=== PATIENT | male | born 1960 | race Caucasian/White ===

== ENCOUNTER 2016-03-24 07:53 | Inpatient (IN) | payer MEDICAID ==
[2016-03-24] VITALS (12 sets, daily range): BP systolic 103–197; BP diastolic 69–88; PULSE 97–109; RESP 19–20; TEMP 98.1–98.6; O2SAT 85–98
[~2016-03-24] VITALS: Ht 177.8 cm; Wt 97.2 kg
[~2016-03-24 07:53] MED LIST: ALBU8I INH; ASEN10TA SL; BACT800T5 PO; CEPH500C3 PO; CLOZ100 PO; PARO20TA PO; REQU3TAB PO
[2016-03-24] MEDS ORDERED: SODIUM CHLORIDE 0.9% FLUSH 5 ML FLUSH IVF PRN (08:15)
--- NOTE | 2016-03-24 08:19 | PD ---
HPI Chief Complaint: General Weakness Time Seen by Provider: 08:16 Travel History International Travel<30 days: No Contact w/Intl Traveler<30days: No Traveled to known affect area: No History of Present Illness HPI 55-year-old male with history of schizophrenia, hypertension, presents to the ER from his assisted care facility because of several days of generalized weakness, coughing, tremors, and disorientation according to long-term facility. Patient states that he has been having some chest discomfort as well. He denies any fevers, vomiting, or other symptoms. Modifying Factors: None Associated Signs & Symptoms: General weakness, disorientation, coughing, tremors , chest discomfort Risk Factors: None PFSH Past Medical History Anxiety: Yes Depression: Yes Cancer: No Cardiovascular Problems: No Endocrine: No GERD: Yes Genitourinary: No Hypertension: Yes Immune Disorder: No Medical other: Yes (HERNIA) Musculoskeletal: No Neurologic: No Psychiatric: Yes Reproductive: No Respiratory: No Schizophrenia: Yes Ulcer: Yes Past Surgical History Surgical History: Unable to Obtain Social History Alcohol Use: Yes Tobacco Use: Yes Substance Use: No Allergies-Medications (Allergen,Severity, Reaction): Coded Allergies: Haldol (Verified Allergy, Severe, Hives, 10/13/13) Reported Meds & Prescriptions Reported Meds & Active Scripts Active Keflex (Cephalexin Monohydrate) 500 Mg Cap 500 Mg PO Q8 10 Days Bactrim DS (Sulfamethoxazole-Trimethoprim DS) 1 Tab Tab 1 Tab PO BID 10 Days Reported Ventolin Hfa (Albuterol Sulfate) Unknown Strength Aero Unknown Dose INH Q6 * SHAKE WELL BEFORE USE * Saphris (Asenapine) 10 Mg Sub 10 Mg SL BID Paroxetine Hcl (Paroxetine HCl) 20 Mg Tab 20 Mg PO DAILY Requip (Ropinirole HCl) 3 Mg Tab 3 Mg PO HS Clozaril (Clozapine) 100 Mg Tab 4 Tab PO HS Review of Systems ROS Limitations: Poor Historian Except as stated in HPI: all other systems reviewed are Neg Physical Exam Narrative GENERAL: Well-nourished, well-developed middle age white male patient who appears lethargic, but awake and able to answer questions. SKIN: Warm and dry. HEAD: Normocephalic. EYES: No scleral icterus. No injection or drainage. NECK: Supple, trachea midline. CARDIOVASCULAR: Regular rate and rhythm without murmurs, gallops, or rubs. RESPIRATORY: Breath sounds equal with mild intermittent wheezing bilaterally. No accessory muscle use. GASTROINTESTINAL: Abdomen soft, non-tender, nondistended. MUSCULOSKELETAL: No cyanosis, or edema. BACK: Nontender without obvious deformity. No CVA tenderness. Data Data Last Documented VS Vital Signs Date Time Temp Pulse Resp B/P Pulse Ox O2 Delivery O2 Flow Rate FiO2 03/24/16 09:00 197/88 03/24/16 08:33 98 20 91 Nasal Cannula 4 03/24/16 08:05 98.5 Orders Electrocardiogram (03/24/16 08:09) Complete Blood Count With Diff (03/24/16 08:09) Comprehensive Metabolic Panel (03/24/16 08:09) Creatine Kinase (Cpk) (03/24/16 08:09) Prothrombin Time / Inr (Pt) (03/24/16 08:09) Act Partial Throm Time (Ptt) (03/24/16 08:09) Troponin I (03/24/16 08:09) Thyroid Stimulating Hormone (03/24/16 08:09) Lactic Acid Sepsis Protocol (03/24/16 08:09) Urinalysis - C+S If Indicated (03/24/16 08:09) Blood Culture (03/24/16 08:09) Chest, Single Ap (03/24/16 08:09) Ct Brain W/O Iv Contrast(Rout) (03/24/16 08:09) Blood Glucose (03/24/16 08:09) Ecg Monitoring (03/24/16 08:09) Iv Access Insert/Monitor (03/24/16 08:09) Cath For Specimen (03/24/16 08:09) Oximetry (03/24/16 08:09) Sodium Chloride 0.9% Flush (Ns Flush) (03/24/16 08:15) B-Type Natriuretic Peptide (03/24/16 08:09) Sodium Chlor 0.9% 1000 Ml Inj (Ns 1000 M (03/24/16 08:30) Urine Culture (03/24/16 08:50) Furosemide Inj (Lasix Inj) (03/24/16 10:00) Ceftriaxone Inj (Rocephin Inj) (03/24/16 09:46) Azithromycin Inj (Zithromax Inj) (03/24/16 09:46) Labs Laboratory Tests Test 03/24/16 03/24/16 08:20 08:50 White Blood Count 5.1 TH/MM3 Red Blood Count 5.17 MIL/MM3 Hemoglobin 15.6 GM/DL Hematocrit 47.0 % Mean Corpuscular Volume 90.8 FL Mean Corpuscular Hemoglobin 30.1 PG Mean Corpuscular Hemoglobin 33.1 % Concent Red Cell Distribution Width 14.4 % Platelet Count 108 TH/MM3 Mean Platelet Volume 8.9 FL Neutrophils (%) (Auto) 68.5 % Lymphocytes (%) (Auto) 17.1 % Monocytes (%) (Auto) 12.1 % Eosinophils (%) (Auto) 1.8 % Basophils (%) (Auto) 0.5 % Neutrophils # (Auto) 3.5 TH/MM3 Lymphocytes # (Auto) 0.9 TH/MM3 Monocytes # (Auto) 0.6 TH/MM3 Eosinophils # (Auto) 0.1 TH/MM3 Basophils # (Auto) 0.0 TH/MM3 CBC Comment DIFF FINAL Differential Comment Prothrombin Time 10.8 SEC Prothromb Time International 1.0 RATIO Ratio Activated Partial 29.8 SEC Thromboplast Time Sodium Level 138 MEQ/L Potassium Level 4.1 MEQ/L Chloride Level 95 MEQ/L Carbon Dioxide Level 38.0 MEQ/L Anion Gap 5 MEQ/L Blood Urea Nitrogen 15 MG/DL Creatinine 1.49 MG/DL Estimat Glomerular Filtration 49 ML/MIN Rate Random Glucose 101 MG/DL Lactic Acid Level 1.0 mmol/L Calcium Level 8.2 MG/DL Total Bilirubin 0.6 MG/DL Aspartate Amino Transf 14 U/L (AST/SGOT) Alanine Aminotransferase 17 U/L (ALT/SGPT) Alkaline Phosphatase 84 U/L Total Creatine Kinase 98 U/L Troponin I 0.10 NG/ML B-Type Natriuretic Peptide 344 PG/ML Total Protein 6.5 GM/DL Albumin 3.3 GM/DL Thyroid Stimulating Hormone 1.250 uIU/ML 3rd Gen Urine Color YELLOW Urine Turbidity CLEAR Urine pH 5.5 Urine Specific [place] 1.012 Urine Protein 30 mg/dL Urine Glucose (UA) NEG mg/dL Urine Ketones NEG mg/dL Urine Occult Blood NEG Urine Nitrite NEG Urine Bilirubin NEG Urine Urobilinogen 2.0 MG/DL Urine Leukocyte Esterase TRACE Urine RBC 1 /hpf Urine WBC 1 /hpf Urine Squamous Epithelial <1 /hpf Cells Urine Bacteria RARE /hpf Urine Hyaline Casts 16 /lpf Urine Mucus FEW /lpf Microscopic Urinalysis Comment CATH-CULTURE IND MDM Medical Decision Making Medical Screen Exam Complete: Yes Emergency Medical Condition: Yes Medical Record Reviewed: Yes Interpretation(s) EKG shows sinus tachycardia at a rate of 100 bpm with no signs of acute ST changes. Laboratory Tests Test 03/24/16 03/24/16 08:20 08:50 Platelet Count 108 TH/MM3 (150-450) Monocytes (%) (Auto) 12.1 % (0.0-8.0) Lymphocytes # (Auto) 0.9 TH/MM3 (1.0-4.8) Chloride Level 95 MEQ/L (98-107) Carbon Dioxide Level 38.0 MEQ/L (21.0-32.0) Creatinine 1.49 MG/DL (0.60-1.30) Estimat Glomerular Filtration 49 ML/MIN (>89) Rate Calcium Level 8.2 MG/DL (8.5-10.1) Aspartate Amino Transf 14 U/L (15-37) (AST/SGOT) Troponin I 0.10 NG/ML (0.02-0.05) B-Type Natriuretic Peptide 344 PG/ML (0-100) Albumin 3.3 GM/DL (3.4-5.0) Urine Protein 30 mg/dL (NEG-TRACE) Urine Leukocyte Esterase TRACE (NEG) Urine Bacteria RARE /hpf (NONE) Urine Mucus FEW /lpf (OCC) Last [address] 03/24/16 0809 Signed Impressions: Service Date/Time: Thursday, March 24, 2016 09:20 - CONCLUSION: Negative for acute process. Soft tissue nodule on the right as described above. Bladimir Fagan MD FACR Differential Diagnosis Altered mental status, general weakness, tremors, chest discomfortdysrhythmias versus dehydration versus metabolic issues versus rhabdomyolysis versus pneumonia versus sepsis Narrative Course EKG shows tachycardia. CT of the brain did not show any signs of acute intracranial processes. Lab work was otherwise unremarkable. His chest x-ray does show basilar infiltrates questionable for CHF versus underlying pneumonia. IV Lasix and antibiotics were initiated the ER. At this point, my plan would be to admit the patient for further evaluation and treatment. The case was discussed with Dr. Esquivel for admission. Diagnosis Primary Impression: Altered mental status, unspecified Additional Impression: PNEUMONIA, UNSPECIFIED ORGANISM Admitting Information Admitting Physician Requests: Admit Cesar Santoro MD Mar 24, 2016 08:19
[2016-03-24] MEDS ORDERED: SODIUM CHLOR 0.9% 1000 ML INJ 1,000 ML IV ONE (08:30)
[2016-03-24 08:43] LABS: AUTOMATED NEUTROPHIL # 3.5 TH/MM3 (1.8-7.7); BASOPHIL % 0.5 % (0.0-2.0); EOSINOPHIL # 0.1 TH/MM3 (0-0.4); EOSINOPHIL % 1.8 % (0.0-4.0); HEMO FLAGS DIFF FINAL; LYMPH % 17.1 % (9.0-44.0); LYMPHOCYTE # 0.9 TH/MM3 (1.0-4.8); MEAN CELL VOLUME 90.8 FL (80.0-100.0); MEAN CORPUSCULAR HEMOGLOBIN 30.1 PG (27.0-34.0); MEAN CORPUSCULAR HGB CONC 33.1 % (32.0-36.0); MONO % 12.1 % (0.0-8.0); NEUT % 68.5 % (16.0-70.0); PLATELET COUNT 108 TH/MM3 (150-450); RED BLOOD COUNT 5.17 MIL/MM3 (4.50-5.90); RED CELL DISTRIBUTION WIDTH 14.4 % (11.6-17.2); WHITE BLOOD COUNT 5.1 TH/MM3 (4.0-11.0)
[2016-03-24 08:53] LABS: APTT (PATIENT) 29.8 SEC (24.3-30.1); PROTHROMBIN TIME - PATIENT 10.8 SEC (9.8-11.6)
[2016-03-24 08:58] LABS: ANION GAP 5 MEQ/L (5-15); AST (GOT) 14 U/L (15-37); BLOOD UREA NITROGEN 15 MG/DL (7-18); CHLORIDE 95 MEQ/L (98-107); GLOMERULAR FILTRATION RATE 49 ML/MIN (>89); POTASSIUM 4.1 MEQ/L (3.5-5.1); SODIUM (NA) 138 MEQ/L (136-145)
[2016-03-24 09:09] LABS: ALKALINE PHOSPHATASE 84 U/L (45-117); ALT (GPT) 17 U/L (12-78); TOTAL BILIRUBIN ADULT 0.6 MG/DL (0.2-1.0)
[2016-03-24 09:16] LABS: BACTERIA, URINE RARE /hpf; BLOOD, URINE NEG (NEG); GLUCOSE,URINE NEG (NEG); HYALINE CAST, URINE 16 /lpf (RARE); KETONE, URINE NEG (NEG); MUCUS URINE FEW /lpf (OCC); NITRITE,URINE NEG (NEG); PH, URINE 5.5 (5.0-8.5); SQUAMOUS EPITHELIAL CELL URINE <1 /hpf (0-5); URINE COLOR YELLOW (YELLW/STRAW)
[2016-03-24 09:18] LABS: CREATINE KINASE 98 U/L (39-308)
[2016-03-24 09:22] LABS: COMMENT (UR) CATH-CULTURE IND; CULTURE IF INDICATED CATH CULTURE IND
--- NOTE | 2016-03-24 09:36 | RADRPT ---
EXAM DATE/TIME: 03/24/2016 08:23 [facility] COMPARISON: No previous studies available for comparison. INDICATIONS: Syncope with confusion and tremors. MEDICAL HISTORY: None. SURGICAL HISTORY: None. ENCOUNTER: Initial ACUITY: 1 day PAIN SCORE: 0/10 LOCATION: Bilateral chest FINDINGS: Bibasilar patchiness is noted consistent with atelectasis and/or infiltrates. Clinical correlation i s recommended. The heart and mediastinal structures are normal. The pulmonary vascularity pattern i s normal. CONCLUSION: 1. Bibasilar patchiness consistent with atelectasis and/or infiltrates. Clinical correlation is rec ommended. Alexander Willett MD on March 24, 2016 at 9:13 Board Certified Radiologist. This report was verified electronically.
--- NOTE | 2016-03-24 09:39 | RADRPT ---
EXAM DATE/TIME: 03/24/2016 09:20 [facility] COMPARISON: No previous studies available for comparison. INDICATIONS : Altered mental status, weakness and disorientation RADIATION DOSE: 38.36 CTDIvol (mGy) MEDICAL HISTORY : Hypertension. Gastroesophageal reflux disease. SURGICAL HISTORY : None. ENCOUNTER: Initial ACUITY: 1 day PAIN SCALE: 0/10 LOCATION: cranial TECHNIQUE: Multiple contiguous axial images were obtained of the head. Using automated exposure control and adjustment of the mA and/or kV according to patient size, radiation dose was kept as low as reasonably achievable to obtain optimal diagnostic quality images. FINDINGS: CEREBRUM: The ventricles are normal for age. No evidence of midline shift, mass lesion, hemorrha ge or acute infarction. No extra-axial fluid collections are seen. POSTERIOR FOSSA: The cerebellum and brainstem are intact. The 4th ventricle is midline. The cer ebellopontine angle is unremarkable. EXTRACRANIAL: The visualized portion of the orbits is intact. SKULL: The calvaria is intact. No evidence of skull fracture. A small subcutaneous nodule is se en sitting just behind the right ear CONCLUSION: Negative for acute process. Soft tissue nodule on the right as described above. Bladimir Fagan MD FACR on March 24, 2016 at 9:33 Board Certified Radiologist. This report was verified electronically.
[2016-03-24] MEDS ORDERED: AZITHROMYCIN INJ 500 MG in SODIUM CHLOR 0.9% 250 ML INJ 250 ML IV STA (09:46)
[2016-03-24] MEDS ORDERED: cefTRIAXone INJ 2,000 MG in SODIUM CHLORIDE 0.9% INJ 100 ML IV STA (09:46)
[2016-03-24] MEDS ORDERED: FUROSEMIDE 40 MG/4 ML VIAL IV PUSH ONE (10:00)
[2016-03-24] MEDS ORDERED: ONDANSETRON HCL 4 MG/2 ML VIAL IVP PRN (10:15)
[2016-03-24] MEDS ORDERED: ACETAMINOPHEN 325 MG TAB PO PRN (10:15)
[2016-03-24] MEDS ORDERED: NALOXONE HCL 0.4 MG/ML AMP IV PRN (10:15)
[2016-03-24] MEDS ORDERED: BISACODYL 10 MG SUPP PR PRN (10:15)
[2016-03-24] MEDS ORDERED: MAGNESIUM HYDROXIDE SUSP 30 ML CUP PO PRN (10:15)
[2016-03-24] MEDS ORDERED: SODIUM CHLORIDE 0.9% FLUSH 5 ML FLUSH FLUSH PRN (10:15)
[2016-03-24] MEDS ORDERED: SULF10SO3 EACH EYE (10:18)
[2016-03-24] MEDS ORDERED: TRIA37.5 PO (10:18)
[2016-03-24] MEDS ORDERED: ZYRT10TA PO (10:18)
[2016-03-24] MEDS ORDERED: MONT10TA2 PO (10:18)
[2016-03-24] MEDS ORDERED: FEXO180T PO (10:18)
[2016-03-24] MEDS ORDERED: ROPI3TAB PO (10:18)
[2016-03-24] MEDS ORDERED: ALBUAER3 INH (10:18)
[2016-03-24] MEDS ORDERED: OMEP20CA2 PO (10:18)
[2016-03-24] MEDS ORDERED: SAPH5SUB3 SL (10:18)
[2016-03-24] MEDS ORDERED: GABA600T PO (10:18)
[2016-03-24] MEDS ORDERED: SAPH10SU3 SL (10:18)
[2016-03-24] MEDS ORDERED: PAXI30TA7 PO (10:18)
[2016-03-24] MEDS ORDERED: FIBE625T4 PO (10:18)
[2016-03-24] MEDS ORDERED: NAPR500T PO (10:18)
[2016-03-24] MEDS: SODIUM CHLOR 0.9% 1000 ML INJ 1,000 ML IV SCH ×2 (10:30→20:06)
[2016-03-24] MEDS: HEPARIN SODIUM - SQ 10,000 UNITS/ML VIAL SQ SCH ×2 (10:31→20:27)
--- NOTE | 2016-03-24 11:03 | EKG ---
Date Performed: 03/24/2016 Time Performed: 08:30:30 PTAGE: 55 years EKG: SINUS TACHYCARDIA LOW QRS VOLTAGE IN EXTREMITY LEADS ABNORMAL ECG NO PREVIOUS TRACING DOCTOR: Moises Forman Interpretating Date/Time 03/24/2016 11:02:06
--- NOTE | 2016-03-24 11:26 | HHI.HP ---
[facility] Service [place] [facility] Primary Care Physician Saqib Fregoso MD Admission Diagnosis altered mental status/suspected pneumonia Diagnoses: Chief Complaint: General weakness, cough. Travel History International Travel<30 Days: No Contact w/Intl Traveler <30 Da: No Traveled to Known Affected Are: No Sepsis Criteria SIRS Criteria (2 or more): Heart rate over 90 History of Present Illness Patient does not talk much and hard to obtain history. Mr. Moore is a 55 year old male with a history of schizophrenia, hypertension who presents to the ED from his [facility] due to generalized weakness, cough, tremors, disorientation that started several days ago. He reports some chest discomfort as well. Patient reports some cough as well with greenish sputum production. Currently denies any chest pain, shortness of breath, fever or chills. Denies any changes in bowel or bladder habits. Review of Systems ROS Limitations: Other (Negative except as noted in HPI. ) Past Family Social History Past Medical History Anxiety/Depression Hyerptension Schizophrenia Past Surgical History No significant surgical history Reported Medications Keflex (Cephalexin Monohydrate) 500 Mg Cap 500 Mg PO Q8 10 Days Bactrim DS (Sulfamethoxazole-Trimethoprim DS) 1 Tab Tab 1 Tab PO BID 10 Days Ventolin Hfa (Albuterol Sulfate) Unknown Strength Aero Unknown Dose INH Q6 * SHAKE WELL BEFORE USE * Saphris (Asenapine) 10 Mg Sub 10 Mg SL BID Paroxetine Hcl (Paroxetine HCl) 20 Mg Tab 20 Mg PO DAILY Requip (Ropinirole HCl) 3 Mg Tab 3 Mg PO HS Clozaril (Clozapine) 100 Mg Tab 4 Tab PO HS Allergies: Coded Allergies: Haldol (Verified Allergy, Severe, Hives, 10/13/13) Family History No significant family history of heart disease, cancer, Alzheimer's or Parkinson 's. Social History Smokes cigg and drinks alcohol. Physical Exam Vital Signs Vital Signs Date Time Temp Pulse Resp B/P Pulse Ox O2 Delivery O2 Flow Rate FiO2 03/24/16 10:19 93 Nasal Cannula 4.00 03/24/16 10:15 98 20 151/80 92 Nasal Cannula 4 03/24/16 09:00 197/88 03/24/16 08:33 98 20 137/79 91 Nasal Cannula 4 03/24/16 08:16 85 Nasal Cannula 2 03/24/16 08:06 20 87 Room Air 03/24/16 08:05 98.5 101 20 128/85 87 Room Air 03/24/16 08:02 98.5 101 20 128/85 87 Physical Exam GENERAL: This is a well-nourished, well-developed patient, in no apparent distress. SKIN: No rashes, ecchymoses or lesions. Warm and dry. HEAD: Atraumatic. Normocephalic. No temporal or scalp tenderness. EYES: Pupils equal round and reactive. No injection or drainage. ENT: Nose without bleeding, purulent drainage or septal hematoma. Airway patent. NECK: Trachea midline. No lymphadenopathy. Supple, nontender, no meningeal signs. CARDIOVASCULAR: Regular rate and rhythm without murmurs, gallops, or rubs. No JVD. RESPIRATORY: Clear to auscultation. Breath sounds equal bilaterally. No wheezes , rales, or rhonchi. GASTROINTESTINAL: Abdomen soft, non-tender, nondistended. No guarding. MUSCULOSKELETAL: Extremities without clubbing, cyanosis, or edema. NEUROLOGICAL: Awake and alert. Cranial nerves II through XII intact. No focal neurological deficits. Does not talk much but speech appears normal. Laboratory Laboratory Tests Test 03/24/16 03/24/16 08:20 08:50 White Blood Count 5.1 Red Blood Count 5.17 Hemoglobin 15.6 Hematocrit 47.0 Mean Corpuscular Volume 90.8 Mean Corpuscular Hemoglobin 30.1 Mean Corpuscular Hemoglobin 33.1 Concent Red Cell Distribution Width 14.4 Platelet Count 108 Mean Platelet Volume 8.9 Neutrophils (%) (Auto) 68.5 Lymphocytes (%) (Auto) 17.1 Monocytes (%) (Auto) 12.1 Eosinophils (%) (Auto) 1.8 Basophils (%) (Auto) 0.5 Neutrophils # (Auto) 3.5 Lymphocytes # (Auto) 0.9 Monocytes # (Auto) 0.6 Eosinophils # (Auto) 0.1 Basophils # (Auto) 0.0 CBC Comment DIFF FINAL Differential Comment Prothrombin Time 10.8 Prothromb Time International 1.0 Ratio Activated Partial 29.8 Thromboplast Time Sodium Level 138 Potassium Level 4.1 Chloride Level 95 Carbon Dioxide Level 38.0 Anion Gap 5 Blood Urea Nitrogen 15 Creatinine 1.49 Estimat Glomerular Filtration 49 Rate Random Glucose 101 Lactic Acid Level 1.0 Calcium Level 8.2 Total Bilirubin 0.6 Aspartate Amino Transf 14 (AST/SGOT) Alanine Aminotransferase 17 (ALT/SGPT) Alkaline Phosphatase 84 Total Creatine Kinase 98 Troponin I 0.10 B-Type Natriuretic Peptide 344 Total Protein 6.5 Albumin 3.3 Thyroid Stimulating Hormone 1.250 3rd Gen Urine Color YELLOW Urine Turbidity CLEAR Urine pH 5.5 Urine Specific [place] 1.012 Urine Protein 30 Urine Glucose (UA) NEG Urine Ketones NEG Urine Occult Blood NEG Urine Nitrite NEG Urine Bilirubin NEG Urine Urobilinogen 2.0 Urine Leukocyte Esterase TRACE Urine RBC 1 Urine WBC 1 Urine Squamous Epithelial <1 Cells Urine Bacteria RARE Urine Hyaline Casts 16 Urine Mucus FEW Microscopic Urinalysis Comment CATH-CULTURE IND Date/Time Procedure Status Source Growth 03/24/16 08:50 Urine Culture Received Urine Catheterized Urine Pending 03/24/16 08:29 Aerobic Blood Culture Received Blood Peripheral Pending 03/24/16 08:29 Anaerobic Blood Culture Received Blood Peripheral Pending Result Diagram: 03/24/16 0820 03/24/16 0820 Imaging Last Impressions Head CT 03/24/16 0809 Signed Impressions: Service Date/Time: Thursday, March 24, 2016 09:20 - CONCLUSION: Negative for acute process. Soft tissue nodule on the right as described above. Bladimir Fagan MD FACR Chest X-Ray 03/24/16 08 Signed Impressions: Service Date/Time: Thursday, March 24, 2016 08:23 - CONCLUSION: 1. Bibasilar patchiness consistent with atelectasis and/or infiltrates. Clinical correlation is recommended. Alexander Willett MD Assessment and Plan Problem List: (1) Pneumonia ICD Code: J18.9 Status: Acute (2) Delirium ICD Code: R41.0 Status: Acute (3) Hypertension ICD Code: I10 Status: Acute (4) Anxiety and depression ICD Code: F41.9 Status: Acute (5) GERD (gastroesophageal reflux disease) ICD Code: K21.9 Status: Acute Assessment and Plan Mr. Moore is a 55-year-old male with a history of anxiety, depression , hypertension who presents to the emergency department from his assisted living facility due to delirium, cough that started several days ago. Chest x- ray shows bilateral infiltrates and atelectasis. - Probable pneumonia - Delirium - Patient appears to be alert, oriented times person, place, time. - Received ceftriaxone and azithromycin in the emergency department. We'll continue ceftriaxone and azithromycin. - Blood cultures, Urine cx pending. - Continue DuoNeb and supplemental O2 to keep O2 sat > 90%. - Hypertension - Continue home medication triamterene/hydrochlorothiazide. - Anxiety and depression - History of schizophrenia - continue Paxil 30 mg by mouth daily. - Continue Asenapine 5mg SL Qday and 10mg SL QHS. - GERD - continue PPI. Full code. Heparin SQ. Physician Certification 2 Midnight Certification Type: Admission for Inpatient Services Order for Inpatient Services The services are ordered in accordance with Medicare regulations or non- Medicare payer requirements, as applicable. In the case of services not specified as inpatient-only, they are appropriately provided as inpatient services in accordance with the 2-midnight benchmark. Estimated LOS (days): 2 days is the estimated time the patient will need to remain in the hospital, assuming treatment plan goals are met and no additional complications. Post-Hospital Plan: [facility] Margaret Esquivel DO Mar 24, 2016 11:26
[2016-03-24] MEDS ORDERED: NON-FORMULARY DRUG (Fexofenadine 180 MG) PO PRN (11:45)
[2016-03-24] MEDS ORDERED: ALBUTEROL SULFATE 90 MCG/ACT HFA 8 GM INHALER INH PRN (11:45)
[2016-03-24] MEDS ORDERED: CALCIUM POLYCARBOPHIL 625 MG TAB PO PRN (11:45)
[2016-03-24] MEDS ORDERED: PILL SPLITTER OTHER PRN (12:15)
[2016-03-24] MEDS: SULFACETAMIDE SODIUM 10% OPTH SOLN 15 ML BTL EACH EYE SCH ×2 (18:00→20:41)
[2016-03-24] MEDS: MONTELUKAST SODIUM 10 MG TAB PO SCH (20:27)
[2016-03-24] MEDS: GABAPENTIN 300 MG CAP PO SCH (20:27)
[2016-03-24] MEDS: SODIUM CHLORIDE 0.9% FLUSH 5 ML FLUSH FLUSH SCH (20:28)
[2016-03-24] MEDS ORDERED: ASENAPINE SL SCH (21:00)
[2016-03-25] VITALS (12 sets, daily range): BP systolic 112–154; BP diastolic 63–89; PULSE 90–101; RESP 17–20; TEMP 98–98.5; O2SAT 90–96
[2016-03-25] MEDS ORDERED: ACETAMINOPHEN 325 MG TAB PO PRN (05:45)
[2016-03-25] MEDS: SULFACETAMIDE SODIUM 10% OPTH SOLN 15 ML BTL EACH EYE SCH ×4 (06:00→16:05)
[2016-03-25] MEDS: SODIUM CHLOR 0.9% 1000 ML INJ 1,000 ML IV SCH ×2 (06:06→16:06)
[2016-03-25 07:45] LABS: AUTOMATED NEUTROPHIL # 3.1 TH/MM3 (1.8-7.7); BASOPHIL % 0.9 % (0.0-2.0); EOSINOPHIL # 0.3 TH/MM3 (0-0.4); EOSINOPHIL % 5.8 % (0.0-4.0); HEMATOCRIT 46.3 % (39.0-51.0); HEMO FLAGS DIFF FINAL; LYMPHOCYTE # 0.8 TH/MM3 (1.0-4.8); MEAN CELL VOLUME 90.2 FL (80.0-100.0); MEAN CORPUSCULAR HEMOGLOBIN 29.6 PG (27.0-34.0); MEAN CORPUSCULAR HGB CONC 32.8 % (32.0-36.0); MONO % 11.2 % (0.0-8.0); NEUT % 65.1 % (16.0-70.0); PLATELET COUNT 109 TH/MM3 (150-450); RED BLOOD COUNT 5.14 MIL/MM3 (4.50-5.90); RED CELL DISTRIBUTION WIDTH 14.6 % (11.6-17.2); WHITE BLOOD COUNT 4.8 TH/MM3 (4.0-11.0)
[2016-03-25 08:20] LABS: BICARBONATE 38.3 MEQ/L (21.0-32.0); POTASSIUM 3.4 MEQ/L (3.5-5.1)
[2016-03-25] MEDS ORDERED: SAPHRIS 5 MG SL SCH (09:00)
[2016-03-25] MEDS ORDERED: [UNRECOGNIZED DRUG - OTHER] SL SCH (09:00)
[2016-03-25] MEDS: PARoxetine HCL 20 MG TAB PO SCH (09:31)
[2016-03-25] MEDS: TRIAMTERENE/HCTZ 37.5 MG/25 MG TAB PO SCH (09:31)
[2016-03-25] MEDS: PANTOPRAZOLE SOD 20 MG DELAYED RELEASE TAB PO SCH (09:31)
[2016-03-25] MEDS: CETIRIZINE HCL 10 MG TAB PO SCH (09:31)
[2016-03-25] MEDS: HEPARIN SODIUM - SQ 10,000 UNITS/ML VIAL SQ SCH ×2 (09:31→20:49)
[2016-03-25] MEDS: SODIUM CHLORIDE 0.9% FLUSH 5 ML FLUSH FLUSH SCH ×2 (09:32→20:49)
--- NOTE | 2016-03-25 13:56 | HHI.PR ---
Subjective Remarks Follow up for delirium, probable pneumonia. Mr. Moore is doing well. He is requiring vest restraints but improving. He is alert, oriented x 3. Requests coffee. Denies any fever, chills, CP, SOB. Objective Vitals Vital Signs Date Time Temp Pulse Resp B/P Pulse Ox O2 Delivery O2 Flow Rate FiO2 03/25/16 12:00 98.0 96 18 132/89 91 03/25/16 09:46 91 03/25/16 08:10 92 Nasal Cannula 3.00 03/25/16 08:00 98.0 90 18 132/71 91 03/25/16 05:50 98.0 92 18 136/75 93 03/25/16 04:42 98.1 101 18 142/74 96 03/25/16 04:00 98.1 98 18 142/74 96 03/25/16 04:00 98.2 98 20 115/64 94 03/25/16 00:00 98.0 95 18 112/63 94 03/24/16 21:52 Nasal Cannula 3.00 03/24/16 20:00 98.1 97 20 121/69 98 03/24/16 19:56 104 03/24/16 16:24 98.6 97 19 103/69 91 03/24/16 15:24 101 20 131/78 92 Room Air I/O 03/24/16 03/24/16 03/24/16 03/25/16 03/25/16 03/25/16 07:00 15:00 23:00 07:00 15:00 23:00 Intake Total 741 ml 1105 ml 420 ml Output Total 400 ml 600 ml 350 ml Balance 341 ml 505 ml 70 ml Intake Oral 240 ml 420 ml 420 ml IV Total 501 ml 685 ml Output Urine Total 400 ml 600 ml 350 ml # Voids 1 1 2 # Bowel Movements 0 0 0 Result Diagram: 03/25/1662603/25/16626 Imaging Last Impressions Head CT 03/24/16808 Signed Impressions: Service Date/Time: Thursday, March 24, 2016 09:20 - CONCLUSION: Negative for acute process. Soft tissue nodule on the right as described above. Bladimir Fagan MD FACR Chest X-Ray 03/24/16808 Signed Impressions: Service Date/Time: Thursday, March 24, 2016 08:23 - CONCLUSION: 1. Bibasilar patchiness consistent with atelectasis and/or infiltrates. Clinical correlation is recommended. Alexander Willett MD Objective Remarks GENERAL: AOx3, NAD. SKIN: Warm and dry. HEAD: Normocephalic. EYES: No scleral icterus. No injection or drainage. NECK: Supple, trachea midline. No JVD or lymphadenopathy. CARDIOVASCULAR: Regular rate and rhythm without murmurs, gallops, or rubs. RESPIRATORY: Breath sounds equal bilaterally. No accessory muscle use. GASTROINTESTINAL: Abdomen soft, non-tender, nondistended. MUSCULOSKELETAL: No cyanosis, or edema. BACK: Nontender without obvious deformity. No CVA tenderness. Procedures None. A/P Problem List: (1) Pneumonia ICD Code: J18.9 Status: Acute (2) Delirium ICD Code: R41.0 Status: Acute (3) Hypertension ICD Code: I10 Status: Acute (4) Anxiety and depression ICD Code: F41.9 Status: Acute (5) GERD (gastroesophageal reflux disease) ICD Code: K21.9 Status: Acute Assessment and Plan Mr. Moore is a 55-year-old male with a history of anxiety, depression , hypertension who presents to the emergency department from his assisted living facility due to delirium, cough that started several days ago. Chest x- ray shows bilateral infiltrates and atelectasis. - Probable pneumonia - Delirium - Patient appears to be alert, oriented times person, place, time. - continue ceftriaxone and azithromycin. - Blood cultures, Urine cx negative so far. - Continue DuoNeb and supplemental O2 to keep O2 sat > 90%. - Discussed with RN regarding loosening in his vest restraints and if possible discontinue it. - Hypertension - Continue home medication triamterene/hydrochlorothiazide. - Anxiety and depression - History of schizophrenia - continue Paxil 30 mg by mouth daily. - Patient takes Asenapine 5mg SL Qday and 10mg SL QHS - these are on hold. - GERD - continue PPI. Full code. Heparin SQ. Margaret Esquivel DO Mar 25, 2016 13:56
[2016-03-25] MEDS: MONTELUKAST SODIUM 10 MG TAB PO SCH (20:49)
[2016-03-25] MEDS: GABAPENTIN 300 MG CAP PO SCH (20:49)
[2016-03-25] MEDS: RESP: ALBUTEROL 2.5 MG/IPRATROPIUM 0.5 MG NEB (PRN) NEB (23:49)
[2016-03-26] VITALS (7 sets, daily range): BP systolic 99–144; BP diastolic 72–89; PULSE 83–94; RESP 16–20; TEMP 94.3–98.8; O2SAT 84–97
[2016-03-26] MEDS ORDERED: LEVOFLOXACIN 750 MG PREMIX INJ 150 ML IV SCH (00:30)
--- NOTE | 2016-03-26 00:54 | RADRPT ---
EXAM DATE/TIME: 03/26/2016 00:37 [facility] COMPARISON: CHEST SINGLE AP, March 24, 2016, 8:23. INDICATIONS : Shortness of breath. MEDICAL HISTORY : None. SURGICAL HISTORY : None. ENCOUNTER: Subsequent ACUITY: 2 days PAIN SCORE: Non-responsive. LOCATION: Bilateral chest FINDINGS: A single view of the chest demonstrates the lungs to be symmetrically aerated without evidence of mas s, infiltrate or effusion. The cardiomediastinal contours are unremarkable. Osseous structures are intact. CONCLUSION: No acute disease. Aris Zayas MD on March 26, 2016 at 0:53 Board Certified Radiologist. This report was verified electronically.
[2016-03-26 01:03] LABS: AUTOMATED NEUTROPHIL # 3.5 TH/MM3 (1.8-7.7); BASOPHIL % 0.8 % (0.0-2.0); EOSINOPHIL # 0.4 TH/MM3 (0-0.4); EOSINOPHIL % 6.3 % (0.0-4.0); HEMATOCRIT 45.4 % (39.0-51.0); HEMO FLAGS DIFF FINAL; LYMPH % 20.7 % (9.0-44.0); LYMPHOCYTE # 1.2 TH/MM3 (1.0-4.8); MEAN CELL VOLUME 90.5 FL (80.0-100.0); MEAN CORPUSCULAR HEMOGLOBIN 29.7 PG (27.0-34.0); MEAN CORPUSCULAR HGB CONC 32.8 % (32.0-36.0); MONO % 11.2 % (0.0-8.0); PLATELET COUNT 113 TH/MM3 (150-450); RED BLOOD COUNT 5.02 MIL/MM3 (4.50-5.90); RED CELL DISTRIBUTION WIDTH 14.6 % (11.6-17.2); WHITE BLOOD COUNT 5.8 TH/MM3 (4.0-11.0)
[2016-03-26] MEDS: SULFACETAMIDE SODIUM 10% OPTH SOLN 15 ML BTL EACH EYE SCH ×5 (01:30→22:27)
[2016-03-26 01:36] LABS: ALT (GPT) 17 U/L (12-78); ANION GAP 1 MEQ/L (5-15); AST (GOT) 16 U/L (15-37); BICARBONATE 40.3 MEQ/L (21.0-32.0); BLOOD UREA NITROGEN 14 MG/DL (7-18); CHLORIDE 104 MEQ/L (98-107); GLOMERULAR FILTRATION RATE 79 ML/MIN (>89); POTASSIUM 3.6 MEQ/L (3.5-5.1); SODIUM (NA) 145 MEQ/L (136-145)
[2016-03-26 01:38] LABS: ALKALINE PHOSPHATASE 66 U/L (45-117); TOTAL BILIRUBIN ADULT 0.5 MG/DL (0.2-1.0)
[2016-03-26 02:12] LABS: BLOOD GAS BASE EXCESS 9.7 mmol/L (-2-2); BLOOD GAS CARBOXYHEMOGLOBIN 3.1 % (0-4); BLOOD GAS HCO3 35 mmol/L (22-26); BLOOD GAS METHEMOGLOBIN 0.9 % (0-2); BLOOD GAS O2 HGB SATURATION 82 % (90-100); BLOOD GAS OXYGEN CONTENT 18.2 Vol % (12.0-20.0); BLOOD GAS PCO2 65 mmHg (38-42); BLOOD GAS PO2 55 mmHg (61-120); BLOOD GAS TOTAL HGB 15.7 G/DL (12.0-16.0); TEMP CORR TO 98.6
[2016-03-26 02:13] LABS: CRITICAL VALUE YES
[2016-03-26 02:14] LABS: DRAW SITE RT RADIAL; LITER FLOW 2.5 L/M; NUMBER OF ARTERIAL PUNCTURES 3; OXYGEN DEVICE NASAL CANNULA; STAT YES; ULNAR PULSE Y
[2016-03-26] MEDS: PANTOPRAZOLE SOD 20 MG DELAYED RELEASE TAB PO SCH (08:24)
[2016-03-26] MEDS: PARoxetine HCL 20 MG TAB PO SCH (08:24)
[2016-03-26] MEDS: CETIRIZINE HCL 10 MG TAB PO SCH (08:24)
[2016-03-26] MEDS: SODIUM CHLORIDE 0.9% FLUSH 5 ML FLUSH FLUSH SCH ×2 (08:25→22:26)
[2016-03-26] MEDS: HEPARIN SODIUM - SQ 10,000 UNITS/ML VIAL SQ SCH ×2 (08:25→22:26)
[2016-03-26] MEDS: TRIAMTERENE/HCTZ 37.5 MG/25 MG TAB PO SCH (08:25)
--- NOTE | 2016-03-26 09:09 | HHI.PR ---
Subjective Remarks Follow up for delirium, probable pneumonia. Patient is doing well. He is alert, oriented x 3, denies any CP, SOB, fever, chills. Wants to drink coffee. Objective Vitals Vital Signs Date Time Temp Pulse Resp B/P Pulse Ox O2 Delivery O2 Flow Rate FiO2 03/26/16 04:00 98.3 91 18 144/89 94 03/26/16 00:00 98.8 94 18 113/76 84 03/25/16 23:51 90 4.00 03/25/16 20:00 98.5 92 17 154/80 91 03/25/16 20:00 95 03/25/16 18:09 91 21 03/25/16 16:00 98.1 100 18 137/78 91 03/25/16 12:00 98.0 96 18 132/89 91 03/25/16 09:46 91 I/O 03/25/16 03/25/16 03/25/16 03/26/16 03/26/16 03/26/16 07:00 15:00 23:00 07:00 15:00 23:00 Intake Total 1105 ml 1620 ml 1749 ml 240 ml Output Total 600 ml 1850 ml 1100 ml 400 ml Balance 505 ml -230 ml 649 ml -160 ml Intake Oral 420 ml 1620 ml 240 ml 240 ml IV Total 685 ml 1509 ml Output Urine Total 600 ml 1850 ml 1100 ml 400 ml # Voids 1 4 2 # Bowel Movements 0 2 0 0 Result Diagram: 03/26/16 0045 03/26/16 0045 Imaging Last Impressions Chest X-Ray 03/26/16 0000 Signed Impressions: Service Date/Time: Saturday, March 26, 2016 00:37 - CONCLUSION: No acute disease. Aris Zayas MD Ankle X-Ray 03/26/16 0000 Signed Impressions: Service Date/Time: Saturday, March 26, 2016 13:36 - CONCLUSION: No evidence of acute injury.. Celia Gandara MD Head CT 03/24/16 0809 Signed Impressions: Service Date/Time: Thursday, March 24, 2016 09:20 - CONCLUSION: Negative for acute process. Soft tissue nodule on the right as described above. Bladimir Fagan MD FACR Objective Remarks GENERAL: AOx3, NAD. SKIN: Warm and dry. HEAD: Normocephalic. EYES: No scleral icterus. No injection or drainage. NECK: Supple, trachea midline. No JVD or lymphadenopathy. CARDIOVASCULAR: Regular rate and rhythm without murmurs, gallops, or rubs. RESPIRATORY: Breath sounds equal bilaterally. No accessory muscle use. GASTROINTESTINAL: Abdomen soft, non-tender, nondistended. MUSCULOSKELETAL: No cyanosis, or edema. BACK: Nontender without obvious deformity. No CVA tenderness. Procedures None. A/P Problem List: (1) Pneumonia ICD Code: J18.9 Status: Acute (2) Delirium ICD Code: R41.0 Status: Acute (3) Hypertension ICD Code: I10 Status: Acute (4) Anxiety and depression ICD Code: F41.9 Status: Acute (5) GERD (gastroesophageal reflux disease) ICD Code: K21.9 Status: Acute Assessment and Plan Mr. Moore is a 55-year-old male with a history of anxiety, depression , hypertension who presents to the emergency department from his assisted living facility due to delirium, cough that started several days ago. Chest x- ray shows bilateral infiltrates and atelectasis. - Probable pneumonia - Delirium - Patient appears to be alert, oriented times person, place, time. - Switch to Levaquin PO. D/C fluid. - Blood cultures, Urine cx negative so far. - Continue DuoNeb and supplemental O2 to keep O2 sat > 90%. - Discussed with RN regarding loosening in his vest restraints and if possible discontinue it. - okay if we don't have an IV access. - Hypertension - Continue home medication triamterene/hydrochlorothiazide. - Anxiety and depression - History of schizophrenia - continue Paxil 30 mg by mouth daily. - Patient takes Asenapine 5mg SL Qday and 10mg SL QHS - these are on hold. - GERD - continue PPI. Full code. Heparin SQ. Margaret Esquivel DO Mar 26, 2016 09:09
[2016-03-26] MEDS ORDERED: ONDANSETRON ODT 4 MG TAB PO PRN (09:15)
[2016-03-26] MEDS: NICOTINE 14 MG/24 HR PATCH TD SCH (09:48)
--- NOTE | 2016-03-26 14:14 | RADRPT ---
EXAM DATE/TIME: 03/26/2016 13:36 [place] COMPARISON: None INDICATIONS : Right ankle pain & swelling post fall. MEDICAL HISTORY : Hypertension. Gastroesophageal reflux disease. SURGICAL HISTORY : None. ENCOUNTER: Subsequent ACUITY: 3 days PAIN SCORE: 4/10 LOCATION: Right ankle FINDINGS: Three view exam was performed of the right ankle. The bony structures are in normal alignment. No e vidence of acute fracture, dislocation, or soft tissue swelling. There is well-corticated ossificati on identified along the medial malleolus consistent with old injury. The ankle mortise is intact. No radiopaque foreign bodies are seen. Bony mineralization is normal. CONCLUSION: No evidence of acute injury.. Celia Gandara MD on March 26, 2016 at 14:12 Board Certified Radiologist. This report was verified electronically.
[2016-03-26] MEDS: MONTELUKAST SODIUM 10 MG TAB PO SCH (22:25)
[2016-03-26] MEDS: GABAPENTIN 300 MG CAP PO SCH (22:25)
[2016-03-27] VITALS: BP 114/60; PULSE 88; RESP 16; TEMP 97.9; O2SAT 92
[2016-03-27 04:00] VITALS: BP 116/61; PULSE 98; RESP 16; TEMP 97.8; O2SAT 93
[2016-03-27] MEDS: SULFACETAMIDE SODIUM 10% OPTH SOLN 15 ML BTL EACH EYE SCH ×4 (04:47→22:30)
[2016-03-27 08:00] VITALS: BP 119/70; PULSE 77; PULSE 85; RESP 20; TEMP 97.7; O2SAT 92
[2016-03-27] MEDS: NICOTINE 14 MG/24 HR PATCH TD SCH (08:41)
[2016-03-27] MEDS: CETIRIZINE HCL 10 MG TAB PO SCH (08:42)
[2016-03-27] MEDS: PANTOPRAZOLE SOD 20 MG DELAYED RELEASE TAB PO SCH (08:42)
[2016-03-27] MEDS: LEVOFLOXACIN 750 MG TAB PO SCH (08:42)
[2016-03-27] MEDS: HEPARIN SODIUM - SQ 10,000 UNITS/ML VIAL SQ SCH ×2 (08:42→21:44)
[2016-03-27] MEDS: PARoxetine HCL 20 MG TAB PO SCH (08:42)
[2016-03-27] MEDS: TRIAMTERENE/HCTZ 37.5 MG/25 MG TAB PO SCH (08:43)
[2016-03-27] MEDS: SODIUM CHLORIDE 0.9% FLUSH 5 ML FLUSH FLUSH SCH ×2 (08:43→21:43)
[2016-03-27] MEDS: REMOVE OLD NICODERM (NICOTINE) PATCH TD SCH (09:00)
[2016-03-27 12:00] VITALS: BP 126/67; PULSE 81; RESP 18; TEMP 97.4; O2SAT 95
--- NOTE | 2016-03-27 15:14 | HHI.PR ---
Subjective Remarks I'll up visit delirium, possible pneumonia. Patient seen today lying in bed. Awake, alert, responsive to questions and commands. As per RN, patient has been behaving okay, no restlessness since this a.m. Patient denies pain or discomfort, chest pain, SOB, dyspnea, fevers, chills. Objective Vitals Vital Signs Date Time Temp Pulse Resp B/P Pulse Ox O2 Delivery O2 Flow Rate FiO2 03/27/16 12:00 97.4 81 18 126/67 95 03/27/16 08:00 97.7 77 20 119/70 92 03/27/16 08:00 85 03/27/16 04:00 97.8 98 16 116/61 93 03/27/16 00:00 97.9 88 16 114/60 92 03/26/16 21:44 Nasal Cannula 3.00 03/26/16 20:00 94 03/26/16 20:00 97.7 85 16 99/72 94 03/26/16 16:00 97.8 83 20 137/84 91 I/O 03/26/16 03/26/16 03/26/16 03/27/16 03/27/16 03/27/16 07:00 15:00 23:00 07:00 15:00 23:00 Intake Total 240 ml 480 ml 240 ml 100 ml Output Total 400 ml 620 ml 600 ml 450 ml Balance -160 ml -140 ml -360 ml -350 ml Intake Oral 240 ml 480 ml 240 ml 100 ml Output Urine Total 400 ml 620 ml 600 ml 450 ml # Voids 2 1 2 # Bowel Movements 0 4 0 1 Result Diagram: 03/26/16 0045 03/26/16 0045 Imaging Last Impressions Chest X-Ray 03/26/16 0000 Signed Impressions: Service Date/Time: Saturday, March 26, 2016 00:37 - CONCLUSION: No acute disease. Aris Zayas MD Ankle X-Ray 03/26/16 0000 Signed Impressions: Service Date/Time: Saturday, March 26, 2016 13:36 - CONCLUSION: No evidence of acute injury.. Celia Gandara MD Head CT 03/24/16 0809 Signed Impressions: Service Date/Time: Thursday, March 24, 2016 09:20 - CONCLUSION: Negative for acute process. Soft tissue nodule on the right as described above. Bladimir Fagan MD FACR Objective Remarks GENERAL: AOx3, NAD. SKIN: Warm and dry. HEAD: Normocephalic. EYES: No scleral icterus. No injection or drainage. NECK: Supple, trachea midline. No JVD or lymphadenopathy. CARDIOVASCULAR: Regular rate and rhythm without murmurs, gallops, or rubs. RESPIRATORY: Breath sounds equal bilaterally. No accessory muscle use. GASTROINTESTINAL: Abdomen soft, non-tender, nondistended. MUSCULOSKELETAL: No cyanosis, or edema. BACK: Nontender without obvious deformity. No CVA tenderness. Procedures None. A/P Problem List: (1) Pneumonia ICD Code: J18.9 Status: Acute (2) Delirium ICD Code: R41.0 Status: Acute (3) Hypertension ICD Code: I10 Status: Acute (4) Anxiety and depression ICD Code: F41.9 Status: Acute (5) GERD (gastroesophageal reflux disease) ICD Code: K21.9 Status: Acute Assessment and Plan Mr. Moore is a 55-year-old male with a history of anxiety, depression , hypertension who presents to the emergency department from his assisted living facility due to delirium, cough that started several days ago. Chest x- ray shows bilateral infiltrates and atelectasis. - Probable pneumonia - Delirium - Patient appears to be alert, oriented times person, place, time. - Continue Levaquin PO. - Blood cultures, Urine cx negative so far. - Continue DuoNeb and supplemental O2 to keep O2 sat > 90%. - Discussed with RN regarding discontinue vest restraints. Monitor patient behavior. - Restart Clozaril 25 mg by mouth daily. - Walk test in a.m. - Hypertension - Continue home medication triamterene/hydrochlorothiazide. - Anxiety and depression - History of schizophrenia - continue Paxil 30 mg by mouth daily. - Patient takes Asenapine 5mg SL Qday and 10mg SL QHS - these are on hold. - Will restart Clozaril 25 mg by mouth daily. - GERD - continue PPI. Full code. Heparin SQ. Written by Antony Kelsey, acting as scribe for Dr. Esquivel on 03/27/16 at 14:48. The documentation accurately reflects the work performed [id number] by me on at 14:48. Discharge Planning Plan to DC back to [facility]/ SNF if patient is off 24 hours with restraints. Antony Hylton Mar 27, 2016 15:14 Margaret Esquivel DO Mar 27, 2016 21:54
[2016-03-27 16:00] VITALS: BP 125/74; PULSE 81; RESP 18; TEMP 97; O2SAT 97
[2016-03-27] MEDS: cloZAPine 25 MG TAB PO SCH (16:27)
[2016-03-27 20:00] VITALS: BP 106/55; PULSE 85; RESP 18; TEMP 97.8; O2SAT 93
[2016-03-27] MEDS: GABAPENTIN 300 MG CAP PO SCH (21:43)
[2016-03-27] MEDS: MONTELUKAST SODIUM 10 MG TAB PO SCH (21:44)
[2016-03-28] VITALS (8 sets, daily range): BP systolic 111–144; BP diastolic 56–79; PULSE 69–83; RESP 18–20; TEMP 97.8–98.4; O2SAT 89–94
[2016-03-28] MEDS: RESP: ALBUTEROL 2.5 MG/IPRATROPIUM 0.5 MG NEB (PRN) NEB (00:47)
[2016-03-28] MEDS: SULFACETAMIDE SODIUM 10% OPTH SOLN 15 ML BTL EACH EYE SCH ×3 (05:08→17:43)
[2016-03-28] MEDS: PARoxetine HCL 20 MG TAB PO SCH (07:37)
[2016-03-28] MEDS: SODIUM CHLORIDE 0.9% FLUSH 5 ML FLUSH FLUSH SCH ×2 (07:37→20:10)
[2016-03-28] MEDS: CETIRIZINE HCL 10 MG TAB PO SCH (07:37)
[2016-03-28] MEDS: NICOTINE 14 MG/24 HR PATCH TD SCH (07:37)
[2016-03-28] MEDS: HEPARIN SODIUM - SQ 10,000 UNITS/ML VIAL SQ SCH ×2 (07:37→20:11)
[2016-03-28] MEDS: PANTOPRAZOLE SOD 20 MG DELAYED RELEASE TAB PO SCH (07:37)
[2016-03-28] MEDS: TRIAMTERENE/HCTZ 37.5 MG/25 MG TAB PO SCH (07:38)
[2016-03-28] MEDS: LEVOFLOXACIN 750 MG TAB PO SCH (07:38)
[2016-03-28] MEDS: cloZAPine 25 MG TAB PO SCH (07:38)
[2016-03-28] MEDS: REMOVE OLD NICODERM (NICOTINE) PATCH TD SCH (07:52)
[2016-03-28] MEDS ORDERED: LEVA750T PO (14:04)
--- NOTE | 2016-03-28 14:05 | HHI.DS ---
Discharge Summary Admission Date Mar 24, 2016 at 10:06 Discharge Date: Mar 28, 2016 Admitting Diagnosis altered mental status/suspected pneumonia (1) Pneumonia ICD Code: J18.9 Diagnosis: Principal (2) Delirium ICD Code: R41.0 (3) Hypertension ICD Code: I10 (4) Anxiety and depression ICD Code: F41.9 (5) GERD (gastroesophageal reflux disease) ICD Code: K21.9 Procedures None. Brief History - From Admission Patient does not talk much and hard to obtain history. Mr. Moore is a 55 year old male with a history of schizophrenia, hypertension who presents to the ED from his [facility] due to generalized weakness, cough, tremors, disorientation that started several days ago. He reports some chest discomfort as well. Patient reports some cough as well with greenish sputum production. Currently denies any chest pain, shortness of breath, fever or chills. Denies any changes in bowel or bladder habits. CBC/BMP: 03/26/16 0045 03/26/16 0045 Significant Findings Laboratory Tests Test 03/26/16 03/26/16 00:45 02:07 Platelet Count 113 TH/MM3 (150-450) Monocytes (%) (Auto) 11.2 % (0.0-8.0) Eosinophils (%) (Auto) 6.3 % (0.0-4.0) Carbon Dioxide Level 40.3 MEQ/L (21.0-32.0) Anion Gap 1 MEQ/L (5-15) Estimat Glomerular Filtration 79 ML/MIN (>89) Rate B-Type Natriuretic Peptide 262 PG/ML (0-100) Total Protein 5.8 GM/DL (6.4-8.2) Albumin 2.8 GM/DL (3.4-5.0) Blood Gas HCO3 35 mmol/L (22-26) Blood Gas Base Excess 9.7 mmol/L (-2-2) Blood Gas Oxygen Saturation 82 % (90-100) Arterial Blood pH 7.36 (7.380-7.420) Arterial Blood Partial 65 mmHg (38-42) Pressure CO2 Arterial Blood Partial 55 mmHg Pressure O2 (61-120) Imaging Last Impressions Chest X-Ray 03/26/16 0000 Signed Impressions: Service Date/Time: Saturday, March 26, 2016 00:37 - CONCLUSION: No acute disease. Aris Zayas MD Ankle X-Ray 03/26/16 0000 Signed Impressions: Service Date/Time: Saturday, March 26, 2016 13:36 - CONCLUSION: No evidence of acute injury.. Celia Gandara MD Head CT 03/24/16 0809 Signed Impressions: Service Date/Time: Thursday, March 24, 2016 09:20 - CONCLUSION: Negative for acute process. Soft tissue nodule on the right as described above. Bladimir Fagan MD FACR PE at Discharge GENERAL: AOx3, NAD. SKIN: Warm and dry. HEAD: Normocephalic. EYES: No scleral icterus. No injection or drainage. NECK: Supple, trachea midline. No JVD or lymphadenopathy. CARDIOVASCULAR: Regular rate and rhythm without murmurs, gallops, or rubs. RESPIRATORY: Breath sounds equal bilaterally. No accessory muscle use. GASTROINTESTINAL: Abdomen soft, non-tender, nondistended. MUSCULOSKELETAL: No cyanosis, or edema. BACK: Nontender without obvious deformity. No CVA tenderness. Pt Condition on Discharge: Good Discharge Disposition: Discharge to SNF Discharge Time: > 30 minutes Discharge Instructions DIET: Follow Instructions for: Heart Healthy Diet Activities you can perform: Regular-No Restrictions New Medications: Levofloxacin (Levaquin) 750 Mg Tab 750 MG PO DAILY Infection #4 TAB Continued Medications: Albuterol 8.5 GM Inh (Proair Hfa 8.5 GM Inh) 90 Mcg/Act Aer 2 PUFF INH Q6H 108 mcg/actuation PRN SHORTNESS OF BREATH #1 Ref 0 INHALER Asenapine (Saphris) 5 Mg Subl 5 MG SL DAILY #60 Ref 0 TAB.SL Asenapine (Saphris) 10 Mg Subl 10 MG SL HS #60 Ref 0 TAB.SL Calcium Polycarbophil (Fiber-Lax) 625 Mg Tab 625 MG PO DAILY PRN CONSTIPATION Ref 0 TAB Cetirizine (Zyrtec Allergy) 10 Mg Tab 10 MG PO DAILY Allergies Ref 0 TAB Fexofenadine (Fexofenadine) 180 Mg Tab 180 MG PO DAILY PRN ALLERGIES #30 Ref 0 TAB Gabapentin (Gabapentin) 600 Mg Tab 600 MG PO HS #30 Ref 0 TAB Montelukast (Singulair) 10 Mg Tab 10 MG PO HS #30 Ref 0 TAB Naproxen (Naproxen) 500 Mg Tab 500 MG PO BID PRN PAIN #60 Ref 0 TAB Omeprazole (Omeprazole) 20 Mg Cap 20 MG PO DAILY Paroxetine (Paxil) 30 Mg Tab 30 MG PO DAILY #30 Ref 0 TAB Ropinirole (Ropinirole) 3 Mg Tab 3 MG PO HS #30 Ref 0 TAB Sulfacetamide Opth Drops (Sulfacetamide Opth Drops) 10 % Soln 1 DROP EACH EYE Q6HR Infection #1 Ref 0 BOTTLE Triamterene-Hydrochlorothiazide (Triamterene-Hydrochlorothiazide) 37.5-25 Mg Tab 1 TAB PO DAILY #30 Ref 0 TAB Margaret Esquivel DO Mar 28, 2016 14:05
[2016-03-28] MEDS ORDERED: OXYGENTANK NAS.CANULA (15:09)
--- NOTE | 2016-03-28 15:13 | HHI.PR ---
Subjective Remarks Follow-up visit delirium, possible pneumonia. Patient seen today sitting up in bed. Awake, alert and very responsive to questions and commands. Requesting to go home. Patient has been off restraints since yesterday and has been behaving better without any restlessness. On 2 L nasal cannula. Patient requested to be off O2. Walk test was done today and a shunt O2 sat has dropped 87%. However patient denies any shortness of breath/dyspnea. Attempted to show that he can take off the O2 without any problems. Denies any pain or discomfort, fevers, chills, nausea, vomiting, diarrhea. Objective Vitals Vital Signs Date Time Temp Pulse Resp B/P Pulse Ox O2 Delivery O2 Flow Rate FiO2 03/28/16 12:00 97.9 71 20 118/68 93 03/28/16 08:00 97.8 75 20 144/71 93 03/28/16 07:57 94 Nasal Cannula 3.00 03/28/16 04:00 98.3 83 18 116/65 92 03/28/16 00:55 90 Nasal Cannula 3.00 03/28/16 00:00 98.1 73 18 111/67 92 03/27/16 20:00 97.8 85 18 106/55 93 03/27/16 16:00 97.0 81 18 125/74 97 I/O 03/27/16 03/27/16 03/27/16 03/28/16 03/28/16 03/28/16 07:00 15:00 23:00 07:00 15:00 23:00 Intake Total 100 ml 480 ml 240 ml 0 ml Output Total 450 ml 600 ml 250 ml Balance -350 ml -120 ml -10 ml 0 ml Intake Oral 100 ml 480 ml 240 ml IV Total 0 ml 0 ml Output Urine Total 450 ml 600 ml 250 ml # Voids 2 1 # Bowel Movements 1 1 1 Result Diagram: 03/26/16 0045 03/26/16 0045 Imaging Last Impressions Chest X-Ray 03/26/16 0000 Signed Impressions: Service Date/Time: Saturday, March 26, 2016 00:37 - CONCLUSION: No acute disease. Aris Zayas MD Ankle X-Ray 03/26/16 0000 Signed Impressions: Service Date/Time: Saturday, March 26, 2016 13:36 - CONCLUSION: No evidence of acute injury.. Celia Gandara MD Head CT 03/24/16 0809 Signed Impressions: Service Date/Time: Thursday, March 24, 2016 09:20 - CONCLUSION: Negative for acute process. Soft tissue nodule on the right as described above. Bladimir Fagan MD FACR Objective Remarks GENERAL: AOx3, NAD. SKIN: Warm and dry. HEAD: Normocephalic. EYES: No scleral icterus. No injection or drainage. NECK: Supple, trachea midline. No JVD or lymphadenopathy. CARDIOVASCULAR: Regular rate and rhythm without murmurs, gallops, or rubs. RESPIRATORY: Breath sounds equal bilaterally. No accessory muscle use. GASTROINTESTINAL: Abdomen soft, non-tender, nondistended. MUSCULOSKELETAL: No cyanosis, or edema. BACK: Nontender without obvious deformity. No CVA tenderness. Procedures None. A/P Problem List: (1) Pneumonia ICD Code: J18.9 Status: Acute (2) Delirium ICD Code: R41.0 Status: Acute (3) Hypertension ICD Code: I10 Status: Acute (4) Anxiety and depression ICD Code: F41.9 Status: Acute (5) GERD (gastroesophageal reflux disease) ICD Code: K21.9 Status: Acute Assessment and Plan Mr. Moore is a 55-year-old male with a history of anxiety, depression , hypertension who presents to the emergency department from his assisted living facility due to delirium, cough that started several days ago. Chest x- ray shows bilateral infiltrates and atelectasis. - Probable pneumonia - Delirium - Patient appears to be alert, oriented times person, place, time. - Continue Levaquin PO. - Blood cultures, Urine cx negative so far. - Continue DuoNeb and supplemental O2 to keep O2 sat > 90%. - Restart Clozaril 25 mg by mouth daily. - Walk test in a.m. resulted patient dropped his O2 sat to 87% after ambulation. Arrange for O2 at home. But we'll repeat walk test tomorrow morning as patient may benefit without use of home O2. - Hypertension - Continue home medication triamterene/hydrochlorothiazide. - Anxiety and depression - History of schizophrenia - continue Paxil 30 mg by mouth daily. - Patient takes Asenapine 5mg SL Qday and 10mg SL QHS - these are on hold. - Clozaril 25 mg by mouth daily, restarted - GERD - continue PPI. Full code. Heparin SQ. Written by Antony Kelsey, acting as scribe for Dr. Esquivel on 03/28/16 at 15:00. The documentation accurately reflects the work performed [id number] by , [place] Esquivel D.O on 03/28/16 at 15:00 Discharge Planning Plan to DC back to facility [facility] if O2 is to be arranged by case management or patient pass walk test Margaret Esquivel DO Mar 28, 2016 15:13 Antony Hylton Mar 28, 2016 15:50
[2016-03-28] MEDS: GABAPENTIN 300 MG CAP PO SCH (20:09)
[2016-03-28] MEDS: MONTELUKAST SODIUM 10 MG TAB PO SCH (20:10)
[2016-03-29] VITALS (7 sets, daily range): BP systolic 110–149; BP diastolic 61–74; PULSE 63–74; RESP 12–18; TEMP 97.4–98.1; O2SAT 90–96
[2016-03-29] MEDS: SULFACETAMIDE SODIUM 10% OPTH SOLN 15 ML BTL EACH EYE SCH ×4 (00:09→17:25)
[2016-03-29] MEDS: NICOTINE 14 MG/24 HR PATCH TD SCH (09:57)
[2016-03-29] MEDS: CETIRIZINE HCL 10 MG TAB PO SCH (09:57)
[2016-03-29] MEDS: TRIAMTERENE/HCTZ 37.5 MG/25 MG TAB PO SCH (09:57)
[2016-03-29] MEDS: PANTOPRAZOLE SOD 20 MG DELAYED RELEASE TAB PO SCH (09:57)
[2016-03-29] MEDS: PARoxetine HCL 20 MG TAB PO SCH (09:57)
[2016-03-29] MEDS: LEVOFLOXACIN 750 MG TAB PO SCH (09:57)
[2016-03-29] MEDS: HEPARIN SODIUM - SQ 10,000 UNITS/ML VIAL SQ SCH ×2 (09:58→20:42)
[2016-03-29] MEDS: cloZAPine 25 MG TAB PO SCH (10:01)
[2016-03-29] MEDS: SODIUM CHLORIDE 0.9% FLUSH 5 ML FLUSH FLUSH SCH ×3 (10:01→20:48)
[2016-03-29] MEDS: REMOVE OLD NICODERM (NICOTINE) PATCH TD SCH (10:08)
--- NOTE | 2016-03-29 16:05 | HHI.PR ---
Subjective Remarks Follow-up visit delirium, possible pneumonia. Mr. Moore is doing well. Denies any acute concerns. He is very pleasant and cooperative. He could not be discharged due to difficulty in home O2 arrangement. Objective Vitals Vital Signs Date Time Temp Pulse Resp B/P Pulse Ox O2 Delivery O2 Flow Rate FiO2 03/29/16 12:00 97.8 63 12 149/67 94 03/29/16 09:25 96 21 03/29/16 08:00 97.8 68 12 129/61 92 03/29/16 04:00 98.0 69 17 136/65 93 03/29/16 00:00 98.1 74 18 110/64 90 03/28/16 20:00 97.8 69 19 119/66 89 I/O 03/28/16 03/28/16 03/28/16 03/29/16 03/29/16 03/29/16 07:00 15:00 23:00 07:00 15:00 23:00 Intake Total 0 ml 480 ml 80 ml Output Total 1650 ml 1350 ml 400 ml Balance 0 ml -1170 ml -1350 ml -320 ml Intake Oral 480 ml 80 ml IV Total 0 ml Output Urine Total 1650 ml 1350 ml 400 ml # Bowel Movements 0 Result Diagram: 03/26/164403/26/1644 Objective Remarks GENERAL: AOx3, NAD. SKIN: Warm and dry. HEAD: Normocephalic. EYES: No scleral icterus. No injection or drainage. NECK: Supple, trachea midline. No JVD or lymphadenopathy. CARDIOVASCULAR: Regular rate and rhythm without murmurs, gallops, or rubs. RESPIRATORY: Breath sounds equal bilaterally. No accessory muscle use. GASTROINTESTINAL: Abdomen soft, non-tender, nondistended. MUSCULOSKELETAL: No cyanosis, or edema. BACK: Nontender without obvious deformity. No CVA tenderness. Procedures None. A/P Problem List: (1) Pneumonia ICD Code: J18.9 Status: Acute (2) Delirium ICD Code: R41.0 Status: Acute (3) Hypertension ICD Code: I10 Status: Acute (4) Anxiety and depression ICD Code: F41.9 Status: Acute (5) GERD (gastroesophageal reflux disease) ICD Code: K21.9 Status: Acute Assessment and Plan Mr. Moore is a 55-year-old male with a history of anxiety, depression , hypertension who presents to the emergency department from his assisted living facility due to delirium, cough that started several days ago. Chest x- ray shows bilateral infiltrates and atelectasis. - Probable pneumonia - Delirium - Patient appears to be alert, oriented times person, place, time. - Continue Levaquin PO. - Blood cultures, Urine cx negative so far. - Continue DuoNeb and supplemental O2 to keep O2 sat > 90%. - Restart Clozaril 25 mg by mouth daily. - Walk test in a.m. resulted patient dropped his O2 sat to 87% after ambulation. - O2 arrangement likely will occur early next week. Consider repeating walk test. - Hypertension - Continue home medication triamterene/hydrochlorothiazide. - Anxiety and depression - History of schizophrenia - continue Paxil 30 mg by mouth daily. - Patient takes Asenapine 5mg SL Qday and 10mg SL QHS - these are on hold. - Clozaril 25 mg by mouth daily, restarted - GERD - continue PPI. Full code. Heparin SQ. Margaret Esquivel DO Mar 29, 2016 16:05
[2016-03-29] MEDS: MONTELUKAST SODIUM 10 MG TAB PO SCH (20:41)
[2016-03-29] MEDS: GABAPENTIN 300 MG CAP PO SCH (20:41)
[2016-03-30] VITALS (7 sets, daily range): BP systolic 110–133; BP diastolic 56–94; PULSE 64–79; RESP 17–20; TEMP 96.6–98.3; O2SAT 90–94
[2016-03-30] MEDS: SULFACETAMIDE SODIUM 10% OPTH SOLN 15 ML BTL EACH EYE SCH ×4 (02:18→18:26)
[2016-03-30] MEDS: LEVOFLOXACIN 750 MG TAB PO SCH (08:49)
[2016-03-30] MEDS: CETIRIZINE HCL 10 MG TAB PO SCH (08:49)
[2016-03-30] MEDS: PANTOPRAZOLE SOD 20 MG DELAYED RELEASE TAB PO SCH (08:50)
[2016-03-30] MEDS: TRIAMTERENE/HCTZ 37.5 MG/25 MG TAB PO SCH (08:50)
[2016-03-30] MEDS: SODIUM CHLORIDE 0.9% FLUSH 5 ML FLUSH FLUSH SCH ×2 (08:50→20:38)
[2016-03-30] MEDS: cloZAPine 25 MG TAB PO SCH (08:50)
[2016-03-30] MEDS: REMOVE OLD NICODERM (NICOTINE) PATCH TD SCH (08:50)
[2016-03-30] MEDS: NICOTINE 14 MG/24 HR PATCH TD SCH (08:50)
[2016-03-30] MEDS: HEPARIN SODIUM - SQ 10,000 UNITS/ML VIAL SQ SCH ×2 (08:50→20:38)
[2016-03-30] MEDS: PARoxetine HCL 20 MG TAB PO SCH (08:50)
--- NOTE | 2016-03-30 14:52 | HHI.PR ---
Subjective Remarks Patient seen in follow up for delirium and probable pneumonia. He reports that he is feeling well. DW RN. He still desats with activities. He understand that we are trying to arrange for home oxygen. Objective Vitals Vital Signs Date Time Temp Pulse Resp B/P Pulse Ox O2 Delivery O2 Flow Rate FiO2 03/30/16 12:00 97.4 65 20 117/94 94 03/30/16 10:12 92 Nasal Cannula 3.50 03/30/16 08:00 98.0 71 20 125/61 94 03/30/16 04:00 97.3 69 18 110/58 90 03/30/16 00:00 98.3 73 17 122/60 94 03/29/16 20:00 98.0 71 18 125/65 94 03/29/16 16:00 97.4 72 16 140/74 96 I/O 03/29/16 03/29/16 03/29/16 03/30/16 03/30/16 03/30/16 07:00 15:00 23:00 07:00 15:00 23:00 Intake Total 80 ml 600 ml 120 ml 120 ml Output Total 400 ml 800 ml Balance -320 ml -200 ml 120 ml 120 ml Intake Oral 80 ml 600 ml 120 ml 120 ml Output Urine Total 400 ml 800 ml # Voids 1 2 # Bowel Movements 0 1 Result Diagram: 03/26/16 0045 03/26/16 0045 Imaging Last Impressions Chest X-Ray 03/26/16 0000 Signed Impressions: Service Date/Time: Saturday, March 26, 2016 00:37 - CONCLUSION: No acute disease. Aris Zayas MD Ankle X-Ray 03/26/16 0000 Signed Impressions: Service Date/Time: Saturday, March 26, 2016 13:36 - CONCLUSION: No evidence of acute injury.. Celia Gandara MD Head CT 03/24/16 0809 Signed Impressions: Service Date/Time: Thursday, March 24, 2016 09:20 - CONCLUSION: Negative for acute process. Soft tissue nodule on the right as described above. Bladimir Fagan MD FACR Objective Remarks GENERAL: This is a well-nourished, well-developed patient, in no apparent distress. CARDIOVASCULAR: Normal rate and regular rhythm without murmurs, gallops, or rubs. RESPIRATORY: Good respiratory efforts. Diminished breath sounds at the bases otherwise clear to auscultation. GASTROINTESTINAL: Abdomen soft, non-tender, non-distended. Normal active bowel sounds MUSCULOSKELETAL: Extremities without cyanosis, or edema. NEURO: Alert & Oriented. Normal speech. PSYCH: Appropriate mood and affect. Procedures None. A/P Problem List: (1) Pneumonia ICD Code: J18.9 Status: Acute (2) Delirium ICD Code: R41.0 Status: Acute (3) Hypertension ICD Code: I10 Status: Acute (4) Anxiety and depression ICD Code: F41.9 Status: Acute (5) GERD (gastroesophageal reflux disease) ICD Code: K21.9 Status: Acute Assessment and Plan Mr. Moore is a 55-year-old male with a history of anxiety, depression , hypertension who presents to the emergency department from his assisted living facility due to delirium, cough that started several days ago. Chest x- ray shows bilateral infiltrates and atelectasis. - Probable pneumonia - Delirium - Patient appears to be alert, oriented times person, place, time. - Continue Levaquin PO. - Blood cultures, Urine cx negative so far. - Continue DuoNeb and supplemental O2 to keep O2 sat > 90%. - Restart Clozaril 25 mg by mouth daily. - Patient is oxygen dependent at this point. Need to arrange for home O2. CM following. - Hypertension - Continue home medication triamterene/hydrochlorothiazide. - Anxiety and depression - History of schizophrenia - continue Paxil 30 mg by mouth daily. - Patient takes Asenapine 5mg SL Qday and 10mg SL QHS - these are on hold. - Clozaril 25 mg by mouth daily, restarted - GERD - continue PPI. Full code. Heparin SQ. Discharge Planning Awaiting for arrangements for home oxygen. Sumeet Barron MD Mar 30, 2016 14:52
[2016-03-30] MEDS: MONTELUKAST SODIUM 10 MG TAB PO SCH (20:37)
[2016-03-30] MEDS: GABAPENTIN 300 MG CAP PO SCH (20:37)
[2016-03-31] VITALS (8 sets, daily range): BP systolic 95–123; BP diastolic 55–80; PULSE 61–78; RESP 18; TEMP 97.5–98; O2SAT 93–95
[2016-03-31] MEDS: SULFACETAMIDE SODIUM 10% OPTH SOLN 15 ML BTL EACH EYE SCH ×4 (05:43→17:17)
[2016-03-31] MEDS: CETIRIZINE HCL 10 MG TAB PO SCH (08:03)
[2016-03-31] MEDS: LEVOFLOXACIN 750 MG TAB PO SCH (08:03)
[2016-03-31] MEDS: TRIAMTERENE/HCTZ 37.5 MG/25 MG TAB PO SCH (08:03)
[2016-03-31] MEDS: PARoxetine HCL 20 MG TAB PO SCH (08:03)
[2016-03-31] MEDS: PANTOPRAZOLE SOD 20 MG DELAYED RELEASE TAB PO SCH (08:03)
[2016-03-31] MEDS: NICOTINE 14 MG/24 HR PATCH TD SCH (08:04)
[2016-03-31] MEDS: REMOVE OLD NICODERM (NICOTINE) PATCH TD SCH (08:04)
[2016-03-31] MEDS: HEPARIN SODIUM - SQ 10,000 UNITS/ML VIAL SQ SCH ×2 (08:04→21:34)
[2016-03-31] MEDS: cloZAPine 25 MG TAB PO SCH (08:04)
[2016-03-31] MEDS: SODIUM CHLORIDE 0.9% FLUSH 5 ML FLUSH FLUSH SCH ×2 (08:10→21:00)
--- NOTE | 2016-03-31 14:19 | HHI.PR ---
Subjective Remarks Patient seen in follow up for delirium and probable pneumonia. Patient has no new complaints. Still waiting for insurance authorization for home oxygen. Objective Vitals Vital Signs Date Time Temp Pulse Resp B/P Pulse Ox O2 Delivery O2 Flow Rate FiO2 03/31/16 12:20 93 Nasal Cannula 4.00 03/31/16 12:00 98.0 78 18 120/72 93 03/31/16 09:48 Nasal Cannula 3.00 03/31/16 08:02 97.9 63 18 119/66 95 03/31/16 04:00 97.8 76 18 123/80 94 03/31/16 00:00 97.8 61 18 103/55 94 03/30/16 20:59 Nasal Cannula 3.00 03/30/16 20:15 96.6 64 18 112/56 92 03/30/16 16:00 98.1 79 20 133/72 93 I/O 03/30/16 03/30/16 03/30/16 03/31/16 03/31/16 03/31/16 07:00 15:00 23:00 07:00 15:00 23:00 Intake Total 120 ml 600 ml 240 ml Output Total 200 ml Balance 120 ml 600 ml -200 ml 240 ml Intake Oral 120 ml 600 ml 240 ml Output Urine Total 200 ml # Voids 2 3 2 # Bowel Movements 1 Objective Remarks GENERAL: This is a well-nourished, well-developed patient, in no apparent distress. CARDIOVASCULAR: Normal rate and regular rhythm without murmurs, gallops, or rubs. RESPIRATORY: Good respiratory efforts. Diminished breath sounds at the bases otherwise clear to auscultation. GASTROINTESTINAL: Abdomen soft, non-tender, non-distended. Normal active bowel sounds MUSCULOSKELETAL: Extremities without cyanosis, or edema. NEURO: Alert & Oriented. Normal speech. PSYCH: Appropriate mood and affect. Procedures None. A/P Problem List: (1) Pneumonia ICD Code: J18.9 Status: Acute (2) Delirium ICD Code: R41.0 Status: Acute (3) Hypertension ICD Code: I10 Status: Acute (4) Anxiety and depression ICD Code: F41.9 Status: Acute (5) GERD (gastroesophageal reflux disease) ICD Code: K21.9 Status: Acute Assessment and Plan Mr. Moore is a 55-year-old male with a history of anxiety, depression , hypertension who presents to the emergency department from his assisted living facility due to delirium, cough that started several days ago. Chest x- ray shows bilateral infiltrates and atelectasis. - Probable pneumonia - Delirium - Patient appears to be alert, oriented times person, place, time. - Continue Levaquin PO until 04/01/16 - Blood cultures, Urine cx negative so far. - Continue DuoNeb and supplemental O2 to keep O2 sat > 90%. - Restart Clozaril 25 mg by mouth daily. - Patient is oxygen dependent at this point. Need to arrange for home O2. CM following. - Hypertension - Continue home medication triamterene/hydrochlorothiazide. - Anxiety and depression - History of schizophrenia - continue Paxil 30 mg by mouth daily. - Patient takes Asenapine 5mg SL Qday and 10mg SL QHS - these are on hold. - Clozaril 25 mg by mouth daily, restarted - GERD - continue PPI. Full code. Heparin SQ. Discharge Planning Awaiting for arrangements for home oxygen. DW case management Sumeet Barron MD Mar 31, 2016 14:19
[2016-03-31] MEDS: MONTELUKAST SODIUM 10 MG TAB PO SCH (21:33)
[2016-03-31] MEDS: GABAPENTIN 300 MG CAP PO SCH (21:33)
[2016-04-01] VITALS (7 sets, daily range): BP systolic 94–119; BP diastolic 52–66; PULSE 66–73; RESP 16–20; TEMP 97–98.2; O2SAT 94–98
[2016-04-01] MEDS: SULFACETAMIDE SODIUM 10% OPTH SOLN 15 ML BTL EACH EYE SCH ×4 (01:08→18:30)
[2016-04-01] MEDS: HEPARIN SODIUM - SQ 10,000 UNITS/ML VIAL SQ SCH ×2 (08:02→21:08)
[2016-04-01] MEDS: NICOTINE 14 MG/24 HR PATCH TD SCH (08:02)
[2016-04-01] MEDS: PARoxetine HCL 20 MG TAB PO SCH (08:02)
[2016-04-01] MEDS: TRIAMTERENE/HCTZ 37.5 MG/25 MG TAB PO SCH (08:03)
[2016-04-01] MEDS: PANTOPRAZOLE SOD 20 MG DELAYED RELEASE TAB PO SCH (08:03)
[2016-04-01] MEDS: CETIRIZINE HCL 10 MG TAB PO SCH (08:03)
[2016-04-01] MEDS: cloZAPine 25 MG TAB PO SCH (08:03)
[2016-04-01] MEDS: REMOVE OLD NICODERM (NICOTINE) PATCH TD SCH (08:03)
[2016-04-01] MEDS: SODIUM CHLORIDE 0.9% FLUSH 5 ML FLUSH FLUSH SCH ×2 (08:03→21:07)
--- NOTE | 2016-04-01 13:53 | HHI.PR ---
Subjective Remarks Patient seen in follow up for delirium, probable pneumonia, respiratory failure. Still waiting for insurance authorization for home oxygen. Patient has no new complaints. Objective Vitals Vital Signs Date Time Temp Pulse Resp B/P Pulse Ox O2 Delivery O2 Flow Rate FiO2 04/01/16 12:00 97.5 66 18 115/66 95 04/01/16 08:00 98.2 66 18 118/60 94 04/01/16 08:00 Nasal Cannula 2.00 04/01/16 07:55 95 Nasal Cannula 2.00 04/01/16 04:00 97.9 67 18 96/52 98 04/01/16 00:00 97.0 73 20 94/62 97 03/31/16 20:34 94 Nasal Cannula 3.00 03/31/16 20:00 Nasal Cannula 3.00 03/31/16 20:00 97.5 65 18 120/61 95 03/31/16 16:00 97.9 77 18 95/59 93 I/O 03/31/16 03/31/16 03/31/16 04/01/16 04/01/16 04/01/16 07:00 15:00 23:00 07:00 15:00 23:00 Intake Total 240 ml 840 ml Output Total 400 ml 800 ml Balance 240 ml 440 ml -800 ml Intake Oral 240 ml 840 ml Output Urine Total 400 ml 800 ml # Voids 2 Objective Remarks GENERAL: This is a well-nourished, well-developed patient, in no apparent distress. CARDIOVASCULAR: Normal rate and regular rhythm without murmurs, gallops, or rubs. RESPIRATORY: Good respiratory efforts. Diminished breath sounds at the bases otherwise clear to auscultation. GASTROINTESTINAL: Abdomen soft, non-tender, non-distended. Normal active bowel sounds MUSCULOSKELETAL: Extremities without cyanosis, or edema. NEURO: Alert & Oriented. Normal speech. PSYCH: Appropriate mood and affect. Procedures None. A/P Problem List: (1) Pneumonia ICD Code: J18.9 Status: Acute (2) Delirium ICD Code: R41.0 Status: Acute (3) Hypertension ICD Code: I10 Status: Acute (4) Anxiety and depression ICD Code: F41.9 Status: Acute (5) GERD (gastroesophageal reflux disease) ICD Code: K21.9 Status: Acute Assessment and Plan Mr. Moore is a 55-year-old male with a history of anxiety, depression , hypertension who presents to the emergency department from his assisted living facility due to delirium, cough that started several days ago. Chest x- ray shows bilateral infiltrates and atelectasis. - Probable pneumonia - Delirium - Patient appears to be alert, oriented times person, place, time. - Continue Levaquin PO until today 04/01/16 - Blood cultures, Urine cx negative so far. - Continue DuoNeb and supplemental O2 to keep O2 sat > 90%. - Restart Clozaril 25 mg by mouth daily. - Patient has been oxygen dependent at this point. Need to arrange for home O2. CM following. -Repeat oxygen walk test. - Hypertension - Continue home medication triamterene/hydrochlorothiazide. - Anxiety and depression - History of schizophrenia - continue Paxil 30 mg by mouth daily. - Patient takes Asenapine 5mg SL Qday and 10mg SL QHS - these are on hold. - Clozaril 25 mg by mouth daily, restarted - GERD - continue PPI. Full code. Heparin SQ. Discharge Planning Awaiting for arrangements for home oxygen. DW case management Sumeet Barron MD Apr 01, 2016 13:53
[2016-04-01] MEDS: GABAPENTIN 300 MG CAP PO SCH (21:07)
[2016-04-01] MEDS: MONTELUKAST SODIUM 10 MG TAB PO SCH (21:08)
[2016-04-02] VITALS (8 sets, daily range): BP systolic 106–119; BP diastolic 62–75; PULSE 60–76; RESP 16–20; TEMP 97.2–98.1; O2SAT 87–98
[2016-04-02] MEDS: SULFACETAMIDE SODIUM 10% OPTH SOLN 15 ML BTL EACH EYE SCH ×4 (00:14→18:00)
[2016-04-02] MEDS: CETIRIZINE HCL 10 MG TAB PO SCH (08:58)
[2016-04-02] MEDS: PARoxetine HCL 20 MG TAB PO SCH (08:58)
[2016-04-02] MEDS: HEPARIN SODIUM - SQ 10,000 UNITS/ML VIAL SQ SCH ×2 (08:58→20:09)
[2016-04-02] MEDS: NICOTINE 14 MG/24 HR PATCH TD SCH (08:58)
[2016-04-02] MEDS: cloZAPine 25 MG TAB PO SCH (08:59)
[2016-04-02] MEDS: PANTOPRAZOLE SOD 20 MG DELAYED RELEASE TAB PO SCH (08:59)
[2016-04-02] MEDS: SODIUM CHLORIDE 0.9% FLUSH 5 ML FLUSH FLUSH SCH ×2 (09:00→20:09)
[2016-04-02] MEDS: TRIAMTERENE/HCTZ 37.5 MG/25 MG TAB PO SCH (09:00)
[2016-04-02] MEDS: REMOVE OLD NICODERM (NICOTINE) PATCH TD SCH (09:00)
--- NOTE | 2016-04-02 15:12 | HHI.PR ---
Subjective Remarks Still waiting for insurance companies approval for home oxygen. Patient has no new complaints. Objective Vitals Vital Signs Date Time Temp Pulse Resp B/P Pulse Ox O2 Delivery O2 Flow Rate FiO2 04/02/16 12:00 97.7 70 18 115/66 04/02/16 08:00 Nasal Cannula 3.00 04/02/16 08:00 98.0 72 18 118/75 92 04/02/16 04:00 97.5 60 20 109/64 92 04/02/16 00:00 98.0 68 20 106/62 98 04/01/16 20:00 97.7 67 20 119/63 94 04/01/16 20:00 Nasal Cannula 3.00 04/01/16 16:00 97.7 69 16 113/65 95 I/O 04/01/16 04/01/16 04/01/16 04/02/16 04/02/16 04/02/16 07:00 15:00 23:00 07:00 15:00 23:00 Intake Total 720 ml 320 ml 220 ml Output Total 800 ml Balance -800 ml 720 ml 320 ml 220 ml Intake Oral 720 ml 320 ml 220 ml Output Urine Total 800 ml # Voids 5 3 2 # Bowel Movements 1 0 Objective Remarks GENERAL: This is a well-nourished, well-developed patient, in no apparent distress. CARDIOVASCULAR: Normal rate and regular rhythm without murmurs, gallops, or rubs. RESPIRATORY: Good respiratory efforts. Diminished breath sounds at the bases otherwise clear to auscultation. GASTROINTESTINAL: Abdomen soft, non-tender, non-distended. Normal active bowel sounds MUSCULOSKELETAL: Extremities without cyanosis, or edema. NEURO: Alert & Oriented. Normal speech. PSYCH: Appropriate mood and affect. Procedures None. A/P Problem List: (1) Pneumonia ICD Code: J18.9 Status: Acute (2) Delirium ICD Code: R41.0 Status: Acute (3) Hypertension ICD Code: I10 Status: Acute (4) Anxiety and depression ICD Code: F41.9 Status: Acute (5) GERD (gastroesophageal reflux disease) ICD Code: K21.9 Status: Acute Assessment and Plan Mr. Moore is a 55-year-old male with a history of anxiety, depression , hypertension who presents to the emergency department from his assisted living facility due to delirium, cough that started several days ago. Chest x- ray shows bilateral infiltrates and atelectasis. - Probable pneumonia - Delirium - Patient appears to be back at baseline alert, oriented times person, place , time. -Patient completed antibiotic treatment with Levaquin - Blood cultures, Urine cx negative so far. - Continue DuoNeb and supplemental O2 to keep O2 sat > 90%. - Restart Clozaril 25 mg by mouth daily. - Patient has been oxygen dependent at this point. Need to arrange for home O2. CM following. - Hypertension - Continue home medication triamterene/hydrochlorothiazide. - Anxiety and depression - History of schizophrenia - continue Paxil 30 mg by mouth daily. - Patient takes Asenapine 5mg SL Qday and 10mg SL QHS - these are on hold. - Clozaril 25 mg by mouth daily, restarted - GERD - continue PPI. Full code. Heparin SQ. Discharge Planning Awaiting for arrangements for home oxygen. Patient can be discharged once arrangements are made. Sumeet Barron MD Apr 02, 2016 15:12
[2016-04-02] MEDS: MONTELUKAST SODIUM 10 MG TAB PO SCH (20:07)
[2016-04-02] MEDS: GABAPENTIN 300 MG CAP PO SCH (20:07)
[2016-04-03 00:15] VITALS: BP 112/60; PULSE 63; RESP 16; TEMP 98.1; O2SAT 94
[2016-04-03] MEDS: SULFACETAMIDE SODIUM 10% OPTH SOLN 15 ML BTL EACH EYE SCH ×4 (06:00→16:24)
[2016-04-03 08:00] VITALS: BP 133/68; PULSE 55; RESP 18; TEMP 98.4; O2SAT 92
--- NOTE | 2016-04-03 08:24 | HHI.PR ---
Subjective Remarks Follow-up visit delirium, possible pneumonia. Mr. Moore is doing well. Denies any chest pain, shortness of breath, fever, chills. He is currently on supplemental O2 via nasal cannula. Objective Vitals Vital Signs Date Time Temp Pulse Resp B/P Pulse Ox O2 Delivery O2 Flow Rate FiO2 04/03/16 00:15 98.1 63 16 112/60 94 04/02/16 20:00 98.1 66 16 117/66 95 04/02/16 20:00 Nasal Cannula 3.00 04/02/16 18:28 93 2.00 04/02/16 16:00 97.2 76 18 119/71 87 04/02/16 12:00 97.7 70 18 115/66 04/02/16 09:09 93 Nasal Cannula 2.00 I/O 04/02/16 04/02/16 04/02/16 04/03/16 04/03/16 04/03/16 07:00 15:00 23:00 07:00 15:00 23:00 Intake Total 220 ml 840 ml 240 ml Output Total 250 ml Balance 220 ml 840 ml -10 ml Intake Oral 220 ml 840 ml 240 ml Output Urine Total 250 ml # Voids 2 5 # Bowel Movements 1 Imaging Last Impressions Chest X-Ray 03/26/16 0000 Signed Impressions: Service Date/Time: Saturday, March 26, 2016 00:37 - CONCLUSION: No acute disease. Aris Zayas MD Ankle X-Ray 03/26/16 0000 Signed Impressions: Service Date/Time: Saturday, March 26, 2016 13:36 - CONCLUSION: No evidence of acute injury.. Celia Gandara MD Head CT 03/24/16 0809 Signed Impressions: Service Date/Time: Thursday, March 24, 2016 09:20 - CONCLUSION: Negative for acute process. Soft tissue nodule on the right as described above. Bladimir Fagan MD FACR Objective Remarks GENERAL: AOx3, NAD. SKIN: Warm and dry. HEAD: Normocephalic. EYES: No scleral icterus. No injection or drainage. NECK: Supple, trachea midline. No JVD or lymphadenopathy. CARDIOVASCULAR: Regular rate and rhythm without murmurs, gallops, or rubs. RESPIRATORY: Breath sounds equal bilaterally. No accessory muscle use. GASTROINTESTINAL: Abdomen soft, non-tender, nondistended. MUSCULOSKELETAL: No cyanosis, or edema. BACK: Nontender without obvious deformity. No CVA tenderness. Procedures None. A/P Problem List: (1) Pneumonia ICD Code: J18.9 Status: Acute (2) Delirium ICD Code: R41.0 Status: Acute (3) Hypertension ICD Code: I10 Status: Acute (4) Anxiety and depression ICD Code: F41.9 Status: Acute (5) GERD (gastroesophageal reflux disease) ICD Code: K21.9 Status: Acute Assessment and Plan Mr. Moore is a 55-year-old male with a history of anxiety, depression , hypertension who presents to the emergency department from his assisted living facility due to delirium, cough that started several days ago. Chest x- ray shows bilateral infiltrates and atelectasis. - Probable pneumonia - Delirium - Patient appears to be back at baseline alert, oriented times person, place , time. - Walk test revealed need for supplemental O2. Oxygen requirement may be re- evaluated in 2-3 months in the outpatient setting. - However, at this point, patient does need supplemental O2. - Two different walk tests confirms need for supplemental O2. Patient went down to 85% and 87% O2 saturation during those two tests. - Patient completed antibiotic treatment with Levaquin - Blood cultures, Urine cx negative so far. - Continue DuoNeb and supplemental O2 to keep O2 sat > 90%. - Restart Clozaril 25 mg by mouth daily. - Patient has been oxygen dependent at this point. Need to arrange for home O2. CM following. - Hypertension - Continue home medication triamterene/hydrochlorothiazide. - Anxiety and depression - History of schizophrenia - continue Paxil 30 mg by mouth daily. - Patient takes Asenapine 5mg SL Qday and 10mg SL QHS - these are on hold. - Clozaril 25 mg by mouth daily, restarted - GERD - continue PPI. Full code. Heparin SQ. Once O2 is arranged, patient can be discharged. Margaret Esquivel DO Apr 03, 2016 8:23 am
[2016-04-03] MEDS: PARoxetine HCL 20 MG TAB PO SCH (09:08)
[2016-04-03] MEDS: NICOTINE 14 MG/24 HR PATCH TD SCH (09:09)
[2016-04-03] MEDS: PANTOPRAZOLE SOD 20 MG DELAYED RELEASE TAB PO SCH (09:09)
[2016-04-03] MEDS: SODIUM CHLORIDE 0.9% FLUSH 5 ML FLUSH FLUSH SCH ×2 (09:09→21:00)
[2016-04-03] MEDS: HEPARIN SODIUM - SQ 10,000 UNITS/ML VIAL SQ SCH ×2 (09:09→21:00)
[2016-04-03] MEDS: CETIRIZINE HCL 10 MG TAB PO SCH (09:09)
[2016-04-03] MEDS: REMOVE OLD NICODERM (NICOTINE) PATCH TD SCH (09:10)
[2016-04-03 10:12] VITALS: O2SAT 93
[2016-04-03] MEDS: TRIAMTERENE/HCTZ 37.5 MG/25 MG TAB PO SCH (12:06)
[2016-04-03] MEDS: cloZAPine 25 MG TAB PO SCH (12:06)
[2016-04-03 12:08] VITALS: BP 112/57; PULSE 70; RESP 18; TEMP 100.6; O2SAT 92
[2016-04-03] MEDS ORDERED: OXYGENTANK NAS.CANULA ×2 (12:19→18:15)
[2016-04-03 16:08] VITALS: BP 123/68; PULSE 56; RESP 18; TEMP 98.1; O2SAT 94
[2016-04-03] MEDS: GABAPENTIN 300 MG CAP PO SCH (21:07)
[2016-04-03] MEDS: MONTELUKAST SODIUM 10 MG TAB PO SCH (21:07)
--- NOTE | 2016-04-23 07:39 | HHI.DS ---
Discharge Summary Admission Date Mar 24, 2016 at 10:06 Discharge Date: Apr 03, 2016 Admitting Diagnosis altered mental status/suspected pneumonia (1) Pneumonia ICD Code: J18.9 Diagnosis: Principal (2) Delirium ICD Code: R41.0 (3) Hypertension ICD Code: I10 (4) Anxiety and depression ICD Code: F41.9 (5) GERD (gastroesophageal reflux disease) ICD Code: K21.9 Procedures None. Brief History - From Admission Patient does not talk much and hard to obtain history. Mr. Moore is a 55 year old male with a history of schizophrenia, hypertension who presents to the ED from his [facility] due to generalized weakness, cough, tremors, disorientation that started several days ago. He reports some chest discomfort as well. Patient reports some cough as well with greenish sputum production. Currently denies any chest pain, shortness of breath, fever or chills. Denies any changes in bowel or bladder habits. Imaging Last Impressions Chest X-Ray 03/26/16 0000 Signed Impressions: Service Date/Time: Saturday, March 26, 2016 00:37 - CONCLUSION: No acute disease. Aris Zayas MD Ankle X-Ray 03/26/16 0000 Signed Impressions: Service Date/Time: Saturday, March 26, 2016 13:36 - CONCLUSION: No evidence of acute injury.. Celia Gandara MD Head CT 03/24/16 0809 Signed Impressions: Service Date/Time: Thursday, March 24, 2016 09:20 - CONCLUSION: Negative for acute process. Soft tissue nodule on the right as described above. Bladimir Fagan MD FACR PE at Discharge GENERAL: This is a well-nourished, well-developed patient, in no apparent distress. CARDIOVASCULAR: Normal rate and regular rhythm without murmurs, gallops, or rubs. RESPIRATORY: Good respiratory efforts. Diminished breath sounds at the bases otherwise clear to auscultation. GASTROINTESTINAL: Abdomen soft, non-tender, non-distended. Normal active bowel sounds MUSCULOSKELETAL: Extremities without cyanosis, or edema. NEURO: Alert & Oriented. Normal speech. PSYCH: Appropriate mood and affect. Hospital Course Mr. Moore is a 55-year-old male with a history of anxiety, depression , hypertension who was admitted from his assisted living facility due to delirium, cough that started several days ago prior to this admission. Chest x- ray shows bilateral infiltrates and atelectasis. - Probable pneumonia - Delirium - Patient appears to be back at baseline alert, oriented times person, place , time. - Walk test revealed need for supplemental O2. Oxygen requirement may be re- evaluated in 2-3 months in the outpatient setting. - However, at this point, patient does need supplemental O2. - Two different walk tests confirms need for supplemental O2. Patient went down to 85% and 87% O2 saturation during those two tests. - Patient completed antibiotic treatment with Levaquin - Blood cultures, Urine cx negative so far. - Continue DuoNeb and supplemental O2 to keep O2 sat > 90%. - Restart Clozaril 25 mg by mouth daily. - Patient has been oxygen dependent. O2 was arranged prior to patient's discharge. - Hypertension - Continue home medication triamterene/hydrochlorothiazide. - Anxiety and depression - History of schizophrenia - continue Paxil 30 mg by mouth daily. - Patient takes Asenapine 5mg SL Qday and 10mg SL QHS - these are on hold. - Clozaril 25 mg by mouth daily, restarted - GERD - continue PPI. Pt Condition on Discharge: Good Discharge Disposition: Discharge to SNF Discharge Time: > 30 minutes Discharge Instructions DIET: Follow Instructions for: Heart Healthy Diet Activities you can perform: Regular-No Restrictions New Medications: Oxygen tank (Oxygen tank) 1 Ea Tank 2 LITER CRESCENCIO.CANULA CONTINUOUS Oxygen Concentrator Portable Gaseous 2 L/min via Nasal Cannula Continuous For 99 months HYPOXEMIA PREVENTION #1 CYLINDER Continued Medications: Albuterol 8.5 GM Inh (Proair Hfa 8.5 GM Inh) 90 Mcg/Act Aer 2 PUFF INH Q6H 108 mcg/actuation PRN SHORTNESS OF BREATH #1 Ref 0 INHALER Asenapine (Saphris) 5 Mg Subl 5 MG SL DAILY #60 Ref 0 TAB.SL Asenapine (Saphris) 10 Mg Subl 10 MG SL HS #60 Ref 0 TAB.SL Calcium Polycarbophil (Fiber-Lax) 625 Mg Tab 625 MG PO DAILY PRN CONSTIPATION Ref 0 TAB Cetirizine (Zyrtec Allergy) 10 Mg Tab 10 MG PO DAILY Allergies Ref 0 TAB Fexofenadine (Fexofenadine) 180 Mg Tab 180 MG PO DAILY PRN ALLERGIES #30 Ref 0 TAB Gabapentin (Gabapentin) 600 Mg Tab 600 MG PO HS #30 Ref 0 TAB Montelukast (Singulair) 10 Mg Tab 10 MG PO HS #30 Ref 0 TAB Naproxen (Naproxen) 500 Mg Tab 500 MG PO BID PRN PAIN #60 Ref 0 TAB Omeprazole (Omeprazole) 20 Mg Cap 20 MG PO DAILY Paroxetine (Paxil) 30 Mg Tab 30 MG PO DAILY #30 Ref 0 TAB Ropinirole (Ropinirole) 3 Mg Tab 3 MG PO HS #30 Ref 0 TAB Sulfacetamide Opth Drops (Sulfacetamide Opth Drops) 10 % Soln 1 DROP EACH EYE Q6HR Infection #1 Ref 0 BOTTLE Triamterene-Hydrochlorothiazide (Triamterene-Hydrochlorothiazide) 37.5-25 Mg Tab 1 TAB PO DAILY #30 Ref 0 TAB Margaret Esquivel DO Apr 23, 2016 07:39
== END 2016-04-03 23:33 | DRG 194 ==
LOC: NEPC 07:53 → NEDA 10:06 → N04B 16:10
PROVIDERS: ADMIT Hospitalist; ATTEND Hospitalist
PROC: 3E0F7GC Introduction of Other Therapeutic Substance into Respiratory Tract, Via Natural or Artificial Opening (ICD-10-PCS; principal; 2016-03-24)
DX: J18.9 Pneumonia, unspecified organism (principal); J98.11 Atelectasis; Z99.81 Dependence on supplemental oxygen; Z78.1 Physical restraint status; I10 Essential (primary) hypertension; F20.9 Schizophrenia, unspecified; Z72.0 Tobacco use; K21.9 Gastro-esophageal reflux disease without esophagitis; R25.1 Tremor, unspecified; F41.9 Anxiety disorder, unspecified; F32.9 Major depressive disorder, single episode, unspecified; R41.0 Disorientation, unspecified
CPT/HCPCS: 36600; 70450; 71010; 73610; 80048; 80053; 81001; 82550; 82805; 83605; 83880; 84443; 84484; 85025; 85610; 85730; 87040; 87086; 93005; 94150; 94620; 94640; 94664; 96360; G8987-GP; G8988-GP; J0456; J0696; J1644; J1940; J1956; J7030; J7050

== ENCOUNTER 2016-04-26 16:48 | Emergency (ER) | payer MEDICAID, OTHER ==
[~2016-04-26 16:48] MED LIST changes: -ALBU8I INH; +ALBUAER3 INH; -ASEN10TA SL; -BACT800T5 PO; -CEPH500C3 PO; -CLOZ100 PO; +FEXO180T PO; +FIBE625T4 PO; +GABA600T PO; +MONT10TA2 PO; +NAPR500T PO; +OMEP20CA2 PO; +OXYGENTANK NAS.CANULA; -PARO20TA PO; +PAXI30TA7 PO; -REQU3TAB PO; +ROPI3TAB PO; +SAPH10SU3 SL; +SAPH5SUB3 SL; +SULF10SO3 EACH EYE; +TRIA37.5 PO; +ZYRT10TA PO
[2016-04-26 17:14] VITALS: BP 114/60; PULSE 116; RESP 17; TEMP 98.6; O2SAT 98
[2016-04-26 17:46] LABS: AUTOMATED NEUTROPHIL # 7.8 TH/MM3 (1.8-7.7); BASOPHIL # 0.1 TH/MM3 (0-0.2); BASOPHIL % 0.7 % (0.0-2.0); EOSINOPHIL # 0.2 TH/MM3 (0-0.4); EOSINOPHIL % 1.7 % (0.0-4.0); HEMATOCRIT 44.5 % (39.0-51.0); HEMO FLAGS DIFF FINAL; LYMPH % 7.8 % (9.0-44.0); LYMPHOCYTE # 0.8 TH/MM3 (1.0-4.8); MEAN CELL VOLUME 87.7 FL (80.0-100.0); MEAN CORPUSCULAR HEMOGLOBIN 29.6 PG (27.0-34.0); MEAN CORPUSCULAR HGB CONC 33.8 % (32.0-36.0); MONO % 9.4 % (0.0-8.0); NEUT % 80.4 % (16.0-70.0); PLATELET COUNT 104 TH/MM3 (150-450); RED BLOOD COUNT 5.07 MIL/MM3 (4.50-5.90); RED CELL DISTRIBUTION WIDTH 14.6 % (11.6-17.2); WHITE BLOOD COUNT 9.7 TH/MM3 (4.0-11.0)
[2016-04-26 18:05] LABS: ALT (GPT) 32 U/L (12-78); ANION GAP 6 MEQ/L (5-15); AST (GOT) 72 U/L (15-37); BICARBONATE 30.6 MEQ/L (21.0-32.0); BLOOD UREA NITROGEN 20 MG/DL (7-18); CHLORIDE 102 MEQ/L (98-107); GLOMERULAR FILTRATION RATE 50 ML/MIN (>89); POTASSIUM 3.6 MEQ/L (3.5-5.1); SODIUM (NA) 139 MEQ/L (136-145)
[2016-04-26 18:07] LABS: ALKALINE PHOSPHATASE 93 U/L (45-117); TOTAL BILIRUBIN ADULT 0.7 MG/DL (0.2-1.0)
[2016-04-26 18:09] VITALS: BP 136/67; PULSE 108; RESP 16; TEMP 99.3; O2SAT 95
[2016-04-26] MEDS ORDERED: SAPH10SU3 SL (18:22)
[2016-04-26] MEDS ORDERED: CLOZ100T3 PO (18:22)
[2016-04-26 18:24] VITALS: BP 136/67; RESP 18
--- NOTE | 2016-04-26 18:27 | PD ---
HPI Chief Complaint: Psychiatric Symptoms Time Seen by Provider: 18:22 Travel History International Travel<30 days: No Contact w/Intl Traveler<30days: No Traveled to known affect area: No History of Present Illness HPI 55-year-old male that presents to the ED for evaluation of psychiatric illness. Patient was Colin acted by police after apparently his been acting more bizarre at the facility where he stays that. Patient does have a chronic history of schizophrenia and hypertension. Patient has been here before for similar. Patient voices no complaints. On my physical exam he does appear to be somewhat psychotic. He does not appear to be interacting with internal stimuli but some of the questions yes is appear to be bizarre. He is currently taking some antibiotics for a abscesses to his buttocks that appears to be draining. Patient has an allergy to Haldol. Denies any chest pain or shortness of breath. No other medical problems. He does have a history of COPD and has not used his inhaler recently. He also smokes. He voices no pain to me at this time. Denies any numbness, tingling, weakness. He voices no homicidal or suicidal ideation. Per records patient apparently is more bizarre and agitated. PFSH Past Medical History Anxiety: Yes Depression: Yes Cancer: No Cardiovascular Problems: Yes COPD: Yes Endocrine: No GERD: Yes Genitourinary: No Hypertension: Yes Immune Disorder: No Musculoskeletal: No Neurologic: No Psychiatric: Yes (schizophrenic,) Reproductive: No Respiratory: Yes Schizophrenia: Yes Ulcer: Yes Social History Alcohol Use: Yes Tobacco Use: Yes Substance Use: No Allergies-Medications (Allergen,Severity, Reaction): Coded Allergies: Haldol (Verified Allergy, Severe, Hives, 10/13/13) Reported Meds & Prescriptions Reported Meds & Active Scripts Active Oxygen tank (Oxygen) 1 Ea Tank 2 Liter CRESCENCIO.CANULA CONTINUOUS Oxygen Concentrator Portable Gaseous 2 L/min via Nasal Cannula Continuous For 99 months Reported Sulfacetamide Opth Drops 10 % Soln 1 Drop EACH EYE Q6HR Naproxen 500 Mg Tab 500 Mg PO BID PRN Fexofenadine (Fexofenadine HCl) 180 Mg Tab 180 Mg PO DAILY PRN Fiber-Lax (Calcium Polycarbophil) 625 Mg Tab 625 Mg PO DAILY PRN Proair Hfa 8.5 GM Inh (Albuterol Sulfate) 90 Mcg/Act Aer 2 Puff INH Q6H PRN 108 mcg/actuation Gabapentin 600 Mg Tab 600 Mg PO HS Singulair (Montelukast Sodium) 10 Mg Tab 10 Mg PO HS Ropinirole 3 Mg Tab 3 Mg PO HS Saphris (Asenapine) 10 Mg Subl 10 Mg SL HS Triamterene-Hydrochlorothiazide 37.5-25 Mg Tab 1 Tab PO DAILY Saphris (Asenapine) 5 Mg Subl 5 Mg SL DAILY Paxil (Paroxetine HCl) 30 Mg Tab 30 Mg PO DAILY Omeprazole 20 Mg Cap 20 Mg PO DAILY Zyrtec Allergy (Cetirizine HCl) 10 Mg Tab 10 Mg PO DAILY Review of Systems General / Constitutional: No: Fever, Chills, Weight Gain, Weight Loss, Other Eyes: No: Diploplia, Blurred Vision, Photophobia, Drainage, Redness, Foreign Body Sensation, Pain, Tearing, Blind Spots, Visual changes, Blindness, Other HENT: No: Headaches, Vertigo, Lightheadedness, Sore Throat, Rhinitis, Rhinorrhea, Congestion, Nosebleed, Neck Stiffness, Neck Pain, Masses, Gingival Bleeding, Dental Difficulties, Ear Discharge, Earache, Other Cardiovascular: No: Chest Pain or Discomfort, Palpitations, Irregular Rhythm, Tachycardia, Diaphoresis, Syncope, Dyspnea on exertion, Varicosities, Edema, Cyanosis, Varicosities, Phlebitis, Claudication, Other Respiratory: No: Cough, Shortness of Breath, Wheezing, Sneezing, Orthopnea, Hemoptysis, Stridor, Night Sweats, Pleuritic Pain, Other Gastrointestinal: No: Nausea, Vomiting, Diarrhea, Abdominal Pain, Hematemesis, Hematochezia, Constipation, Changes in Bowel Habits, Indigestion, Dysphagia, Loss of Appetite, Other Genitourinary: No: Urgency, Frequency, Dysuria, Nocturia, Hematuria, Decreased Urinary Output, Oliguria, Hesitancy, Dribbling, Incontinence, Pelvic Pain, Flank Pain, Dyspareunia, Discharge, Dysmenorrhea, Menorrhagia, Metorrhagia, Vaginal Bleeding, Other Skin: Positive Rash, Positive Lesions, No Itching, No Dryness, No Lumps, No Hives, No Change in Pigmentation, No Change in nails, No Alopecia, No Breast Lumps, No Breast Tenderness, No Breast Swelling, No Other Neurologic: No: Weakness, Dizziness, Syncope, Focal Abnormalities, Coordination Problem, Tremor, Ataxia, Headache, Change in Mentation, Slurred Speech, Paresthesia, Incontinence, Seizures, Sensory Disturbance, Other Psychiatric: Positive: Disorder of Thought, Mood Disorder, No: Anxiety, Depression, Suicidal Ideations, Substance Abuse, Homicidal Ideation, Other Endocrine: No: Heat Intolerance, Cold Intolerance, Polyuria, Polydipsia, Other Hematologic/Lymphatic: No: Easy Bruising, Lymph Node Enlargement, Other Physical Exam Narrative GENERAL: SKIN: Warm and dry. Patient has a draining abscess on his left buttocks that is about 1 cm in diameter. Slightly erythematous. HEAD: Atraumatic. Normocephalic. EYES: Pupils equal and round 4 mm reactive to light and accommodation. No scleral icterus. No injection or drainage. ENT: No nasal bleeding or discharge. Mucous membranes pink and moist. Tongue is midline. No uvula deviation NECK: Trachea midline. No JVD. CARDIOVASCULAR: Regular rate and rhythm. No murmurs, S3, S4. RESPIRATORY: No accessory muscle use. Clear to auscultation. Breath sounds equal bilaterally. GASTROINTESTINAL: Abdomen soft, non-tender, nondistended. Hepatic and splenic margins not palpable. MUSCULOSKELETAL: Extremities without clubbing, cyanosis, or edema. No obvious deformities. Full range of motion of the upper and lower extremities bilaterally. Pupils pulses bilaterally. NEUROLOGICAL: Awake and alert. No obvious cranial nerve deficits. Motor grossly within normal limits. Five out of 5 muscle strength in the arms and legs. Normal speech. PSYCHIATRIC: psychotic mood and affect; insight and judgment normal. Data Data Last Documented VS Vital Signs Date Time Temp Pulse Resp B/P Pulse Ox O2 Delivery O2 Flow Rate FiO2 04/26/16 18:09 99.3 108 16 136/67 95 Room Air Orders Complete Blood Count With Diff (04/26/16 17:30) Comprehensive Metabolic Panel (04/26/16 17:30) Psych Screen (04/26/16 17:30) Drug Screen, Random Urine (04/26/16 17:39) Diet Regular Basic (04/26/16 Dinner) Labs Laboratory Tests Test 04/26/16 17:35 White Blood Count 9.7 TH/MM3 Red Blood Count 5.07 MIL/MM3 Hemoglobin 15.0 GM/DL Hematocrit 44.5 % Mean Corpuscular Volume 87.7 FL Mean Corpuscular Hemoglobin 29.6 PG Mean Corpuscular Hemoglobin 33.8 % Concent Red Cell Distribution Width 14.6 % Platelet Count 104 TH/MM3 Mean Platelet Volume 8.8 FL Neutrophils (%) (Auto) 80.4 % Lymphocytes (%) (Auto) 7.8 % Monocytes (%) (Auto) 9.4 % Eosinophils (%) (Auto) 1.7 % Basophils (%) (Auto) 0.7 % Neutrophils # (Auto) 7.8 TH/MM3 Lymphocytes # (Auto) 0.8 TH/MM3 Monocytes # (Auto) 0.9 TH/MM3 Eosinophils # (Auto) 0.2 TH/MM3 Basophils # (Auto) 0.1 TH/MM3 CBC Comment DIFF FINAL Differential Comment Sodium Level 139 MEQ/L Potassium Level 3.6 MEQ/L Chloride Level 102 MEQ/L Carbon Dioxide Level 30.6 MEQ/L Anion Gap 6 MEQ/L Blood Urea Nitrogen 20 MG/DL Creatinine 1.47 MG/DL Estimat Glomerular Filtration 50 ML/MIN Rate Random Glucose 128 MG/DL Calcium Level 8.9 MG/DL Total Bilirubin 0.7 MG/DL Aspartate Amino Transf 72 U/L (AST/SGOT) Alanine Aminotransferase 32 U/L (ALT/SGPT) Alkaline Phosphatase 93 U/L Total Protein 6.7 GM/DL Albumin 3.7 GM/DL MDM Medical Decision Making Medical Screen Exam Complete: Yes Emergency Medical Condition: Yes Medical Record Reviewed: Yes Interpretation(s) CBC & BMP Diagram 04/26/16 17:35 Differential Diagnosis Depression versus suicidal ideation versus anxiety versus adjustment disorder versus mood disorder versus bipolar disorder versus schizophrenia versus paranoid disorder versus psychosis versus substance abuse versus alcohol abuse versus alcohol induced psychosis versus homicidality addition versus cutting versus personality disorder Narrative Course 55-year-old male that presents to the ED for evaluation of psych. Patient was properly examined and was found to have signs and symptoms consistent with appears to be psychiatric illness. No sign of acute medical distress. Labs were drawn. Patient was medically cleared. Okay to be seen by psych. Mental health screening was discussed with the patient. Diagnosis Primary Impression: Schizophrenia Qualified Code: F20.9 - Schizophrenia, unspecified type Gorge Burnett Apr 26, 2016 18:27
[2016-04-26 20:36] LABS: AMPHETAMINE, URINE NEG (NEG); BARBITURATES, URINE NEG (NEG); COCAINE, URINE NEG (NEG)
[2016-04-26 22:57] VITALS: BP 113/58; PULSE 72; RESP 18
[2016-04-27 02:49] VITALS: BP 115/69; PULSE 83; RESP 18
[2016-04-27] MEDS ORDERED: CEPH-460 PO (05:34)
[2016-04-27] MEDS ORDERED: BACT800T5 PO (05:34)
--- NOTE | 2016-04-27 05:38 | PD ---
Physical Exam Date Seen by Provider: Apr 27, 2016 Time Seen by Provider: 05:35 Narrative Skin: Patient has open draining abscess to the right buttocks. This measures 5 x 5 centimeters. It is erythematous, tender and fluctuant. Purulent drainage. Data Data Last Documented VS Vital Signs Date Time Temp Pulse Resp B/P Pulse Ox O2 Delivery O2 Flow Rate FiO2 04/27/16 02:49 83 18 115/69 04/26/16 18:09 99.3 95 Room Air Orders Complete Blood Count With Diff (04/26/16 17:30) Comprehensive Metabolic Panel (04/26/16 17:30) Psych Screen (04/26/16 17:30) Drug Screen, Random Urine (04/26/16 17:39) Diet Regular Basic (04/26/16 Dinner) Diet Regular Basic (04/27/16 Breakfast) Cephalexin (Keflex) (04/27/16 05:45) Sulfamet-Trimeth Ds 800-160 Mg (Bactrim (04/27/16 05:45) Labs Laboratory Tests Test 04/26/16 04/26/16 17:35 19:55 White Blood Count 9.7 TH/MM3 Red Blood Count 5.07 MIL/MM3 Hemoglobin 15.0 GM/DL Hematocrit 44.5 % Mean Corpuscular Volume 87.7 FL Mean Corpuscular Hemoglobin 29.6 PG Mean Corpuscular Hemoglobin 33.8 % Concent Red Cell Distribution Width 14.6 % Platelet Count 104 TH/MM3 Mean Platelet Volume 8.8 FL Neutrophils (%) (Auto) 80.4 % Lymphocytes (%) (Auto) 7.8 % Monocytes (%) (Auto) 9.4 % Eosinophils (%) (Auto) 1.7 % Basophils (%) (Auto) 0.7 % Neutrophils # (Auto) 7.8 TH/MM3 Lymphocytes # (Auto) 0.8 TH/MM3 Monocytes # (Auto) 0.9 TH/MM3 Eosinophils # (Auto) 0.2 TH/MM3 Basophils # (Auto) 0.1 TH/MM3 CBC Comment DIFF FINAL Differential Comment Sodium Level 139 MEQ/L Potassium Level 3.6 MEQ/L Chloride Level 102 MEQ/L Carbon Dioxide Level 30.6 MEQ/L Anion Gap 6 MEQ/L Blood Urea Nitrogen 20 MG/DL Creatinine 1.47 MG/DL Estimat Glomerular Filtration 50 ML/MIN Rate Random Glucose 128 MG/DL Calcium Level 8.9 MG/DL Total Bilirubin 0.7 MG/DL Aspartate Amino Transf 72 U/L (AST/SGOT) Alanine Aminotransferase 32 U/L (ALT/SGPT) Alkaline Phosphatase 93 U/L Total Protein 6.7 GM/DL Albumin 3.7 GM/DL Urine Opiates Screen NEG Urine Barbiturates Screen NEG Urine Amphetamines Screen NEG Urine Benzodiazepines Screen NEG Urine Cocaine Screen NEG Urine Cannabinoids Screen NEG MDM Medical Record Reviewed: Yes Supervised Visit with REBECCA: No Interpretation(s) CBC & BMP Diagram 04/26/16 17:35 Differential Diagnosis MDM: High Differential diagnoses: Schizophrenia, schizoaffective disorder, bipolar, anxiety, depression, adjustment reaction, mood disorder NOS, ODD, depressive disorder NOS, dementia, dementia with agitation, psychosis NOS, substance induced mood disorder, intermittent explosive disorder, Asperger syndrome, infection,electrolyte abnormality, , Abscess, malingering. Narrative Course The abscess cavity is deflated with direct pressure. The patient tolerates the wound be cleansed and a dressing applied Diagnosis Primary Impression: Schizophrenia Qualified Code: F20.9 - Schizophrenia, unspecified type Additional Impression: Abscess of right buttock Patient Instructions: General Instructions Med/Other Pt SpecificInfo: Prescription(s) given, Wound Care Scripts Sulfamethoxazole-Trimethoprim (Bactrim DS)800-160 Mg Tab1 Tab PO BID #14 TAB Prov:Marycarmen Kim MD 04/27/16 Cephalexin (Keflex)500 Mg [id number] Mg PO Q6H #28 CAP Prov:Marycarmen Kim MD 04/27/16 Condition: Stable Isaias Larson Apr 27, 2016 05:38
[2016-04-27] MEDS ORDERED: CEPHALEXIN MONOHYDRATE 500 MG CAP PO ONE (05:45)
[2016-04-27] MEDS ORDERED: SULFAMETHOXAZOLE-TRIMETHOPRIM DS 800-160 MG TAB PO ONE (05:45)
[2016-04-27 06:16] VITALS: BP 106/55; PULSE 86; RESP 18; O2SAT 93
[2016-04-27 10:00] VITALS: BP 108/57; PULSE 85; RESP 18
[2016-04-27 12:13] VITALS: BP 108/57
== END 2016-04-27 12:14 | disposition short-term general hospital (02) ==
LOC: NEPJ 16:48
DX: F20.9 Schizophrenia, unspecified (principal); L02.31 Cutaneous abscess of buttock; I10 Essential (primary) hypertension; J44.9 Chronic obstructive pulmonary disease, unspecified; F41.8 Other specified anxiety disorders
CPT/HCPCS: 80053; 80307; 85025; 99285

== ENCOUNTER 2016-07-23 15:53 | Emergency (ER) | payer MEDICAID, OTHER ==
[~2016-07-23] VITALS: Ht 177.8 cm; Wt 95.0 kg
[~2016-07-23 15:53] MED LIST changes: +BACT800T5 PO; +CEPH-460 PO; +CLOZ100T3 PO; -FIBE625T4 PO; -OXYGENTANK NAS.CANULA
[2016-07-23 15:55] VITALS: BP 129/78; PULSE 99; RESP 20; TEMP 97.9; O2SAT 82
--- NOTE | 2016-07-23 16:02 | PD ---
Physical Exam Date Seen by Provider: July 23, 2016 Time Seen by Provider: 15:59 Narrative 56 year old male presents to the emergency department for COPD. He states he was sent by his primary care provider. He reports cough with green sputum, tobacco user, fatigue. No fevers. Oxygen saturation is 82%. Vital signs reviewed. Patient awaiting bed placement. Data Data Last Documented VS Vital Signs Date Time Temp Pulse Resp B/P Pulse Ox O2 Delivery O2 Flow Rate FiO2 07/23/16 15:55 97.9 99 20 129/78 82 MDM Supervised Visit with REBECCA: Karol Christiansen July 23, 2016 16:02
[2016-07-23] MEDS ORDERED: methylPREDNISolone SOD SUCC 125 MG/2 ML VIAL IV PUSH ONE (16:30)
[2016-07-23] MEDS ORDERED: SODIUM CHLORIDE 0.9% FLUSH 10 ML FLUSH IVF PRN (16:30)
[2016-07-23 16:36] VITALS: BP 131/75; PULSE 102; RESP 18; O2SAT 94
--- NOTE | 2016-07-23 16:45 | PD ---
HPI Chief Complaint: Respiratory Symptoms Time Seen by Provider: 16:27 Travel History International Travel<30 days: No Contact w/Intl Traveler<30days: No Traveled to known affect area: No History of Present Illness HPI 56-year-old male with history of schizophrenia, presents to the ER because of several weeks history of coughing with phlegm production and shortness of breath. He denies any fevers, chest pains, or any other symptoms. He was seen by primary care physician and sent in for further evaluation. Modifying Factors: None Associated Signs & Symptoms: Coughing and shortness of breath for several weeks Risk Factors: None PFSH Past Medical History Anxiety: Yes Depression: Yes Cancer: No Cardiovascular Problems: Yes COPD: Yes Endocrine: No Gastrointestinal Disorders: No GERD: Yes Genitourinary: No Hypertension: Yes Immune Disorder: No Implanted Vascular Access Dvce: No Musculoskeletal: No Neurologic: No Psychiatric: Yes (schizophrenic,) Reproductive: No Respiratory: Yes Schizophrenia: Yes Ulcer: Yes Past Surgical History Other Surgery: No Social History Alcohol Use: No Tobacco Use: Yes Substance Use: No Allergies-Medications (Allergen,Severity, Reaction): Coded Allergies: Haldol (Verified Allergy, Severe, Hives, 10/13/13) Reported Meds & Prescriptions Reported Meds & Active Scripts Active Reported Clozapine 100 Mg Tab 100 Mg PO BID Saphris (Asenapine) 10 Mg Subl 10 Mg SL BID PRN Naproxen 500 Mg Tab 500 Mg PO BID PRN Proair Hfa 8.5 GM Inh (Albuterol Sulfate) 90 Mcg/Act Aer 2 Puff INH Q6H PRN 108 mcg/actuation Gabapentin 600 Mg Tab 600 Mg PO HS Singulair (Montelukast Sodium) 10 Mg Tab 10 Mg PO HS Ropinirole 3 Mg Tab 3 Mg PO HS Saphris (Asenapine) 10 Mg Subl 10 Mg SL HS Triamterene-Hydrochlorothiazide 37.5-25 Mg Tab 1 Tab PO DAILY Saphris (Asenapine) 5 Mg Subl 5 Mg SL DAILY Paxil (Paroxetine HCl) 30 Mg Tab 30 Mg PO DAILY Omeprazole 20 Mg Cap 20 Mg PO DAILY Zyrtec Allergy (Cetirizine HCl) 10 Mg Tab 10 Mg PO DAILY Review of Systems Except as stated in HPI: all other systems reviewed are Neg Physical Exam Narrative GENERAL: Well-developed middle age male patient in mild distress. Awake and oriented 3. SKIN: Focused skin assessment warm/dry. HEAD: Atraumatic. Normocephalic. EYES: Pupils equal and round. No scleral icterus. No injection or drainage. ENT: No nasal bleeding or discharge. Mucous membranes pink and moist. NECK: Trachea midline. No JVD. CARDIOVASCULAR: Regular rate and rhythm. No murmur appreciated. RESPIRATORY: No accessory muscle use. Mild wheezing and decreased breath sounds throughout. Breath sounds equal bilaterally. GASTROINTESTINAL: Abdomen soft, non-tender, nondistended. Hepatic and splenic margins not palpable. MUSCULOSKELETAL: No obvious deformities. No clubbing. No cyanosis. No edema. NEUROLOGICAL: Awake and alert. No obvious cranial nerve deficits. Motor grossly within normal limits. Normal speech. PSYCHIATRIC: Appropriate mood and affect; insight and judgment normal. Data Data Last Documented VS Vital Signs Date Time Temp Pulse Resp B/P Pulse Ox O2 Delivery O2 Flow Rate FiO2 07/23/16:17 20 93 Nasal Cannula 3 07/23/16 16:36 102 131/75 07/23/16 15:55 97.9 Orders Complete Blood Count With Diff (07/23/16 16:20) Comprehensive Metabolic Panel (07/23/16 16:20) B-Type Natriuretic Peptide (07/23/16 16:20) Ckmb (Isoenzyme) Profile (07/23/16 16:20) Troponin I (07/23/16 16:20) Iv Access Insert/Monitor (07/23/16 16:20) Electrocardiogram (07/23/16 16:20) Ecg Monitoring (07/23/16 16:20) Oximetry (07/23/16 16:20) Oxygen Administration (07/23/16 16:20) Chest, Single Ap (07/23/16 16:20) Sodium Chloride 0.9% Flush (Ns Flush) (07/23/16 16:30) Methylprednisolone So Succ Inj (Solumedr (07/23/16 16:30) Albuterol-Ipratropium Neb (Duoneb Neb) (07/23/16 16:30) Albuterol-Ipratropium Neb (Duoneb Neb) (07/23/16 17:45) Labs Laboratory Tests Test 07/23/16 16:45 White Blood Count 8.7 TH/MM3 Red Blood Count 4.80 MIL/MM3 Hemoglobin 14.8 GM/DL Hematocrit 42.8 % Mean Corpuscular Volume 89.3 FL Mean Corpuscular Hemoglobin 30.9 PG Mean Corpuscular Hemoglobin 34.7 % Concent Red Cell Distribution Width 15.3 % Platelet Count 122 TH/MM3 Mean Platelet Volume 7.9 FL Neutrophils (%) (Auto) 72.6 % Lymphocytes (%) (Auto) 15.7 % Monocytes (%) (Auto) 7.8 % Eosinophils (%) (Auto) 3.3 % Basophils (%) (Auto) 0.6 % Neutrophils # (Auto) 6.3 TH/MM3 Lymphocytes # (Auto) 1.4 TH/MM3 Monocytes # (Auto) 0.7 TH/MM3 Eosinophils # (Auto) 0.3 TH/MM3 Basophils # (Auto) 0.1 TH/MM3 CBC Comment DIFF FINAL Differential Comment Sodium Level 135 MEQ/L Potassium Level 4.3 MEQ/L Chloride Level 92 MEQ/L Carbon Dioxide Level 35.8 MEQ/L Anion Gap 7 MEQ/L Blood Urea Nitrogen 12 MG/DL Creatinine 1.07 MG/DL Estimat Glomerular Filtration 71 ML/MIN Rate Random Glucose 105 MG/DL Calcium Level 8.7 MG/DL Total Bilirubin 0.5 MG/DL Aspartate Amino Transf 16 U/L (AST/SGOT) Alanine Aminotransferase 15 U/L (ALT/SGPT) Alkaline Phosphatase 94 U/L Total Creatine Kinase 88 U/L Troponin I LESS THAN 0.02 NG/ML B-Type Natriuretic Peptide 63 PG/ML Total Protein 6.7 GM/DL Albumin 3.7 GM/DL MDM Medical Decision Making Medical Screen Exam Complete: Yes Emergency Medical Condition: Yes Medical Record Reviewed: Yes Interpretation(s) Laboratory Tests Test 07/23/16 16:45 Platelet Count 122 TH/MM3 (150-450) Neutrophils (%) (Auto) 72.6 % (16.0-70.0) Sodium Level 135 MEQ/L (136-145) Chloride Level 92 MEQ/L (98-107) Carbon Dioxide Level 35.8 MEQ/L (21.0-32.0) Estimat Glomerular Filtration 71 ML/MIN (>89) Rate Troponin I LESS THAN 0.02 NG/ML (0.02-0.05) Last 24 hours Impressions Chest X-Ray 07/23/16 1620 Signed Impressions: Service Date/Time: Saturday, July 23, 2016 16:41 - CONCLUSION: No acute disease. Yoshi Bautista MD EKG shows NSR, no ST elevation or depression, and no arrhythmias. No significant T-wave inversions. Differential Diagnosis Shortness of breathCOPD exacerbation versus bronchitis versus pneumonia versus CHF Narrative Course EKG did not show significant dysrhythmias. Chest x-ray did not show any signs of acute pneumonia or other acute processes. He was given Solu-Medrol and nebulizers in the ER and on reevaluation at 6:30 PM, he is feeling much improved. Saturations are improved. At this point, I suspect he has an underlying bronchitis causing symptoms. He smokes as well. My plan would be to treat him for bronchitis and have him follow-up with primary care physician. Return for any worsening in symptoms as needed. The plan has discussed with the patient and he states understanding. Diagnosis Primary Impression: Bronchitis Med/Other Pt SpecificInfo: Prescription(s) given Scripts Azithromycin (Zithromax Z-Carson)250 Mg [id number] Mg PO DIRECTED #1 DSPK Ref 0 500 MG (2 tabs) day 1, then 1 tab days 2-5. Prov:Cesar Santoro MD 07/23/16 Albuterol 6.7 GM Inh (Proventil Hfa 6.7 GM Inh)90 Mcg/Act Aer2 Puff INH Q4-6H PRN (SHORTNESS OF BREATH) #1 INHALER Ref 0 Prov:Cesar Santoro MD 07/23/16 Prednisone 50 Mg Tab50 Mg PO DAILY #5 TAB Ref 0 Prov:Cesar Santoro MD 07/23/16 Disposition: 01 DISCHARGE HOME Condition: Stable Cesar Santoro MD July 23, 2016 16:45
[2016-07-23] MEDS: RESP: ALBUTEROL 2.5 MG/IPRATROPIUM 0.5 MG NEB (SCH) INH ×3 (16:56→18:12)
--- NOTE | 2016-07-23 16:57 | RADRPT ---
EXAM DATE/TIME: 07/23/2016 16:41 [facility] COMPARISON: CHEST SINGLE AP, March 26, 2016, 0:37. INDICATIONS : Short of breath. MEDICAL HISTORY : Chronic obstructive pulmonary disease. SURGICAL HISTORY : None. ENCOUNTER: Initial ACUITY: 1 day PAIN SCORE: 0/10 LOCATION: Bilateral chest FINDINGS: A single view of the chest demonstrates the lungs to be symmetrically aerated without evidence of mas s, infiltrate or effusion. The cardiomediastinal contours are unremarkable. Osseous structures are intact. CONCLUSION: No acute disease. Yoshi Bautista MD on July 23, 2016 at 16:55 Board Certified Radiologist. This report was verified electronically.
[2016-07-23 17:04] LABS: AUTOMATED NEUTROPHIL # 6.3 TH/MM3 (1.8-7.7); BASOPHIL # 0.1 TH/MM3 (0-0.2); BASOPHIL % 0.6 % (0.0-2.0); EOSINOPHIL # 0.3 TH/MM3 (0-0.4); EOSINOPHIL % 3.3 % (0.0-4.0); HEMATOCRIT 42.8 % (39.0-51.0); HEMO FLAGS DIFF FINAL; LYMPH % 15.7 % (9.0-44.0); LYMPHOCYTE # 1.4 TH/MM3 (1.0-4.8); MEAN CELL VOLUME 89.3 FL (80.0-100.0); MEAN CORPUSCULAR HEMOGLOBIN 30.9 PG (27.0-34.0); MEAN CORPUSCULAR HGB CONC 34.7 % (32.0-36.0); MONO % 7.8 % (0.0-8.0); NEUT % 72.6 % (16.0-70.0); PLATELET COUNT 122 TH/MM3 (150-450); RED CELL DISTRIBUTION WIDTH 15.3 % (11.6-17.2); WHITE BLOOD COUNT 8.7 TH/MM3 (4.0-11.0)
[2016-07-23 17:13] VITALS: O2SAT 94
[2016-07-23 17:24] LABS: ALT (GPT) 15 U/L (12-78); ANION GAP 7 MEQ/L (5-15); AST (GOT) 16 U/L (15-37); BICARBONATE 35.8 MEQ/L (21.0-32.0); BLOOD UREA NITROGEN 12 MG/DL (7-18); CHLORIDE 92 MEQ/L (98-107); GLOMERULAR FILTRATION RATE 71 ML/MIN (>89); POTASSIUM 4.3 MEQ/L (3.5-5.1); SODIUM (NA) 135 MEQ/L (136-145)
[2016-07-23 17:28] LABS: ALKALINE PHOSPHATASE 94 U/L (45-117); TOTAL BILIRUBIN ADULT 0.5 MG/DL (0.2-1.0)
[2016-07-23 17:38] LABS: CREATINE KINASE 88 U/L (39-308)
[2016-07-23] MEDS ORDERED: ZITHTAB PO ×2 (18:38→19:06)
[2016-07-23] MEDS ORDERED: PRED50 PO ×2 (18:38→19:06)
[2016-07-23] MEDS ORDERED: ALBU6.7H INH ×2 (18:38→19:06)
[2016-07-23 18:51] VITALS: BP 136/76; PULSE 94; RESP 18; O2SAT 93
--- NOTE | 2016-07-24 15:47 | EKG ---
Date Performed: 07/23/2016 Time Performed: 16:46:06 PTAGE: 56 years EKG: Sinus rhythm BORDERLINE LEFT AXIS DEVIATION LOW QRS VOLTAGE ABNORMAL ECG PREVIOUS TRACING : 03/24/2016 08.30 Compared to prior tracing no significant change DOCTOR: Norman Mcleod Interpretating Date/Time 07/24/2016 15:44:40
== END 2016-07-23 21:57 | disposition home or self-care (01) ==
LOC: NEPC 15:53
DX: J44.9 Chronic obstructive pulmonary disease, unspecified (principal); I10 Essential (primary) hypertension; F20.9 Schizophrenia, unspecified; F17.210 Nicotine dependence, cigarettes, uncomplicated
CPT/HCPCS: 71010; 80053; 82550; 83880; 84484; 85025; 93005; 94640; 94664; 96374; 99284; J2930

== ENCOUNTER 2016-10-16 10:32 | Observation (INO) | payer MEDICAID ==
[~2016-10-16] VITALS: Ht 177.8 cm; Wt 100.0 kg
[~2016-10-16 10:32] MED LIST changes: +ALBU6.7H INH; -BACT800T5 PO; -CEPH-460 PO; -FEXO180T PO; +PRED50 PO; -SULF10SO3 EACH EYE; +ZITHTAB PO
[2016-10-16 10:39] VITALS: BP 119/70; PULSE 101; RESP 18; TEMP 98; O2SAT 94
[2016-10-16] MEDS ORDERED: INVE39IN IM (10:47)
[2016-10-16] MEDS ORDERED: REQU3TAB PO (10:47)
[2016-10-16] MEDS ORDERED: SODIUM CHLOR 0.9% 1000 ML INJ 1,000 ML IV ONE (10:55)
[2016-10-16] MEDS ORDERED: SODIUM CHLORIDE 0.9% FLUSH 10 ML FLUSH IVF PRN (11:00)
[2016-10-16 11:28] LABS: AUTOMATED NEUTROPHIL # 5.9 TH/MM3 (1.8-7.7); BASOPHIL # 0.1 TH/MM3 (0-0.2); BASOPHIL % 0.7 % (0.0-2.0); EOSINOPHIL # 0.2 TH/MM3 (0-0.4); HEMATOCRIT 47.2 % (39.0-51.0); LYMPH % 12.3 % (9.0-44.0); LYMPHOCYTE # 0.9 TH/MM3 (1.0-4.8); MEAN CELL VOLUME 90.9 FL (80.0-100.0); MEAN CORPUSCULAR HEMOGLOBIN 31.1 PG (27.0-34.0); MEAN CORPUSCULAR HGB CONC 34.2 % (32.0-36.0); MONO % 7.4 % (0.0-8.0); NEUT % 77.6 % (16.0-70.0); PLATELET COUNT 93 TH/MM3 (150-450); RED BLOOD COUNT 5.19 MIL/MM3 (4.50-5.90); RED CELL DISTRIBUTION WIDTH 13.6 % (11.6-17.2); WHITE BLOOD COUNT 7.6 TH/MM3 (4.0-11.0)
[2016-10-16 11:34] LABS: HEMO FLAGS AUTO DIFF
--- NOTE | 2016-10-16 11:51 | RADRPT ---
EXAM DATE/TIME: 10/16/2016 10:59 [facility] COMPARISON: CHEST SINGLE AP, July 23, 2016, 16:41. INDICATIONS : Possible syncopal episode; fall this morning. MEDICAL HISTORY : Hypertension. Chronic obstructive pulmonary disease. SURGICAL HISTORY : None. ENCOUNTER: Initial ACUITY: 1 day PAIN SCORE: 0/10 LOCATION: Bilateral chest FINDINGS: A single view of the chest demonstrates minimal basilar density patches of atelectasis. Heart size wi thin normal limits. No pneumothorax. CONCLUSION: 1. Minimal basal atelectasis. No effusion or pneumothorax. Isaias Alcaraz MD on October 16, 2016 at 11:47 Board Certified Radiologist. This report was verified electronically.
--- NOTE | 2016-10-16 12:21 | PD ---
Physical Exam Date Seen by Provider: Oct 16, 2016 Time Seen by Provider: 12:20 Narrative I was asked by Dr. Liu to repair laceration lateral to the patient's left eye. Please see her documentation for full history and physical. Data Data Last Documented VS Vital Signs Date Time Temp Pulse Resp B/P Pulse Ox O2 Delivery O2 Flow Rate FiO2 10/16/16 10:39 103 18 94 Room Air 10/16/16 10:39 98.0 119/70 Orders Electrocardiogram (10/16/16 ) Complete Blood Count With Diff (10/16/16 10:55) Comprehensive Metabolic Panel (10/16/16 10:55) Ckmb (Isoenzyme) Profile (10/16/16 10:55) Troponin I (10/16/16 10:55) Act Partial Throm Time (Ptt) (10/16/16 10:55) Prothrombin Time / Inr (Pt) (10/16/16 10:55) Chest, Single Ap (10/16/16 10:55) Ct Brain W/O Iv Contrast(Rout) (10/16/16 10:55) Ct Cerv Spine W/O Contrast (10/16/16 10:55) Ecg Monitoring (10/16/16 10:55) Iv Access Insert/Monitor (10/16/16 10:55) Oximetry (10/16/16 10:55) Sodium Chloride 0.9% Flush (Ns Flush) (10/16/16 11:00) Sodium Chlor 0.9% 1000 Ml Inj (Ns 1000 M (10/16/16 10:55) Labs Laboratory Tests Test 10/16/16 11:00 White Blood Count 7.6 TH/MM3 Red Blood Count 5.19 MIL/MM3 Hemoglobin 16.1 GM/DL Hematocrit 47.2 % Mean Corpuscular Volume 90.9 FL Mean Corpuscular Hemoglobin 31.1 PG Mean Corpuscular Hemoglobin 34.2 % Concent Red Cell Distribution Width 13.6 % Platelet Count 93 TH/MM3 Mean Platelet Volume 9.1 FL Neutrophils (%) (Auto) 77.6 % Lymphocytes (%) (Auto) 12.3 % Monocytes (%) (Auto) 7.4 % Eosinophils (%) (Auto) 2.0 % Basophils (%) (Auto) 0.7 % Neutrophils # (Auto) 5.9 TH/MM3 Lymphocytes # (Auto) 0.9 TH/MM3 Monocytes # (Auto) 0.6 TH/MM3 Eosinophils # (Auto) 0.2 TH/MM3 Basophils # (Auto) 0.1 TH/MM3 CBC Comment AUTO DIFF MDM Supervised Visit with REBECCA: No Procedures Procedure Narrative LACERATION LOCATION: Left face, lateral to left eye LENGTH: 2 cm NUMBER OF STITCHES/SYED: Dermabond REPAIR: The area of the laceration was prepped with Betadine and sterilely draped. The wound was copiously irrigated and explored without evidence of foreign body, tendon injury or neurovascular injury. The wound was closed using Dermabond. This was a single layer repair. A sterile dressing was applied. The patient was advised to keep the dressing clean and dry. Patient tolerated the procedure well. Karol Guthrie Oct 16, 2016 12:21
--- NOTE | 2016-10-16 12:26 | RADRPT ---
EXAM DATE/TIME: 10/16/2016 11:50 [facility] COMPARISON: CT BRAIN W/O CONTRAST, March 24, 2016, 9:20. INDICATIONS : Fall, laceration to left forehead. RADIATION DOSE: 56.35 CTDIvol (mGy) MEDICAL HISTORY : Hypertension. Chronic obstructive pulmonary disease. Ulcers. SURGICAL HISTORY : None. ENCOUNTER: Initial ACUITY: 1 day PAIN SCALE: 5/10 LOCATION: Left frontal TECHNIQUE: Multiple contiguous axial images were obtained of the head. Using automated exposure control and adj ustment of the mA and/or kV according to patient size, radiation dose was kept as low as reasonably a chievable to obtain optimal diagnostic quality images. DICOM format image data is available electro nically for review and comparison. FINDINGS: CEREBRUM: The ventricles are normal. No evidence of midline shift, mass lesion, hemorrhage or acute infarction . No extra-axial fluid collections are seen. POSTERIOR FOSSA: The cerebellum and brainstem demonstrate no acute finding. The 4th ventricle is midline. The cerebe llopontine angle is unremarkable. EXTRACRANIAL: There is a stable partially calcified subcutaneous scalp nodule on the right measuring 10 mm and stab le stranding in the subcutaneous fat on the left scalp. Visualized sinuses are clear. SKULL: The calvaria is intact. No evidence of skull fracture. CONCLUSION: Stable noncontrast head CT. No acute intracranial abnormality is identified. Ankur Nevarez MD on October 16, 2016 at 12:20 Board Certified Radiologist. This report was verified electronically.
--- NOTE | 2016-10-16 12:33 | RADRPT ---
EXAM DATE/TIME: 10/16/2016 11:51 [facility] COMPARISON: No previous studies available for comparison. INDICATIONS : Trauma; fall. RADIATION DOSE: 35.77 CTDIvol (mGy) MEDICAL HISTORY : Hypertension. Chronic obstructive pulmonary disease. Ulcers. SURGICAL HISTORY : None. ENCOUNTER: Initial ACUITY: 1 day PAIN SCALE: 0/10 LOCATION: neck TECHNIQUE: Volumetric scanning of the cervical spine was performed. Multiplanar reconstructions in the sagittal, coronal and oblique axial planes were performed. Using automated exposure control and adjustment o f the mA and/or kV according to patient size, radiation dose was kept as low as reasonably achievable to obtain optimal diagnostic quality images. DICOM format image data is available electronically f or review and comparison. FINDINGS: There is marked cervical kyphosis with degenerative disc disease at C4-C5 through C6-C7. There are en dplate osteophytes anteriorly at these levels. No anterolisthesis or retrolisthesis is present. The a tlantoaxial relationship is within normal limits. There is no prevertebral soft tissue swelling prese nt. No fracture or dislocation is identified. The visualized portions of the posterior fossa, paraspinous soft tissues, and upper lung zones demons trate no acute abnormality. There is an uncommon normal variant present with the styloid process is e xtending with bony connection to the hyoid bone. CONCLUSION: Marked cervical kyphosis and multilevel degenerative disease. No acute cervical spine abnormality is identified. Ankur Nevarez MD on October 16, 2016 at 12:25 Board Certified Radiologist. This report was verified electronically.
[2016-10-16 12:35] LABS: PLATELET ESTIMATE SMEAR LOW (NORMAL); PLATELET MORPHOLOGY NORMAL (NORMAL); SCAN/DIFF AUTO DIFF CONFIRMED
[2016-10-16 12:38] VITALS: O2SAT 94
[2016-10-16 12:38] LABS: APTT (PATIENT) 28.9 SEC (24.3-30.1); INTERNATIONAL NORMALIZED RATIO 1.1 RATIO; PROTHROMBIN TIME - PATIENT 12.2 SEC (9.8-11.6)
[2016-10-16 12:46] LABS: ALT (GPT) 19 U/L (12-78); ANION GAP 6 MEQ/L (5-15); AST (GOT) 17 U/L (15-37); BICARBONATE 30.6 MEQ/L (21.0-32.0); BLOOD UREA NITROGEN 17 MG/DL (7-18); CHLORIDE 100 MEQ/L (98-107); GLOMERULAR FILTRATION RATE 61 ML/MIN (>89); POTASSIUM 4.1 MEQ/L (3.5-5.1); SODIUM (NA) 137 MEQ/L (136-145)
[2016-10-16 12:50] LABS: ALKALINE PHOSPHATASE 67 U/L (45-117); CREATINE KINASE 127 U/L (39-308); TOTAL BILIRUBIN ADULT 0.7 MG/DL (0.2-1.0)
--- NOTE | 2016-10-16 13:14 | PD ---
HPI Chief Complaint: Fall Time Seen by Provider: 10:55 Travel History International Travel<30 days: No Contact w/Intl Traveler<30days: No Traveled to known affect area: No History of Present Illness HPI Patient is a 56 year old male who comes in after a syncopal episode. He says that he was walking when he felt dizzy and he fell to the ground. He says the next thing he remembers is waking up in the hospital. He denies chest pain or shortness of breath. He says the only pain he has is near his eyebrow where he has a cut. He says he had a tetanus shot within last few years. He denies nausea or vomiting. He is no longer feeling dizzy. PFSH Past Medical History Anxiety: Yes Depression: Yes Cancer: No Cardiovascular Problems: Yes COPD: Yes Endocrine: No Gastrointestinal Disorders: No GERD: Yes Genitourinary: No Hypertension: Yes Immune Disorder: No Implanted Vascular Access Dvce: No Musculoskeletal: No Neurologic: No Psychiatric: Yes (schizophrenic,) Reproductive: No Respiratory: Yes Schizophrenia: Yes Ulcer: Yes Past Surgical History Surgical History: No Previous Surgery Other Surgery: No Social History Alcohol Use: No Tobacco Use: Yes (1 PPD) Substance Use: No Allergies-Medications (Allergen,Severity, Reaction): Coded Allergies: Haldol (Verified Allergy, Severe, Hives, 10/16/16) Reported Meds & Prescriptions Reported Meds & Active Scripts Active Proventil Hfa 6.7 GM Inh (Albuterol Sulfate) 90 Mcg/Act Aer 2 Puff INH Q4-6H PRN Prednisone 50 Mg Tab 50 Mg PO DAILY Reported Invega Sustenna Inj (Paliperidone Palmitate) 39 Mg/0.25 Ml Inj 39 Mg IM Q28D Requip (Ropinirole) 3 Mg Tab 3 Mg PO ONCE Clozapine 100 Mg Tab 100 Mg PO BID Naproxen 500 Mg Tab 500 Mg PO BID PRN Proair Hfa 8.5 GM Inh (Albuterol Sulfate) 90 Mcg/Act Aer 2 Puff INH Q6H PRN 108 mcg/actuation Gabapentin 600 Mg Tab 600 Mg PO HS Singulair (Montelukast Sodium) 10 Mg Tab 10 Mg PO HS Ropinirole 3 Mg Tab 3 Mg PO HS Triamterene-Hydrochlorothiazide 37.5-25 Mg Tab 1 Tab PO DAILY Paxil (Paroxetine HCl) 30 Mg Tab 30 Mg PO DAILY Omeprazole 20 Mg Cap 20 Mg PO DAILY Review of Systems Except as stated in HPI: all other systems reviewed are Neg General / Constitutional: No: Fever, Chills Eyes: No: Blurred Vision HENT: Positive: Lightheadedness Cardiovascular: No: Chest Pain or Discomfort, Palpitations Respiratory: No: Shortness of Breath Gastrointestinal: No: Nausea, Vomiting Musculoskeletal: No: Myalgias, Pain Skin: Positive Other (laceration) Neurologic: No: Weakness, Dizziness Physical Exam Narrative GENERAL: Awake and alert, in no acute distress. SKIN: Focused skin assessment warm/dry. Superficial laceration lateral to the left eye, no active bleeding. HEAD: Atraumatic. Normocephalic. EYES: Pupils equal and round. No scleral icterus. Extraocular movements intact. ENT: Mucous membranes pink and moist. NECK: Trachea midline. No JVD. No cervical spine tenderness. CARDIOVASCULAR: Regular rate and rhythm. No murmur appreciated. RESPIRATORY: No accessory muscle use. Clear to auscultation. Breath sounds equal bilaterally. GASTROINTESTINAL: Abdomen soft, non-tender, nondistended. MUSCULOSKELETAL: No obvious deformities. No clubbing. No cyanosis. No edema. NEUROLOGICAL: Awake and alert. No obvious cranial nerve deficits. Motor grossly within normal limits. Normal speech. PSYCHIATRIC: Appropriate mood and affect; insight and judgment normal. Data Data Last Documented VS Vital Signs Date Time Temp Pulse Resp B/P Pulse Ox O2 Delivery O2 Flow Rate FiO2 10/16/16 12:38 94 Room Air 10/16/16 10:39 103 18 10/16/16 10:39 98.0 119/70 Orders Electrocardiogram (10/16/16 ) Complete Blood Count With Diff (10/16/16 10:55) Comprehensive Metabolic Panel (10/16/16 10:55) Ckmb (Isoenzyme) Profile (10/16/16 10:55) Troponin I (10/16/16 10:55) Act Partial Throm Time (Ptt) (10/16/16 10:55) Prothrombin Time / Inr (Pt) (10/16/16 10:55) Chest, Single Ap (10/16/16 10:55) Ct Brain W/O Iv Contrast(Rout) (10/16/16 10:55) Ct Cerv Spine W/O Contrast (10/16/16 10:55) Ecg Monitoring (10/16/16 10:55) Iv Access Insert/Monitor (10/16/16 10:55) Oximetry (10/16/16 10:55) Sodium Chloride 0.9% Flush (Ns Flush) (10/16/16 11:00) Sodium Chlor 0.9% 1000 Ml Inj (Ns 1000 M (10/16/16 10:55) CKMB (10/16/16 12:15) CKMB% (10/16/16 12:15) Place In Observation (10/16/16 ) Vital Signs (Adult) JOSEPH.Q4H (10/16/16 13:26) Activity Oob With Assistance (10/16/16 13:26) Accounts Receivable Assistant / Telemetry JOSEPH.Q8H (10/16/16 13:26) Diet Heart Healthy (10/16/16 Lunch) Sodium Chloride 0.9% Flush (Ns Flush) (10/16/16 13:30) Sodium Chloride 0.9% Flush (Ns Flush) (10/16/16 21:00) Admit Order (Ed Use Only) (10/16/16 ) Labs Laboratory Tests Test 10/16/16 10/16/16 11:00 12:15 White Blood Count 7.6 TH/MM3 Red Blood Count 5.19 MIL/MM3 Hemoglobin 16.1 GM/DL Hematocrit 47.2 % Mean Corpuscular Volume 90.9 FL Mean Corpuscular Hemoglobin 31.1 PG Mean Corpuscular Hemoglobin 34.2 % Concent Red Cell Distribution Width 13.6 % Platelet Count 93 TH/MM3 Mean Platelet Volume 9.1 FL Neutrophils (%) (Auto) 77.6 % Lymphocytes (%) (Auto) 12.3 % Monocytes (%) (Auto) 7.4 % Eosinophils (%) (Auto) 2.0 % Basophils (%) (Auto) 0.7 % Neutrophils # (Auto) 5.9 TH/MM3 Lymphocytes # (Auto) 0.9 TH/MM3 Monocytes # (Auto) 0.6 TH/MM3 Eosinophils # (Auto) 0.2 TH/MM3 Basophils # (Auto) 0.1 TH/MM3 CBC Comment AUTO DIFF Differential Comment AUTO DIFF CONFIRMED Platelet Estimate LOW Platelet Morphology Comment NORMAL Prothrombin Time 12.2 SEC Prothromb Time International 1.1 RATIO Ratio Activated Partial 28.9 SEC Thromboplast Time Sodium Level 137 MEQ/L Potassium Level 4.1 MEQ/L Chloride Level 100 MEQ/L Carbon Dioxide Level 30.6 MEQ/L Anion Gap 6 MEQ/L Blood Urea Nitrogen 17 MG/DL Creatinine 1.23 MG/DL Estimat Glomerular Filtration 61 ML/MIN Rate Random Glucose 67 MG/DL Calcium Level 8.8 MG/DL Total Bilirubin 0.7 MG/DL Aspartate Amino Transf 17 U/L (AST/SGOT) Alanine Aminotransferase 19 U/L (ALT/SGPT) Alkaline Phosphatase 67 U/L Total Creatine Kinase 127 U/L Creatine Kinase MB 2.0 NG/ML Troponin I LESS THAN 0.02 NG/ML Total Protein 6.3 GM/DL Albumin 3.9 GM/DL [facility] Medical Decision Making Medical Screen Exam Complete: Yes Emergency Medical Condition: Yes Medical Record Reviewed: Yes Interpretation(s) ECG shows normal sinus rhythm at 78, no ST elevation or depression, normal intervals Differential Diagnosis Syncope versus dysrhythmia versus electrolyte abnormality versus head injury Narrative Course Patient is a 56-year-old male comes in after syncopal episode. Exam shows a laceration to the left of the eye. IV established, labs sent. Patient connected to the engine monitor. Labs show no acute abnormalities. CT head and C-spine performed show no acute abnormalities. Chest x-ray shows no acute abnormalities. Laceration repaired by MARIBEL Guthrie. Patient placed in observation for further workup. Diagnosis Primary Impression: Syncope Qualified Code: R55 - Syncope, unspecified syncope type Additional Impression: Laceration of head Qualified Code: S01.01XA - Laceration of scalp without foreign body, initial encounter Admitting Information Admitting Physician Requests: Observation Condition: Stable Margarette Liu MD Oct 16, 2016 13:14
[2016-10-16] MEDS ORDERED: SODIUM CHLORIDE 0.9% FLUSH 10 ML FLUSH IV FLUSH PRN (13:30)
[2016-10-16 14:00] VITALS: BP 117/90; PULSE 83; RESP 18; O2SAT 95
--- NOTE | 2016-10-16 15:15 | HHI.HP ---
HPI Service [facility] Primary Care Physician Non-Staff Admission Diagnosis Syncope Diagnoses: Chief Complaint: Syncopal episode Travel History International Travel<30 Days: No Contact w/Intl Traveler <30 Da: No Traveled to Known Affected Are: No History of Present Illness Mr. Moore is a 56-year-old male patient with a known medical history of schizophrenia, hypertension, COPD and GERD who was brought in to the ED via [facility] after a syncopal episode. Patient is currently awake, alert and oriented x 3. States he was walking to the gas station for some cigars and as he was walking out he felt dizzy, fell to the ground and all he can remember is waking up in the ED. Patient did sustain a left eye laceration post fall. He did mention when awakening early this morning he noticed feeling dizzy which continued to worsen as the day went on. Denies any prior dizziness or lightheadedness in the past. Denies any associated symptoms or recent illness including fever, chills, headache, cough, shortness of breath, abdominal pain, nausea, vomiting, diarrhea or dysuria. Patient lives at local [facility]. States he has been compliant with medications. States his primary care provider and psychologist frequently visit him at his [facility]. Denies any recent changes in his medications. Review of Systems Constitutional: COMPLAINS OF: Dizziness Cardiovascular: COMPLAINS OF: Syncope Except as stated in HPI: all other systems reviewed are Neg Past Family Social History Past Medical History Anxiety Depression Schizophrenia COPD GERD Hypertension Tobacco abuse Past Surgical History Denies any surgical history. Reported Medications Active Proventil Hfa 6.7 GM Inh (Albuterol Sulfate) 90 Mcg/Act Aer 2 Puff INH Q4-6H PRN Prednisone 50 Mg Tab 50 Mg PO DAILY Reported Invega Sustenna Inj (Paliperidone Palmitate) 39 Mg/0.25 Ml Inj 39 Mg IM Q28D Requip (Ropinirole) 3 Mg Tab 3 Mg PO ONCE Clozapine 100 Mg Tab 100 Mg PO BID Naproxen 500 Mg Tab 500 Mg PO BID PRN Proair Hfa 8.5 GM Inh (Albuterol Sulfate) 90 Mcg/Act Aer 2 Puff INH Q6H PRN 108 mcg/actuation Gabapentin 600 Mg Tab 600 Mg PO HS Singulair (Montelukast Sodium) 10 Mg Tab 10 Mg PO HS Ropinirole 3 Mg Tab 3 Mg PO HS Triamterene-Hydrochlorothiazide 37.5-25 Mg Tab 1 Tab PO DAILY Paxil (Paroxetine HCl) 30 Mg Tab 30 Mg PO DAILY Omeprazole 20 Mg Cap 20 Mg PO DAILY Allergies: Coded Allergies: Haldol (Verified Allergy, Severe, Hives, 10/16/16) Active Ordered Medications Current Medications Medications (Trade) Dose Ordered Sig/Sawyer Route Start Time Stop Time Status Last Admin (NS Flush) 2 ml UNSCH PRN IVF 10/16/16 11:00 (NS Flush) 2 ml UNSCH PRN IV FLUSH 10/16/16 13:30 (NS Flush) 2 ml BID IV FLUSH 10/16/16 21:00 Family History Maternal medical history significant for rheumatoid arthritis. No significant family history of cardiovascular disease or cancer. Social History Patient admits to current tobacco use, 1 ppd of cigars. Denies any alcohol use, states he has not drank in a very long time. Denies any illicit drug use. Physical Exam Vital Signs Vital Signs Date Time Temp Pulse Resp B/P Pulse Ox O2 Delivery O2 Flow Rate FiO2 10/16/16 14:00 83 18 117/90 95 Room Air 10/16/16 12:38 94 Room Air 10/16/16 10:39 103 18 94 Room Air 10/16/16 10:39 98.0 101 18 119/70 94 Room Air Physical Exam GENERAL: Well-nourished, well-developed male patient, lying comfortably in bed, in no apparent distress. SKIN: No rashes. Warm and dry. Left eye laceration, no apparent drainage, erythematous. HEENT: Normocephalic. Pupils equal round and reactive. Extraocular motions intact. No scleral icterus. No injection or drainage. Nose without bleeding. Airway patent. NECK: Trachea midline. No JVD. Supple. CARDIOVASCULAR: Regular rate and rhythm. No murmur appreciated. RESPIRATORY: Clear to auscultation. Breath sounds equal bilaterally. No wheezes , rales, or rhonchi. GASTROINTESTINAL: Abdomen soft, non-tender, nondistended. No guarding. MUSCULOSKELETAL: Extremities without clubbing, cyanosis, or edema. No joint tenderness, effusion, or edema noted. NEUROLOGICAL: Awake and alert. Cranial nerves II through XII intact. Motor and sensory grossly within normal limits. Five out of 5 muscle strength in all muscle groups. Normal speech. Laboratory Laboratory Tests Test 10/16/16 10/16/16 11:00 12:15 White Blood Count 7.6 Red Blood Count 5.19 Hemoglobin 16.1 Hematocrit 47.2 Mean Corpuscular Volume 90.9 Mean Corpuscular Hemoglobin 31.1 Mean Corpuscular Hemoglobin 34.2 Concent Red Cell Distribution Width 13.6 Platelet Count 93 Mean Platelet Volume 9.1 Neutrophils (%) (Auto) 77.6 Lymphocytes (%) (Auto) 12.3 Monocytes (%) (Auto) 7.4 Eosinophils (%) (Auto) 2.0 Basophils (%) (Auto) 0.7 Neutrophils # (Auto) 5.9 Lymphocytes # (Auto) 0.9 Monocytes # (Auto) 0.6 Eosinophils # (Auto) 0.2 Basophils # (Auto) 0.1 CBC Comment AUTO DIFF Differential Comment AUTO DIFF CONFIRMED Platelet Estimate LOW Platelet Morphology Comment NORMAL Prothrombin Time 12.2 Prothromb Time International 1.1 Ratio Activated Partial 28.9 Thromboplast Time Sodium Level 137 Potassium Level 4.1 Chloride Level 100 Carbon Dioxide Level 30.6 Anion Gap 6 Blood Urea Nitrogen 17 Creatinine 1.23 Estimat Glomerular Filtration 61 Rate Random Glucose 67 Calcium Level 8.8 Total Bilirubin 0.7 Aspartate Amino Transf 17 (AST/SGOT) Alanine Aminotransferase 19 (ALT/SGPT) Alkaline Phosphatase 67 Total Creatine Kinase 127 Creatine Kinase MB 2.0 Troponin I LESS THAN 0.02 Total Protein 6.3 Albumin 3.9 Result Diagram: 10/16/16 1100 10/16/16 1215 Imaging Last Impressions Head CT 10/16/16 105 Signed Impressions: Service Date/Time: October 11:50 - CONCLUSION: Stable noncontrast head CT. No acute intracranial abnormality is identified. Ankur Nevarez MD Chest X-Ray 10/16/161054 Signed Impressions: Service Date/Time: October 10:59 - CONCLUSION: 1. Minimal basal atelectasis. No effusion or pneumothorax. Isaias Alcaraz MD Cervical Spine CT 10/16/16 1055 Signed Impressions: Service Date/Time: October 11:51 - CONCLUSION: Marked cervical kyphosis and multilevel degenerative disease. No acute cervical spine abnormality is identified. Ankur Nevarez MD Assessment and Plan Assessment and Plan Mr. Moore is a 56-year-old male patient with a known medical history of schizophrenia, hypertension, COPD and GERD who was brought in to the ED via [facility] after a syncopal episode. Patient states he was walking to the gas station for some cigars and as he was walking out he felt dizzy, fell to the ground and all he can remember is waking up in the ED. Syncopal episode: Head CT obtained and reviewed, unremarkable with no acute intracranial abnormality identified. Cervical spine CT reviewed showing marked cervical kyphosis and multilevel degenerative disease. No acute cervical spine abnormality identified. Monitor for arrhythmias, continue cardiac telemetry. Troponin and CKMB negative, will obtain additional set x 2. Follow. Orthostatic BP's ordered. Follow. Will hydrate overnight at NS 100ml/hr. Hypertension, chronic: Controlled at this time. Continue home medication. Anxiety and depression History of schizophrenia Stable at this time. Sees psychologist in the outpatient setting. Continue home Clozapine. DVT prophylaxis: SCDs The exam, history, and the medical decision-making described in the above note were completed with the assistance of the mid-level provider. I reviewed and agree with the findings presented. I attest that I had a [id number] encounter with the patient on the same day, and personally performed and documented my assessment and findings in the medical record. Patient being admitted for syncope, likely due to dehydration. Reports that he drinks anywhere from 2-3 glasses of water a day at best. Denies having any cardiac history whatsoever, denies this ever happening in the past. Unlikely any ACS is involved or seizure-like activity as he denies in confused immediately after the event and denies any urinary or bowel incontinence. Says he feels better with fluids. On exam patient has intact finger to nose to finger and heel to gold bilaterally along with negative Romberg's, able to stand on his own. Bilateral 5 muscle strength proximally and upper and lower remedies bilaterally and intact cranial nerves with no obvious facial droop or slurred speech. Cardiac exam is unremarkable, no murmurs, rubs or gallops, regular rate rhythm. No JVD noted. Will hydrate and reassess in a.m with ambulation and repeat orthostatics. with anticipated discharge remaining on current recovery course. Margarette Lee Oct 16, 2016 15:15 Peter Orantes MD Oct 16, 2016 17:26
[2016-10-16 15:59] VITALS: BP_SYST 117; BP_SYST 143; BP_SYST 152; BP_DIAS 69; BP_DIAS 70; PULSE 93; RESP 20; TEMP 98; O2SAT 97
[2016-10-16] MEDS: SODIUM CHLOR 0.9% 1000 ML INJ 1,000 ML IV SCH (16:17)
[2016-10-16] MEDS: NICOTINE 14 MG/24 HR PATCH T-DERMAL SCH (16:17)
[2016-10-16] MEDS ORDERED: NAPROXEN 500 MG TAB PO PRN (19:30)
[2016-10-16] MEDS ORDERED: ALBUTEROL SULFATE 90 MCG/ACT HFA 18 GM INHALER INH PRN (19:30)
[2016-10-16 20:06] VITALS: BP_SYST 124; BP_SYST 130; BP_DIAS 69; BP_DIAS 90; PULSE 74; RESP 18; TEMP 98.4; O2SAT 98
[2016-10-16] MEDS ORDERED: GABAPENTIN 300 MG CAP PO SCH (21:00)
[2016-10-16] MEDS ORDERED: MONTELUKAST SODIUM 10 MG TAB PO SCH (21:00)
[2016-10-16] MEDS: SODIUM CHLORIDE 0.9% FLUSH 10 ML FLUSH IV FLUSH SCH (22:16)
[2016-10-16] MEDS: cloZAPine 100 MG TAB PO SCH (22:54)
[2016-10-16 23:58] VITALS: BP 131/73; PULSE 92; RESP 18; TEMP 98.7; O2SAT 97
[2016-10-17] MEDS: SODIUM CHLOR 0.9% 1000 ML INJ 1,000 ML IV SCH (03:33)
[2016-10-17 04:30] LABS: CREATINE KINASE 136 U/L (39-308)
[2016-10-17 04:31] VITALS: BP 126/74; PULSE 74; RESP 18; TEMP 98; O2SAT 97
[2016-10-17 04:43] LABS: CKMB 2.2 NG/ML (0.5-3.6)
[2016-10-17 07:45] VITALS: BP_SYST 140; BP_SYST 143; BP_SYST 148; BP_DIAS 76; BP_DIAS 82; BP_DIAS 85; PULSE 90; RESP 18; TEMP 97.8; O2SAT 94
[2016-10-17 08:00] VITALS: PULSE 84
[2016-10-17] MEDS: cloZAPine 100 MG TAB PO SCH (08:01)
[2016-10-17] MEDS: NICOTINE 14 MG/24 HR PATCH T-DERMAL SCH (08:04)
[2016-10-17] MEDS: SODIUM CHLORIDE 0.9% FLUSH 10 ML FLUSH IV FLUSH SCH (08:06)
[2016-10-17] MEDS ORDERED: PANTOPRAZOLE SOD 20 MG DELAYED RELEASE TAB PO SCH (09:00)
[2016-10-17] MEDS ORDERED: REMOVE OLD PATCH T-DERMAL SCH (09:00)
[2016-10-17] MEDS ORDERED: predniSONE 50 MG TAB PO SCH (09:00)
[2016-10-17] MEDS ORDERED: PARoxetine HCL 20 MG TAB PO SCH (09:00)
[2016-10-17 09:49] LABS: BICARBONATE 32.4 MEQ/L (21.0-32.0)
[2016-10-17 10:11] LABS: POTASSIUM 4.1 MEQ/L (3.5-5.1)
--- NOTE | 2016-10-17 11:10 | HHI.DCPOC ---
Discharge Care Plan Diagnosis: (1) Syncope (2) Dehydration, moderate Additional Problems Dehydration Goals to Promote Your Health * To prevent worsening of your condition and complications * To maintain your health at the optimal level Directions to Meet Your Goals Take your medications as prescribed Follow your dietary instruction Follow activity as directed Need to drink at least 8 glasses of water a day, and on days where and your sweating or excessive heat in each increase her intake even further. Please follow-up with your healthcare provider to ensure that her electrolytes remain stable no later than 2 weeks after discharge. If you find that her symptoms recurred despite drinking 8 glasses of water a day, discuss with your healthcare provider on temporarily or permanently discontinuing Requip ( ropinirole) to see if this medication is playing a role in your symptoms of lightheadedness. Keep your appointments as scheduled Take your immunizations and boosters as scheduled If your symptoms worsen call your PCP, if no PCP go to Urgent Care Center or Emergency Room Smoking is Dangerous to Your Health. Avoid second hand smoke Call the 24-hour hour crisis hotline for domestic abuse at Peter Orantes MD Oct 17, 2016 11:10
--- NOTE | 2016-10-17 11:14 | EKG ---
Date Performed: 10/16/2016 Time Performed: 21:15:38 PTAGE: 56 years EKG: Sinus rhythm LOW QRS VOLTAGE IN EXTREMITY LEADS PATTERN CONSISTENT WITH PULMONARY DISEASE ABNORMAL QRS-T ANGLE AB NORMAL ECG Since PREVIOUS TRACING , no significant change noted PREVIOUS TRACIN10/16/2016 18.48 DOCTOR: Vivek Valdez Interpretating Date/Time 10/17/2016 11:13:38
--- NOTE | 2016-10-17 11:14 | EKG ---
Date Performed: 10/16/2016 Time Performed: 13:58:21 PTAGE: 56 years EKG: Sinus rhythm LOW QRS VOLTAGE IN EXTREMITY LEADS BORDERLINE ECG Since PREVIOUS TRACING , no significant change noted PREVIOUS TRACIN10/16/2016 10.48.33 DOCTOR: Vviek Valdez Interpretating Date/Time 10/17/2016 11:14:16
--- NOTE | 2016-10-17 11:14 | EKG ---
Date Performed: 10/16/2016 Time Performed: 18:48:10 PTAGE: 56 years EKG: SINUS TACHYCARDIA WITH SHORT VA INTERVAL LOW QRS VOLTAGE IN EXTREMITY LEADS ABNORMAL RHYTHM ECG Since PREVIOUS TRACING , no significant change noted PREVIOUS TRACIN10/16/2016 13.58 DOCTOR: Vivek Valdez Interpretating Date/Time 10/17/2016 11:13:47
--- NOTE | 2016-10-17 11:15 | EKG ---
Date Performed: 10/16/2016 Time Performed: 10:48:33 PTAGE: 56 years EKG: Sinus rhythm BORDERLINE LEFT AXIS DEVIATION LOW QRS VOLTAGE IN EXTREMITY LEADS BORDERLINE ECG Since PREVIOUS TRACING , no significant change noted PREVIOUS TRACIN07/23/2016 16.46 DOCTOR: Vivek Valdez Interpretating Date/Time 10/17/2016 11:14:26
[2016-10-17 11:59] VITALS: BP 155/84; PULSE 97; RESP 16; TEMP 98.5; O2SAT 94
--- NOTE | 2016-10-17 18:35 | HHI.DS ---
Discharge Summary Admission Date Oct 16, 2016 at 13:28 Discharge Date: Oct 17, 2016 Admitting Diagnosis Syncope (1) Syncope ICD Code: R55 Diagnosis: Principal Procedures None Brief History - From Admission Mr. Moore is a 56-year-old male patient with a known medical history of schizophrenia, hypertension, COPD and GERD who was brought in to the ED via [facility] after a syncopal episode. Patient is currently awake, alert and oriented x 3. States he was walking to the gas station for some cigars and as he was walking out he felt dizzy, fell to the ground and all he can remember is waking up in the ED. Patient did sustain a left eye laceration post fall. He did mention when awakening early this morning he noticed feeling dizzy which continued to worsen as the day went on. Denies any prior dizziness or lightheadedness in the past. Denies any associated symptoms or recent illness including fever, chills, headache, cough, shortness of breath, abdominal pain, nausea, vomiting, diarrhea or dysuria. Patient lives at local [facility]. States he has been compliant with medications. States his primary care provider and psychologist frequently visit him at his [facility]. Denies any recent changes in his medications. CBC/BMP: 10/16/16 1100 10/17/16 0856 Significant Findings Laboratory Tests Test 10/16/16 10/16/16 10/17/16 10/17/16 11:00 12:15 03:34 08:56 Platelet Count 93 TH/MM3 (150-450) Neutrophils (%) (Auto) 77.6 % (16.0-70.0) Lymphocytes # (Auto) 0.9 TH/MM3 (1.0-4.8) Platelet Estimate LOW (NORMAL) Prothrombin Time 12.2 SEC (9.8-11.6) Estimat Glomerular Filtration 61 ML/MIN (>89) 78 ML/MIN (>89) Rate Random Glucose 67 MG/DL (74-106) Troponin I LESS THAN 0.02 LESS THAN 0.02 NG/ML NG/ML (0.02-0.05) (0.02-0.05) Total Protein 6.3 GM/DL (6.4-8.2) Carbon Dioxide Level 32.4 MEQ/L (21.0-32.0) PE at Discharge GENERAL: Resting comfortably, no acute distress EYES: No scleral icterus. No injection or drainage. CARDIOVASCULAR: Regular rate and rhythm without murmurs, gallops, or rubs. RESPIRATORY: Breath sounds equal bilaterally. No accessory muscle use. GASTROINTESTINAL: Abdomen soft, non-tender, nondistended. MUSCULOSKELETAL: No cyanosis, or edema. Stands easily with no signs of any unsteady gait Hospital Course Patient was admitted for observation for syncopal episode. Last Impressions Head CT 10/16/16 1055 Signed Impressions: Service Date/Time: , October 16, 2016 11:50 - CONCLUSION: Stable noncontrast head CT. No acute intracranial abnormality is identified. Ankur Nevarez MD Chest X-Ray 10/16/16 1055 Signed Impressions: Service Date/Time: , October 16, 2016 10:59 - CONCLUSION: 1. Minimal basal atelectasis. No effusion or pneumothorax. Isaias Alcaraz MD Cervical Spine CT 10/16/16 1055 Signed Impressions: Service Date/Time: , October 16, 2016 11:51 - CONCLUSION: Marked cervical kyphosis and multilevel degenerative disease. No acute cervical spine abnormality is identified. Ankur Nevarez MD No acute events reported on the monitor and patient was hydrated overnight. He demonstrated good ambulation on day of discharge. Vital signs remained stable. At this point the patient has not maximal benefit from hospitalization and is clinically stable discharge. Pt Condition on Discharge: Stable Discharge Disposition: [facility] Discharge Time: > 30 minutes Discharge Instructions DIET: Follow Instructions for: As Tolerated, No Restrictions Activities you can perform: Regular-No Restrictions Follow up Referrals: PCP Follow-up - 10 Days Psychiatry Adult - 1 Week Continued Medications: Albuterol 6.7 GM Inh (Proventil Hfa 6.7 GM Inh) 90 Mcg/Act Aer 2 PUFF INH Q4-6H PRN SHORTNESS OF BREATH #1 Ref 0 INHALER Albuterol 8.5 GM Inh (Proair Hfa 8.5 GM Inh) 90 Mcg/Act Aer 2 PUFF INH Q6H 108 mcg/actuation PRN SHORTNESS OF BREATH #1 Ref 0 INHALER Clozapine (Clozapine) 100 Mg Tab 100 MG PO BID Schizophrenia #1 Ref 0 TAB Gabapentin (Gabapentin) 600 Mg Tab 600 MG PO HS #30 Ref 0 TAB Montelukast (Singulair) 10 Mg Tab 10 MG PO HS #30 Ref 0 TAB Naproxen (Naproxen) 500 Mg Tab 500 MG PO BID PRN PAIN #60 Ref 0 TAB Omeprazole (Omeprazole) 20 Mg Cap 20 MG PO DAILY Paliperidone Palmitate Inj (Invega Sustenna Inj) 39 Mg/0.25 Ml Inj 39 MG IM Q28D Schizophrenia #1 Ref 0 VIAL Paroxetine (Paxil) 30 Mg Tab 30 MG PO DAILY #30 Ref 0 TAB Prednisone (Prednisone) 50 Mg Tab 50 MG PO DAILY #5 Ref 0 TAB Ropinirole (Ropinirole) 3 Mg Tab 3 MG PO HS #30 Ref 0 TAB Triamterene-Hydrochlorothiazide (Triamterene-Hydrochlorothiazide) 37.5-25 Mg Tab 1 TAB PO DAILY #30 Ref 0 TAB Discontinued Medications: Ropinirole (Requip) 3 Mg Tab 3 MG PO ONCE #1 Ref 0 TAB Peter Orantes MD Oct 17, 2016 18:35
== END 2016-10-17 13:27 | disposition home or self-care (01) ==
LOC: NEPE 10:32 → NEDA 13:28 → NEPFCDU 15:00
PROVIDERS: ADMIT Hospitalist; ATTEND Hospitalist
DX: R55 Syncope and collapse (principal); E86.0 Dehydration; J44.9 Chronic obstructive pulmonary disease, unspecified; F41.9 Anxiety disorder, unspecified; F32.9 Major depressive disorder, single episode, unspecified; K21.9 Gastro-esophageal reflux disease without esophagitis; F20.9 Schizophrenia, unspecified; F17.200 Nicotine dependence, unspecified, uncomplicated; Z79.899 Other long term (current) drug therapy; S01.01XA Laceration without foreign body of scalp, initial encounter
CPT/HCPCS: 12011; 70450; 71010; 72125; 80048; 80053; 82550; 82552; 84100; 84484; 85025; 85610; 85730; 93005; 96360; 99285; G0378; J7030; J7512

== ENCOUNTER 2017-03-21 07:20 | Inpatient (IN) | payer MEDICAID ==
[~2017-03-21] VITALS: Ht 177.8 cm; Wt 88.9 kg
[2017-03-21] VITALS (8 sets, daily range): BP systolic 106–152; BP diastolic 72–95; PULSE 74–108; RESP 18–24; TEMP 97.3–98.6; O2SAT 91–95
[~2017-03-21 07:20] MED LIST changes: +INVE39IN IM; -NAPR500T PO; +NAPR500T2 PO; -SAPH10SU3 SL; -SAPH5SUB3 SL; -ZITHTAB PO; -ZYRT10TA PO
--- NOTE | 2017-03-21 07:41 | PD ---
HPI Chief Complaint: Respiratory Symptoms Time Seen by Provider: 07:29 Travel History International Travel<30 days: No Contact w/Intl Traveler<30days: No Traveled to known affect area: No History of Present Illness HPI 56-year-old male presents by ambulance for original call of blurry vision. Ambulance team noted I drainage. His initial oxygen saturation was in the low 80s. He had wheezing and rhonchi on exam. They gave him 125 mg Solu-Medrol and a breathing treatment and oxygen and this increased his level to 98%. Here on room air he is 84%. He is coming from an assisted living facility. He does not wear oxygen normally. He is also been having a cough. He did state he felt twitchy all over but denies other complaints. Patient is a poor historian and history is limited. PFSH Past Medical History Asthma: No Blood Disorders: No Anxiety: Yes Depression: Yes Heart Rhythm Problems: No Cancer: No Cardiovascular Problems: Yes High Cholesterol: No Chest Pain: No Congestive Heart Failure: No COPD: Yes Endocrine: No Gastrointestinal Disorders: No GERD: Yes Genitourinary: No Hypertension: Yes Immune Disorder: No Implanted Vascular Access Dvce: No Musculoskeletal: No Neurologic: Yes Psychiatric: Yes (SCHIZOPHRENIA) Reproductive: No Respiratory: Yes (COPD, EMPYSEMA ) Schizophrenia: Yes Sleep Apnea: No Ulcer: Yes Past Surgical History Other Surgery: No Social History Alcohol Use: No Tobacco Use: Yes (1 PPD) Substance Use: No Allergies-Medications (Allergen,Severity, Reaction): Coded Allergies: haloperidol (Unverified Allergy, Severe, Hives, 10/28/16) Reported Meds & Prescriptions Reported Meds & Active Scripts Active Proventil Hfa 6.7 GM Inh (Albuterol Sulfate) 90 Mcg/Act Aer 2 Puff INH Q4-6H PRN Prednisone 50 Mg Tab 50 Mg PO DAILY Reported Invega Sustenna Inj (Paliperidone Palmitate) 39 Mg/0.25 Ml Inj 39 Mg IM Q28D Clozapine 100 Mg Tab 100 Mg PO BID Naproxen 500 Mg Tab 500 Mg PO BID PRN Proair Hfa 8.5 GM Inh (Albuterol Sulfate) 90 Mcg/Act Aer 2 Puff INH Q6H PRN 108 mcg/actuation Gabapentin 600 Mg Tab 600 Mg PO HS Singulair (Montelukast Sodium) 10 Mg Tab 10 Mg PO HS Ropinirole 3 Mg Tab 3 Mg PO HS Triamterene-Hydrochlorothiazide 37.5-25 Mg Tab 1 Tab PO DAILY Paxil (Paroxetine HCl) 30 Mg Tab 30 Mg PO DAILY Omeprazole 20 Mg Cap 20 Mg PO DAILY Review of Systems ROS Limitations: Poor Historian Physical Exam Exam Limitations: Poor Historian Narrative GENERAL: Well-nourished, well-developed patient. SKIN: Warm and dry. HEAD: Normocephalic and atraumatic. EYES: No injection or drainage. ENT: No nasal drainage noted. NECK: Supple, trachea midline. CARDIOVASCULAR: Regular rate and rhythm RESPIRATORY: Decreased aeration with wheezing bilaterally. No accessory muscle use. GASTROINTESTINAL: Abdomen nondistended. EXTREMITIES: No edema. NEUROLOGICAL: Awake. moves all extremities and sensory grossly within normal limits. Normal speech. Data Data Last Documented VS Vital Signs Date Time Temp Pulse Resp B/P (MAP) Pulse Ox O2 Delivery O2 Flow Rate FiO2 03/21/17 07:38 85 24 95 Nasal Cannula 4.00 03/21/17 07:38 98.6 138/79 (98) Orders Orders Complete Blood Count With Diff (03/21/17 07:29) Comprehensive Metabolic Panel (03/21/17 07:29) Act Partial Throm Time (Ptt) (03/21/17 07:29) Prothrombin Time / Inr (Pt) (03/21/17 07:29) Magnesium (Mg) (03/21/17 07:29) Urinalysis - C+S If Indicated (03/21/17 07:29) Influenzae A/B Antigen (03/21/17 07:29) Blood Culture (03/21/17 07:29) Iv Access Insert/Monitor (03/21/17 07:29) Electrocardiogram (03/21/17 07:29) Ecg Monitoring (03/21/17 07:29) Oximetry (03/21/17 07:29) Oxygen Administration (03/21/17 07:29) Chest, Single Ap (03/21/17 07:29) Sodium Chloride 0.9% Flush (Ns Flush) (03/21/17 07:30) Albuterol-Ipratropium Neb (Duoneb Neb) (03/21/17 07:30) Lactic Acid (03/21/17 07:29) Admit Order (Ed Use Only) (03/21/17 09:37) Labs Laboratory Tests Test 03/21/17 07:47 White Blood Count 5.8 TH/MM3 Red Blood Count 5.18 MIL/MM3 Hemoglobin 16.0 GM/DL Hematocrit 48.3 % Mean Corpuscular Volume 93.2 FL Mean Corpuscular Hemoglobin 30.9 PG Mean Corpuscular Hemoglobin Concent 33.1 % Red Cell Distribution Width 13.7 % Platelet Count 109 TH/MM3 Mean Platelet Volume 8.6 FL Neutrophils (%) (Auto) 72.9 % Lymphocytes (%) (Auto) 15.1 % Monocytes (%) (Auto) 10.4 % Eosinophils (%) (Auto) 1.1 % Basophils (%) (Auto) 0.5 % Neutrophils # (Auto) 4.3 TH/MM3 Lymphocytes # (Auto) 0.9 TH/MM3 Monocytes # (Auto) 0.6 TH/MM3 Eosinophils # (Auto) 0.1 TH/MM3 Basophils # (Auto) 0.0 TH/MM3 CBC Comment DIFF FINAL Differential Comment Prothrombin Time 11.2 SEC Prothromb Time International Ratio 1.1 RATIO Activated Partial Thromboplast Time 27.5 SEC Blood Urea Nitrogen 16 MG/DL Creatinine 1.08 MG/DL Random Glucose 134 MG/DL Total Protein 6.7 GM/DL Albumin 3.8 GM/DL Calcium Level 8.6 MG/DL Magnesium Level 1.7 MG/DL Alkaline Phosphatase 92 U/L Aspartate Amino Transf (AST/SGOT) 17 U/L Alanine Aminotransferase (ALT/SGPT) 18 U/L Total Bilirubin 0.6 MG/DL Sodium Level 135 MEQ/L Potassium Level 4.1 MEQ/L Chloride Level 93 MEQ/L Carbon Dioxide Level 38.5 MEQ/L Anion Gap 4 MEQ/L Estimat Glomerular Filtration Rate 71 ML/MIN Lactic Acid Level 1.1 mmol/L MDM Medical Decision Making Medical Screen Exam Complete: Yes Emergency Medical Condition: Yes Medical Record Reviewed: Yes (pmh confirmed) Interpretation(s) CBC & BMP Diagram 03/21/17 07:47 Total Protein 6.7, Albumin 3.8, Calcium Level 8.6, Magnesium Level 1.7, Alkaline Phosphatase 92, Aspartate Amino Transf (AST/SGOT) 17, Alanine Aminotransferase (ALT/SGPT) 18, Total Bilirubin 0.6 Last 24 hours Impressions Chest X-Ray 03/21/17 1518 Signed Impressions: Service Date/Time: Tuesday, March 21, 2017 07:34 - CONCLUSION: No acute disease. Alexander Willett MD Differential Diagnosis copd, pneumonia, pneumothorax, renal failure... Narrative Course will check labs, cxr, flu and dose with duonebs and reeval On recheck patient had taken off his oxygen and his room air is still 84% on room air. Placed back on oxygen and updated and he agrees to admission to the hospital. Physician Communication Physician Communication dr hughes agrees to admit Diagnosis Primary Impression: COPD exacerbation Additional Impression: Hypoxemia Admitting Information Admitting Physician Requests: Admit Shreya Reyes MD Mar 21, 2017 07:41
[2017-03-21] MEDS: RESP: ALBUTEROL 2.5 MG/IPRATROPIUM 0.5 MG NEB (SCH) INH (07:47)
--- NOTE | 2017-03-21 07:53 | RADRPT ---
EXAM DATE/TIME: 03/21/2017 07:34 [facility] COMPARISON: CHEST SINGLE AP, October 16, 2016, 10:59. INDICATIONS : Shortness of breath. MEDICAL HISTORY : Hypertension. Chronic obstructive pulmonary disease. SURGICAL HISTORY : None. ENCOUNTER: Initial ACUITY: 1 day PAIN SCORE: 0/10 LOCATION: Bilateral chest FINDINGS: A single view of the chest demonstrates the lungs to be symmetrically aerated without evidence of mas s, infiltrate or effusion. The cardiomediastinal contours are unremarkable. Osseous structures are intact. CONCLUSION: No acute disease. Alexander Willett MD on March 21, 2017 at 7:49 Board Certified Radiologist. This report was verified electronically.
[2017-03-21 08:12] LABS: AUTOMATED NEUTROPHIL # 4.3 TH/MM3 (1.8-7.7); BASOPHIL % 0.5 % (0.0-2.0); EOSINOPHIL # 0.1 TH/MM3 (0-0.4); EOSINOPHIL % 1.1 % (0.0-4.0); HEMATOCRIT 48.3 % (39.0-51.0); LYMPH % 15.1 % (9.0-44.0); LYMPHOCYTE # 0.9 TH/MM3 (1.0-4.8); MEAN CELL VOLUME 93.2 FL (80.0-100.0); MEAN CORPUSCULAR HEMOGLOBIN 30.9 PG (27.0-34.0); MEAN CORPUSCULAR HGB CONC 33.1 % (32.0-36.0); MEAN PLATELET VOLUME 8.6 FL (7.0-11.0); MONO % 10.4 % (0.0-8.0); MONOCYTE # 0.6 TH/MM3 (0-0.9); NEUT % 72.9 % (16.0-70.0); PLATELET COUNT 109 TH/MM3 (150-450); RED BLOOD COUNT 5.18 MIL/MM3 (4.50-5.90); RED CELL DISTRIBUTION WIDTH 13.7 % (11.6-17.2); WHITE BLOOD COUNT 5.8 TH/MM3 (4.0-11.0)
[2017-03-21 08:25] LABS: INTERNATIONAL NORMALIZED RATIO 1.1 RATIO; PROTHROMBIN TIME - PATIENT 11.2 SEC (9.8-11.6)
[2017-03-21 08:29] LABS: ALBUMIN 3.8 GM/DL (3.4-5.0); ALT (GPT) 18 U/L (12-78); AST (GOT) 17 U/L (15-37); BICARBONATE 38.5 MEQ/L (21.0-32.0); BLOOD UREA NITROGEN 16 MG/DL (7-18); CALCIUM 8.6 MG/DL (8.5-10.1); CHLORIDE 93 MEQ/L (98-107); CREATININE 1.08 MG/DL (0.60-1.30); GLOMERULAR FILTRATION RATE 71 ML/MIN (>89); GLUCOSE,RANDOM 134 MG/DL (74-106); MAGNESIUM 1.7 MG/DL (1.5-2.5); SODIUM (NA) 135 MEQ/L (136-145)
[2017-03-21 08:31] LABS: ALKALINE PHOSPHATASE 92 U/L (45-117); TOTAL BILIRUBIN ADULT 0.6 MG/DL (0.2-1.0); TOTAL PROTEIN 6.7 GM/DL (6.4-8.2)
--- NOTE | 2017-03-21 09:42 | HHI.HP ---
[facility] No Primary Care Physician Admission Diagnosis Diagnoses: Travel History International Travel<30 Days: No Contact w/Intl Traveler <30 Da: No Traveled to Known Affected Are: No History of Present Illness Past Family Social History Allergies: Coded Allergies: haloperidol (Unverified Allergy, Severe, Hives, 10/28/16) Physical Exam Vital Signs Vital Signs Date Time Temp Pulse Resp B/P (MAP) Pulse Ox O2 Delivery O2 Flow Rate FiO2 03/21/17 07:38 85 24 95 Nasal Cannula 4.00 03/21/17 07:38 98.6 74 24 138/79 (98) 95 Nasal Cannula 4.00 03/21/17 07:35 95 Nasal Cannula 4.00 03/21/17 07:35 86 24 95 Nasal Cannula 4.00 03/21/17 07:30 98.6 84 24 138/79 (98) 92 Result Diagram: 03/21/1747 03/21/1747 Caprini VTE Risk Assessment Caprini VTE Risk Assessment: No/Low Risk (score <= 1) Caprini Risk Assessment Model Point Value = 1 Point Value = 2 Point Value = 3 Point Value = 5 Age 41-60 Minor surgery BMI > 25 kg/m2 Swollen legs Varicose veins or History of unexplained or recurrent spontaneous Oral contraceptives or hormone replacement Sepsis (< 1 month) Serious lung disease, including pneumonia (< 1 month) Abnormal pulmonary function Acute myocardial infarction Congestive heart failure (< 1 month) History of inflammatory bowel disease Medical patient at bed rest Age 61-74 Arthroscopic surgery Major open surgery (> 45 min) Laparoscopic surgery (> 45 min) Malignancy Confined to bed (> 72 hours) Immobilizing plaster cast Central venous access Age >= 75 History of VTE Family history of VTE Factor V Leiden Prothrombin [id number] Lupus anticoagulant Anticardiolipin antibodies Elevated serum homocysteine Heparin-induced thrombocytopenia Other congenital or acquired thrombophilia Stroke (< 1 month) Elective arthroplasty Hip, pelvis, or leg fracture Acute spinal cord injury (< 1 month) Prophylaxis Regimen Total Risk Factor Score Risk Level Prophylaxis Regimen 0-1 Low Early ambulation 2 Moderate Order ONE of the following: *Sequential Compression Device (SCD) *Heparin 5000 units SQ BID 3-4 Higher Order ONE of the following medications: *Heparin 5000 units SQ TID *Enoxaparin/Lovenox 40 mg SQ daily (WT < 150 kg, CrCl > 30 mL/min) *Enoxaparin/Lovenox 30 mg SQ daily (WT < 150 kg, CrCl > 10-29 mL/min) *Enoxaparin/Lovenox 30 mg SQ BID (WT < 150 kg, CrCl > 30 mL/min) AND/OR *Sequential Compression Device (SCD) 5 or more Highest Order ONE of the following medications: *Heparin 5000 units SQ TID (Preferred with Epidurals) *Enoxaparin/Lovenox 40 mg SQ daily (WT < 150 kg, CrCl > 30 mL/min) *Enoxaparin/Lovenox 30 mg SQ daily (WT < 150 kg, CrCl > 10-29 mL/min) *Enoxaparin/Lovenox 30 mg SQ BID (WT < 150 kg, CrCl > 30 mL/min) AND *Sequential Compression Device (SCD) Assessment and Plan Assessment and Plan Radha Best Mar 21, 2017 09:42
[2017-03-21] MEDS ORDERED: RESP: ALBUTEROL 1.25 MG/3 ML NEB (PRN) NEB (09:45)
[2017-03-21] MEDS: RESP: ALBUTEROL 2.5 MG/IPRATROPIUM 0.5 MG NEB (SCH) NEB ×4 (10:00→19:11)
--- NOTE | 2017-03-21 10:03 | HHI.HP ---
HPI Service [facility] Hospitalists Primary Care Physician No Primary Care Physician Admission Diagnosis Diagnoses: Chief Complaint: Cough Sputum production Shortness of breath Travel History International Travel<30 Days: No Contact w/Intl Traveler <30 Da: No Traveled to Known Affected Are: No History of Present Illness Written by Radha Best, acting as scribe for Dr. Galeana on 03/21/17 at 09: 34. This is a 56yo male patient with a past medical history of schizophrenia, COPD with ongoing tobaccoism, HTN and GERD who presents to [facility] ED with complaints of cough and dyspnea. Per EMS, patients oxygen saturation was in the low 80s. He was administered 125mg IV SoluMedrol and a breathing treatment with improvement in his oxygen saturations to 98%. In the ED, he was satting 84 % on room air. Patient is not a good historian. He endorses cough with yellowish/greenish sputum production. Patient reports feeling feverish last night. He denies any night sweats. Patient reports waking up this morning with "twitches". Patient lives in an [place]. Patient used oxygen previously in Apr. He states he was on inhalers in the past. Patient denies any chest pain, nausea, vomiting or abdominal pain. He endorses wheezing. Review of Systems Except as stated in HPI: all other systems reviewed are Neg Past Family Social History Past Medical History COPD Ongoing tobaccoism Schizophrenia Past Surgical History Patient denies any previous surgical history Reported Medications Proventil Hfa 6.7 GM Inh (Albuterol Sulfate) 90 Mcg/Act Aer 2 Puff INH Q4-6H PRN Prednisone 50 Mg Tab 50 Mg PO DAILY Invega Sustenna Inj (Paliperidone Palmitate) 39 Mg/0.25 Ml Inj 39 Mg IM Q28D Clozapine 100 Mg Tab 100 Mg PO BID Naproxen 500 Mg Tab 500 Mg PO BID PRN Proair Hfa 8.5 GM Inh (Albuterol Sulfate) 90 Mcg/Act Aer 2 Puff INH Q6H PRN 108 mcg/actuation Gabapentin 600 Mg Tab 600 Mg PO HS Singulair (Montelukast Sodium) 10 Mg Tab 10 Mg PO HS Ropinirole 3 Mg Tab 3 Mg PO HS Triamterene-Hydrochlorothiazide 37.5-25 Mg Tab 1 Tab PO DAILY Paxil (Paroxetine HCl) 30 Mg Tab 30 Mg PO DAILY Omeprazole 20 Mg Cap 20 Mg PO DAILY Allergies: Coded Allergies: haloperidol (Unverified Allergy, Severe, Hives, 10/28/16) Active Ordered Medications Active Medications Albuterol/ Ipratropium (Duoneb Neb) 1 ampule Q15M INH Last administered on at 07:47; Start 03/21/17 at 07:30; Stop 03/21/17 at 07:46; Status DC Sodium Chloride (NS Flush) 2 ml UNSCH PRN IVF; Start 03/21/17 at 07:30 Family History RA Lung cancer Social History Patient reports tobacco use. He states he is decreased from two packs/day to one. He denies any EtOH consumption or illicit drug use. Physical Exam Vital Signs Vital Signs Date Time Temp Pulse Resp B/P (MAP) Pulse Ox O2 Delivery O2 Flow Rate FiO2 03/21/17 07:38 85 24 95 Nasal Cannula 4.00 03/21/17 07:38 98.6 74 24 138/79 (98) 95 Nasal Cannula 4.00 03/21/17 07:35 95 Nasal Cannula 4.00 03/21/17 07:35 86 24 95 Nasal Cannula 4.00 03/21/17 07:30 98.6 84 24 138/79 (98) 92 Physical Exam GENERAL: This is a well-nourished, well-developed male patient, in no apparent distress. Somewhat lethargic. SKIN: No rashes, ecchymoses or lesions. Cool and dry. HEAD: Atraumatic. Normocephalic. No temporal or scalp tenderness. EYES: Pupils equal round and reactive. Extraocular motions intact. No scleral icterus. No injection or drainage. ENT: Nose without bleeding or purulent drainage. Throat without erythema, tonsillar hypertrophy or exudate. Uvula midline. Airway patent. Poor dentition. NECK: Trachea midline. No lymphadenopathy. Supple, nontender, no meningeal signs. CARDIOVASCULAR: Regular rate and rhythm without murmurs, gallops, or rubs. RESPIRATORY: Decreased breath sounds, wheezing noted in all lung arteaga. GASTROINTESTINAL: Abdomen soft, non-tender, nondistended. No hepato-splenomegaly , or palpable masses. No guarding. MUSCULOSKELETAL: Extremities without clubbing or cyanosis. (+)Minimal edema BLEs. No joint tenderness, effusion, or edema noted. No calf tenderness. NEUROLOGICAL: Awake. Oriented. Cranial nerves II through XII grossly intact. Motor and sensory grossly within normal limits. Five out of 5 muscle strength in all muscle groups. No focal neurologic findings appreciated. Slow but appropriate responses. Laboratory Laboratory Tests Test 03/21/17 07:47 White Blood Count 5.8 Red Blood Count 5.18 Hemoglobin 16.0 Hematocrit 48.3 Mean Corpuscular Volume 93.2 Mean Corpuscular Hemoglobin 30.9 Mean Corpuscular Hemoglobin Concent 33.1 Red Cell Distribution Width 13.7 Platelet Count 109 Mean Platelet Volume 8.6 Neutrophils (%) (Auto) 72.9 Lymphocytes (%) (Auto) 15.1 Monocytes (%) (Auto) 10.4 Eosinophils (%) (Auto) 1.1 Basophils (%) (Auto) 0.5 Neutrophils # (Auto) 4.3 Lymphocytes # (Auto) 0.9 Monocytes # (Auto) 0.6 Eosinophils # (Auto) 0.1 Basophils # (Auto) 0.0 CBC Comment DIFF FINAL Differential Comment Prothrombin Time 11.2 Prothromb Time International Ratio 1.1 Activated Partial Thromboplast Time 27.5 Blood Urea Nitrogen 16 Creatinine 1.08 Random Glucose 134 Total Protein 6.7 Albumin 3.8 Calcium Level 8.6 Magnesium Level 1.7 Alkaline Phosphatase 92 Aspartate Amino Transf (AST/SGOT) 17 Alanine Aminotransferase (ALT/SGPT) 18 Total Bilirubin 0.6 Sodium Level 135 Potassium Level 4.1 Chloride Level 93 Carbon Dioxide Level 38.5 Anion Gap 4 Estimat Glomerular Filtration Rate 71 Lactic Acid Level 1.1 Date/Time Source Procedure Growth Status 03/21/17 07:47 Blood Peripheral Aerobic Blood Culture Pending Received 03/21/17 07:47 Blood Peripheral Anaerobic Blood Culture Pending Received 03/21/17 07:47 Nasal Aspirate Influenza Types A,B Antigen (SOHAM) - Final NEGATIVE FOR FLU A AND B ANTIGEN.... Complete Result Diagram: 03/21/17 0747 03/21/17 0747 Imaging Last Impressions Chest X-Ray 03/21/17 0729 Signed Impressions: Service Date/Time: Tuesday, March 21, 2017 07:34 - CONCLUSION: No acute disease. Alexander Willett MD Caprinjumana VTE Risk Assessment Caprini VTE Risk Assessment: No/Low Risk (score <= 1) Caprini Risk Assessment Model Point Value = 1 Point Value = 2 Point Value = 3 Point Value = 5 Age 41-60 Minor surgery BMI > 25 kg/m2 Swollen legs Varicose veins or History of unexplained or recurrent spontaneous Oral contraceptives or hormone replacement Sepsis (< 1 month) Serious lung disease, including pneumonia (< 1 month) Abnormal pulmonary function Acute myocardial infarction Congestive heart failure (< 1 month) History of inflammatory bowel disease Medical patient at bed rest Age 61-74 Arthroscopic surgery Major open surgery (> 45 min) Laparoscopic surgery (> 45 min) Malignancy Confined to bed (> 72 hours) Immobilizing plaster cast Central venous access Age >= 75 History of VTE Family history of VTE Factor V Leiden Prothrombin [id number] Lupus anticoagulant Anticardiolipin antibodies Elevated serum homocysteine Heparin-induced thrombocytopenia Other congenital or acquired thrombophilia Stroke (< 1 month) Elective arthroplasty Hip, pelvis, or leg fracture Acute spinal cord injury (< 1 month) Prophylaxis Regimen Total Risk Factor Score Risk Level Prophylaxis Regimen 0-1 Low Early ambulation 2 Moderate Order ONE of the following: *Sequential Compression Device (SCD) *Heparin 5000 units SQ BID 3-4 Higher Order ONE of the following medications: *Heparin 5000 units SQ TID *Enoxaparin/Lovenox 40 mg SQ daily (WT < 150 kg, CrCl > 30 mL/min) *Enoxaparin/Lovenox 30 mg SQ daily (WT < 150 kg, CrCl > 10-29 mL/min) *Enoxaparin/Lovenox 30 mg SQ BID (WT < 150 kg, CrCl > 30 mL/min) AND/OR *Sequential Compression Device (SCD) 5 or more Highest Order ONE of the following medications: *Heparin 5000 units SQ TID (Preferred with Epidurals) *Enoxaparin/Lovenox 40 mg SQ daily (WT < 150 kg, CrCl > 30 mL/min) *Enoxaparin/Lovenox 30 mg SQ daily (WT < 150 kg, CrCl > 10-29 mL/min) *Enoxaparin/Lovenox 30 mg SQ BID (WT < 150 kg, CrCl > 30 mL/min) AND *Sequential Compression Device (SCD) Assessment and Plan Assessment and Plan 56yo male patient with a past medical history of schizophrenia, COPD with ongoing tobaccoism, HTN and GERD who presents to [facility] ED with complaints of cough and dyspnea. Acute hypoxic respiratory failure COPD exacerbation Ongoing tobaccoism - CXR without any acute process, images reviewed by me - Discussed with patient importance of smoking cessation - Rand scheduled - IV Levaquin - IV Methylprednisolone 60mg q8h - Singulair 10mg qhs - supplemental oxygen to maintain O2 sats above 92%. Continue to monitor respiratory status. Patient currently on 4L O2 via NC. Will attempt to wean down. Patient may require home oxygen walk test prior to discharge. Hypertension - resume home dose of Triamterene/HCTZ - monitor BP and adjust treatment as indicated Schizophrenia - stable - resume home medications GERD - PPI DVT prophylaxis - Bilateral SCDs the above note was scribed by Ms.Shannon Best. I attest that I had a face-to -face encounter with the patient and personally performed the physical exam and medical decision making and reviewed the findings and the plan with the patient. Discussed Condition With ED physician, patient Physician Certification 2 Midnight Certification Type: Admission for Inpatient Services Order for Inpatient Services The services are ordered in accordance with Medicare regulations or non- Medicare payer requirements, as applicable. In the case of services not specified as inpatient-only, they are appropriately provided as inpatient services in accordance with the 2-midnight benchmark. Estimated LOS (days): 3 3 days is the estimated time the patient will need to remain in the hospital, assuming treatment plan goals are met and no additional complications. Post-Hospital Plan: Not yet determined Radha Best Mar 21, 2017 10:03 Emma Galeana MD Mar 21, 2017 10:21
[2017-03-21] MEDS ORDERED: PILL SPLITTER OTHER PRN (10:45)
[2017-03-21] MEDS: LEVOFLOXACIN 500 MG PREMIX INJ 100 ML IV SCH (11:23)
[2017-03-21] MEDS: methylPREDNISolone SOD SUCC 125 MG/2 ML VIAL IV PUSH SCH ×2 (14:56→22:00)
[2017-03-21 19:06] LABS: BILIRUBIN, URINE NEG (NEG); BLOOD, URINE NEG (NEG); GLUCOSE,URINE NEG (NEG); KETONE, URINE NEG (NEG); NITRITE,URINE NEG (NEG); PH, URINE 6.5 (5.0-8.5); SQUAMOUS EPITHELIAL CELL URINE <1 /hpf (0-5); URINE COLOR YELLOW (YELLW/STRAW); URINE LEUKOCYTE ESTERASE NEG (NEG)
[2017-03-21] MEDS: MONTELUKAST SODIUM 10 MG TAB PO SCH (21:00)
[2017-03-21] MEDS: GABAPENTIN 300 MG CAP PO SCH (21:00)
[2017-03-21] MEDS: cloZAPine 100 MG TAB PO SCH (21:00)
[2017-03-22] VITALS (9 sets, daily range): BP systolic 102–141; BP diastolic 59–77; PULSE 69–92; RESP 16–18; TEMP 97.2–97.9; O2SAT 90–95
[2017-03-22] MEDS: RESP: ALBUTEROL 2.5 MG/IPRATROPIUM 0.5 MG NEB (SCH) NEB ×6 (01:07→19:52)
[2017-03-22] MEDS: methylPREDNISolone SOD SUCC 125 MG/2 ML VIAL IV PUSH SCH ×3 (06:38→22:27)
[2017-03-22] MEDS: PANTOPRAZOLE SOD 20 MG DELAYED RELEASE TAB PO SCH (08:29)
[2017-03-22] MEDS: PARoxetine HCL 20 MG TAB PO SCH (08:30)
[2017-03-22] MEDS: TRIAMTERENE/HCTZ 37.5 MG/25 MG TAB PO SCH (08:30)
[2017-03-22] MEDS: cloZAPine 100 MG TAB PO SCH ×2 (08:36→20:26)
[2017-03-22] MEDS: LEVOFLOXACIN 500 MG PREMIX INJ 100 ML IV SCH (11:00)
--- NOTE | 2017-03-22 12:41 | EKG ---
Date Performed: 03/21/2017 Time Performed: 07:42:28 PTAGE: 56 years EKG: Sinus rhythm WITH SINUS ARRHYTHMIA LOW QRS VOLTAGE IN EXTREMITY LEADS BORDERLINE ECG PREVIOUS TRACING : 10/16/2016 21.15 Compared to prior tracing no significant change DOCTOR: Marcial Lee Interpretating Date/Time 03/22/2017 12:41:33
[2017-03-22] MEDS: GABAPENTIN 300 MG CAP PO SCH (20:25)
[2017-03-22] MEDS: MONTELUKAST SODIUM 10 MG TAB PO SCH (20:25)
--- NOTE | 2017-03-22 21:40 | HHI.PR ---
Subjective Remarks patient stated he breathe better today no chest pain. Does have minimal cough is on 3 L of oxygen patient afebrile Objective Vitals Vital Signs Date Time Temp Pulse Resp B/P (MAP) Pulse Ox O2 Delivery O2 Flow Rate FiO2 03/22/17 20:00 92 Nasal Cannula 3.00 03/22/17 20:00 97.3 84 16 102/72 (82) 91 03/22/17 19:54 92 Nasal Cannula 2.00 03/22/17 16:15 97.9 78 18 129/70 (89) 93 03/22/17 12:18 97.2 92 18 141/77 (98) 92 03/22/17 09:14 91 Nasal Cannula 2.00 03/22/17 08:25 97.4 78 18 108/68 (81) 90 03/22/17 04:06 97.3 69 18 106/60 (75) 95 03/22/17 02:13 91 Nasal Cannula 3.00 03/22/17 01:07 93 Nasal Cannula 4.00 03/22/17 00:06 97.7 75 18 114/59 (77) 95 I/O 03/21/17 03/21/17 03/21/17 03/22/17 03/22/17 03/22/17 07:00 15:00 23:00 07:00 15:00 23:00 Intake Total 720 ml 240 ml 480 ml 480 ml Balance 720 ml 240 ml 480 ml 480 ml Intake Oral 720 ml 240 ml 480 ml 480 ml # Voids 3 2 3 3 # Bowel Movements 0 0 1 0 Result Diagram: 03/21/17 0747 03/21/17 0747 Objective Remarks GENERAL: This is a well-nourished, well-developed patient, in no apparent distress. CARDIOVASCULAR: Regular rate and rhythm without murmurs, gallops, or rubs. RESPIRATORY: decreased breath sounds bilaterally with bilateral wheezing GASTROINTESTINAL: Abdomen soft, non-tender, nondistended. Normal active bowel sounds MUSCULOSKELETAL: Extremities without clubbing, cyanosis, or edema. NEURO: Alert & Oriented x4 to person, place, time, situation. Moves all ext x4 A/P Assessment and Plan 03/22/17: Continue current care with oxygen and DuoNeb Solu-Medrol IV antibiotic, monitor clinical improvement 56yo male patient with a past medical history of schizophrenia, COPD with ongoing tobaccoism, HTN and GERD who presents to [facility] ED with complaints of cough and dyspnea. Acute hypoxic respiratory failure COPD exacerbation Ongoing tobaccoism - CXR without any acute process, images reviewed by me - counseled about smoking cessation - Rand scheduled - IV Levaquin - IV Methylprednisolone 60mg q8h - Singulair 10mg qhs - supplemental oxygen to maintain O2 sats above 92%. Continue to monitor respiratory status. Patient currently on 4L O2 via NC. Will attempt to wean down. Patient may require home oxygen walk test prior to discharge. Hypertension - resume home dose of Triamterene/HCTZ - monitor BP and adjust treatment as indicated Schizophrenia - stable - resume home medications GERD - PPI DVT prophylaxis - Bilateral SCDs Pili Shelton MD Mar 22, 2017 21:40
[2017-03-23] VITALS (8 sets, daily range): BP systolic 107–135; BP diastolic 64–91; PULSE 95–101; RESP 17–19; TEMP 97–97.9; O2SAT 90–95
[2017-03-23] MEDS: RESP: ALBUTEROL 2.5 MG/IPRATROPIUM 0.5 MG NEB (SCH) NEB ×6 (03:51→21:44)
[2017-03-23] MEDS: methylPREDNISolone SOD SUCC 125 MG/2 ML VIAL IV PUSH SCH (05:40)
--- NOTE | 2017-03-23 09:41 | HHI.PR ---
Subjective Remarks feeling better no wheezing, no cough no complains of chest discomfort states heavy smoker- down to 1 pack per day no complains of leg swelling complains of tremors with Clozaril Objective Vitals Vital Signs Date Time Temp Pulse Resp B/P (MAP) Pulse Ox O2 Delivery O2 Flow Rate FiO2 03/23/17 08:00 97.3 101 18 135/91 (106) 91 03/23/17 07:54 91 Nasal Cannula 2.00 03/23/17 03:53 18 91 03/23/17 00:00 97.6 95 17 111/67 (82) 90 03/22/17 20:00 92 Nasal Cannula 3.00 03/22/17 20:00 97.3 84 16 102/72 (82) 91 03/22/17 19:54 92 Nasal Cannula 2.00 03/22/17 16:15 97.9 78 18 129/70 (89) 93 03/22/17 12:18 97.2 92 18 141/77 (98) 92 I/O 03/22/17 03/22/17 03/22/17 03/23/17 03/23/17 03/23/17 07:00 15:00 23:00 07:00 15:00 23:00 Intake Total 480 ml 480 ml 600 ml 480 ml Balance 480 ml 480 ml 600 ml 480 ml Intake Oral 480 ml 480 ml 600 ml 480 ml # Voids 3 3 2 2 # Bowel Movements 1 0 Result Diagram: 03/21/17 0747 03/21/17 0747 Imaging Last Impressions Chest X-Ray 03/21/17 0729 Signed Impressions: Service Date/Time: Tuesday, March 21, 2017 07:34 - CONCLUSION: No acute disease. Alexander Willett MD Objective Remarks awake and alert, no acute distress good sats- currently on 2 L NC anicteric no rales or wheezes on lung exam regular rhythm abdomen soft, nontender extremities no edema neuro exam non focal A/P Assessment and Plan 56yo male patient with a past medical history of schizophrenia, COPD with ongoing tobaccoism, HTN and GERD who presents to [facility] ED with complaints of cough and dyspnea. Acute hypoxic respiratory failure COPD exacerbation Ongoing tobaccoism - CXR without any acute process, images reviewed by me - counseled about smoking cessation - Rand prn -start on MDIs- Spiriva and Albuterol - IV Levaquin- change to po - IV Methylprednisolone 60mg q8h- change to po Prednisone - Singulair 10mg qhs - supplemental oxygen to maintain O2 sats above 92%. - - do a walk test if qualifies for home 02 Hypertension - resume home dose of Triamterene/HCTZ - monitor BP and adjust treatment as indicated Schizophrenia - stable- complains of tremors/"twitching" with Clozaril- will get Psychiatry input for recommendations GERD - PPI DVT prophylaxis - Bilateral SCDs - up and ambulating DC planning- came from an [place] Dukes MD Mar 23, 2017 09:41
[2017-03-23] MEDS: cloZAPine 100 MG TAB PO SCH ×2 (11:31→22:49)
[2017-03-23] MEDS: TRIAMTERENE/HCTZ 37.5 MG/25 MG TAB PO SCH (11:31)
[2017-03-23] MEDS: PANTOPRAZOLE SOD 20 MG DELAYED RELEASE TAB PO SCH (11:32)
[2017-03-23] MEDS: PARoxetine HCL 20 MG TAB PO SCH (11:32)
[2017-03-23] MEDS: LEVOFLOXACIN 500 MG TAB PO SCH (11:37)
--- NOTE | 2017-03-23 12:09 | PD.PSY.CON ---
Provisional Diagnosis Admission Date Mar 21, 2017 at 09:38 [place] I. Chronic paranoid schizophrenia [place] II. Deferred [place] III. COPD, HTN [place] IV. Long history of chronic paranoid schizophrenia [place] V. 55 History of Present Illness Service Psychiatry Consult Requested By Dr. Gaytan Reason for Consult Medication reconciliation Primary Care Physician No Primary Care Physician HPI The patient is a 56 year old man, domiciled in [facility], single, unemployed, supported by [facility], with extensive psychiatric history of schizophrenia, multiple psychiatric hospitalizations, he has a fact team, he is on Invega Sustenna 39 mg monthly, Clozapine 300 mg at bedtime, Paxil 30 mg, past medical history of COPD with ongoing tobaccoism, HTN and GERD who presents to [facility] ED with complaints of cough and dyspnea. Per EMS, patients oxygen saturation was in the low 80s. He was administered 125mg IV SoluMedrol and a breathing treatment with improvement in his oxygen saturations to 98%. In the ED, he was satting 84% on room air. Patient is not a good historian. He endorses cough with yellowish/greenish sputum production. Patient reports feeling feverish last night. He was admitted due to COPD exacerbation. Consulted to psychiatry to help with recommendations about his medications. Chart was reviewed. Case discussed with the staff members of [facility], use as collateral information. On psychiatric evaluation patient is calm, cooperative and very pleasant. He has some kind of flat affect, but he is logical, coherent and relevant. Patient reports that the reason he is in the hospital is because he was having difficulties breathing. Patient reports that he feels much better now. He says that he has been schizophreniform time, but he has been stable with his current psychotropic regimen. Patient denies depressive symptoms, he denies anhedonia, he denies hopelessness, he denies helplessness, he denies worthlessness, he denies problems with concentration, difficulty sleeping or eating, he denies suicidal and homicidal ideation, he denies visual and auditory hallucinations. No paranoia, no delusions, no ideas of reference, no loosening of associations, thought controlling present during this evaluation. The patient is fully oriented 3, no fluctuation of consciousness, no confusion, no gross cognitive impairment present. No agitation, no aggressive behavior reported. As per staff member of [facility], patient has been at baseline, there is no mental health problems going on at this moment. Psychotropic regimen was confirmed. Review of Systems Constitutional: DENIES: Diaphoretic episodes, Fatigue, Fever, Weight gain, Weight loss, Chills, Dizziness, Change in appetite, Night Sweats Endocrine: DENIES: Heat/cold intolerance, Polydipsia, Polyuria, Polyphagia Eyes: DENIES: Blurred vision, Diplopia, Eye inflammation, Eye pain, Vision loss , Photosensitivity, Double Vision Ears, nose, mouth, throat: DENIES: Tinnitus, Hearing loss, Vertigo, Nasal discharge, Oral lesions, Throat pain, Hoarseness, Ear Pain, Running Nose, Epistaxis, Sinus Pain, Toothache, Odynophagia Respiratory: DENIES: Apneas, Cough, Snoring, Wheezing, Hemoptysis, Sputum production, Shortness of breath Cardiovascular: DENIES: Chest pain, Palpitations, Syncope, Dyspnea on Exertion , PND, Lower Extremity Edema, Orthopnea, Claudication Genitourinary: DENIES: Sexual dysfunction, Urinary frequency, Urinary incontinence, Urgency, Hematuria, Dysuria, Nocturia, Penile Discharge, Testicular Pain, Testicular Swelling Musculoskeletal: DENIES: Joint pain, Muscle aches, Stiffness, Joint Swelling, Back pain, Neck pain Integumentary: DENIES: Abnormal pigmentation, Nail changes, Pruritus, Rash Hematologic/lymphatic: DENIES: Bruising, Lymphadenopathy Immunologic/allergic: DENIES: Eczema, Urticaria Neurologic: DENIES: Abnormal gait, Headache, Localized weakness, Paresthesias, Seizures, Speech Problems, Tremor, Poor Balance Psychiatric: DENIES: Anxiety, Confusion, Mood changes, Depression, Hallucinations, Agitation, Suicidal Ideation, Homicidal Ideation, Delusions Past Family Social History Coded Allergies: haloperidol (Unverified Allergy, Severe, Hives, 10/28/16) Active Scripts Albuterol 6.7 GM Inh (Proventil Hfa 6.7 GM Inh) 90 Mcg/Act Aer, 2 PUFF INH Q4- 6H Y for SHORTNESS OF BREATH, #1 INHALER 0 Refills Prov:Cesar Santoro MD 07/23/16 Prednisone (Prednisone) 50 Mg Tab, 50 MG PO DAILY, #5 TAB 0 Refills Prov:Cesar Santoro MD 07/23/16 Reported Medications Paliperidone Palmitate Inj (Invega Sustenna Inj) 39 Mg/0.25 Ml Inj, 39 MG IM Q28D for Schizophrenia, #1 VIAL 0 Refills 10/16/16 Clozapine (Clozapine) 100 Mg Tab, 100 MG PO BID for Schizophrenia, #1 TAB 0 Refills 04/26/16 Naproxen (Naproxen) 500 Mg Tab, 500 MG PO BID Y for PAIN, #60 TAB 0 Refills 03/24/16 Albuterol 8.5 GM Inh (Proair Hfa 8.5 GM Inh) 90 Mcg/Act Aer, 2 PUFF INH Q6H Y for SHORTNESS OF BREATH, #1 INHALER 0 Refills 108 mcg/actuation 03/24/16 Gabapentin (Gabapentin) 600 Mg Tab, 600 MG PO HS, #30 TAB 0 Refills 03/24/16 Montelukast (Singulair) 10 Mg Tab, 10 MG PO HS, #30 TAB 0 Refills 03/24/16 Ropinirole (Ropinirole) 3 Mg Tab, 3 MG PO HS, #30 TAB 0 Refills 03/24/16 Triamterene-Hydrochlorothiazide (Triamterene-Hydrochlorothiazide) 37.5-25 Mg Tab , 1 TAB PO DAILY, #30 TAB 0 Refills 03/24/16 Paroxetine (Paxil) 30 Mg Tab, 30 MG PO DAILY, #30 TAB 0 Refills 03/24/16 Omeprazole (Omeprazole) 20 Mg Cap, 20 MG PO DAILY 03/24/16 Current Medications Medications (Trade) Dose Ordered Sig/Sawyer Route Start Time Stop Time Status Last Admin (NS Flush) 2 ml UNSCH PRN IVF 03/21/17 07:30 (Duoneb Neb) 1 ampule Q4HR NEB NEB 03/21/17 10:00 03/23/17 07:50 (Albuterol Neb) 1.25 mg Q2HR NEB PRN NEB 03/21/17 09:45 (Neurontin) 600 mg HS PO 03/21/17 21:00 03/22/17 20:25 (Singulair) 10 mg HS PO 03/21/17 21:00 03/22/17 20:25 (Maxzide 37.5-25 Mg) 1 tab DAILY PO 03/22/17 09:00 03/23/17 11:31 (Protonix) 20 mg DAILY PO 03/22/17 09:00 03/23/17 11:32 (Paxil) 30 mg DAILY PO 03/22/17 09:00 03/23/17 11:32 (Requip) 3 mg HS PO 03/21/17 21:00 03/22/17 20:25 (Pill Splitter) 1 ea UNSCH PRN OTHER 03/21/17 10:45 (Spiriva Inh) 18 mcg DAILY INH 03/23/17 11:00 (Proair Hfa Inh) 2 puff Q6HR INH 03/23/17 12:00 (Deltasone) 20 mg BID PO 03/23/17 18:00 (Levaquin) 500 mg DAILY PO 03/23/17 11:00 03/23/17 11:37 (Clozaril) 100 mg HS PO 03/23/17 21:00 UNV Family Psych History The patient denies family psychiatric history Social History Patient was born and raised in [place], he lives in a guarded manner, single , unemployed, on SSI, his highest level of education is 11th grade Patient's Strengths (min. 2) Patient has a fact team Physical Exam No tremors, no EPS, no stiffness, no gait disturbance Vital Signs Vital Signs Date Time Temp Pulse Resp B/P (MAP) Pulse Ox O2 Delivery O2 Flow Rate FiO2 03/23/17 11:40 92 Nasal Cannula 4.00 03/23/17 08:00 97.3 101 18 135/91 (106) I/O 03/23/17 03/23/17 03/24/17 08:00 16:00 00:00 Intake Total 480 ml Balance 480 ml Lab Results Date/Time Source Procedure Growth Status 03/21/17 07:47 Blood Peripheral Aerobic Blood Culture - Preliminary NO GROWTH IN 2 DAYS Resulted 03/21/17 07:47 Blood Peripheral Anaerobic Blood Culture - Preliminary NO GROWTH IN 2 DAYS Resulted 03/21/17 07:47 Nasal Aspirate Influenza Types A,B Antigen (SOHAM) - Final NEGATIVE FOR FLU A AND B ANTIGEN.... Complete Mental Status Examination Appearance: Appropriate Consciousness: Alert Orientation: x4 Motor Activity: Normal gait Speech: Unremarkable Language: Adequate Fund of Knowledge: Adequate Attention and Concentration: Adequate Memory: Unremarkable Mood: Appropriate Affect: Appropriate Thought Process & Associations: Intact Thought Content: Appropriate Hallucination Type: None Delusion Type: None Suicidal Ideation: No Suicidal Plan: No Suicidal Intention: No Homicidal Ideation: No Homicidal Plan: No Homicidal Intention: No Insight: Adequate Judgment: Adequate Assessment & Plan Problem List: (1) Schizophrenia ICD Codes: F20.9 - Schizophrenia, unspecified Status: Acute Assessment & Plan: The moment of this psychiatric evaluation the patient does not present any acute, concerning for significant neuropsychiatric symptoms, such as psychosis, depression, anxiety or kerwin that requires an immediate psychiatric intervention or psychiatric admission. The patient denies suicidal and homicidal ideation, he denies visual and auditory hallucinations. Even though he has some flat affect that is part of his chronic schizophrenia, he does not present any delusion, no paranoia, flight of ideas, loosening of associations and others. Patient will be restarted in his outpatient psychotropics, confirmed with fact team. Will restart clozapine 300 mg at bedtime, Paxil 30 mg. At this moment the patient does not meet criteria for involuntary psychiatric admission. I will follow-up in the floor. Assessment & Plan Estimated LOS: Adrian Mccormack MD Mar 23, 2017 12:09
[2017-03-23] MEDS: TIOTROPIUM BROMIDE 18 MCG INH INH SCH (12:16)
[2017-03-23] MEDS: ALBUTEROL SULFATE 90 MCG/ACT HFA 8 GM INHALER INH SCH ×3 (13:38→23:37)
[2017-03-23] MEDS: predniSONE 20 MG TAB PO SCH ×2 (18:00→22:49)
[2017-03-23] MEDS: GABAPENTIN 300 MG CAP PO SCH (22:49)
[2017-03-23] MEDS: MONTELUKAST SODIUM 10 MG TAB PO SCH (22:49)
[2017-03-23] MEDS: SODIUM CHLORIDE 0.9% FLUSH 10 ML FLUSH IVF PRN (22:50)
[2017-03-24] VITALS (9 sets, daily range): BP systolic 103–143; BP diastolic 61–93; PULSE 85–99; RESP 18–20; TEMP 96.6–98.8; O2SAT 90–93
[2017-03-24] MEDS: RESP: ALBUTEROL 2.5 MG/IPRATROPIUM 0.5 MG NEB (SCH) NEB ×6 (00:09→20:50)
[2017-03-24] MEDS: ALBUTEROL SULFATE 90 MCG/ACT HFA 8 GM INHALER INH SCH ×3 (05:21→17:36)
[2017-03-24] MEDS: PARoxetine HCL 20 MG TAB PO SCH (10:27)
[2017-03-24] MEDS: LEVOFLOXACIN 500 MG TAB PO SCH (10:27)
[2017-03-24] MEDS: TRIAMTERENE/HCTZ 37.5 MG/25 MG TAB PO SCH (10:28)
[2017-03-24] MEDS: PANTOPRAZOLE SOD 20 MG DELAYED RELEASE TAB PO SCH (10:28)
[2017-03-24] MEDS: predniSONE 20 MG TAB PO SCH ×2 (10:28→20:26)
[2017-03-24] MEDS: TIOTROPIUM BROMIDE 18 MCG INH INH SCH (10:31)
--- NOTE | 2017-03-24 11:22 | HHI.PR ---
Subjective Remarks no complains no fever or chills Objective Vitals Vital Signs Date Time Temp Pulse Resp B/P (MAP) Pulse Ox O2 Delivery O2 Flow Rate FiO2 03/24/17 10:30 92 Nasal Cannula 4.00 03/24/17 10:27 92 Nasal Cannula 4.00 03/24/17 08:00 96.6 88 18 136/93 (107) 92 03/24/17 04:44 93 Nasal Cannula 4.00 03/24/17 04:30 97.6 99 20 103/62 (76) 92 03/24/17 00:30 97.4 87 18 108/61 (77) 93 03/24/17 00:12 90 Nasal Cannula 5.00 03/23/17 22:54 Nasal Cannula 4.00 Humidified 03/23/17 21:46 93 Nasal Cannula 4.00 03/23/17 21:20 97.1 98 19 107/64 (78) 94 03/23/17 16:00 97.0 98 18 128/75 (92) 95 03/23/17 12:00 97.9 99 18 131/73 (92) 94 03/23/17 11:40 92 Nasal Cannula 4.00 I/O 03/23/17 03/23/17 03/23/17 03/24/17 03/24/17 03/24/17 07:00 15:00 23:00 07:00 15:00 23:00 Intake Total 480 ml 600 ml 240 ml 240 ml Balance 480 ml 600 ml 240 ml 240 ml Intake Oral 480 ml 600 ml 240 ml 240 ml # Voids 2 2 3 1 # Bowel Movements 0 0 0 Result Diagram: 03/21/17 0747 03/21/17 0747 Imaging Last Impressions Chest X-Ray 03/21/17 0729 Signed Impressions: Service Date/Time: Tuesday, March 21, 2017 07:34 - CONCLUSION: No acute disease. Alexander Willett MD Objective Remarks awake and alert, no acute distress good sats- currently on 2 L NC anicteric no rales or wheezes - clear regular rhythm abdomen soft, nontender extremities no edema neuro exam non focal A/P Assessment and Plan 56yo male patient with a past medical history of schizophrenia, COPD with ongoing tobaccoism, HTN and GERD who presents to [facility] ED with complaints of cough and dyspnea. Acute hypoxic respiratory failure- improved COPD exacerbation Ongoing tobaccoism - CXR without any acute process, images reviewed by me - counseled about smoking cessation - Rand prn - continue on MDIs- Spiriva and Albuterol - IV Levaquin- change to po - IV Methylprednisolone 60mg q8h- change to po Prednisone 20 mg po bid 03/23- short course- no taper - Singulair 10mg qhs - supplemental oxygen to maintain O2 sats above 92%. - - do a walk test if qualifies for home Hypertension - resume home dose of Triamterene/HCTZ - monitor BP and adjust treatment as indicated Schizophrenia - stable- - restarted on clozaril GERD - PPI DVT prophylaxis - Bilateral SCDs - up and ambulating DC planning- came from an [facility] - today if arranged awaiting walk test Counselled on smoking cessation- France Barroso MD Mar 24, 2017 11:22
[2017-03-24] MEDS ORDERED: SPIRCAP INH (11:28)
[2017-03-24] MEDS ORDERED: PRED20 PO (11:28)
[2017-03-24] MEDS ORDERED: LEVA500T33 PO (11:28)
--- NOTE | 2017-03-24 11:30 | HHI.DS ---
Discharge Summary Admission Date Mar 21, 2017 at 09:38 Discharge Date: Mar 24, 2017 Admitting Diagnosis (1) COPD exacerbation ICD Code: J44.1 - Chronic obstructive pulmonary disease with (acute) exacerbation Diagnosis: Principal Status: Acute Procedures none Brief History - From Admission Written by Radha Best, acting as scribe for Dr. Galeana on 03/21/17 at 09: 34. This is a 56yo male patient with a past medical history of schizophrenia, COPD with ongoing tobaccoism, HTN and GERD who presents to [facility] ED with complaints of cough and dyspnea. Per EMS, patients oxygen saturation was in the low 80s. He was administered 125mg IV SoluMedrol and a breathing treatment with improvement in his oxygen saturations to 98%. In the ED, he was satting 84 % on room air. Patient is not a good historian. He endorses cough with yellowish/greenish sputum production. Patient reports feeling feverish last night. He denies any night sweats. Patient reports waking up this morning with "twitches". Patient lives in an [facility]. Patient used oxygen previously in Apr. He states he was on inhalers in the past. Patient denies any chest pain, nausea, vomiting or abdominal pain. He endorses wheezing. CBC/BMP: 03/21/17 0747 03/21/17 0747 Significant Findings Laboratory Tests Test 03/21/17 18:50 Imaging Last Impressions Chest X-Ray 03/21/17 0729 Signed Impressions: Service Date/Time: Tuesday, March 21, 2017 07:34 - CONCLUSION: No acute disease. Alexander Willett MD PE at Discharge awake and alert, no acute distress good sats- currently on 2 L NC anicteric no rales or wheezes - clear regular rhythm abdomen soft, nontender extremities no edema neuro exam non focal Pt update on day of discharge lungs clear ambulating around awaiting walk test - if qwualifies for home 02 patient very motivated with smoking cessation- Hospital Course 56yo male patient with a past medical history of schizophrenia, COPD with ongoing tobaccoism, HTN and GERD who presents to [facility] ED with complaints of cough and dyspnea. Acute hypoxic respiratory failure- improved COPD exacerbation Ongoing tobaccoism - CXR without any acute process, images reviewed by me - counseled about smoking cessation - Duonebs prn - continue on MDIs- Spiriva and Albuterol - IV Levaquin- change to po - IV Methylprednisolone 60mg q8h- change to po Prednisone 20 mg po bid 03/23- short course- no taper - Singulair 10mg qhs - supplemental oxygen to maintain O2 sats above 92%. - - do a walk test if qualifies for home today Hypertension - resume home dose of Triamterene/HCTZ - monitor BP and adjust treatment as indicated Schizophrenia - stable- - restarted on clozaril GERD - PPI DVT prophylaxis - Bilateral SCDs - up and ambulating DC planning- came from an [facility] - today if arranged awaiting walk test Counselled on smoking cessation- extensively Pt Condition on Discharge: Stable Discharge Disposition: [facility] Discharge Time: <= 30 minutes Discharge Instructions DIET: Follow Instructions for: Heart Healthy Diet Speech Therapy-Diet Recommends: Regular Activities you can perform: Weight Bearing as Jose Activities to Avoid: Strenuous Activity Follow up Referrals: PCP Follow-up - 3-5 Days with PCP New Medications: Levofloxacin (Levaquin) 500 Mg Tablet 500 MG PO DAILY for COPD for 3 Days, #3 TAB 0 Refills once daiy starting 03/25 for 3 days Prednisone (Prednisone) 20 Mg Tab 20 MG PO BID for COPD for 3 Days, #6 TAB Tiotropium Inh (Spiriva Handihaler) 18 Mcg Cap 18 MCG INH DAILY for COPD for 30 Days, #30 CAP 1 capsule = 18 mcg Continued Medications: Albuterol 6.7 GM Inh (Proventil Hfa 6.7 GM Inh) 90 Mcg/Act Aer 2 PUFF INH Q4-6H PRN for SHORTNESS OF BREATH, #1 INHALER 0 Refills Clozapine (Clozapine) 100 Mg Tab 100 MG PO BID for Schizophrenia, #1 TAB 0 Refills Gabapentin (Gabapentin) 600 Mg Tab 600 MG PO HS, #30 TAB 0 Refills Montelukast (Singulair) 10 Mg Tab 10 MG PO HS, #30 TAB 0 Refills Omeprazole (Omeprazole) 20 Mg Cap 20 MG PO DAILY Paliperidone Palmitate Inj (Invega Sustenna Inj) 39 Mg/0.25 Ml Inj 39 MG IM Q28D for Schizophrenia, #1 VIAL 0 Refills Paroxetine (Paxil) 30 Mg Tab 30 MG PO DAILY, #30 TAB 0 Refills Triamterene-Hydrochlorothiazide (Triamterene-Hydrochlorothiazide) 37.5-25 Mg Tab 1 TAB PO DAILY, #30 TAB 0 Refills Discontinued Medications: Naproxen (Naproxen) 500 Mg Tab 500 MG PO BID PRN for PAIN, #60 TAB 0 Refills Prednisone (Prednisone) 50 Mg Tab 50 MG PO DAILY, #5 TAB 0 Refills France Her MD Mar 24, 2017 11:30
[2017-03-24] MEDS ORDERED: OXYGENDME NAS.CANULA (12:01)
--- NOTE | 2017-03-24 13:36 | HHI.PYPN ---
Subjective Remarks Patient was seen today for psychiatric reevaluation. Documentation review. On the evaluation patient was found calm, cooperative, pleasant. He reports they had a very good night last night, he feels "a little tired", but denies depressive symptoms, denies anxiety, he denies anhedonia, denies suicidal and homicidal ideation, he denies visual and auditory hallucinations. Patient is fully oriented 3, logical, coherent and relevant. No agitation, no aggressive behavior reported. Compliant with his medications, no significant side effects. Review of Systems Except as stated in HPI: all other systems reviewed are Neg Mental Status Examination Appearance: Appropriate Consciousness: Alert Orientation: x4 Motor Activity: Normal gait Speech: Unremarkable Language: Adequate Fund of Knowledge: Adequate Attention and Concentration: Adequate Memory: Unremarkable Mood: Appropriate Affect: Appropriate Thought Process & Associations: Intact Thought Content: Appropriate Hallucination Type: None Delusion Type: None Suicidal Ideation: No Suicidal Plan: No Suicidal Intention: No Homicidal Ideation: No Homicidal Plan: No Homicidal Intention: No Insight: Adequate Judgment: Adequate Results Labs Date/Time Source Procedure Growth Status 03/21/17 07:47 Blood Peripheral Aerobic Blood Culture - Preliminary NO GROWTH IN 3 DAYS Resulted 03/21/17 07:47 Blood Peripheral Anaerobic Blood Culture - Preliminary NO GROWTH IN 3 DAYS Resulted 03/21/17 07:47 Nasal Aspirate Influenza Types A,B Antigen (SOHAM) - Final NEGATIVE FOR FLU A AND B ANTIGEN.... Complete Vitals/IOs Vital Signs Date Time Temp Pulse Resp B/P (MAP) Pulse Ox O2 Delivery O2 Flow Rate FiO2 03/24/17 11:58 4.00 03/24/17 10:30 92 Nasal Cannula 03/24/17 08:00 96.6 88 18 136/93 (107) Intake and Output 03/24/17 03/24/17 03/24/17 07:59 15:59 23:59 Intake Total 240 ml Balance 240 ml Assessment & Plan Problem List: (1) Schizophrenia ICD Codes: F20.9 - Schizophrenia, unspecified Status: Acute Assessment & Plan: Continue current psychotropic regimen. Brief supportive psychotherapy provided. Assessment & Plan Estimated LOS: days Justification for Cont. Inpt. Psychiatric admission indicated. Adrian Sanchez MD Mar 24, 2017 13:36
[2017-03-24] MEDS ORDERED: CLOZ100T PO (17:14)
[2017-03-24] MEDS: SODIUM CHLORIDE 0.9% FLUSH 10 ML FLUSH IVF PRN (20:25)
[2017-03-24] MEDS: GABAPENTIN 300 MG CAP PO SCH (20:26)
[2017-03-24] MEDS: MONTELUKAST SODIUM 10 MG TAB PO SCH (20:26)
[2017-03-24] MEDS: cloZAPine 100 MG TAB PO SCH (20:26)
[2017-03-25] VITALS: BP 129/75; PULSE 80; RESP 18; TEMP 96.4; O2SAT 96
[2017-03-25] MEDS: ALBUTEROL SULFATE 90 MCG/ACT HFA 8 GM INHALER INH SCH ×3 (00:13→12:06)
[2017-03-25 08:00] VITALS: BP 139/76; PULSE 71; RESP 17; TEMP 96.7; O2SAT 94
[2017-03-25] MEDS: RESP: ALBUTEROL 2.5 MG/IPRATROPIUM 0.5 MG NEB (SCH) NEB (08:00)
[2017-03-25 08:06] VITALS: O2SAT 95
--- NOTE | 2017-03-25 10:40 | HHI.PR ---
Subjective Remarks doing very well no complains ambulating Objective Vitals Vital Signs Date Time Temp Pulse Resp B/P (MAP) Pulse Ox O2 Delivery O2 Flow Rate FiO2 03/25/17 08:06 95 Nasal Cannula 4.00 03/25/17 08:00 96.7 71 17 139/76 (97) 94 03/25/17 00:00 96.4 80 18 129/75 (93) 96 03/24/17 23:14 Nasal Cannula 4.00 Humidified 03/24/17 20:30 Nasal Cannula 4.00 Humidified 03/24/17 20:30 96.7 88 18 142/91 (108) 92 03/24/17 16:00 98.8 98 18 143/81 (101) 91 03/24/17 12:00 96.8 85 18 142/75 (97) 93 03/24/17 11:58 4.00 I/O 03/24/17 03/24/17 03/24/17 03/25/17 03/25/17 03/25/17 07:00 15:00 23:00 07:00 15:00 23:00 Intake Total 840 ml 240 ml 360 ml Balance 840 ml 240 ml 360 ml Intake Oral 840 ml 240 ml 360 ml # Voids 4 2 1 # Bowel Movements 1 0 0 Result Diagram: 03/21/17 0747 03/21/17 0747 Imaging Last Impressions Chest X-Ray 03/21/17 0729 Signed Impressions: Service Date/Time: Tuesday, March 21, 2017 07:34 - CONCLUSION: No acute disease. Alexander Willett MD Objective Remarks awake and alert, no acute distress good sats- currently on 2 L NC anicteric no rales or wheezes - clear regular rhythm abdomen soft, nontender extremities no edema neuro exam non focal Procedures none A/P Problem List: (1) COPD exacerbation ICD Code: J44.1 - Chronic obstructive pulmonary disease with (acute) exacerbation Status: Acute Assessment and Plan 56yo male patient with a past medical history of schizophrenia, COPD with ongoing tobaccoism, HTN and GERD who presents to [facility] ED with complaints of cough and dyspnea. Acute hypoxic respiratory failure- improved- 02 rerquiring COPD exacerbation Ongoing tobaccoism - CXR without any acute process, images reviewed by me - counseled about smoking cessation - Rand prn - continue on MDIs- Spiriva and Albuterol - IV Levaquin- change to po - shourt course Prednisone 20 mg po bid 03/23- short course- - Singulair 10mg qhs - supplemental oxygen to maintain O2 sats above 92%. - Hypertension - resume home dose of Triamterene/HCTZ - monitor BP and adjust treatment as indicated Schizophrenia - stable- - restarted on clozaril GERD - PPI DVT prophylaxis - Bilateral SCDs - up and ambulating DC planning-to [facility] today Counselled on smoking cessation- extensively France Her MD Mar 25, 2017 10:40
[2017-03-25] MEDS: predniSONE 20 MG TAB PO SCH (10:57)
[2017-03-25] MEDS: LEVOFLOXACIN 500 MG TAB PO SCH (10:57)
[2017-03-25] MEDS: PARoxetine HCL 20 MG TAB PO SCH (10:58)
[2017-03-25] MEDS: PANTOPRAZOLE SOD 20 MG DELAYED RELEASE TAB PO SCH (10:58)
[2017-03-25] MEDS: TRIAMTERENE/HCTZ 37.5 MG/25 MG TAB PO SCH (11:19)
[2017-03-25] MEDS ORDERED: OXYGENDME NAS.CANULA (11:41)
[2017-03-25 12:00] VITALS: BP 119/63; PULSE 72; RESP 18; TEMP 96.9; O2SAT 97
[2017-03-25] MEDS: TIOTROPIUM BROMIDE 18 MCG INH INH SCH (12:06)
== END 2017-03-25 15:44 | DRG 189 ==
LOC: NEPE 07:20 → NEDA 09:38 → N06B 11:40 → N07B 03-24 22:43
PROVIDERS: ADMIT Internal Medicine; ATTEND Internal Medicine
PROC: 3E0F7GC Introduction of Other Therapeutic Substance into Respiratory Tract, Via Natural or Artificial Opening (ICD-10-PCS; principal; 2017-03-21)
DX: J96.01 Acute respiratory failure with hypoxia (principal); J44.1 Chronic obstructive pulmonary disease with (acute) exacerbation; I10 Essential (primary) hypertension; F20.9 Schizophrenia, unspecified; F17.200 Nicotine dependence, unspecified, uncomplicated; K21.9 Gastro-esophageal reflux disease without esophagitis; F41.9 Anxiety disorder, unspecified; F32.9 Major depressive disorder, single episode, unspecified; Z80.1 Family history of malignant neoplasm of trachea, bronchus and lung; Z82.61 Family history of arthritis
CPT/HCPCS: 71045; 80053; 81001; 83605; 83735; 85025; 85610; 85730; 87040; 87804; 93005; 94618; 94640; 94664; J1956; J2930; J7512

== ENCOUNTER 2017-05-13 15:44 | Observation (INO) | payer MEDICAID ==
[~2017-05-13] VITALS: Ht 177.8 cm; Wt 95.0 kg
[~2017-05-13 15:44] MED LIST changes: +CLOZ100T PO; -CLOZ100T3 PO; +LEVA500T33 PO; -NAPR500T2 PO; +OXYGENDME NAS.CANULA; +PRED20 PO; -PRED50 PO; +SPIRCAP INH
[2017-05-13 15:52] VITALS: BP 148/82; PULSE 98; RESP 22; TEMP 99.3; O2SAT 92
--- NOTE | 2017-05-13 16:16 | PD ---
HPI Chief Complaint: Respiratory Symptoms Time Seen by Provider: 15:51 Travel History International Travel<30 days: No Contact w/Intl Traveler<30days: No Traveled to known affect area: No History of Present Illness HPI 56-year-old male with a history of COPD presents emergency department complaining of shortness of breath and low oxygen saturation for approximately 1 month. States that he was at his psychiatrist's office and he felt short of breath and they applied a pulse oximeter and he found that his oxygen saturation was in the 70s. [facility] states that they had an oxygen of 82 and was placed on 3 L/min with resulting SaO2 of 96%. Patient received 1 DuoNeb and 125 mg Solu-Medrol by [facility]. Patient denies nausea, vomiting, chest pain, abdominal pain, leg pain. Says that he was diagnosed with pneumonia 1 month ago and was treated but does not feel better. States he has not he continues to feel short of breath. States that he was prescribed oxygen and at the beginning of the month and has stopped because he "did not think he needed it". Says he get his oxygen up "days ago". Patient denies cardiac history to include congestive heart failure and heart attacks. Denies any other medical issues and has a history of schizophrenia. Patient does not have a extractor loader and unloader. Patient denies alcohol or other other illicit drug use. PFSH Past Medical History Asthma: No Blood Disorders: No Anxiety: Yes Depression: No Heart Rhythm Problems: No Cancer: No Cardiovascular Problems: No High Cholesterol: No Chest Pain: No Congestive Heart Failure: No COPD: Yes Endocrine: No Gastrointestinal Disorders: No GERD: Yes Genitourinary: No Hypertension: Yes Immune Disorder: No Implanted Vascular Access Dvce: No Musculoskeletal: No Neurologic: Yes Psychiatric: Yes (SCHIZOPHRENIA) Reproductive: No Respiratory: Yes (COPD, EMPYSEMA ) Schizophrenia: Yes Sleep Apnea: No Ulcer: Yes Past Surgical History Other Surgery: Yes Social History Alcohol Use: No Tobacco Use: Yes (1 PPD) Substance Use: No Allergies-Medications (Allergen,Severity, Reaction): Coded Allergies: haloperidol (Unverified Allergy, Severe, Hives, 10/28/16) Reported Meds & Prescriptions Reported Meds & Active Scripts Active Oxygen (O2) Device Liter CRESCENCIO.CANULA CONTINUOUS Oxygen Concentrator Portable Gaseous 4 L/min via Nasal Canula Continuous For 99 months Clozaril (Clozapine) 100 Mg Tab 100 Mg PO HS 30 Days Prednisone 20 Mg Tab 20 Mg PO BID 3 Days Spiriva Handihaler (Tiotropium Inh) 18 Mcg Cap 18 Mcg INH DAILY 30 Days 1 capsule = 18 mcg Levaquin (Levofloxacin) 500 Mg Tablet 500 Mg PO DAILY 3 Days once daiy starting 03/25 for 3 days Proventil Hfa 6.7 GM Inh (Albuterol Sulfate) 90 Mcg/Act Aer 2 Puff INH Q4-6H PRN Reported Invega Sustenna Inj (Paliperidone Palmitate) 39 Mg/0.25 Ml Inj 39 Mg IM Q28D Proair Hfa 8.5 GM Inh (Albuterol Sulfate) 90 Mcg/Act Aer 2 Puff INH Q6H PRN 108 mcg/actuation Gabapentin 600 Mg Tab 600 Mg PO HS Singulair (Montelukast Sodium) 10 Mg Tab 10 Mg PO HS Ropinirole 3 Mg Tab 3 Mg PO HS Triamterene-Hydrochlorothiazide 37.5-25 Mg Tab 1 Tab PO DAILY Paxil (Paroxetine HCl) 30 Mg Tab 30 Mg PO DAILY Omeprazole 20 Mg Cap 20 Mg PO DAILY Review of Systems Except as stated in HPI: all other systems reviewed are Neg Physical Exam Narrative GENERAL: Well-developed, well-nourished, wet cough SKIN: Focused skin assessment warm/dry. HEAD: Atraumatic. Normocephalic. EYES: Pupils equal and round, 2 mm. No scleral icterus. No injection or drainage. EOMI ENT: No nasal bleeding or discharge. Mucous membranes pink and moist. NECK: Trachea midline. No JVD. No lymphadenopathy CARDIOVASCULAR: Regular rate and rhythm. No murmur appreciated. RESPIRATORY: No accessory muscle use. Bilateral rhonchi with wheezing. GASTROINTESTINAL: Abdomen soft, non-tender, nondistended. Protuberant MUSCULOSKELETAL: No obvious deformities. No clubbing. No cyanosis. No edema. NEUROLOGICAL: Awake and alert. No obvious cranial nerve deficits. Motor grossly within normal limits. Normal speech. PSYCHIATRIC: Appropriate mood and affect; insight and judgment normal. Data Data Last Documented VS Vital Signs Date Time Temp Pulse Resp B/P (MAP) Pulse Ox O2 Delivery O2 Flow Rate FiO2 05/13/17 15:52 99.3 98 22 148/82 (104) 92 Nasal Cannula 3.00 Orders Orders Complete Blood Count With Diff (05/13/17 16:02) Comprehensive Metabolic Panel (05/13/17 16:02) Act Partial Throm Time (Ptt) (05/13/17 16:02) Prothrombin Time / Inr (Pt) (05/13/17 16:02) Magnesium (Mg) (05/13/17 16:02) Troponin I (05/13/17 16:02) Urinalysis - C+S If Indicated (05/13/17 16:02) Influenzae A/B Antigen (05/13/17 16:02) Blood Culture (05/13/17 16:02) Electrocardiogram (05/13/17 16:02) Chest, Pa & Lat (05/13/17 16:02) Albuterol-Ipratropium Neb (Duoneb Neb) (05/13/17 16:15) Blood Gas Venous (Vbg) (05/13/17 16:15) Albuterol Neb (Albuterol Neb) (05/13/17 18:15) Arterial Blood Gas (Abg) (05/13/17 ) Place In Observation (05/13/17 ) Vital Signs (Adult) Q4H (05/13/17 18:15) Activity Oob With Assistance (05/13/17 18:15) Energy Efficiency Engineer / Telemetry .CONTINUOUS (05/13/17 18:15) Diet Heart Healthy (05/13/17 Dinner) Sodium Chloride 0.9% Flush (Ns Flush) (05/13/17 18:15) Sodium Chloride 0.9% Flush (Ns Flush) (05/13/17 21:00) Basic Metabolic Panel (Bmp) (05/14/17 06:00) Complete Blood Count With Diff (05/14/17 06:00) Resp Oxygen Crescencio C Titrat 1-4 L (05/13/17 ) Pt Request For Service (05/13/17 18:15) Case Management Consult (05/13/17 18:15) Naloxone Inj (Narcan Inj) (05/13/17 18:15) Albuterol-Ipratropium Neb (Duoneb Neb) (05/13/17 20:00) Albuterol-Ipratropium Neb (Duoneb Neb) (05/13/17 18:30) Admit Order (Ed Use Only) (05/13/17 18:17) Labs Laboratory Tests Test 05/13/17 16:08 05/13/17 16:39 05/13/17 17:06 White Blood Count 8.3 TH/MM3 Red Blood Count 5.50 MIL/MM3 Hemoglobin 16.0 GM/DL Hematocrit 48.3 % Mean Corpuscular Volume 87.7 FL Mean Corpuscular Hemoglobin 29.1 PG Mean Corpuscular Hemoglobin Concent 33.2 % Red Cell Distribution Width 15.5 % Platelet Count 114 TH/MM3 Mean Platelet Volume 8.9 FL Neutrophils (%) (Auto) 69.8 % Lymphocytes (%) (Auto) 15.0 % Monocytes (%) (Auto) 13.0 % Eosinophils (%) (Auto) 1.4 % Basophils (%) (Auto) 0.8 % Neutrophils # (Auto) 5.8 TH/MM3 Lymphocytes # (Auto) 1.2 TH/MM3 Monocytes # (Auto) 1.1 TH/MM3 Eosinophils # (Auto) 0.1 TH/MM3 Basophils # (Auto) 0.1 TH/MM3 CBC Comment DIFF FINAL Differential Comment Prothrombin Time 11.6 SEC Prothromb Time International Ratio 1.1 RATIO Activated Partial Thromboplast Time 25.9 SEC Blood Urea Nitrogen 19 MG/DL Creatinine 0.97 MG/DL Random Glucose 82 MG/DL Total Protein 6.2 GM/DL Albumin 3.4 GM/DL Calcium Level 8.6 MG/DL Magnesium Level 1.5 MG/DL Alkaline Phosphatase 74 U/L Aspartate Amino Transf (AST/SGOT) 29 U/L Alanine Aminotransferase (ALT/SGPT) 18 U/L Total Bilirubin 0.6 MG/DL Sodium Level 134 MEQ/L Potassium Level 4.7 MEQ/L Chloride Level 94 MEQ/L Carbon Dioxide Level 35.3 MEQ/L Anion Gap 5 MEQ/L Estimat Glomerular Filtration Rate 80 ML/MIN Troponin I LESS THAN 0.02 NG/ML Blood Gas Puncture Site IV Blood Gas Patient Temperature 98.6 Venous Blood pH 7.32 Venous Blood Partial Pressure CO2 76 mmHg Venous Blood Partial Pressure O2 43 mmHg Venous Blood HCO3 38 mmol/L Venous Blood Oxygen Saturation 69 % Venous Blood Oxygen Content 14.8 Vol % Venous Blood Base Excess 11.1 mmol/L Oxygen Delivery Device NASAL CANNULA Blood Gas Liter Flow 3 L/M Urine Color LIGHT-YELLOW Urine Turbidity CLEAR Urine pH 6.0 Urine Specific [place] 1.006 Urine Protein NEG mg/dL Urine Glucose (UA) NEG mg/dL Urine Ketones NEG mg/dL Urine Occult Blood NEG Urine Nitrite NEG Urine Bilirubin NEG Urine Urobilinogen LESS THAN 2.0 MG/DL Urine Leukocyte Esterase NEG Urine RBC 1 /hpf Urine WBC 1 /hpf Urine Squamous Epithelial Cells <1 /hpf Urine Bacteria RARE /hpf Microscopic Urinalysis Comment CULT NOT INDICATED MDM Medical Decision Making Medical Screen Exam Complete: Yes Emergency Medical Condition: Yes Differential Diagnosis PNA, bronchitis, URI, Narrative Course 56y male with O2 dependent COPD presents to the ED with SOB and low SaO2 from his psychiatrists office. Patient says that he was treated for pneumonia in the beginning a month and discharged with home oxygen as he had a persistent low O2 saturation. [facility] administered Solu-Medrol and 1 DuoNeb. States his oxygen saturation remained in the 80s and they subsequently applied oxygen. Note that patient has not been using his oxygen as prescribed and stopped using this a couple of days ago. Labs and imaging studies ordered. Duo nebs 2 administered. EKG demonstrates sinus rhythm without STEMI pattern. After review the EMR, it appears that patient was admitted for COPD exacerbation and hypoxemia March 21 and was subsequently discharged March 25. Last Impressions Chest X-Ray 05/13/17 1602 Signed Impressions: Service Date/Time: Saturday, May 13, 2017 16:23 - CONCLUSION: Underinflation with likely atelectasis at the lung bases. Otherwise, no acute finding is appreciated given the technique. Ankur Nevarez MD Laboratory Tests Test 05/13/17 16:39 Blood Gas Puncture Site IV Blood Gas Patient Temperature 98.6 Venous Blood pH 7.32 (7.360-7.400) Venous Blood Partial Pressure CO2 76 mmHg (44-48) Venous Blood Partial Pressure O2 43 mmHg (35-40) Venous Blood HCO3 38 mmol/L (22-26) Venous Blood Oxygen Saturation 69 % (70-76) Venous Blood Oxygen Content 14.8 Vol % (9.0-17.0) Venous Blood Base Excess 11.1 mmol/L (-2-2) Oxygen Delivery Device NASAL CANNULA Blood Gas Liter Flow 3 L/M Patient has apparent respiratory acidosis with probable secondary metabolic alkalosis. Patient is O2 dependent COPD and has been noncompliant with his oxygen administration. Will order albuterol 3 as patient is still symptomatic, although stable. Patient should be admitted for COPD exacerbation. Diagnosis Primary Impression: COPD exacerbation Admitting Information Admitting Physician Requests: Observation Condition: Stable Tila Riley May 13, 2017 16:16
[2017-05-13] MEDS: RESP: ALBUTEROL 2.5 MG/IPRATROPIUM 0.5 MG NEB (SCH) INH ×2 (16:34→16:35)
--- NOTE | 2017-05-13 16:43 | RADRPT ---
EXAM DATE/TIME: 05/13/2017 16:23 [facility] COMPARISON: CHEST SINGLE AP, October 16, 2016, 10:59. CHEST SINGLE AP, March 21, 2017, 7:34. INDICATIONS : Short of breath. MEDICAL HISTORY : Chronic obstructive pulmonary disease. Smoker. SURGICAL HISTORY : ENCOUNTER: Initial ACUITY: 1 day PAIN SCORE: 0/10 LOCATION: Bilateral chest FINDINGS: Upright AP and lateral views of the chest demonstrates a normal-sized cardiac silhouette. Lungs are u nderinflated with stable interstitial prominence and mild bibasilar opacity. No pleural effusion, air space consolidation, or pneumothorax is appreciated. The bones demonstrate no acute finding. CONCLUSION: Underinflation with likely atelectasis at the lung bases. Otherwise, no acute finding is appreciated given the technique. Ankur Nevarez MD on May 13, 2017 at 16:41 Board Certified Radiologist. This report was verified electronically.
[2017-05-13 16:55] LABS: AUTOMATED NEUTROPHIL # 5.8 TH/MM3 (1.8-7.7); BASOPHIL # 0.1 TH/MM3 (0-0.2); BASOPHIL % 0.8 % (0.0-2.0); EOSINOPHIL # 0.1 TH/MM3 (0-0.4); EOSINOPHIL % 1.4 % (0.0-4.0); HEMATOCRIT 48.3 % (39.0-51.0); LYMPHOCYTE # 1.2 TH/MM3 (1.0-4.8); MEAN CELL VOLUME 87.7 FL (80.0-100.0); MEAN CORPUSCULAR HEMOGLOBIN 29.1 PG (27.0-34.0); MEAN CORPUSCULAR HGB CONC 33.2 % (32.0-36.0); MEAN PLATELET VOLUME 8.9 FL (7.0-11.0); MONOCYTE # 1.1 TH/MM3 (0-0.9); NEUT % 69.8 % (16.0-70.0); PLATELET COUNT 114 TH/MM3 (150-450); RED CELL DISTRIBUTION WIDTH 15.5 % (11.6-17.2); WHITE BLOOD COUNT 8.3 TH/MM3 (4.0-11.0)
[2017-05-13 17:02] LABS: INTERNATIONAL NORMALIZED RATIO 1.1 RATIO; PROTHROMBIN TIME - PATIENT 11.6 SEC (9.8-11.6)
[2017-05-13 17:11] LABS: ALT (GPT) 18 U/L (12-78)
[2017-05-13 17:15] LABS: ALKALINE PHOSPHATASE 74 U/L (45-117); TOTAL BILIRUBIN ADULT 0.6 MG/DL (0.2-1.0); TOTAL PROTEIN 6.2 GM/DL (6.4-8.2); TROPONIN I LESS THAN 0.02 NG/ML (0.02-0.05)
[2017-05-13 17:18] LABS: ALBUMIN 3.4 GM/DL (3.4-5.0); AST (GOT) 29 U/L (15-37); BICARBONATE 35.3 MEQ/L (21.0-32.0); BLOOD UREA NITROGEN 19 MG/DL (7-18); CALCIUM 8.6 MG/DL (8.5-10.1); CHLORIDE 94 MEQ/L (98-107); CREATININE 0.97 MG/DL (0.60-1.30); GLOMERULAR FILTRATION RATE 80 ML/MIN (>89); GLUCOSE,RANDOM 82 MG/DL (74-106); MAGNESIUM 1.5 MG/DL (1.5-2.5); SODIUM (NA) 134 MEQ/L (136-145)
[2017-05-13 17:38] LABS: BACTERIA, URINE RARE /hpf; BILIRUBIN, URINE NEG (NEG); BLOOD, URINE NEG (NEG); GLUCOSE,URINE NEG (NEG); KETONE, URINE NEG (NEG); NITRITE,URINE NEG (NEG); SQUAMOUS EPITHELIAL CELL URINE <1 /hpf (0-5); URINE COLOR LIGHT-YELLOW (YELLW/STRAW); URINE LEUKOCYTE ESTERASE NEG (NEG)
--- NOTE | 2017-05-13 18:03 | PD ---
Data Data Last Documented VS Vital Signs Date Time Temp Pulse Resp B/P (MAP) Pulse Ox O2 Delivery O2 Flow Rate FiO2 05/13/17 15:52 99.3 98 22 148/82 (104) 92 Nasal Cannula 3.00 Orders Orders Complete Blood Count With Diff (05/13/17 16:02) Comprehensive Metabolic Panel (05/13/17 16:02) Act Partial Throm Time (Ptt) (05/13/17 16:02) Prothrombin Time / Inr (Pt) (05/13/17 16:02) Magnesium (Mg) (05/13/17 16:02) Troponin I (05/13/17 16:02) Urinalysis - C+S If Indicated (05/13/17 16:02) Influenzae A/B Antigen (05/13/17 16:02) Blood Culture (05/13/17 16:02) Electrocardiogram (05/13/17 16:02) Chest, Pa & Lat (05/13/17 16:02) Albuterol-Ipratropium Neb (Duoneb Neb) (05/13/17 16:15) Blood Gas Venous (Vbg) (05/13/17 16:15) Albuterol Neb (Albuterol Neb) (05/13/17 18:15) Arterial Blood Gas (Abg) (05/13/17 ) Place In Observation (05/13/17 ) Vital Signs (Adult) Q4H (05/13/17 18:15) Activity Oob With Assistance (05/13/17 18:15) Manager Corporate Marketing / Telemetry .CONTINUOUS (05/13/17 18:15) Diet Heart Healthy (05/13/17 Dinner) Sodium Chloride 0.9% Flush (Ns Flush) (05/13/17 18:15) Sodium Chloride 0.9% Flush (Ns Flush) (05/13/17 21:00) Basic Metabolic Panel (Bmp) (05/14/17 06:00) Complete Blood Count With Diff (05/14/17 06:00) Resp Oxygen Richard C Titrat 1-4 L (05/13/17 ) Pt Request For Service (05/13/17 18:15) Case Management Consult (05/13/17 18:15) Naloxone Inj (Narcan Inj) (05/13/17 18:15) Albuterol-Ipratropium Neb (Duoneb Neb) (05/13/17 20:00) Albuterol-Ipratropium Neb (Duoneb Neb) (05/13/17 18:30) Admit Order (Ed Use Only) (05/13/17 18:17) Labs Laboratory Tests Test 05/13/17 16:08 05/13/17 16:39 05/13/17 17:06 White Blood Count 8.3 TH/MM3 Red Blood Count 5.50 MIL/MM3 Hemoglobin 16.0 GM/DL Hematocrit 48.3 % Mean Corpuscular Volume 87.7 FL Mean Corpuscular Hemoglobin 29.1 PG Mean Corpuscular Hemoglobin Concent 33.2 % Red Cell Distribution Width 15.5 % Platelet Count 114 TH/MM3 Mean Platelet Volume 8.9 FL Neutrophils (%) (Auto) 69.8 % Lymphocytes (%) (Auto) 15.0 % Monocytes (%) (Auto) 13.0 % Eosinophils (%) (Auto) 1.4 % Basophils (%) (Auto) 0.8 % Neutrophils # (Auto) 5.8 TH/MM3 Lymphocytes # (Auto) 1.2 TH/MM3 Monocytes # (Auto) 1.1 TH/MM3 Eosinophils # (Auto) 0.1 TH/MM3 Basophils # (Auto) 0.1 TH/MM3 CBC Comment DIFF FINAL Differential Comment Prothrombin Time 11.6 SEC Prothromb Time International Ratio 1.1 RATIO Activated Partial Thromboplast Time 25.9 SEC Blood Urea Nitrogen 19 MG/DL Creatinine 0.97 MG/DL Random Glucose 82 MG/DL Total Protein 6.2 GM/DL Albumin 3.4 GM/DL Calcium Level 8.6 MG/DL Magnesium Level 1.5 MG/DL Alkaline Phosphatase 74 U/L Aspartate Amino Transf (AST/SGOT) 29 U/L Alanine Aminotransferase (ALT/SGPT) 18 U/L Total Bilirubin 0.6 MG/DL Sodium Level 134 MEQ/L Potassium Level 4.7 MEQ/L Chloride Level 94 MEQ/L Carbon Dioxide Level 35.3 MEQ/L Anion Gap 5 MEQ/L Estimat Glomerular Filtration Rate 80 ML/MIN Troponin I LESS THAN 0.02 NG/ML Blood Gas Puncture Site IV Blood Gas Patient Temperature 98.6 Venous Blood pH 7.32 Venous Blood Partial Pressure CO2 76 mmHg Venous Blood Partial Pressure O2 43 mmHg Venous Blood HCO3 38 mmol/L Venous Blood Oxygen Saturation 69 % Venous Blood Oxygen Content 14.8 Vol % Venous Blood Base Excess 11.1 mmol/L Oxygen Delivery Device NASAL CANNULA Blood Gas Liter Flow 3 L/M Urine Color LIGHT-YELLOW Urine Turbidity CLEAR Urine pH 6.0 Urine Specific [place] 1.006 Urine Protein NEG mg/dL Urine Glucose (UA) NEG mg/dL Urine Ketones NEG mg/dL Urine Occult Blood NEG Urine Nitrite NEG Urine Bilirubin NEG Urine Urobilinogen LESS THAN 2.0 MG/DL Urine Leukocyte Esterase NEG Urine RBC 1 /hpf Urine WBC 1 /hpf Urine Squamous Epithelial Cells <1 /hpf Urine Bacteria RARE /hpf Microscopic Urinalysis Comment CULT NOT INDICATED MDM Supervised Visit with REBECCA: Yes Narrative Course I, Dr. You, have reviewed the advance practice practitioner's documentation and am in agreement, met with the patient face to face, made the diagnosis, and the medical decision making was done by me. *My assessment and Findings: Patient seen and examined by me in addition to Tila MCGUIRE, this is a 56-year-old male who is not adherent to his home oxygen regimen, presents emergency department with chronic but fairly severe CO2 retention, hypoxemia, on my examination the patient has significant wheezes throughout all lung arteaga. He was counseled closely but has fairly poor understanding of his chronic medical condition. He may be at his baseline but I think given his wheezing and his CO2 retention would benefit well for observation status for additional steroid regimen and breathing treatments. Diagnosis Primary Impression: COPD exacerbation Admitting Information Admitting Physician Requests: Observation Condition: Stable Alexander You MD May 13, 2017 18:03
[2017-05-13] MEDS ORDERED: NALOXONE HCL 0.4 MG/ML AMP IV PUSH PRN (18:15)
[2017-05-13] MEDS ORDERED: SODIUM CHLORIDE 0.9% FLUSH 10 ML FLUSH IV FLUSH PRN (18:15)
[2017-05-13 18:25] VITALS: BP 134/78; PULSE 97; RESP 20; O2SAT 92
[2017-05-13] MEDS ORDERED: RESP: ALBUTEROL 2.5 MG/IPRATROPIUM 0.5 MG NEB (PRN) NEB (18:30)
--- NOTE | 2017-05-13 18:54 | HHI.HP ---
HPI Service [facility] Primary Care Physician Unknown Admission Diagnosis SOB, COPD exacerbation Diagnoses: Travel History International Travel<30 Days: No Contact w/Intl Traveler <30 Da: No Traveled to Known Affected Are: No History of Present Illness at psychiatrist office and found to have low 02 and sent to hospital stated he has not been taking his oxygen for past few days because he thinks he doesnt need it stated was coughing a lot no fever denies other symptoms lives at [facility] Review of Systems Except as stated in HPI: all other systems reviewed are Neg Past Family Social History Past Medical History copd schizophrenia Past Surgical History none Allergies: Coded Allergies: haloperidol (Unverified Allergy, Severe, Hives, 10/28/16) Family History mom- RA grandfather lung cancer Social History 1ppd smoker denies etoh or drug abuse Physical Exam Vital Signs Vital Signs Date Time Temp Pulse Resp B/P (MAP) Pulse Ox O2 Delivery O2 Flow Rate FiO2 05/13/17 18:25 97 20 134/78 (96) 92 Nasal Cannula 3.00 05/13/17 15:52 99.3 98 22 148/82 (104) 92 Nasal Cannula 3.00 05/13/17 15:50 98 22 82 Room Air Physical Exam GENERAL: This is a well-nourished, well-developed patient, in no apparent distress. noted to be coughing, congested SKIN: No rashes, ecchymoses or lesions. Cool and dry. HEAD: Atraumatic. Normocephalic. No temporal or scalp tenderness. EYES: No scleral icterus. No injection or drainage. ENT: Throat without erythema, tonsillar hypertrophy or exudate. Uvula midline. Airway patent. NECK: Trachea midline. No JVD Supple, nontender, no meningeal signs. CARDIOVASCULAR: Regular rate and rhythm without murmurs, gallops, or rubs. RESPIRATORY: bilateral expiratory wheezing, GASTROINTESTINAL: Abdomen soft, non-tender, nondistended. No guarding. MUSCULOSKELETAL: Extremities without clubbing, cyanosis, or edema. . No calf tenderness. NEUROLOGICAL: Awake and alert. Motor and sensory grossly within normal limits.Normal speech. Laboratory Laboratory Tests Test 05/13/17 16:08 05/13/17 16:39 05/13/17 17:06 White Blood Count 8.3 Red Blood Count 5.50 Hemoglobin 16.0 Hematocrit 48.3 Mean Corpuscular Volume 87.7 Mean Corpuscular Hemoglobin 29.1 Mean Corpuscular Hemoglobin Concent 33.2 Red Cell Distribution Width 15.5 Platelet Count 114 Mean Platelet Volume 8.9 Neutrophils (%) (Auto) 69.8 Lymphocytes (%) (Auto) 15.0 Monocytes (%) (Auto) 13.0 Eosinophils (%) (Auto) 1.4 Basophils (%) (Auto) 0.8 Neutrophils # (Auto) 5.8 Lymphocytes # (Auto) 1.2 Monocytes # (Auto) 1.1 Eosinophils # (Auto) 0.1 Basophils # (Auto) 0.1 CBC Comment DIFF FINAL Differential Comment Prothrombin Time 11.6 Prothromb Time International Ratio 1.1 Activated Partial Thromboplast Time 25.9 Blood Urea Nitrogen 19 Creatinine 0.97 Random Glucose 82 Total Protein 6.2 Albumin 3.4 Calcium Level 8.6 Magnesium Level 1.5 Alkaline Phosphatase 74 Aspartate Amino Transf (AST/SGOT) 29 Alanine Aminotransferase (ALT/SGPT) 18 Total Bilirubin 0.6 Sodium Level 134 Potassium Level 4.7 Chloride Level 94 Carbon Dioxide Level 35.3 Anion Gap 5 Estimat Glomerular Filtration Rate 80 Troponin I LESS THAN 0.02 Blood Gas Puncture Site IV Blood Gas Patient Temperature 98.6 Venous Blood pH 7.32 Venous Blood Partial Pressure CO2 76 Venous Blood Partial Pressure O2 43 Venous Blood HCO3 38 Venous Blood Oxygen Saturation 69 Venous Blood Oxygen Content 14.8 Venous Blood Base Excess 11.1 Oxygen Delivery Device NASAL CANNULA Blood Gas Liter Flow 3 Urine Color LIGHT-YELLOW Urine Turbidity CLEAR Urine pH 6.0 Urine Specific [place] 1.006 Urine Protein NEG Urine Glucose (UA) NEG Urine Ketones NEG Urine Occult Blood NEG Urine Nitrite NEG Urine Bilirubin NEG Urine Urobilinogen LESS THAN 2.0 Urine Leukocyte Esterase NEG Urine RBC 1 Urine WBC 1 Urine Squamous Epithelial Cells <1 Urine Bacteria RARE Microscopic Urinalysis Comment CULT NOT INDICATED Date/Time Source Procedure Growth Status 05/13/17 16:10 Blood Peripheral Aerobic Blood Culture Pending Received 05/13/17 16:10 Blood Peripheral Anaerobic Blood Culture Pending Received 05/13/17 17:05 Nasal Aspirate Influenza Types A,B Antigen (SOHAM) Pending Received Result Diagram: 05/13/17 1608 05/13/17 1608 Imaging Last 48 hours Impressions Chest X-Ray 05/13/17 1602 Signed Impressions: Service Date/Time: Saturday, May 13, 2017 16:23 - CONCLUSION: Underinflation with likely atelectasis at the lung bases. Otherwise, no acute finding is appreciated given the technique. MD Damian Pitt VTE Risk Assessment Damian VTE Risk Assessment: Mod/High Risk (score >= 2) Caprini Risk Assessment Model Point Value = 1 Point Value = 2 Point Value = 3 Point Value = 5 Age 41-60 Minor surgery BMI > 25 kg/m2 Swollen legs Varicose veins or History of unexplained or recurrent spontaneous Oral contraceptives or hormone replacement Sepsis (< 1 month) Serious lung disease, including pneumonia (< 1 month) Abnormal pulmonary function Acute myocardial infarction Congestive heart failure (< 1 month) History of inflammatory bowel disease Medical patient at bed rest Age 61-74 Arthroscopic surgery Major open surgery (> 45 min) Laparoscopic surgery (> 45 min) Malignancy Confined to bed (> 72 hours) Immobilizing plaster cast Central venous access Age >= 75 History of VTE Family history of VTE Factor V Leiden Prothrombin [id number] Lupus anticoagulant Anticardiolipin antibodies Elevated serum homocysteine Heparin-induced thrombocytopenia Other congenital or acquired thrombophilia Stroke (< 1 month) Elective arthroplasty Hip, pelvis, or leg fracture Acute spinal cord injury (< 1 month) Prophylaxis Regimen Total Risk Factor Score Risk Level Prophylaxis Regimen 0-1 Low Early ambulation 2 Moderate Order ONE of the following: *Sequential Compression Device (SCD) *Heparin 5000 units SQ BID 3-4 Higher Order ONE of the following medications: *Heparin 5000 units SQ TID *Enoxaparin/Lovenox 40 mg SQ daily (WT < 150 kg, CrCl > 30 mL/min) *Enoxaparin/Lovenox 30 mg SQ daily (WT < 150 kg, CrCl > 10-29 mL/min) *Enoxaparin/Lovenox 30 mg SQ BID (WT < 150 kg, CrCl > 30 mL/min) AND/OR *Sequential Compression Device (SCD) 5 or more Highest Order ONE of the following medications: *Heparin 5000 units SQ TID (Preferred with Epidurals) *Enoxaparin/Lovenox 40 mg SQ daily (WT < 150 kg, CrCl > 30 mL/min) *Enoxaparin/Lovenox 30 mg SQ daily (WT < 150 kg, CrCl > 10-29 mL/min) *Enoxaparin/Lovenox 30 mg SQ BID (WT < 150 kg, CrCl > 30 mL/min) AND *Sequential Compression Device (SCD) Assessment and Plan Assessment and Plan Impression: hypoxia- secondary to not using home oxygen, plus mild copd exacerbation copd exacerbation schizophrenia Plan: nebs scheduled and prn continue steroid from [facility] home dose continue levofloxacin oxygen supplementation resume psychiatry meds PT eval in am if pt ambulates well on home oxygen , may likely go back to [facility] advised pt at length to take oxygen at home/ [facility] as prescribed prior dvt prophylaxis with lovenox gi prophyalxis on pantoprazole Jw Bro MD May 13, 2017 18:54
[2017-05-13] MEDS: RESP: ALBUTEROL 2.5 MG/3 ML NEB (SCH) INH (19:15)
[2017-05-13 20:00] VITALS: BP 142/80; PULSE 100; RESP 16; O2SAT 92
[2017-05-13] MEDS: RESP: ALBUTEROL 2.5 MG/IPRATROPIUM 0.5 MG NEB (SCH) NEB (21:46)
[2017-05-13 23:40] VITALS: PULSE 83
[2017-05-13] MEDS: GABAPENTIN 300 MG CAP PO SCH (23:42)
[2017-05-13] MEDS: SODIUM CHLORIDE 0.9% FLUSH 10 ML FLUSH IV FLUSH SCH (23:42)
[2017-05-13 23:49] VITALS: BP 125/60; PULSE 71; RESP 22; TEMP 98.3; O2SAT 92
[2017-05-14 01:08] VITALS: PULSE 64
[2017-05-14] MEDS: GABAPENTIN 300 MG CAP PO SCH (01:30)
[2017-05-14 04:16] VITALS: BP 115/55; PULSE 62; RESP 18; TEMP 98.4; O2SAT 93
[2017-05-14 05:05] VITALS: PULSE 62
[2017-05-14] MEDS: RESP: ALBUTEROL 2.5 MG/IPRATROPIUM 0.5 MG NEB (SCH) NEB (07:11)
[2017-05-14 07:46] LABS: AUTOMATED NEUTROPHIL # 5.9 TH/MM3 (1.8-7.7); BASOPHIL % 0.1 % (0.0-2.0); HEMATOCRIT 50.8 % (39.0-51.0); HEMOGLOBIN 16.5 GM/DL (13.0-17.0); LYMPHOCYTE # 0.6 TH/MM3 (1.0-4.8); MEAN CELL VOLUME 88.2 FL (80.0-100.0); MEAN CORPUSCULAR HEMOGLOBIN 28.7 PG (27.0-34.0); MEAN CORPUSCULAR HGB CONC 32.6 % (32.0-36.0); MONO % 7.1 % (0.0-8.0); MONOCYTE # 0.5 TH/MM3 (0-0.9); NEUT % 83.8 % (16.0-70.0); PLATELET COUNT 102 TH/MM3 (150-450); RED BLOOD COUNT 5.75 MIL/MM3 (4.50-5.90); RED CELL DISTRIBUTION WIDTH 15.2 % (11.6-17.2)
[2017-05-14 07:53] LABS: BICARBONATE 37.8 MEQ/L (21.0-32.0); CREATININE 0.85 MG/DL (0.60-1.30)
[2017-05-14 08:16] VITALS: BP 111/63; PULSE 81; RESP 20; TEMP 98.7; O2SAT 93
[2017-05-14] MEDS ORDERED: predniSONE 20 MG TAB PO SCH (09:00)
[2017-05-14] MEDS ORDERED: PARoxetine HCL 20 MG TAB PO SCH (09:00)
[2017-05-14] MEDS ORDERED: TRIAMTERENE/HCTZ 37.5 MG/25 MG TAB PO SCH (09:00)
[2017-05-14] MEDS ORDERED: LEVOFLOXACIN 500 MG TAB PO SCH (09:00)
[2017-05-14] MEDS ORDERED: TIOTROPIUM BROMIDE 18 MCG INH INH SCH (09:00)
[2017-05-14] MEDS ORDERED: PANTOPRAZOLE SOD 20 MG DELAYED RELEASE TAB PO SCH (09:00)
[2017-05-14] MEDS ORDERED: ENOXAPARIN SODIUM 40 MG/0.4 ML SYRINGE SQ SCH (09:00)
--- NOTE | 2017-05-14 10:30 | HHI.PR ---
Subjective Remarks at psychiatrist office and found to have low 02 and sent to hospital stated he has not been taking his oxygen for past few days because he thinks he doesnt need it stated was coughing a lot no fever denies other symptoms lives at [facility] 3-1 OXYGEN SATURATION IS GOOD IS ON OXYGEN AT HOME CAN BE DISCHARGED BACK TO HIS [facility] TODAY WILL NEED RX PRINTED CAN DC HOME TODAY Discussed with patient and RN and case management Objective Vitals Vital Signs Date Time Temp Pulse Resp B/P (MAP) Pulse Ox O2 Delivery O2 Flow Rate FiO2 05/14/17 08:16 98.7 81 20 111/63 (79) 93 05/14/17 07:14 Nasal Cannula 3.00 05/14/17 05:05 62 05/14/17 04:16 98.4 62 18 115/55 (75) 93 05/14/17 01:08 64 05/13/17 23:49 98.3 71 22 125/60 (81) 92 05/13/17 23:40 83 05/13/17 20:00 100 16 142/80 (100) 92 05/13/17 19:55 Nasal Cannula 3.00 05/13/17 19:42 05/13/17 18:25 97 20 134/78 (96) 92 Nasal Cannula 3.00 05/13/17 15:52 99.3 98 22 148/82 (104) 92 Nasal Cannula 3.00 05/13/17 15:50 98 22 82 Room Air Result Diagram: 05/14/17 0640 05/14/17 0640 Other Results Laboratory Tests Test 05/13/17 16:08 05/13/17 16:39 05/13/17 17:06 05/13/17 19:43 White Blood Count 8.3 TH/MM3 Red Blood Count 5.50 MIL/MM3 Hemoglobin 16.0 GM/DL Hematocrit 48.3 % Mean Corpuscular Volume 87.7 FL Mean Corpuscular Hemoglobin 29.1 PG Mean Corpuscular Hemoglobin Concent 33.2 % Red Cell Distribution Width 15.5 % Platelet Count 114 TH/MM3 Mean Platelet Volume 8.9 FL Neutrophils (%) (Auto) 69.8 % Lymphocytes (%) (Auto) 15.0 % Monocytes (%) (Auto) 13.0 % Eosinophils (%) (Auto) 1.4 % Basophils (%) (Auto) 0.8 % Neutrophils # (Auto) 5.8 TH/MM3 Lymphocytes # (Auto) 1.2 TH/MM3 Monocytes # (Auto) 1.1 TH/MM3 Eosinophils # (Auto) 0.1 TH/MM3 Basophils # (Auto) 0.1 TH/MM3 CBC Comment DIFF FINAL Differential Comment Prothrombin Time 11.6 SEC Prothromb Time International Ratio 1.1 RATIO Activated Partial Thromboplast Time 25.9 SEC Blood Urea Nitrogen 19 MG/DL Creatinine 0.97 MG/DL Random Glucose 82 MG/DL Total Protein 6.2 GM/DL Albumin 3.4 GM/DL Calcium Level 8.6 MG/DL Magnesium Level 1.5 MG/DL Alkaline Phosphatase 74 U/L Aspartate Amino Transf (AST/SGOT) 29 U/L Alanine Aminotransferase (ALT/SGPT) 18 U/L Total Bilirubin 0.6 MG/DL Sodium Level 134 MEQ/L Potassium Level 4.7 MEQ/L Chloride Level 94 MEQ/L Carbon Dioxide Level 35.3 MEQ/L Anion Gap 5 MEQ/L Estimat Glomerular Filtration Rate 80 ML/MIN Troponin I LESS THAN 0.02 NG/ML Blood Gas Puncture Site IV RT RADIAL Blood Gas Patient Temperature 98.6 98.6 Venous Blood pH 7.32 Venous Blood Partial Pressure CO2 76 mmHg Venous Blood Partial Pressure O2 43 mmHg Venous Blood HCO3 38 mmol/L Venous Blood Oxygen Saturation 69 % Venous Blood Oxygen Content 14.8 Vol % Venous Blood Base Excess 11.1 mmol/L Oxygen Delivery Device NASAL CANNULA NASAL CANNULA Blood Gas Liter Flow 3 L/M 3 L/M Urine Color LIGHT-YELLOW Urine Turbidity CLEAR Urine pH 6.0 Urine Specific [place] 1.006 Urine Protein NEG mg/dL Urine Glucose (UA) NEG mg/dL Urine Ketones NEG mg/dL Urine Occult Blood NEG Urine Nitrite NEG Urine Bilirubin NEG Urine Urobilinogen LESS THAN 2.0 MG/DL Urine Leukocyte Esterase NEG Urine RBC 1 /hpf Urine WBC 1 /hpf Urine Squamous Epithelial Cells <1 /hpf Urine Bacteria RARE /hpf Microscopic Urinalysis Comment CULT NOT INDICATED Blood Gas HCO3 36 mmol/L Blood Gas Base Excess 10.4 mmol/L Blood Gas Oxygen Saturation 79 % Arterial Blood pH 7.38 Arterial Blood Partial Pressure CO2 63 mmHg Arterial Blood Partial Pressure O2 54 mmHG Arterial Blood Oxygen Content 18.2 Vol % Arterial Blood Carboxyhemoglobin 10.9 % Arterial Blood Methemoglobin 1.0 % Blood Gas Hemoglobin 16.4 G/DL Test 05/14/17 06:40 White Blood Count 7.0 TH/MM3 Red Blood Count 5.75 MIL/MM3 Hemoglobin 16.5 GM/DL Hematocrit 50.8 % Mean Corpuscular Volume 88.2 FL Mean Corpuscular Hemoglobin 28.7 PG Mean Corpuscular Hemoglobin Concent 32.6 % Red Cell Distribution Width 15.2 % Platelet Count 102 TH/MM3 Mean Platelet Volume 9.0 FL Neutrophils (%) (Auto) 83.8 % Lymphocytes (%) (Auto) 9.0 % Monocytes (%) (Auto) 7.1 % Eosinophils (%) (Auto) 0.0 % Basophils (%) (Auto) 0.1 % Neutrophils # (Auto) 5.9 TH/MM3 Lymphocytes # (Auto) 0.6 TH/MM3 Monocytes # (Auto) 0.5 TH/MM3 Eosinophils # (Auto) 0.0 TH/MM3 Basophils # (Auto) 0.0 TH/MM3 CBC Comment DIFF FINAL Differential Comment Blood Urea Nitrogen 16 MG/DL Creatinine 0.85 MG/DL Random Glucose 102 MG/DL Calcium Level 9.0 MG/DL Sodium Level 140 MEQ/L Potassium Level 4.1 MEQ/L Chloride Level 98 MEQ/L Carbon Dioxide Level 37.8 MEQ/L Anion Gap 4 MEQ/L Estimat Glomerular Filtration Rate 93 ML/MIN Imaging Last Impressions Chest X-Ray 05/13/17 1602 Signed Impressions: Service Date/Time: Saturday, May 13, 2017 16:23 - CONCLUSION: Underinflation with likely atelectasis at the lung bases. Otherwise, no acute finding is appreciated given the technique. Ankur Nevarez MD Objective Remarks GENERAL: Awake and alert has some confusion appears to be satting well needs to take his home oxygen at the [facility] SKIN: Warm and dry. HEAD: Atraumatic. Normocephalic. EYES: Pupils equal and round. No scleral icterus. No injection or drainage. Extraocular muscles intact ENT: No nasal bleeding or discharge. Mucous membranes pink and moist. Tongue is midline NECK: Trachea midline. No JVD. Supple CARDIOVASCULAR: Regular rate and rhythm. S1-S2 no S3 or S4 RESPIRATORY: No accessory muscle use. Clear to auscultation. Breath sounds equal bilaterally. GASTROINTESTINAL: Abdomen soft, non-tender, nondistended. Hepatic and splenic margins not palpable. MUSCULOSKELETAL: Extremities without clubbing, cyanosis, or edema. No obvious deformities. NEUROLOGICAL: Awake and alert. No obvious cranial nerve deficits. Motor grossly within normal limits. Five out of 5 muscle strength in the arms and legs. Normal speech. PSYCHIATRIC: INAppropriate mood and affect; insight and judgment ABnormal. Medications and IVs Current Medications Albuterol/ Ipratropium (Duoneb Neb) 1 ampule Q15M INH Last administered on 05/13at 16:35; Start 05/13/17 at 16:15; Stop 05/13/17 at 16:31; Status DC Albuterol Sulfate (Albuterol Neb) 2.5 mg Q15M INH Last administered on at 19:15; Start 05/13/17 at 18:15; Stop 05/13/17 at 18:46; Status DC Sodium Chloride (NS Flush) 2 ml UNSCH PRN IV FLUSH FLUSH AFTER USING IV ACCESS ; Start 05/13/17 at 18:15 Sodium Chloride (NS Flush) 2 ml BID IV FLUSH Last administered on 05/13/17at 23: 42; Start 05/13/17 at 21:00 Naloxone HCl (Narcan Inj) 0.4 mg UNSCH PRN IV PUSH SEE LABEL COMMENTS; Start at 18:15 Albuterol/ Ipratropium (Duoneb Neb) 1 ampule Q6HR WHILE AWAKE NEB NEB Last administered on 05/14/17at 07:11; Start 05/13/17 at 20:00 Albuterol/ Ipratropium (Duoneb Neb) 1 ampule Q2HR NEB PRN NEB wheezing; Start 05/13/17 at 18:30 Gabapentin (Neurontin) 600 mg HS PO Last administered on 05/14/17at 01:30; Start 05/13/17 at 21:00 Ropinirole HCl (Requip) 3 mg HS PO Last administered on 05/13/17at 23:42; Start 05/13/17 at 22:00 Clozapine (Clozaril) 100 mg HS PO ; Start 05/14/17 at 21:00 Levofloxacin (Levaquin) 500 mg DAILY PO ; Start 05/14/17 at 09:00 Montelukast Sodium (Singulair) 10 mg HS PO ; Start 05/14/17 at 21:00 Prednisone (Deltasone) 20 mg BID PO ; Start 05/14/17 at 09:00 Tiotropium Ranger (Spiriva Inh) 18 mcg DAILY INH ; Start 05/14/17 at 09:00 Triamterene/HCTZ (Maxzide 37.5-25 Mg) 1 tab DAILY PO ; Start 05/14/17 at 09:00 Pantoprazole Sodium (Protonix) 20 mg DAILY PO ; Start 05/14/17 at 09:00 Paroxetine HCl (Paxil) 30 mg DAILY PO ; Start 05/14/17 at 09:00 Enoxaparin Sodium (Lovenox Inj) 40 mg Q24H SQ ; Start 05/14/17 at 09:00 A/P Assessment and Plan Impression: hypoxia- secondary to not using home oxygen, plus mild copd exacerbation copd exacerbation schizophrenia Plan: nebs scheduled and prn continue steroid from [facility] home dose continue levofloxacin oxygen supplementation resume psychiatry meds PT eval in am if pt ambulates well on home oxygen , may likely go back to [facility] advised pt at length to take oxygen at home/ [facility] as prescribed prior dvt prophylaxis with lovenox gi prophyalxis on pantoprazole We will discharge back to the assisted living facility See prescriptions Discussed with patient and promotional marketing analyst Planning Back to [facility] today Bladimir Mckeon DO May 14, 2017 10:30
[2017-05-14] MEDS ORDERED: INVE39IN IM (10:36)
[2017-05-14] MEDS ORDERED: NEBULIZER1 MI1 (10:36)
[2017-05-14] MEDS ORDERED: CLOZ100T PO (10:36)
[2017-05-14] MEDS ORDERED: ALBUAER3 INH (10:36)
[2017-05-14] MEDS ORDERED: ROPI3TAB PO (10:36)
[2017-05-14] MEDS ORDERED: PAXI30TA7 PO (10:36)
[2017-05-14] MEDS ORDERED: Albuterol-Ipratropium Neb NEB (10:36)
[2017-05-14] MEDS ORDERED: GABA600T PO (10:36)
[2017-05-14] MEDS ORDERED: LEVA500T33 PO (10:36)
[2017-05-14] MEDS ORDERED: OMEP20CA2 PO (10:36)
[2017-05-14] MEDS ORDERED: SPIRCAP INH (10:36)
[2017-05-14] MEDS ORDERED: TRIA37.5 PO (10:36)
[2017-05-14] MEDS ORDERED: MONT10TA2 PO (10:36)
[2017-05-14] MEDS ORDERED: PRED20 PO (10:36)
--- NOTE | 2017-05-14 10:37 | HHI.FF ---
Face to Face Verification Diagnosis: (1) Hypoxia (2) COPD exacerbation (3) Bronchitis (4) Schizophrenia (5) Anxiety and depression (6) Hypertension (7) GERD (gastroesophageal reflux disease) (8) Altered mental status, unspecified Home Health Nursing Order: Medical education Signs/symptoms of disease process Nursing assessment with vital signs I have seen patient Vitcor M Moore on 05/14/17. My clinical findings support the need for the requested home health care services because: Patient has SOB Med compliance is questionable I certify that my clinical findings support that this patient is homebound because: Hx COPD- exertion dyspnea/weakness Bladimir Mckeon DO May 14, 2017 10:37
[2017-05-14] MEDS ORDERED: HUMIBIDDM PO (10:40)
--- NOTE | 2017-05-14 10:41 | HHI.DS ---
Discharge Summary Admission Date May 13, 2017 at 18:19 Discharge Date: May 14, 2017 Admitting Diagnosis SOB, COPD exacerbation (1) Hypoxia ICD Code: R09.02 - Hypoxemia Diagnosis: Principal Status: Acute (2) Altered mental status, unspecified ICD Code: R41.82 - Altered mental status, unspecified Diagnosis: Principal Status: Acute (3) Anxiety and depression ICD Code: F41.9 - Anxiety disorder, unspecified; F32.9 - Major depressive disorder, single episode, unspecified Diagnosis: Secondary Status: Acute (4) COPD exacerbation ICD Code: J44.1 - Chronic obstructive pulmonary disease with (acute) exacerbation Diagnosis: Principal Status: Acute (5) Hypertension ICD Code: I10 - Essential (primary) hypertension Diagnosis: Secondary Status: Acute (6) Bronchitis ICD Code: J40 - Bronchitis, not specified as acute or chronic Diagnosis: Secondary Status: Acute (7) GERD (gastroesophageal reflux disease) ICD Code: K21.9 - Gastro-esophageal reflux disease without esophagitis Diagnosis: Secondary Status: Acute (8) Schizophrenia ICD Code: F20.9 - Schizophrenia, unspecified Diagnosis: Principal Status: Acute Procedures NONE Brief History - From Admission at psychiatrist office and found to have low 02 and sent to hospital stated he has not been taking his oxygen for past few days because he thinks he doesnt need it stated was coughing a lot no fever denies other symptoms lives at [facility] CBC/BMP: 05/14/17 0640 05/14/17 0640 Significant Findings Laboratory Tests Test 05/13/17 16:08 05/13/17 16:39 05/13/17 17:06 05/13/17 19:43 Platelet Count 114 TH/MM3 (150-450) Monocytes (%) (Auto) 13.0 % (0.0-8.0) Monocytes # (Auto) 1.1 TH/MM3 (0-0.9) Blood Urea Nitrogen 19 MG/DL (7-18) Total Protein 6.2 GM/DL (6.4-8.2) Sodium Level 134 MEQ/L (136-145) Chloride Level 94 MEQ/L (98-107) Carbon Dioxide Level 35.3 MEQ/L (21.0-32.0) Estimat Glomerular Filtration Rate 80 ML/MIN (>89) Troponin I LESS THAN 0.02 NG/ML Venous Blood pH 7.32 (7.360-7.400) Venous Blood Partial Pressure CO2 76 mmHg (44-48) Venous Blood Partial Pressure O2 43 mmHg (35-40) Venous Blood HCO3 38 mmol/L (22-26) Venous Blood Oxygen Saturation 69 % (70-76) Venous Blood Base Excess 11.1 mmol/L (-2-2) Urine Bacteria RARE /hpf (NONE) Blood Gas HCO3 36 mmol/L (22-26) Blood Gas Base Excess 10.4 mmol/L (-2-2) Blood Gas Oxygen Saturation 79 % (90-100) Arterial Blood Partial Pressure CO2 63 mmHg (38-42) Arterial Blood Partial Pressure O2 54 mmHG (61-120) Arterial Blood Carboxyhemoglobin 10.9 % (0-4) Blood Gas Hemoglobin 16.4 G/DL (12.0-16.0) Test 05/14/17 06:40 Platelet Count 102 TH/MM3 (150-450) Neutrophils (%) (Auto) 83.8 % (16.0-70.0) Lymphocytes # (Auto) 0.6 TH/MM3 (1.0-4.8) Carbon Dioxide Level 37.8 MEQ/L (21.0-32.0) Anion Gap 4 MEQ/L (5-15) Imaging Last Impressions Chest X-Ray 05/13/17 1602 Signed Impressions: Service Date/Time: Saturday, May 13, 2017 16:23 - CONCLUSION: Underinflation with likely atelectasis at the lung bases. Otherwise, no acute finding is appreciated given the technique. Ankur Nevarez MD PE at Discharge GENERAL: Awake and alert has some confusion appears to be satting well needs to take his home oxygen at the [facility] SKIN: Warm and dry. HEAD: Atraumatic. Normocephalic. EYES: Pupils equal and round. No scleral icterus. No injection or drainage. Extraocular muscles intact ENT: No nasal bleeding or discharge. Mucous membranes pink and moist. Tongue is midline NECK: Trachea midline. No JVD. Supple CARDIOVASCULAR: Regular rate and rhythm. S1-S2 no S3 or S4 RESPIRATORY: No accessory muscle use. Clear to auscultation. Breath sounds equal bilaterally. GASTROINTESTINAL: Abdomen soft, non-tender, nondistended. Hepatic and splenic margins not palpable. MUSCULOSKELETAL: Extremities without clubbing, cyanosis, or edema. No obvious deformities. NEUROLOGICAL: Awake and alert. No obvious cranial nerve deficits. Motor grossly within normal limits. Five out of 5 muscle strength in the arms and legs. Normal speech. PSYCHIATRIC: INAppropriate mood and affect; insight and judgment ABnormal. Hospital Course at psychiatrist office and found to have low 02 and sent to hospital stated he has not been taking his oxygen for past few days because he thinks he doesnt need it stated was coughing a lot no fever denies other symptoms lives at [facility] 3-1 OXYGEN SATURATION IS GOOD IS ON OXYGEN AT HOME CAN BE DISCHARGED BACK TO HIS [facility] TODAY WILL NEED RX PRINTED CAN DC HOME TODAY Discussed with patient and RN and case management Pt Condition on Discharge: Good Discharge Disposition: [facility] with [facility] Discharge Time: <= 30 minutes Discharge Instructions DIET: Follow Instructions for: Heart Healthy Diet, Diabetic Diet Speech Therapy-Diet Recommends: Regular Activities you can perform: Regular-No Restrictions, Weight Bearing as Jose Other Activity Instructions: Resume home oxygen at [facility] Follow up Referrals: PCP Follow-up - 2-3 Days Psychiatry Adult - 1 Week New Medications: Dextromethorphan-Guaifenesin (Mucinex DM) 30-600 Mg Tab 1 TAB PO BID PRN for CHEST CONGESTION AND/OR COUGH, #40 TAB 0 Refills Nebulizer (Nebulizer) 1 Mis Mis EA .XX DIRECTED for Breathing Treatment, #1 0 Refills Levofloxacin (Levaquin) 500 Mg Tablet 500 MG PO DAILY for Infection, #7 TAB Prednisone (Prednisone) 20 Mg Tab 20 MG PO BID for Inflammation, #20 TAB [Albuterol-Ipratropium Neb] () 1 AMPULE NEBU 1 AMPULE NEB Q6HR WHILE AWAKE NEB for Shortness of Breath, #180 AMPULE Continued Medications: Albuterol 8.5 GM Inh (Proair Hfa 8.5 GM Inh) 90 Mcg/Act Aer 2 PUFF INH Q6H PRN for SHORTNESS OF BREATH, #1 INHALER 0 Refills (This prescription has been renewed) 108 mcg/actuation Clozapine (Clozaril) 100 Mg Tab 100 MG PO HS for Psychosis for 30 Days, #30 TAB (This prescription has been renewed) Gabapentin (Gabapentin) 600 Mg Tab 600 MG PO HS for Pain Management, #30 TAB 0 Refills (This prescription has been renewed) Montelukast (Singulair) 10 Mg Tab 10 MG PO HS for Allergies, #30 TAB 0 Refills (This prescription has been renewed ) Omeprazole (Omeprazole) 20 Mg Cap 20 MG PO DAILY for Manage Heartburn, #30 CAP (This prescription has been renewed ) Oxygen (O2) (Oxygen (O2)) Device LITER CRESCENCIO.CANULA CONTINUOUS for Prevent Hypoxemia, #4 1 Refill Oxygen Concentrator Portable Gaseous 4 L/min via Nasal Canula Continuous For 99 months Paliperidone Palmitate Inj (Invega Sustenna Inj) 39 Mg/0.25 Ml Inj 39 MG IM Q28D for Schizophrenia, #1 VIAL 0 Refills (This prescription has been renewed) Paroxetine (Paxil) 30 Mg Tab 30 MG PO DAILY for Anxiety, #30 TAB 0 Refills (This prescription has been renewed) Ropinirole (Ropinirole) 3 Mg Tab 3 MG PO HS for RLS, #30 TAB 0 Refills (This prescription has been renewed) Tiotropium Inh (Spiriva Handihaler) 18 Mcg Cap 18 MCG INH DAILY for COPD for 30 Days, #30 CAP (This prescription has been renewed) 1 capsule = 18 mcg Triamterene-Hydrochlorothiazide (Triamterene-Hydrochlorothiazide) 37.5-25 Mg Tab 1 TAB PO DAILY for Blood Pressure Management, #30 TAB 0 Refills (This prescription has been renewed) Discontinued Medications: Albuterol 6.7 GM Inh (Proventil Hfa 6.7 GM Inh) 90 Mcg/Act Aer 2 PUFF INH Q4-6H PRN for SHORTNESS OF BREATH, #1 INHALER 0 Refills Levofloxacin (Levaquin) 500 Mg Tablet 500 MG PO DAILY for COPD for 3 Days, #3 TAB 0 Refills once daiy starting 03/25 for 3 days Prednisone (Prednisone) 20 Mg Tab 20 MG PO BID for COPD for 3 Days, #6 TAB Bladimir Mckeon DO May 14, 2017 10:41
[2017-05-14] MEDS: SODIUM CHLORIDE 0.9% FLUSH 10 ML FLUSH IV FLUSH SCH (10:54)
[2017-05-14 11:13] VITALS: BP 118/62; PULSE 90; RESP 18; TEMP 97.7; O2SAT 94
--- NOTE | 2017-05-14 11:29 | EKG ---
Date Performed: 05/13/2017 Time Performed: 15:56:56 PTAGE: 56 years EKG: Sinus rhythm BORDERLINE LEFT AXIS DEVIATION LOW QRS VOLTAGE IN EXTREMITY LEADS PATTERN CONSISTENT WITH PULMONARY DISEASE ABNORMAL ECG Since the prior tracing, there has been no significant change PREVIOUS TRACING : 03/21/2017 07.42 DOCTOR: Toney Ivory Interpretating Date/Time 05/14/2017 11:27:57
[2017-05-14] MEDS ORDERED: cloZAPine 100 MG TAB PO SCH (21:00)
[2017-05-14] MEDS ORDERED: MONTELUKAST SODIUM 10 MG TAB PO SCH (21:00)
[2017-05-15] MEDS ORDERED: FEXO180T PO ×2 (09:34)
[2017-05-15] MEDS ORDERED: CALC625T9 PO ×2 (09:34)
[2017-05-15] MEDS ORDERED: NAPR500T2 PO ×2 (09:34)
[2017-05-15] MEDS ORDERED: CETI10 PO ×2 (09:34)
== END 2017-05-14 13:18 | disposition home or self-care (01) ==
LOC: NEPC 15:44 → NEDA 18:19 → NEPHCDU 19:44
PROVIDERS: ADMIT Hospitalist; ATTEND Hospitalist
DX: J44.1 Chronic obstructive pulmonary disease with (acute) exacerbation (principal); F20.9 Schizophrenia, unspecified; R41.0 Disorientation, unspecified; R94.31 Abnormal electrocardiogram [ECG] [EKG]; I10 Essential (primary) hypertension; K21.9 Gastro-esophageal reflux disease without esophagitis; F41.9 Anxiety disorder, unspecified; F32.9 Major depressive disorder, single episode, unspecified; F17.200 Nicotine dependence, unspecified, uncomplicated; Z79.899 Other long term (current) drug therapy; Z99.81 Dependence on supplemental oxygen; F17.210 Nicotine dependence, cigarettes, uncomplicated
CPT/HCPCS: 36600; 71046; 80048; 80053; 81001; 82805; 83735; 84484; 85025; 85610; 85730; 87040; 87804; 93005; 94640; 94664; 96372; G0378; G8987-GP; G8988-GP; J1650; J7512; J7613

== ENCOUNTER 2017-05-15 07:20 | Inpatient (IN) | payer MEDICAID ==
[~2017-05-15] VITALS: Ht 177.8 cm; Wt 94.2 kg
[2017-05-15] VITALS (29 sets, daily range): BP systolic 84–125; BP diastolic 52–79; PULSE 54–93; RESP 14–39; TEMP 97.1–98.6; O2SAT 91–100
[~2017-05-15 07:20] MED LIST changes: +Albuterol-Ipratropium Neb NEB; +HUMIBIDDM PO; +NEBULIZER1 MI1
[2017-05-15] MEDS ORDERED: NALOXONE HCL 0.4 MG/ML AMP ONE (07:26)
[2017-05-15] MEDS ORDERED: NALOXONE HCL 2 MG/2 ML VIAL IV PUSH ONE (07:30)
[2017-05-15] MEDS ORDERED: SODIUM CHLORIDE 0.9% FLUSH 10 ML FLUSH IV FLUSH PRN ×2 (07:30→10:30)
[2017-05-15] MEDS ORDERED: ETOMIDATE 40 MG/20 ML VIAL ONE (07:41)
[2017-05-15] MEDS ORDERED: SUCCINYLCHOLINE CHLORIDE 200 MG/10 ML VIAL ONE (07:41)
[2017-05-15] MEDS ORDERED: SUCCINYLCHOLINE CHLORIDE 100 MG/5 ML SYRINGE IV PUSH ONE (07:45)
[2017-05-15] MEDS ORDERED: ETOMIDATE 20 MG/10 ML VIAL IV PUSH ONE (07:45)
--- NOTE | 2017-05-15 08:03 | RADRPT ---
EXAM DATE/TIME: 05/15/2017 07:32 [facility] COMPARISON: CHEST SINGLE AP, March 21, 2017, 7:34. INDICATIONS : Stroke alert. MEDICAL HISTORY : Chronic obstructive pulmonary disease. Smoker. Hypertension. SURGICAL HISTORY : None. ENCOUNTER: Initial ACUITY: 1 day PAIN SCORE: Non-responsive. LOCATION: Bilateral chest FINDINGS: The lungs are hyperinflated. There is no evidence of acute air space disease or significant congestio n. Heart and mediastinal structures are stable. CONCLUSION: 1. COPD 2. No evidence of acute process or interval change. Yoshi Bautista MD on May 15, 2017 at 8:01 Board Certified Radiologist. This report was verified electronically.
[2017-05-15 08:05] LABS: AUTOMATED NEUTROPHIL # 5.6 TH/MM3 (1.8-7.7); BASOPHIL % 0.1 % (0.0-2.0); HEMATOCRIT 51.2 % (39.0-51.0); HEMOGLOBIN 16.7 GM/DL (13.0-17.0); LYMPH % 7.2 % (9.0-44.0); LYMPHOCYTE # 0.5 TH/MM3 (1.0-4.8); MEAN CELL VOLUME 88.9 FL (80.0-100.0); MEAN CORPUSCULAR HGB CONC 32.6 % (32.0-36.0); MEAN PLATELET VOLUME 9.2 FL (7.0-11.0); MONO % 6.1 % (0.0-8.0); MONOCYTE # 0.4 TH/MM3 (0-0.9); NEUT % 86.6 % (16.0-70.0); PLATELET COUNT 89 TH/MM3 (150-450); RED BLOOD COUNT 5.76 MIL/MM3 (4.50-5.90); RED CELL DISTRIBUTION WIDTH 15.3 % (11.6-17.2); WHITE BLOOD COUNT 6.4 TH/MM3 (4.0-11.0)
--- NOTE | 2017-05-15 08:06 | RADRPT ---
EXAM DATE/TIME: 05/15/2017 07:49 [facility] COMPARISON: CHEST SINGLE AP, May 15, 2017, 7:32. INDICATIONS : Endotracheal tube placement. MEDICAL HISTORY : Chronic obstructive pulmonary disease. Smoker SURGICAL HISTORY : None. ENCOUNTER: Subsequent ACUITY: 1 day PAIN SCORE: Non-responsive. LOCATION: upper chest FINDINGS: Endotracheal tube has been inserted and is in good position approximately 3 cm above the jaki. Lungs are main free of acute airspace disease, mass densities or fusions. Heart and mediastinal structures are stable. CONCLUSION: Satisfactory position of recently placed endotracheal tube. No evidence of acute air space disease or significant congestion. COPD. Yoshi Bautista MD on May 15, 2017 at 8:04 Board Certified Radiologist. This report was verified electronically.
[2017-05-15 08:16] LABS: INTERNATIONAL NORMALIZED RATIO 1.1 RATIO; PROTHROMBIN TIME - PATIENT 11.4 SEC (9.8-11.6)
[2017-05-15] MEDS ORDERED: PROPOFOL 500 MG/50 ML INJ 50 ML ONE (08:17)
[2017-05-15 08:21] LABS: ALBUMIN 3.6 GM/DL (3.4-5.0); AST (GOT) 14 U/L (15-37); BICARBONATE 37.3 MEQ/L (21.0-32.0); BLOOD UREA NITROGEN 19 MG/DL (7-18); CALCIUM 9.2 MG/DL (8.5-10.1); CHLORIDE 96 MEQ/L (98-107); CREATININE 0.99 MG/DL (0.60-1.30); GLOMERULAR FILTRATION RATE 78 ML/MIN (>89); GLUCOSE,RANDOM 119 MG/DL (74-106); SODIUM (NA) 140 MEQ/L (136-145)
[2017-05-15 08:22] LABS: ALT (GPT) 17 U/L (12-78)
[2017-05-15] MEDS: PROPOFOL 1000 MG/100 ML INJ 100 ML IV PRN ×5 (08:27→23:58)
--- NOTE | 2017-05-15 08:27 | RADRPT ---
EXAM DATE/TIME: 05/15/2017 08:04 [facility] COMPARISON: CT BRAIN W/O CONTRAST, October 16, 2016, 11:50. INDICATIONS : Altered mental status. RADIATION DOSE: 39.37 CTDIvol (mGy) MEDICAL HISTORY : Chronic obstructive pulmonary disease. Hypertension. SURGICAL HISTORY : None. ENCOUNTER: Initial ACUITY: 1 day PAIN SCALE: Non-responsive LOCATION: cranial TECHNIQUE: Multiple contiguous axial images were obtained of the head. Using automated exposure control and adj ustment of the mA and/or kV according to patient size, radiation dose was kept as low as reasonably a chievable to obtain optimal diagnostic quality images. DICOM format image data is available electro nically for review and comparison. FINDINGS: CEREBRUM: The ventricles are normal for age. No evidence of midline shift, mass lesion, hemorrhage or acute in farction. No extra-axial fluid collections are seen. POSTERIOR FOSSA: The cerebellum and brainstem are intact. The 4th ventricle is midline. The cerebellopontine angle i s unremarkable. EXTRACRANIAL: The visualized portion of the orbits is intact. SKULL: The calvaria is intact. No evidence of skull fracture. Small calcific subcutaneous density in the ri ght frontal region is again noted. CONCLUSION: No evidence of acute infarct, hemorrhage, mass or edema. Unremarkable exam. Yoshi Bautista MD on May 15, 2017 at 8:25 Board Certified Radiologist. This report was verified electronically.
[2017-05-15 08:31] LABS: ALKALINE PHOSPHATASE 77 U/L (45-117); TOTAL BILIRUBIN ADULT 0.5 MG/DL (0.2-1.0); TOTAL PROTEIN 6.4 GM/DL (6.4-8.2); TROPONIN I LESS THAN 0.02 NG/ML (0.02-0.05)
[2017-05-15] MEDS: RESP: ALBUTEROL 2.5 MG/IPRATROPIUM 0.5 MG NEB (SCH) INH ×2 (08:47→08:48)
--- NOTE | 2017-05-15 08:51 | PD ---
HPI . Altered mental status Chief Complaint: Neuro Symptoms/ Deficits Time Seen by Provider: 07:27 Travel History International Travel<30 days: No Contact w/Intl Traveler<30days: No Traveled to known affect area: No History of Present Illness HPI This patient presented to us by [facility] with a chief complaint of acute altered mental status. He was last seen normal at 4 AM when he got up to use the restroom. He lives in an assisted living facility. This morning, he was noted to be altered. [facility] was called and he was brought to the hospital. The patient is unable to offer any history. The patient was just discharged from the hospital yesterday. He was admitted for altered mental status secondary to hypoxia. He was discharged on home oxygen. [facility] reports that he was not wearing his oxygen on their arrival. His oxygen saturation was in the 70s on their arrival. They called a stroke alert and brought him to the hospital. PFSH Past Medical History Asthma: No Blood Disorders: No Anxiety: Yes Depression: No Heart Rhythm Problems: No Cancer: No Cardiovascular Problems: No High Cholesterol: No Chest Pain: No Congestive Heart Failure: No COPD: Yes Endocrine: No Gastrointestinal Disorders: No GERD: Yes Genitourinary: No Hypertension: Yes Immune Disorder: No Implanted Vascular Access Dvce: No Musculoskeletal: No Neurologic: Yes Psychiatric: Yes (SCHIZOPHRENIA) Reproductive: No Respiratory: Yes (COPD, EMPYSEMA ) Schizophrenia: Yes Sleep Apnea: No Ulcer: Yes Past Surgical History Surgical History: Unable to Obtain Other Surgery: Yes Social History Alcohol Use: No Tobacco Use: Yes (1 PPD) Substance Use: No Allergies-Medications (Allergen,Severity, Reaction): Coded Allergies: haloperidol (Unverified Allergy, Severe, Hives, 10/28/16) Reported Meds & Prescriptions Reported Meds & Active Scripts Active Prednisone 20 Mg Tab 20 Mg PO BID [Albuterol-Ipratropium Neb] 1 AMPULE Nebu 1 Ampule NEB Q6HR WHILE AWAKE NEB Levaquin (Levofloxacin) 500 Mg Tablet 500 Mg PO DAILY Clozaril (Clozapine) 100 Mg Tab 100 Mg PO HS 30 Days Invega Sustenna Inj (Paliperidone Palmitate) 39 Mg/0.25 Ml Inj 39 Mg IM Q28D Proair Hfa 8.5 GM Inh (Albuterol Sulfate) 90 Mcg/Act Aer 2 Puff INH Q6H PRN 108 mcg/actuation Gabapentin 600 Mg Tab 600 Mg PO HS Singulair (Montelukast Sodium) 10 Mg Tab 10 Mg PO HS Ropinirole 3 Mg Tab 3 Mg PO HS Triamterene-Hydrochlorothiazide 37.5-25 Mg Tab 1 Tab PO DAILY Paxil (Paroxetine HCl) 30 Mg Tab 30 Mg PO DAILY Omeprazole 20 Mg Cap 20 Mg PO DAILY Oxygen (O2) Device Liter CRESCENCIO.CANULA CONTINUOUS Oxygen Concentrator Portable Gaseous 4 L/min via Nasal Canula Continuous For 99 months Reported Cetirizine (Cetirizine HCl) 10 Mg Tab 10 Mg PO DAILY Fexofenadine (Fexofenadine HCl) 180 Mg Tab 180 Mg PO DAILY Naproxen 500 Mg Tab 500 Mg PO BID Fiber Laxative (Calcium Polycarbophil) 625 Mg Tab 625 Mg PO DAILY Review of Systems ROS Limitations: Altered Mental Status Physical Exam Narrative GENERAL: The patient is lying on the stretcher with his eyes open. He is not following any commands. We have not noted any movement. SKIN: warm/dry. HEAD: Normocephalic. Atraumatic. EYES: Pupils small and equal and round. No scleral icterus. No injection or drainage. ENT: No nasal bleeding or discharge. Mucous membranes pink and moist. NECK: Trachea midline. Full range of motion without pain.. CARDIOVASCULAR: Regular rate and rhythm. RESPIRATORY: He was breathing spontaneously. However, his breathing was very shallow. He had sonorous respirations. GASTROINTESTINAL: Abdomen soft. Nontender. Bowel sounds present. Nondistended. : Normal male genitalia. MUSCULOSKELETAL: No obvious deformities. NEUROLOGICAL: [place] Coma Score is 6. His eyes are open but he has no verbal response and no motor response. He is flaccid diffusely. PSYCHIATRIC: Unable to assess. Data Data Last Documented VS Vital Signs Date Time Temp Pulse Resp B/P (MAP) Pulse Ox O2 Delivery O2 Flow Rate FiO2 05/15/17 09:54 99 40 05/15/17 09:43 61 102/73 (83) 05/15/17 08:32 Ventilator 05/15/17 07:33 40 15.00 Orders Orders Naloxone Inj (Narcan Inj) (05/15/17 07:30) Naloxone Inj (Narcan Inj) (05/15/17 07:26) Electrocardiogram (05/15/17 07:27) Ammonia (05/15/17 07:27) Complete Blood Count With Diff (05/15/17 07:27) Comprehensive Metabolic Panel (05/15/17 07:27) Creatine Kinase (Cpk) (05/15/17 07:27) Prothrombin Time / Inr (Pt) (05/15/17 07:27) Act Partial Throm Time (Ptt) (05/15/17 07:27) Troponin I (05/15/17 07:27) Thyroid Stimulating Hormone (05/15/17 07:27) Urinalysis - C+S If Indicated (05/15/17 07:27) Lactic Acid Sepsis Protocol (05/15/17 07:27) Blood Culture (05/15/17 07:27) Chest, Single Ap (05/15/17 07:27) Ct Brain W/O Iv Contrast(Rout) (05/15/17 07:27) Ecg Monitoring (05/15/17 07:27) Iv Access Insert/Monitor (05/15/17 07:27) Cath For Specimen (05/15/17 07:27) Oximetry (05/15/17 07:27) Sodium Chloride 0.9% Flush (Ns Flush) (05/15/17 07:30) Drug Screen, Random Urine (05/15/17 07:27) Alcohol (Ethanol) (05/15/17 07:27) Etomidate Inj (Amidate Inj) (05/15/17 07:45) Succinylcholine Inj (Quelicin Inj) (05/15/17 07:45) Etomidate Inj (Amidate Inj) (05/15/17 07:41) Succinylcholine Inj (Quelicin Inj) (05/15/17 07:41) Chest, Single Ap (05/15/17 07:56) Propofol 1000 Mg/100 Ml Inj (Diprivan 10 (05/15/17 08:30) Propofol 500 Mg/50 Ml Inj (Diprivan 500 (05/15/17 08:17) Albuterol-Ipratropium Neb (Duoneb Neb) (05/15/17 08:45) Insert Ng Tube (05/15/17 09:11) Insert Temp Sensing Menendez Cath (05/15/17 09:11) Restraints Non-Violent JOSEPH.Q3H (05/15/17 09:11) Arterial Blood Gas (Abg) (05/15/17 09:03) Labs Laboratory Tests Test 05/15/17 07:25 05/15/17 07:45 05/15/17 09:00 05/15/17 09:03 White Blood Count 6.4 TH/MM3 Red Blood Count 5.76 MIL/MM3 Hemoglobin 16.7 GM/DL Hematocrit 51.2 % Mean Corpuscular Volume 88.9 FL Mean Corpuscular Hemoglobin 29.0 PG Mean Corpuscular Hemoglobin Concent 32.6 % Red Cell Distribution Width 15.3 % Platelet Count 89 TH/MM3 Mean Platelet Volume 9.2 FL Neutrophils (%) (Auto) 86.6 % Lymphocytes (%) (Auto) 7.2 % Monocytes (%) (Auto) 6.1 % Eosinophils (%) (Auto) 0.0 % Basophils (%) (Auto) 0.1 % Neutrophils # (Auto) 5.6 TH/MM3 Lymphocytes # (Auto) 0.5 TH/MM3 Monocytes # (Auto) 0.4 TH/MM3 Eosinophils # (Auto) 0.0 TH/MM3 Basophils # (Auto) 0.0 TH/MM3 CBC Comment AUTO DIFF Differential Total Cells Counted 100 Neutrophils % (Manual) 83 % Band Neutrophils % 6 % Lymphocytes % 5 % Monocytes % 4 % Neutrophils # (Manual) 5.8 TH/MM3 Metamyelocytes 2 % Differential Comment FINAL DIFF MANUAL Platelet Estimate LOW Platelet Morphology Comment ENLARGED Ovalocytes 1+ Prothrombin Time 11.4 SEC Prothromb Time International Ratio 1.1 RATIO Activated Partial Thromboplast Time 25.0 SEC Blood Urea Nitrogen 19 MG/DL Creatinine 0.99 MG/DL Random Glucose 119 MG/DL Total Protein 6.4 GM/DL Albumin 3.6 GM/DL Calcium Level 9.2 MG/DL Alkaline Phosphatase 77 U/L Aspartate Amino Transf (AST/SGOT) 14 U/L Alanine Aminotransferase (ALT/SGPT) 17 U/L Total Bilirubin 0.5 MG/DL Sodium Level 140 MEQ/L Potassium Level 4.8 MEQ/L Chloride Level 96 MEQ/L Carbon Dioxide Level 37.3 MEQ/L Anion Gap 7 MEQ/L Estimat Glomerular Filtration Rate 78 ML/MIN Total Creatine Kinase 58 U/L Troponin I LESS THAN 0.02 NG/ML Thyroid Stimulating Hormone 3rd Gen 1.300 uIU/ML Ethyl Alcohol Level LESS THAN 3 MG/DL Lactic Acid Level 0.5 mmol/L Urine Color YELLOW Urine Turbidity CLEAR Urine pH 5.5 Urine Specific [place] 1.014 Urine Protein TRACE mg/dL Urine Glucose (UA) NEG mg/dL Urine Ketones NEG mg/dL Urine Occult Blood NEG Urine Nitrite NEG Urine Bilirubin NEG Urine Urobilinogen LESS THAN 2.0 MG/DL Urine Leukocyte Esterase NEG Urine RBC 1 /hpf Urine WBC 1 /hpf Urine Squamous Epithelial Cells <1 /hpf Urine Hyaline Casts 4 /lpf Urine Mucus FEW /lpf Microscopic Urinalysis Comment CATH-CULT NOT IND Blood Gas Puncture Site RT RADIAL Blood Gas Patient Temperature 98.6 Blood Gas HCO3 39 mmol/L Blood Gas Base Excess 12.6 mmol/L Blood Gas Oxygen Saturation 93 % Arterial Blood pH 7.36 Arterial Blood Partial Pressure CO2 70 mmHg Arterial Blood Partial Pressure O2 146 mmHG Arterial Blood Oxygen Content 20.3 Vol % Arterial Blood Carboxyhemoglobin 5.0 % Arterial Blood Methemoglobin 1.0 % Blood Gas Hemoglobin 15.4 G/DL Oxygen Delivery Device VENTILATOR Blood Gas Ventilator Setting PRVC/AC/12/600/+5 Blood Gas Inspired Oxygen 50 % Ammonia 62 MCMOL/L MDM Medical Decision Making Medical Screen Exam Complete: Yes Emergency Medical Condition: Yes Medical Record Reviewed: Yes (patient was just admitted and discharged in the past 2 days. His diagnosis was altered mental status secondary to hypoxia. Other medical issues include hypertension and schizophrenia.) Interpretation(s) EKG shows a sinus rhythm with low voltage. No ST segment elevation or depression. Differential Diagnosis Differential diagnosis of altered mental status includes but is not limited to infection, electrolyte abnormality, neurological event, intoxication Narrative Course This patient presents with altered mental status. We initially gave him Narcan with no change in his status. He had low, sonorous respirations. He had a low [place] Coma Scale score of 6. Therefore, the decision was made to intubate the patient. AMS workup is in process. CBC & BMP Diagram 05/15/17 07:25 Total Protein 6.4, Albumin 3.6, Calcium Level 9.2, Alkaline Phosphatase 77, Aspartate Amino Transf (AST/SGOT) 14 L, Alanine Aminotransferase (ALT/SGPT) 17, Total Bilirubin 0.5 trop <0.02 LA 0.5 Last Impressions Chest X-Ray 05/15/17 0152 Signed Impressions: Service Date/Time: Monday, May 15, 2017 07:49 - CONCLUSION: Satisfactory position of recently placed endotracheal tube. No evidence of acute air space disease or significant congestion. COPD. Yoshi Bautista MD Head CT 05/15/17726 Signed Impressions: Service Date/Time: Monday, May 15, 2017 08:04 - CONCLUSION: No evidence of acute infarct, hemorrhage, mass or edema. Unremarkable exam. Yoshi Bautista MD Chest X-Ray 05/15/17726 Signed Impressions: Service Date/Time: Monday, May 15, 2017 07:32 - CONCLUSION: 1. COPD 2. No evidence of acute process or interval change. Yoshi Bautista MD Critical Care Narrative Aggregate critical care time was 45 minutes. Time to perform other separately billable procedures was not included in the critical care time. My time did not include minutes spent treating any other patients simultaneously or on activities that did not directly contribute to the patient's treatment. The services I provided to this patient were to treat and/or prevent clinically significant deterioration due to altered mental status, respiratory insufficiency I provided critical care services requiring my management, as noted below: Chart data review, documentation time, medication orders and management, vital sign assessments/reviewing monitor data, ordering and reviewing lab tests, ordering and interpreting/reviewing x-rays and diagnostic studies, care of the patient and discussion of the patient with the admitting physicians Procedures Procedure Narrative After the risks and benefits were discussed the following procedure was performed: INTUBATION: The patient was put in optimal position for the procedure. Rapid sequence intubation was initiated by me using 20 milligrams of etomidate IV and 144 milligrams of succinylcholine IV. The patient was intubated with a 8.0 cuffed endotracheal tube. Tube placement was confirmed by visualization of the tube and balloon passing through the cords, capnometry and subsequent chest x-ray. Breath sounds were equal and well aerated bilaterally postintubation. No breath sounds over stomach. Patient tolerated procedure well. Physician Communication Physician Communication Dr. [place] Diagnosis Primary Impression: Altered mental status, unspecified Qualified Codes: R40.2432 - [place] coma scale score 3-8, at arrival to emergency department Additional Impression: Respiratory insufficiency Admitting Information Admitting Physician Requests: Admit Condition: Stable Glenna Carmichael MD May 15, 2017 08:51
[2017-05-15 09:04] LABS: BANDS 6 % (0-6); LYMPHOCYTES 5 % (9-44); METAMYELOCYTES 2 % (0-1); MONOCYTES 4 % (0-8); NEUTROPHIL # MANUAL DIFF 5.8 TH/MM3 (1.8-7.7); POLYS (SEG NEUTROPHILS) 83 % (16-70)
[2017-05-15 09:05] LABS: OVALOCYTES 1+ (NORMAL)
[2017-05-15] MEDS ORDERED: NAPR500T2 PO ×2 (09:34)
[2017-05-15] MEDS ORDERED: FEXO180T PO ×2 (09:34)
[2017-05-15] MEDS ORDERED: CETI10 PO ×2 (09:34)
[2017-05-15] MEDS ORDERED: CALC625T9 PO ×2 (09:34)
[2017-05-15 09:35] LABS: BILIRUBIN, URINE NEG (NEG); BLOOD, URINE NEG (NEG); GLUCOSE,URINE NEG (NEG); HYALINE CAST, URINE 4 /lpf (RARE); KETONE, URINE NEG (NEG); MUCUS URINE FEW /lpf (OCC); NITRITE,URINE NEG (NEG); PH, URINE 5.5 (5.0-8.5); SQUAMOUS EPITHELIAL CELL URINE <1 /hpf (0-5); URINE COLOR YELLOW (YELLW/STRAW); URINE LEUKOCYTE ESTERASE NEG (NEG)
[2017-05-15] MEDS ORDERED: RESP: ALBUTEROL 2.5 MG/IPRATROPIUM 0.5 MG NEB (PRN) INH (10:30)
[2017-05-15] MEDS ORDERED: CHLORHEXIDINE GLUCONATE 2 % 1 PACK (2 CLOTHS) TOP PRN (10:30)
[2017-05-15] MEDS ORDERED: ACETAMINOPHEN 325 MG TAB PO PRN (10:30)
[2017-05-15] MEDS ORDERED: MISCELLANEOUS NURSING INFORMATION XX SCH (10:30)
[2017-05-15] MEDS ORDERED: IOHEXOL 350 MG/ML 10 ML VIAL (for RAD DIAG) IVCONTRAST ONE (11:36)
--- NOTE | 2017-05-15 11:45 | RADRPT ---
EXAM DATE/TIME: 05/15/2017 11:30 [place] COMPARISON: No previous studies available for comparison. INDICATIONS : Respiratory failure, evaluate for PE. IV CONTRAST: 75 cc Omnipaque 350 (iohexol) IV RADIATION DOSE: 23.71 CTDIvol (mGy) MEDICAL HISTORY : Hypertension. Gastroesophageal reflux disease. Schizophrenia,COPD SURGICAL HISTORY : None. ENCOUNTER: Initial ACUITY: 1 day PAIN SCALE: 0/10 LOCATION: chest TECHNIQUE: Volumetric scanning of the chest was performed using a pulmonary embolism protocol MIP images were re constructed. Using automated exposure control and adjustment of the mA and/or kV according to patien t size, radiation dose was kept as low as reasonably achievable to obtain optimal diagnostic quality images. DICOM format image data is available electronically for review and comparison. Follow-up recommendations for detected pulmonary nodules are based at a minimum on nodule size and pa tient risk factors according to Fleischner Society Guidelines. FINDINGS: Apical emphysematous changes are noted. There is no evidence for pneumonia. Minimal dependent atelect atic changes are seen. Endotracheal tube tip terminates at the origin of left mainstem bronchus. Ente dino tube extends into and tip terminates in the stomach. There are small bilateral oral effusions. Th ere is no evidence for pulmonary embolism. Bilateral hilar and subcarinal mildly enlarged lymph nodes are noted a nonspecific there is no evidence for pulmonary embolism. There is a calcified granuloma in the right upper lobe measuring 4 mm posteriorly on image 46. There is a 2 mm calcified granuloma i n the right lower lobe on image C7. CONCLUSION: Mild emphysematous changes at the apices. Calcified granulomas. Mediastinal and hilar lymph nodes are mildly enlarged. No evidence for PE. Small bilateral effusions. Angel Balderas MD on May 15, 2017 at 11:42 Board Certified Radiologist. This report was verified electronically.
--- NOTE | 2017-05-15 12:23 | PD.CONS ---
Consult Service Palliative Care Consult Requested By Dr Covington . Primary Care Physician Saqib Fregoso MD Reason for Consultation a. To assist with evaluation and management of symptoms including: b. To assist medical decision maker(s) with: better understanding of current medical conditions; weighing benefits/burdens of medical treatment options; making medical treatment decisions. HPI History of Present Illness This 56-year-old male presented to the ED today 05/15/17 for complaints of altered mental status. He presented via EMS. He was apparently last seen normal around 4 AM when he got up to use the restroom. He lives in an [facility]. This morning later he was noted to be altered EMS was activated. Patient was unable to provide additional history. ED physician notes the patient was just discharged from the hospital the day before at that time admitted for altered mental status secondary to hypoxia. He had been discharged on home oxygen. EMS reported patient not found to be on oxygen at their arrival. O2 sats were in the 70s. Stroke alert activated and transported to the hospital. * ED: Narcan administered with no change in patient assessment. CXR noted COPD , no acute process or interval change. Head CT no acute process. Patient was intubated. WBC 6.4. BUN 19/creatinine 0.99. Mucosal 119. UA culture not indicated. Alcohol screen less than 3. Ammonia 62. Troponin less than 0.2. BUN 3.6. CTA ordered, pending. * CTA obtained= Mild emphysematous changes at the apices. Calcified granulomas. Mediastinal and hilar lymph nodes are mildly enlarged. No evidence for PE. Small bilateral effusions Patient seen in room no visitors present. He is sedated on mechanical vent. He is minimally responsive to exam secondary to sedation. On 35 mics/kilogram/ minute Diprivan. No eye opening to touch or verbal. Does withdraw all 4 extremities to pain stimuli and opens eyes briefly to pain stimuli. When not being stimulated no overbreathing on mechanical vent. Discussed with primary nurse no family or visitors have called or been in to see patient. Following exam call to patient executive secretary social welfare with FACT agency [facility], voicemail left. [[facility] ([facility]) In an effort to promote independent, integrated living for individuals with severe and persistent psychiatric disorders, [place] [facility] ([facility]) teams provide a 26-dvjb-q-day, ylonn-ylia-r week, multidisciplinary approach to deliver comprehensive care to people where they live, work or go to school, and spend their leisure time. The programmatic goals are to prevent recurrent hospitalization and incarceration and improve community involvement and overall quality of life for program participants. FACT teams assume responsibility for directly providing the majority of treatment, rehabilitation and support services to individuals. Emphasis is on recovery, choice, outreach, relationship -building, and individualization of services .] Per review of recent record patient hospitalized from 05/13 through 05/14 for shortness of breath and COPD exacerbation. He was at his psychiatrist's office and felt short of breath they checked pulse oximetry noted O2 sats in the 70s. EMS was activated and he was brought to the hospital. He had apparently been provided prescribed oxygen beginning of that month and stopped because he didn' t feel he needed it. He was discharged home back to his [facility]. Patient also hospitalized 03/16 through 03/25 for COPD. Function/Cognitive Trajectory Per most recent hospitalization documentation patient was independent with mobility without assistive devices. He does live in an ASSISTED. At that admission he was noted to be alert and oriented and cooperative. In the past had been on FACT TEAM services (2010). Review of Systems ROS Limitations: Clinical Condition, Intubated, Altered Mental Status Past Family Social History Coded Allergies: haloperidol (Unverified Allergy, Severe, Hives, 10/28/16) Past Medical History per records Restless leg syndrome High cholesterol Schizophrenia ? COPD Past Surgical History None per medical records . Reported Medications Prednisone 20 Mg Tab 20 Mg PO BID [Albuterol-Ipratropium Neb] 1 AMPULE Nebu 1 Ampule NEB Q6HR WHILE AWAKE NEB Levaquin (Levofloxacin) 500 Mg Tablet 500 Mg PO DAILY Clozaril (Clozapine) 100 Mg Tab 100 Mg PO HS 30 Days Invega Sustenna Inj (Paliperidone Palmitate) 39 Mg/0.25 Ml Inj 39 Mg IM Q28D Proair Hfa 8.5 GM Inh (Albuterol Sulfate) 90 Mcg/Act Aer 2 Puff INH Q6H PRN 108 mcg/actuation Gabapentin 600 Mg Tab 600 Mg PO HS Singulair (Montelukast Sodium) 10 Mg Tab 10 Mg PO HS Ropinirole 3 Mg Tab 3 Mg PO HS Triamterene-Hydrochlorothiazide 37.5-25 Mg Tab 1 Tab PO DAILY Paxil (Paroxetine HCl) 30 Mg Tab 30 Mg PO DAILY Omeprazole 20 Mg Cap 20 Mg PO DAILY Oxygen (O2) Device Liter CRESCENCIO.CANULA CONTINUOUS Oxygen Concentrator Portable Gaseous 4 L/min via Nasal Canula Continuous For 99 months Cetirizine (Cetirizine HCl) 10 Mg Tab 10 Mg PO DAILY Fexofenadine (Fexofenadine HCl) 180 Mg Tab 180 Mg PO DAILY Naproxen 500 Mg Tab 500 Mg PO BID Fiber Laxative (Calcium Polycarbophil) 625 Mg Tab 625 Mg PO DAILY . Current Medications Medications (Trade) Dose Ordered Sig/Sawyer Route Start Time Stop Time Status Last Admin (NS Flush) 2 ml UNSCH PRN IV FLUSH 05/15/17 07:30 Propofol 100 ml @ 0 mls/hr TITRATE PRN IV 05/15/17 08:30 05/15/17 10:03 Sodium Chloride 1,000 ml @ 75 mls/hr [id number] IV 05/15/17 10:29 UNV (NS Flush) 2 ml UNSCH PRN IV FLUSH 05/15/17 10:30 UNV (NS Flush) 2 ml BID IV FLUSH 05/15/17 21:00 UNV (Tylenol) 650 mg Q6H PRN PO 05/15/17 10:30 UNV (Duoneb Neb) 1 ampule Q4HR NEB NEB 05/15/17 12:00 UNV (Duoneb Neb) 1 ampule Q2HR NEB PRN INH 05/15/17 10:30 UNV (Peridex 0.12% Liq) 15 ml BID@08,20 MT 05/15/17 20:00 UNV (Pepcid) 20 mg BID TUBE 05/15/17 21:00 UNV (Lovenox Inj) 40 mg Q24H SQ 05/15/17 10:30 UNV Miscellaneous Information 1 Q361D XX 05/15/17 10:30 UNV (Chlorhexidine 2% Cloth) 3 pack Taper DAILY@04 TOP 05/16/17 04:00 05/12/18 03:59 UNV (Chlorhexidine 2% Cloth) 3 pack UNSCH PRN TOP 05/15/17 10:30 UNV Piperacillin Sod/ Tazobactam Sod 100 ml @ 200 mls/hr Q6H IV 05/15/17 10:45 UNV Azithromycin 500 mg/Sodium Chloride 250 ml @ 250 mls/hr Q24H IV 05/15/17 10:45 UNV Linezolid 300 ml @ 300 mls/hr Q12H IV 05/15/17 10:45 UNV Family History Mother with RA . Substance Use Tobacco: Smokes 1 PPD Alcohol: Per records history of abusing alcohol in the past. Prescription med abuse: None Illicits: None . Psychosocial History Lives in an [facility]/detention, apparently has lived there for several years. Originally from [place]. Prior psychiatric records indicate first psychotic break in his late teens. 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 He is apparently the oldest of 3 children. He has a brother Ankur who had been in long-term, another brother Daryl who had at some point been living with the patient. It appears based on review of records she has been associated with the fact team for some time now. Has never been , no children. High school graduate. Limited work history secondary to the severity of his mental illness. Per previous records the fact team executive secretary social welfare has indicated he believes the brother Daryl to have "borderline intelligence, and the brother Ankur was incarcerated ". Spiritual/Cultural Factors per records no particular amish affiliation. Living Will: Never completed Health Care Surrogate: Never completed Durable Power of Annealer Helper: Never completed Ethical and Legal Issues Patient currently not capacitated to pick participate in decision-making. In prior visits he is noted to be alert and oriented however he also has a long psychiatric history and has been a part of the FACT TEAM. Not clear if he has an appointed guardian or in in the past he has been making his own decisions. He has a executive secretary social welfare with the FACT team who has been following him for some time. Physical Exam Vital Signs Date Time Temp Pulse Resp B/P (MAP) Pulse Ox O2 Delivery O2 Flow Rate FiO2 05/15/17 11:39 100 100 05/15/17 11:31 62 111/71 (84) 05/15/17 10:34 97.1 62 14 101/69 (80) 100 Ventilator 40 05/15/17 09:54 99 40 05/15/17 09:44 40 05/15/17 09:43 61 102/73 (83) 05/15/17 09:26 61 105/74 (84) 05/15/17 09:11 62 108/76 (87) 05/15/17 09:04 65 105/75 (85) 05/15/17 08:55 72 119/78 (92) 05/15/17 08:50 100 50 05/15/17 08:40 87 108/62 (77) 05/15/17 08:33 80 104/57 (73) 05/15/17 08:32 (75) 100 Ventilator 60 05/15/17 08:29 84 115/56 (75) 05/15/17 08:05 100 100 05/15/17 07:49 60 05/15/17 07:33 86 40 100 Non-Rebreather 15.00 05/15/17 07:24 93 18 125/79 (94) 100 05/15/17 05/16/17 19:00 07:00 Intake Total 50 ml Balance 50 ml Intake IV Total 50 ml Exam CONSTITUTIONAL/GENERAL: This is an adequately nourished patient, in no apparent distress sedated on mechanical vent TUBES/LINES/DRAINS: Peripheral IV bilateral upper extremity. ET tube, OG tube, Menendez catheter, soft restraints bilateral SKIN: No jaundice, rashes, or lesions. No wounds seen anteriorly. Skin warm/ dry. HEAD: Atraumatic. Normocephalic. EYES: Pupils 2millimeters, slight reaction to light. scleral icterus. No injection or drainage. Fundi not examined. ENT: Nose without bleeding or purulent drainage. Able to visualize oropharynx secondary to ET tube, OG tube. NECK: Trachea midline. Supple, nontender. No palpable thyroid enlargement or nodularity. CARDIOVASCULAR: Regular rate and rhythm without murmur. No JVD. Peripheral pulses symmetric. RESPIRATORY/CHEST: Symmetric, unlabored respirations via mech vent. Clear to auscultation. Breath sounds equal bilaterally. GASTROINTESTINAL: Abdomen soft, no apparent tenderness, nondistended. No palpable masses. No guarding. Bowel sounds present. GENITOURINARY: Without palpable bladder distension. Menendez catheter in place clear yellow urine. MUSCULOSKELETAL: Extremities without clubbing, cyanosis, or edema. LYMPHATICS: No palpable cervical or supraclavicular adenopathy. NEUROLOGICAL: Sedated on mechanical vent. Minimally responsive. Brief eye opening to pain stimuli to extremities. Slight withdrawal on all four extremities to pain stimuli. PSYCHIATRIC: Limited assessment due to clinical condition no obvious anxiety , Diagnostic Tests Laboratory Laboratory Tests Test 05/15/17 07:25 05/15/17 07:45 05/15/17 09:00 05/15/17 09:03 White Blood Count 6.4 TH/MM3 (4.0-11.0) Red Blood Count 5.76 MIL/MM3 (4.50-5.90) Hemoglobin 16.7 GM/DL (13.0-17.0) Hematocrit 51.2 % (39.0-51.0) Mean Corpuscular Volume 88.9 FL (80.0-100.0) Mean Corpuscular Hemoglobin 29.0 PG (27.0-34.0) Mean Corpuscular Hemoglobin Concent 32.6 % (32.0-36.0) Red Cell Distribution Width 15.3 % (11.6-17.2) Platelet Count 89 TH/MM3 (150-450) Mean Platelet Volume 9.2 FL (7.0-11.0) Neutrophils (%) (Auto) 86.6 % (16.0-70.0) Lymphocytes (%) (Auto) 7.2 % (9.0-44.0) Monocytes (%) (Auto) 6.1 % (0.0-8.0) Eosinophils (%) (Auto) 0.0 % (0.0-4.0) Basophils (%) (Auto) 0.1 % (0.0-2.0) Neutrophils # (Auto) 5.6 TH/MM3 (1.8-7.7) Lymphocytes # (Auto) 0.5 TH/MM3 (1.0-4.8) Monocytes # (Auto) 0.4 TH/MM3 (0-0.9) Eosinophils # (Auto) 0.0 TH/MM3 (0-0.4) Basophils # (Auto) 0.0 TH/MM3 (0-0.2) CBC Comment AUTO DIFF Differential Total Cells Counted 100 Neutrophils % (Manual) 83 % (16-70) Band Neutrophils % 6 % (0-6) Lymphocytes % 5 % (9-44) Monocytes % 4 % (0-8) Neutrophils # (Manual) 5.8 TH/MM3 (1.8-7.7) Metamyelocytes 2 % (0-1) Differential Comment FINAL DIFF MANUAL Platelet Estimate LOW (NORMAL) Platelet Morphology Comment ENLARGED (NORMAL) Ovalocytes 1+ (NORMAL) Prothrombin Time 11.4 SEC (9.8-11.6) Prothromb Time International Ratio 1.1 RATIO Activated Partial Thromboplast Time 25.0 SEC (24.3-30.1) Blood Urea Nitrogen 19 MG/DL (7-18) Creatinine 0.99 MG/DL (0.60-1.30) Random Glucose 119 MG/DL (74-106) Total Protein 6.4 GM/DL (6.4-8.2) Albumin 3.6 GM/DL (3.4-5.0) Calcium Level 9.2 MG/DL (8.5-10.1) Alkaline Phosphatase 77 U/L (45-117) Aspartate Amino Transf (AST/SGOT) 14 U/L (15-37) Alanine Aminotransferase (ALT/SGPT) 17 U/L (12-78) Total Bilirubin 0.5 MG/DL (0.2-1.0) Sodium Level 140 MEQ/L (136-145) Potassium Level 4.8 MEQ/L (3.5-5.1) Chloride Level 96 MEQ/L (98-107) Carbon Dioxide Level 37.3 MEQ/L (21.0-32.0) Anion Gap 7 MEQ/L (5-15) Estimat Glomerular Filtration Rate 78 ML/MIN (>89) Total Creatine Kinase 58 U/L (39-308) Troponin I LESS THAN 0.02 NG/ML Thyroid Stimulating Hormone 3rd Gen 1.300 uIU/ML (0.358-3.740) Ethyl Alcohol Level LESS THAN 3 MG/DL (0-5) Lactic Acid Level 0.5 mmol/L (0.4-2.0) Urine Color YELLOW (YELLW/STRAW) Urine Turbidity CLEAR (CLEAR) Urine pH 5.5 (5.0-8.5) Urine Specific [place] 1.014 (1.002-1.035) Urine Protein TRACE mg/dL (NEG-TRACE) Urine Glucose (UA) NEG mg/dL (NEG) Urine Ketones NEG mg/dL (NEG) Urine Occult Blood NEG (NEG) Urine Nitrite NEG (NEG) Urine Bilirubin NEG (NEG) Urine Urobilinogen LESS THAN 2.0 MG/DL (LESS Urine Leukocyte Esterase NEG (NEG) Urine RBC 1 /hpf (0-3) Urine WBC 1 /hpf (0-5) Urine Squamous Epithelial Cells <1 /hpf (0-5) Urine Hyaline Casts 4 /lpf (RARE) Urine Mucus FEW /lpf (OCC) Microscopic Urinalysis Comment CATH-CULT NOT IND Blood Gas Puncture Site RT RADIAL Blood Gas Patient Temperature 98.6 Blood Gas HCO3 39 mmol/L (22-26) Blood Gas Base Excess 12.6 mmol/L (-2-2) Blood Gas Oxygen Saturation 93 % (90-100) Arterial Blood pH 7.36 (7.380-7.420) Arterial Blood Partial Pressure CO2 70 mmHg (38-42) Arterial Blood Partial Pressure O2 146 mmHG (61-120) Arterial Blood Oxygen Content 20.3 Vol % (12.0-20.0) Arterial Blood Carboxyhemoglobin 5.0 % (0-4) Arterial Blood Methemoglobin 1.0 % (0-2) Blood Gas Hemoglobin 15.4 G/DL (12.0-16.0) Oxygen Delivery Device VENTILATOR Blood Gas Ventilator Setting [facility]//12/600/+5 Blood Gas Inspired Oxygen 50 % Ammonia 62 MCMOL/L (11-32) Result Diagram: 05/15/17 0725 05/15/17 0725 Microbiology Microbiology Date/Time Source Procedure Growth Status 05/15/17 07:46 Blood Peripheral Aerobic Blood Culture Pending Received 05/15/17 07:46 Blood Peripheral Anaerobic Blood Culture Pending Received 05/15/17 07:45 Blood Peripheral Aerobic Blood Culture Pending Received 05/15/17 07:45 Blood Peripheral Anaerobic Blood Culture Pending Received 05/15/17 11:12 Sputum Endotracheal Gram Stain Pending Received 05/15/17 11:12 Sputum Endotracheal Sputum Culture Pending Received Imaging Last Impressions Chest X-Ray 05/15/17 0756 Signed Impressions: Service Date/Time: Monday, May 15, 2017 07:49 - CONCLUSION: Satisfactory position of recently placed endotracheal tube. No evidence of acute air space disease or significant congestion. COPD. Yoshi Bautista MD Head CT 05/15/17 0727 Signed Impressions: Service Date/Time: Monday, May 15, 2017 08:04 - CONCLUSION: No evidence of acute infarct, hemorrhage, mass or edema. Unremarkable exam. Yoshi Bautista MD CT Angiography 05/15/17 0000 Signed Impressions: Service Date/Time: Monday, May 15, 2017 11:30 - CONCLUSION: Mild emphysematous changes at the apices. Calcified granulomas. Mediastinal and hilar lymph nodes are mildly enlarged. No evidence for PE. Small bilateral effusions. Angel Balderas MD Procedures 3/2 intubated Patient/Family Conference Issues Discussed: discussion pending w executive secretary social welfare, ? possible family Assessment and Plan Disease Oriented Problem List: (1) Altered mental status, unspecified (2) Respiratory insufficiency (3) Hypoxia (4) Schizophrenia (5) Hypertension Symptom Scale: (1) Dyspnea (2) Anxiety Pertinent Non-Medical Issues Psychosocial:Lives in an [facility]/detention, apparently has lived there for several years. Originally from [place]. Prior psychiatric records indicate first psychotic break in his late teens. 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 He is apparently the oldest of 3 children. He has a brother Ankur who had been in long-term, another brother Drayl who had at some point been living with the patient. It appears based on review of records she has been associated with the fact team for some time now. Has never been , no children. High school graduate. Limited work history secondary to the severity of his mental illness. Per previous records the fact team executive secretary social welfare has indicated he believes the brother Daryl to have "borderline intelligence, and the brother Ankur was incarcerated ". Spiritual: No particular amish affiliation Legal:Patient currently not capacitated to pick participate in decision-making. In prior visits he is noted to be alert and oriented however he also has a long psychiatric history and has been a part of the FACT TEAM. Not clear if he has an appointed guardian or in in the past he has been making his own decisions. He has a executive secretary social welfare with the FACT team who has been following him for some time. Ethical issues impacting care: Important Contacts FACT TEAM PAPI Rodriguez [phone] . Prognosis This patient was admitted today for altered mental status, hypoxia. He was intubated. He was just discharged one day ago for shortness of breath. He has not been using home O2 as prescribed. He is currently stable, likely he can get through current acute hospitalization and seems reasonable he would get back to his prior status, however if his psychiatric illness impairs his ability to adhere to recommended medical treatments he may be higher risk for further complications, setbacks, decline. Code Status: Full Code Plan * Legal decision maker:Patient currently not capacitated to pick participate in decision-making. In prior visits he is noted to be alert and oriented however he also has a long psychiatric history and has been a part of the FACT TEAM. Not clear if he has an appointed guardian or in in the past he has been making his own decisions. He has a executive secretary social welfare with the FACT team who has been following him for some time. * Goals: TBD, pending d/w appropriate legal decision maker . I have left a voicemail today for patient executive secretary social welfare with local FACT team. * CODE STATUS: full code by default * SYMPTOMS: --dyspnea - several recent admission for SOB, prescribed to use O2 at home, has not been. + smoker, ? hx COPD/ currently intubated for hypoxic resp failure , breathing comfortably on mech vent --agitation/anxiety- long psychiatric history risk for agitation/anxiety with invasive hospital procedures, hypoxia * Palliative care will continue to follow during hospital course as condition evolves, to assist patient/decision-maker with understanding of medical conditions, weighing benefits/burdens of treatment options, for clarification of goals of treatment. Additionally will assist with any symptoms of palliative concern . Thank you for the opportunity to participate in the care of Mr. Moore. Attestation To help prompt me to consider important information that might be impacting today's encounter and assessment, information from prior notes written by myself or my colleagues may have been "brought forward" into today's note. My signature on this note, however, is an attestation that I personally performed the exam, history, and/or decision-making noted today, and, unless otherwise indicated, the interactions with patient, family, and staff as well as the review of records all occurred today. I also attest that the listed assessment and stated plan reflect my best clinical judgment today based on the combination of historical information, prior notes, and today's exam/ interactions. When time spent is documented, it refers only to time spent today by the signer, or if indicated, combined time spent today by collaborating physician/nurse practitioner. Jeanne Salas May 15, 2017 12:23
[2017-05-15] MEDS: RESP: ALBUTEROL 2.5 MG/IPRATROPIUM 0.5 MG NEB (SCH) NEB ×3 (12:44→20:11)
[2017-05-15] MEDS: SODIUM CHLOR 0.9% 1000 ML INJ 1,000 ML IV SCH (12:52)
[2017-05-15] MEDS: PIPERACIL-TAZO 4.5 GM PREMIX 100 ML IV SCH ×2 (12:53→18:39)
[2017-05-15] MEDS ORDERED: ENOXAPARIN SODIUM 40 MG/0.4 ML SYRINGE SQ SCH (13:00)
[2017-05-15 14:33] LABS: TROPONIN I LESS THAN 0.02 NG/ML (0.02-0.05)
[2017-05-15] MEDS: AZITHROMYCIN INJ 500 MG in SODIUM CHLOR 0.9% 250 ML INJ 250 ML IV SCH (14:42)
[2017-05-15] MEDS: LINEZOLID 600 MG PREMIX 300 ML IV SCH (15:37)
--- NOTE | 2017-05-15 15:46 | HHI.CCPN ---
Subjective Remarks/Hospital Course HPI This patient presented to [facility] ER by [facility] with a chief complaint of acute altered mental status. He was last seen normal at 4 AM when he got up to use the restroom. He lives in an assisted living facility. This morning, he was noted to be altered. [facility]AC was called and he was brought to the hospital. The patient is unable to offer any history. The patient was just discharged from the hospital one day prior to current arrival. He was admitted for altered mental status secondary to hypoxia. He was discharged on home oxygen. EVAC reports that he was not wearing his oxygen on their arrival. His oxygen saturation was in the 70s on their arrival. They called a stroke alert and brought him to the hospital. Head CT negative for bleed. Patient was hypoxic in the ER with altered mental status and was intubated by ER physician and placed on mechanical ventilation. Patient was accepted for admission by critical care medicine service. When I evaluated the patient he was sedated with propofol, orally intubated on mechanical ventilation. History was obtained by reviewing records and discussion with ER physician [facility] Past Medical History Asthma: No Blood Disorders: No Anxiety: Yes Depression: No Heart Rhythm Problems: No Cancer: No Cardiovascular Problems: No High Cholesterol: No Chest Pain: No Congestive Heart Failure: No COPD: Yes Endocrine: No Gastrointestinal Disorders: No GERD: Yes Genitourinary: No Hypertension: Yes Immune Disorder: No Implanted Vascular Access Dvce: No Musculoskeletal: No Neurologic: Yes Psychiatric: Yes (SCHIZOPHRENIA) Reproductive: No Respiratory: Yes (COPD, EMPYSEMA ) Schizophrenia: Yes Sleep Apnea: No Ulcer: Yes Past Surgical History Surgical History: Unable to Obtain Other Surgery: Yes Social History Alcohol Use: No Tobacco Use: Yes (1 PPD) Substance Use: No Allergies-Medications (Allergen,Severity, Reaction): Coded Allergies: haloperidol (Unverified Allergy, Severe, Hives, 10/28/16) Reported Meds & Prescriptions Reported Meds & Active Scripts Active Prednisone 20 Mg Tab 20 Mg PO BID [Albuterol-Ipratropium Neb] 1 AMPULE Nebu 1 Ampule NEB Q6HR WHILE AWAKE NEB Levaquin (Levofloxacin) 500 Mg Tablet 500 Mg PO DAILY Clozaril (Clozapine) 100 Mg Tab 100 Mg PO HS 30 Days Invega Sustenna Inj (Paliperidone Palmitate) 39 Mg/0.25 Ml Inj 39 Mg IM Q28D Proair Hfa 8.5 GM Inh (Albuterol Sulfate) 90 Mcg/Act Aer 2 Puff INH Q6H PRN 108 mcg/actuation Gabapentin 600 Mg Tab 600 Mg PO HS Singulair (Montelukast Sodium) 10 Mg Tab 10 Mg PO HS Ropinirole 3 Mg Tab 3 Mg PO HS Triamterene-Hydrochlorothiazide 37.5-25 Mg Tab 1 Tab PO DAILY Paxil (Paroxetine HCl) 30 Mg Tab 30 Mg PO DAILY Omeprazole 20 Mg Cap 20 Mg PO DAILY Oxygen (O2) Device Liter CRESCENCIO.CANULA CONTINUOUS Oxygen Concentrator Portable Gaseous 4 L/min via Nasal Canula Continuous For 99 months Reported Cetirizine (Cetirizine HCl) 10 Mg Tab 10 Mg PO DAILY Fexofenadine (Fexofenadine HCl) 180 Mg Tab 180 Mg PO DAILY Naproxen 500 Mg Tab 500 Mg PO BID Fiber Laxative (Calcium Polycarbophil) 625 Mg Tab 625 Mg PO DAILY Review of Systems ROS Limitations: Altered Mental Status Objective Vital Signs Date Time Temp Pulse Resp B/P (MAP) Pulse Ox O2 Delivery O2 Flow Rate FiO2 05/15/17 14:41 75 20 110/69 (83) 100 40 05/15/17 12:54 Ventilator 05/15/17 10:34 97.1 05/15/17 07:33 15.00 Intake and Output 05/15/17 05/15/17 05/16/17 08:00 16:00 00:00 Intake Total 150 ml Balance 150 ml Result Diagram: 05/15/17 0725 05/15/17 0725 Other Results Laboratory Tests Test 05/15/17 09:03 Blood Gas Puncture Site RT RADIAL Blood Gas Patient Temperature 98.6 Blood Gas HCO3 39 mmol/L (22-26) Blood Gas Base Excess 12.6 mmol/L (-2-2) Blood Gas Oxygen Saturation 93 % (90-100) Arterial Blood pH 7.36 (7.380-7.420) Arterial Blood Partial Pressure CO2 70 mmHg (38-42) Arterial Blood Partial Pressure O2 146 mmHG (61-120) Arterial Blood Oxygen Content 20.3 Vol % (12.0-20.0) Arterial Blood Carboxyhemoglobin 5.0 % (0-4) Arterial Blood Methemoglobin 1.0 % (0-2) Blood Gas Hemoglobin 15.4 G/DL (12.0-16.0) Oxygen Delivery Device VENTILATOR Blood Gas Ventilator Setting [facility]//12/600/+5 Blood Gas Inspired Oxygen 50 % Imaging Last Impressions Chest X-Ray 05/15/17 0756 Signed Impressions: Service Date/Time: Monday, May 15, 2017 07:49 - CONCLUSION: Satisfactory position of recently placed endotracheal tube. No evidence of acute air space disease or significant congestion. COPD. Yoshi Bautista MD Head CT 05/15/17 0727 Signed Impressions: Service Date/Time: Monday, May 15, 2017 08:04 - CONCLUSION: No evidence of acute infarct, hemorrhage, mass or edema. Unremarkable exam. Yoshi Bautista MD CT Angiography 05/15/17 0000 Signed Impressions: Service Date/Time: Monday, May 15, 2017 11:30 - CONCLUSION: Mild emphysematous changes at the apices. Calcified granulomas. Mediastinal and hilar lymph nodes are mildly enlarged. No evidence for PE. Small bilateral effusions. Angel Balderas MD Objective Remarks HEENT/ Neuro: Sedated, orally intubated, no pallor, no icterus, tongue/ mucosa moist Neck: No JVD Chest/Pulm: on mech vent, good air entry bilaterally, no wheezing or crackles CVS: S1-S2 regular, no murmur GI/abdomen: soft, nontender, bowel sounds sluggish Extremities: warm bilaterally, no edema A/P Assessment and Plan Acute on chronic respiratory failure on mechanical ventilation COPD exacerbation Encephalopathy Schizophrenia Plan: Neuro: Sedation with propofol, daily sedation vacation. Continue psych meds Cardiovascular: IV hydration, watch for hypotension. Levophed for pressor support if needed. Pulmonary: Continue mechanical ventilation, vent bundle, bronchodilators as needed. IV Solu-Medrol. ID: Follow-up blood cultures, sputum Gram stain and cultures. Empiric antibiotic coverage with IV Zosyn, Zithromax, Zyvox. GI/liver: Start tube feeds and advanced to goal as tolerated Renal/: IV hydration, strict intake output, monitor and replete elect lites, follow BUN/creatinine. Heme: Follow CBC Prophylaxis: Pepcid/SCDs/Lovenox Condition critical Time spent on critical care excluding procedures 60 minutes Neeraj Covington MD May 15, 2017 15:46
[2017-05-15] MEDS: methylPREDNISolone SOD SUCC 125 MG/2 ML VIAL IV PUSH SCH ×2 (17:46→22:08)
--- NOTE | 2017-05-15 18:00 | EKG ---
Date Performed: 05/15/2017 Time Performed: 07:34:22 PTAGE: 56 years EKG: Sinus rhythm LOW QRS VOLTAGE IN EXTREMITY LEADS POSSIBLE ANTERIOR MYOCARDIAL INFARCTION ABNORMAL ECG PREVIOUS TRACING : 05/13/2017 15.56 Since the prior tracing, there has been no significant baeza DOCTOR: Neva Keith Interpretating Date/Time 05/15/2017 17:58:32
[2017-05-15] MEDS: CHLORHEXIDINE 0.12% (ORAL KIT) 15 ML CUP MT SCH (20:00)
[2017-05-15 20:41] LABS: TROPONIN I LESS THAN 0.02 NG/ML (0.02-0.05)
[2017-05-15] MEDS: FAMOTIDINE 20 MG TAB TUBE SCH (20:45)
[2017-05-15] MEDS: SODIUM CHLORIDE 0.9% FLUSH 10 ML FLUSH IV FLUSH SCH (20:45)
[2017-05-16] VITALS (31 sets, daily range): BP systolic 91–142; BP diastolic 57–79; PULSE 52–98; RESP 11–32; TEMP 97.8–98.5; O2SAT 89–100
[2017-05-16] MEDS: PIPERACIL-TAZO 4.5 GM PREMIX 100 ML IV SCH ×4 (00:21→13:45)
[2017-05-16] MEDS: SODIUM CHLOR 0.9% 1000 ML INJ 1,000 ML IV SCH ×3 (00:21→20:20)
[2017-05-16] MEDS: RESP: ALBUTEROL 2.5 MG/IPRATROPIUM 0.5 MG NEB (SCH) NEB ×7 (00:30→23:59)
[2017-05-16] MEDS: LINEZOLID 600 MG PREMIX 300 ML IV SCH ×2 (03:07→13:46)
[2017-05-16] MEDS: CHLORHEXIDINE GLUCONATE 2 % 1 PACK (2 CLOTHS) TOP SCH (03:09)
[2017-05-16] MEDS: PROPOFOL 1000 MG/100 ML INJ 100 ML IV PRN ×4 (05:28→19:56)
[2017-05-16] MEDS: methylPREDNISolone SOD SUCC 125 MG/2 ML VIAL IV PUSH SCH ×3 (06:20→19:56)
[2017-05-16 07:41] LABS: BASOPHIL % 0.1 % (0.0-2.0); HEMATOCRIT 47.8 % (39.0-51.0); HEMOGLOBIN 15.6 GM/DL (13.0-17.0); LYMPH % 2.8 % (9.0-44.0); LYMPHOCYTE # 0.1 TH/MM3 (1.0-4.8); MEAN CELL VOLUME 87.4 FL (80.0-100.0); MEAN CORPUSCULAR HEMOGLOBIN 28.5 PG (27.0-34.0); MEAN CORPUSCULAR HGB CONC 32.6 % (32.0-36.0); MEAN PLATELET VOLUME 9.3 FL (7.0-11.0); MONO % 1.4 % (0.0-8.0); MONOCYTE # 0.1 TH/MM3 (0-0.9); NEUT % 95.7 % (16.0-70.0); PLATELET COUNT 67 TH/MM3 (150-450); RED BLOOD COUNT 5.47 MIL/MM3 (4.50-5.90); RED CELL DISTRIBUTION WIDTH 15.3 % (11.6-17.2); WHITE BLOOD COUNT 5.2 TH/MM3 (4.0-11.0)
[2017-05-16] MEDS: FAMOTIDINE 20 MG TAB TUBE SCH ×2 (08:23→19:56)
[2017-05-16] MEDS: SODIUM CHLORIDE 0.9% FLUSH 10 ML FLUSH IV FLUSH SCH ×2 (08:23→19:57)
[2017-05-16] MEDS: CHLORHEXIDINE 0.12% (ORAL KIT) 15 ML CUP MT SCH ×2 (08:25→19:57)
[2017-05-16 08:38] LABS: ALBUMIN 2.9 GM/DL (3.4-5.0); ALKALINE PHOSPHATASE 62 U/L (45-117); ALT (GPT) 15 U/L (12-78); AST (GOT) 9 U/L (15-37); BLOOD UREA NITROGEN 20 MG/DL (7-18); CALCIUM 8.6 MG/DL (8.5-10.1); CHLORIDE 98 MEQ/L (98-107); CREATININE 1.18 MG/DL (0.60-1.30); GLOMERULAR FILTRATION RATE 64 ML/MIN (>89); GLUCOSE,RANDOM 182 MG/DL (74-106); SODIUM (NA) 142 MEQ/L (136-145); TOTAL BILIRUBIN ADULT 0.7 MG/DL (0.2-1.0); TOTAL PROTEIN 5.4 GM/DL (6.4-8.2)
--- NOTE | 2017-05-16 13:22 | HHI.CCPN ---
Subjective Remarks/Hospital Course 05/15: This patient presented to [facility] ER by [facility]AC with a chief complaint of acute altered mental status. He was last seen normal at 4 AM when he got up to use the restroom. He lives in an assisted living facility. This morning, he was noted to be altered. [facility]AC was called and he was brought to the hospital. The patient is unable to offer any history. The patient was just discharged from the hospital one day prior to current arrival. He was admitted for altered mental status secondary to hypoxia. He was discharged on home oxygen. EVAC reports that he was not wearing his oxygen on their arrival. His oxygen saturation was in the 70s on their arrival. They called a stroke alert and brought him to the hospital. Head CT negative for bleed. Patient was hypoxic in the ER with altered mental status and was intubated by ER physician and placed on mechanical ventilation. Patient was accepted for admission by critical care medicine service. When I evaluated the patient he was sedated with propofol, orally intubated on mechanical ventilation. History was obtained by reviewing records and discussion with ER physician 05/16: Remains sedated, orally intubated on mechanical ventilation. Objective Vital Signs Date Time Temp Pulse Resp B/P (MAP) Pulse Ox O2 Delivery O2 Flow Rate FiO2 05/16/17 11:29 97 35 05/16/17 11:00 53 26 142/77 (98) 05/16/17 08:00 97.8 05/15/17 12:54 Ventilator 05/15/17 07:33 15.00 Intake and Output 05/16/17 05/16/17 05/17/17 08:00 16:00 00:00 Intake Total 1637 ml Output Total 2050.0 ml Balance -413.0 ml Result Diagram: 05/16/17 0701 05/16/17 0701 Other Results Laboratory Tests Test 05/16/17 05:26 Blood Gas Puncture Site RT RADIAL Blood Gas Patient Temperature 98.6 Blood Gas HCO3 34 mmol/L (22-26) Blood Gas Base Excess 8.1 mmol/L (-2-2) Blood Gas Oxygen Saturation 92 % (90-100) Arterial Blood pH 7.36 (7.380-7.420) Arterial Blood Partial Pressure CO2 61 mmHg (38-42) Arterial Blood Partial Pressure O2 79 mmHg (61-120) Arterial Blood Oxygen Content 20.1 Vol % (12.0-20.0) Arterial Blood Carboxyhemoglobin 1.5 % (0-4) Arterial Blood Methemoglobin 1.5 % (0-2) Blood Gas Hemoglobin 15.6 G/DL (12.0-16.0) Oxygen Delivery Device VENTILATOR Blood Gas Ventilator Setting SEE COMMENT Blood Gas Inspired Oxygen 45 % Imaging Last Impressions Chest X-Ray 05/15/17 0756 Signed Impressions: Service Date/Time: Monday, May 15, 2017 07:49 - CONCLUSION: Satisfactory position of recently placed endotracheal tube. No evidence of acute air space disease or significant congestion. COPD. Yoshi Bautista MD Head CT 05/15/17 0727 Signed Impressions: Service Date/Time: Monday, May 15, 2017 08:04 - CONCLUSION: No evidence of acute infarct, hemorrhage, mass or edema. Unremarkable exam. Yoshi Bautista MD CT Angiography 05/15/17 0000 Signed Impressions: Service Date/Time: Monday, May 15, 2017 11:30 - CONCLUSION: Mild emphysematous changes at the apices. Calcified granulomas. Mediastinal and hilar lymph nodes are mildly enlarged. No evidence for PE. Small bilateral effusions. Angel Balderas MD Objective Remarks HEENT/ Neuro: Sedated, orally intubated, no pallor, no icterus, tongue/ mucosa moist Neck: No JVD Chest/Pulm: on mech vent, good air entry bilaterally, no wheezing or crackles CVS: S1-S2 regular, no murmur GI/abdomen: soft, nontender, bowel sounds sluggish Extremities: warm bilaterally, no edema A/P Assessment and Plan Acute on chronic respiratory failure on mechanical ventilation COPD exacerbation Encephalopathy Schizophrenia Thrombocytopenia Plan: Neuro: Sedation with propofol, daily sedation vacation. Continue psych meds Cardiovascular: IV hydration, watch for hypotension. Levophed for pressor support if needed. Pulmonary: Continue mechanical ventilation, vent bundle, bronchodilators as needed. IV Solu-Medrol. ID: Follow-up blood cultures, sputum Gram stain and cultures. Empiric antibiotic coverage with IV Zosyn, Zithromax, Zyvox. GI/liver: Start tube feeds and advanced to goal as tolerated Renal/: IV hydration, strict intake output, monitor and replete elect lites, follow BUN/creatinine. Heme: Follow CBC. Check HIT screen in v/o low platelets Prophylaxis: Pepcid/SCDs/hold Lovenox in view of thrombocytopenia. Condition critical Time spent on critical care excluding procedures 30 minutes Neeraj Covington MD May 16, 2017 13:22
[2017-05-16] MEDS: AZITHROMYCIN INJ 500 MG in SODIUM CHLOR 0.9% 250 ML INJ 250 ML IV SCH (13:46)
[2017-05-17] VITALS (14 sets, daily range): BP systolic 115–150; BP diastolic 65–80; PULSE 58–109; RESP 18–26; TEMP 97.4–98.9; O2SAT 89–95
[2017-05-17] MEDS: PROPOFOL 1000 MG/100 ML INJ 100 ML IV PRN ×2 (00:02→03:20)
[2017-05-17] MEDS: PIPERACIL-TAZO 4.5 GM PREMIX 100 ML IV SCH ×4 (00:02→19:35)
[2017-05-17] MEDS: LINEZOLID 600 MG PREMIX 300 ML IV SCH ×2 (03:19→13:20)
[2017-05-17] MEDS: CHLORHEXIDINE GLUCONATE 2 % 1 PACK (2 CLOTHS) TOP SCH ×2 (03:19→22:27)
[2017-05-17] MEDS: RESP: ALBUTEROL 2.5 MG/IPRATROPIUM 0.5 MG NEB (SCH) NEB ×5 (03:32→19:53)
[2017-05-17] MEDS: methylPREDNISolone SOD SUCC 125 MG/2 ML VIAL IV PUSH SCH ×3 (05:34→19:55)
[2017-05-17] MEDS ORDERED: DEXMEDETOMIDINE INJ 200 MCG in SODIUM CHLORIDE 0.9% INJ 50 ML IV PRN (07:45)
[2017-05-17] MEDS ORDERED: DEXMEDETOMIDINE HCL 200 MCG/2 ML VIAL IV PUSH ONE (07:45)
--- NOTE | 2017-05-17 07:46 | HHI.CCPN ---
Subjective Remarks/Hospital Course 05/15: This patient presented to [facility] ER by EVAC with a chief complaint of acute altered mental status. He was last seen normal at 4 AM when he got up to use the restroom. He lives in an assisted living facility. This morning, he was noted to be altered. EVAC was called and he was brought to the hospital. The patient is unable to offer any history. The patient was just discharged from the hospital one day prior to current arrival. He was admitted for altered mental status secondary to hypoxia. He was discharged on home oxygen. EVAC reports that he was not wearing his oxygen on their arrival. His oxygen saturation was in the 70s on their arrival. They called a stroke alert and brought him to the hospital. Head CT negative for bleed. Patient was hypoxic in the ER with altered mental status and was intubated by ER physician and placed on mechanical ventilation. Patient was accepted for admission by critical care medicine service. When I evaluated the patient he was sedated with propofol, orally intubated on mechanical ventilation. History was obtained by reviewing records and discussion with ER physician 05/16: Remains sedated, orally intubated on mechanical ventilation. 05/17: Arousable, orally intubated on mechanical ventilation. Tolerated C Pap trial yesterday with pressure support +12, PEEP +5 Objective Vital Signs Date Time Temp Pulse Resp B/P (MAP) Pulse Ox O2 Delivery O2 Flow Rate FiO2 05/17/17 06:00 63 05/17/17 04:00 98.7 26 115/65 (82) 95 05/17/17 04:00 35 05/15/17 12:54 Ventilator 05/15/17 07:33 15.00 Intake and Output 05/17/17 05/17/17 05/18/17 08:00 16:00 00:00 Intake Total 1006 ml Output Total 1165 ml Balance -159 ml Result Diagram: 05/16/17 0701 05/16/17 0701 Imaging Last Impressions Chest X-Ray 05/15/17 2259 Signed Impressions: Service Date/Time: Monday, May 15, 2017 07:49 - CONCLUSION: Satisfactory position of recently placed endotracheal tube. No evidence of acute air space disease or significant congestion. COPD. Yoshi Bautista MD Head CT 05/15/17 0727 Signed Impressions: Service Date/Time: Monday, May 15, 2017 08:04 - CONCLUSION: No evidence of acute infarct, hemorrhage, mass or edema. Unremarkable exam. Yoshi Bautista MD CT Angiography 05/15/17 0000 Signed Impressions: Service Date/Time: Monday, May 15, 2017 11:30 - CONCLUSION: Mild emphysematous changes at the apices. Calcified granulomas. Mediastinal and hilar lymph nodes are mildly enlarged. No evidence for PE. Small bilateral effusions. Angel Balderas MD Objective Remarks HEENT/ Neuro: Sedated, arousable, orally intubated, no pallor, no icterus, tongue/ mucosa moist Neck: No JVD Chest/Pulm: on mech vent, good air entry bilaterally, no wheezing or crackles. Scattered rhonchi bilaterally CVS: S1-S2 regular, no murmur GI/abdomen: soft, nontender, bowel sounds sluggish Extremities: warm bilaterally, no edema A/P Assessment and Plan Acute on chronic respiratory failure on mechanical ventilation COPD exacerbation Encephalopathy Schizophrenia Thrombocytopenia Plan: Neuro: Sedation with propofol, daily sedation vacation. Continue psych meds. Will use Precedex following extubation to control anxiety. Cardiovascular: IV hydration, watch for hypotension. Levophed for pressor support if needed. Pulmonary: Continue mechanical ventilation, vent bundle, bronchodilators as needed. IV Solu-Medrol. Tolerated C Pap trial this morning, ordered extubation. ID: Follow-up blood cultures, sputum Gram stain and cultures. Empiric antibiotic coverage with IV Zosyn, Zithromax, Zyvox. GI/liver: Tolerating tube feeds which were held for planned extubation today. Renal/: IV hydration, strict intake output, monitor and replete elect lites, follow BUN/creatinine. Heme: Follow CBC. Check HIT screen in v/o low platelets Prophylaxis: Pepcid/SCDs/hold Lovenox in view of thrombocytopenia. Neeraj Covington MD May 17, 2017 07:46
[2017-05-17] MEDS: CHLORHEXIDINE 0.12% (ORAL KIT) 15 ML CUP MT SCH ×2 (07:52→19:49)
[2017-05-17] MEDS: FAMOTIDINE 20 MG TAB TUBE SCH ×2 (07:53→19:49)
[2017-05-17] MEDS: SODIUM CHLORIDE 0.9% FLUSH 10 ML FLUSH IV FLUSH SCH ×2 (07:53→19:49)
[2017-05-17 10:46] LABS: AUTOMATED NEUTROPHIL # 11.1 TH/MM3 (1.8-7.7); BASOPHIL % 0.3 % (0.0-2.0); HEMATOCRIT 47.9 % (39.0-51.0); HEMOGLOBIN 15.5 GM/DL (13.0-17.0); LYMPH % 2.1 % (9.0-44.0); LYMPHOCYTE # 0.3 TH/MM3 (1.0-4.8); MEAN CELL VOLUME 87.3 FL (80.0-100.0); MEAN CORPUSCULAR HEMOGLOBIN 28.2 PG (27.0-34.0); MEAN CORPUSCULAR HGB CONC 32.3 % (32.0-36.0); MEAN PLATELET VOLUME 9.4 FL (7.0-11.0); MONO % 4.4 % (0.0-8.0); MONOCYTE # 0.5 TH/MM3 (0-0.9); NEUT % 93.2 % (16.0-70.0); PLATELET COUNT 72 TH/MM3 (150-450); RED BLOOD COUNT 5.48 MIL/MM3 (4.50-5.90); RED CELL DISTRIBUTION WIDTH 15.6 % (11.6-17.2); WHITE BLOOD COUNT 11.9 TH/MM3 (4.0-11.0)
[2017-05-17 11:12] LABS: ALKALINE PHOSPHATASE 56 U/L (45-117); ALT (GPT) 13 U/L (12-78); AST (GOT) 13 U/L (15-37); BICARBONATE 35.9 MEQ/L (21.0-32.0); BLOOD UREA NITROGEN 23 MG/DL (7-18); CALCIUM 8.8 MG/DL (8.5-10.1); CHLORIDE 106 MEQ/L (98-107); CREATININE 0.94 MG/DL (0.60-1.30); GLOMERULAR FILTRATION RATE 83 ML/MIN (>89); GLUCOSE,RANDOM 112 MG/DL (74-106); SODIUM (NA) 145 MEQ/L (136-145); TOTAL BILIRUBIN ADULT 0.5 MG/DL (0.2-1.0); TOTAL PROTEIN 5.6 GM/DL (6.4-8.2)
[2017-05-17] MEDS: AZITHROMYCIN INJ 500 MG in SODIUM CHLOR 0.9% 250 ML INJ 250 ML IV SCH (12:01)
[2017-05-17] MEDS ORDERED: PILL SPLITTER OTHER PRN (14:15)
[2017-05-17] MEDS: SODIUM CHLOR 0.9% 1000 ML INJ 1,000 ML IV SCH (19:35)
[2017-05-17] MEDS: MONTELUKAST SODIUM 10 MG TAB PO SCH (19:48)
[2017-05-17] MEDS: GABAPENTIN 300 MG CAP PO SCH (19:49)
[2017-05-17] MEDS: cloZAPine 100 MG TAB PO SCH (19:49)
[2017-05-18] VITALS (18 sets, daily range): BP systolic 115–145; BP diastolic 56–80; PULSE 56–76; RESP 12–21; TEMP 98–99.9; O2SAT 90–99
[2017-05-18] MEDS: RESP: ALBUTEROL 2.5 MG/IPRATROPIUM 0.5 MG NEB (SCH) NEB ×5 (00:22→19:27)
[2017-05-18] MEDS: LINEZOLID 600 MG PREMIX 300 ML IV SCH (02:26)
[2017-05-18] MEDS: PIPERACIL-TAZO 4.5 GM PREMIX 100 ML IV SCH ×3 (02:26→13:06)
[2017-05-18 05:39] LABS: AUTOMATED NEUTROPHIL # 8.4 TH/MM3 (1.8-7.7); BASOPHIL % 0.1 % (0.0-2.0); HEMATOCRIT 47.8 % (39.0-51.0); HEMOGLOBIN 15.6 GM/DL (13.0-17.0); LYMPH % 4.6 % (9.0-44.0); LYMPHOCYTE # 0.4 TH/MM3 (1.0-4.8); MEAN CELL VOLUME 86.8 FL (80.0-100.0); MEAN CORPUSCULAR HEMOGLOBIN 28.3 PG (27.0-34.0); MEAN CORPUSCULAR HGB CONC 32.6 % (32.0-36.0); MEAN PLATELET VOLUME 9.4 FL (7.0-11.0); MONO % 6.5 % (0.0-8.0); MONOCYTE # 0.6 TH/MM3 (0-0.9); NEUT % 88.8 % (16.0-70.0); PLATELET COUNT 64 TH/MM3 (150-450); RED CELL DISTRIBUTION WIDTH 15.6 % (11.6-17.2); WHITE BLOOD COUNT 9.5 TH/MM3 (4.0-11.0)
--- NOTE | 2017-05-18 05:46 | RADRPT ---
EXAM DATE/TIME: 05/18/2017 04:23 [place] COMPARISON: CT PULMONARY ANGIOGRAM, May 15, 2017, 11:30. CHEST SINGLE AP, May 15, 2017, 7:49. INDICATIONS : Shortness of breath, possible pulmonary. MEDICAL HISTORY : Chronic obstructive pulmonary disease. SURGICAL HISTORY : None. ENCOUNTER: Subsequent ACUITY: 2 days PAIN SCORE: Non-responsive. LOCATION: Bilateral chest FINDINGS: Portable AP view of the chest demonstrates a normal-sized cardiac silhouette. The endotracheal tube a nd nasogastric tube have been removed. Lungs are mildly underinflated with subtle bibasilar opacity. EKG lines overlie the patient. No pleural effusion or pneumothorax is seen. The bones and soft tissue s demonstrate no acute finding. CONCLUSION: Mild atelectasis at the lung bases. Otherwise, no acute finding is identified. Aknur Nevarez MD on May 18, 2017 at 5:44 Board Certified Radiologist. This report was verified electronically.
[2017-05-18] MEDS: methylPREDNISolone SOD SUCC 125 MG/2 ML VIAL IV PUSH SCH ×2 (05:59→13:06)
[2017-05-18 06:00] LABS: ALBUMIN 2.8 GM/DL (3.4-5.0); ALT (GPT) 16 U/L (12-78); AST (GOT) 13 U/L (15-37); BICARBONATE 36.7 MEQ/L (21.0-32.0); BLOOD UREA NITROGEN 24 MG/DL (7-18); CALCIUM 8.5 MG/DL (8.5-10.1); CHLORIDE 105 MEQ/L (98-107); CREATININE 0.99 MG/DL (0.60-1.30); GLOMERULAR FILTRATION RATE 78 ML/MIN (>89); GLUCOSE,RANDOM 143 MG/DL (74-106); MAGNESIUM 2.3 MG/DL (1.5-2.5); SODIUM (NA) 146 MEQ/L (136-145)
[2017-05-18 06:02] LABS: ALKALINE PHOSPHATASE 50 U/L (45-117); TOTAL BILIRUBIN ADULT 0.8 MG/DL (0.2-1.0); TOTAL PROTEIN 5.5 GM/DL (6.4-8.2)
[2017-05-18] MEDS: LORATADINE 10 MG TAB PO SCH (09:09)
[2017-05-18] MEDS: SODIUM CHLORIDE 0.9% FLUSH 10 ML FLUSH IV FLUSH SCH ×2 (09:09→21:16)
[2017-05-18] MEDS: FAMOTIDINE 20 MG TAB TUBE SCH ×2 (09:09→21:19)
[2017-05-18] MEDS: TRIAMTERENE/HCTZ 37.5 MG/25 MG TAB PO SCH (09:09)
[2017-05-18] MEDS: CHLORHEXIDINE 0.12% (ORAL KIT) 15 ML CUP MT SCH ×2 (09:10→19:42)
[2017-05-18] MEDS: PARoxetine HCL 20 MG TAB PO SCH (09:10)
[2017-05-18] MEDS: SODIUM CHLOR 0.9% 1000 ML INJ 1,000 ML IV SCH (11:20)
[2017-05-18] MEDS: AZITHROMYCIN INJ 500 MG in SODIUM CHLOR 0.9% 250 ML INJ 250 ML IV SCH (13:06)
[2017-05-18 14:33] LABS: HEPARIN INDUCED PLATELET AB Weak Positive (NEGATIVE)
[2017-05-18] MEDS ORDERED: RESP: ALBUTEROL 2.5 MG/IPRATROPIUM 0.5 MG NEB (PRN) NEB (15:15)
--- NOTE | 2017-05-18 15:19 | HHI.PR ---
Subjective Remarks Follow up for acute respiratory failure with hypercapnia and hypoxia. Patient is currently doing well on nasal cannula. However, he is requiring more than 5 L of O2. He denies any chest pain, fever, chills. He does report cough. Objective Vitals Vital Signs Date Time Temp Pulse Resp B/P (MAP) Pulse Ox O2 Delivery O2 Flow Rate FiO2 05/18/17 12:05 93 Nasal Cannula 6.00 05/18/17 12:00 63 05/18/17 12:00 98.5 63 16 132/64 (86) 05/18/17 10:00 62 05/18/17 08:25 97 Nasal Cannula 3.00 05/18/17 08:00 98.5 67 12 131/74 (93) 95 05/18/17 08:00 67 05/18/17 07:00 95 Nasal Cannula 4.00 05/18/17 06:00 62 05/18/17 04:00 63 05/18/17 04:00 98.0 63 12 121/64 (83) 93 05/18/17 02:00 72 05/18/17 00:22 99 Nasal Cannula 4.00 05/18/17 00:00 98.7 64 13 115/56 (75) 92 05/18/17 00:00 64 05/17/17 22:00 73 05/17/17 20:00 82 05/17/17 20:00 97.4 82 19 125/67 (86) 93 05/17/17 19:53 94 Nasal Cannula 4.00 05/17/17 19:00 92 Nasal Cannula 4.00 05/17/17 18:00 109 05/17/17 16:00 98.7 61 19 145/80 (101) 89 05/17/17 16:00 61 I/O 05/17/17 05/17/17 05/17/17 05/18/17 05/18/17 05/18/17 07:00 15:00 23:00 07:00 15:00 23:00 Intake Total 1106 ml 650 ml 1272 ml 480 ml Output Total 1165 ml 1150 ml 1775 ml Balance -59 ml 650 ml 122 ml -1295 ml Intake Oral 480 ml IV Total 300 ml 650 ml 1100 ml Tube Feeding 806 ml 112 ml Tube Irrigant 60 ml Output Urine Total 1165 ml 1150 ml 1775 ml # Bowel Movements 1 2 2 Result Diagram: 05/18/17 0511 05/18/17 0511 Imaging Last Impressions Chest X-Ray 05/18/17 0600 Signed Impressions: Service Date/Time: Thursday, May 18, 2017 04:23 - CONCLUSION: Mild atelectasis at the lung bases. Otherwise, no acute finding is identified. Ankur Nevarez MD Head CT 05/15/17 0727 Signed Impressions: Service Date/Time: Monday, May 15, 2017 08:04 - CONCLUSION: No evidence of acute infarct, hemorrhage, mass or edema. Unremarkable exam. Yoshi Bautista MD CT Angiography 05/15/17 0000 Signed Impressions: Service Date/Time: Monday, May 15, 2017 11:30 - CONCLUSION: Mild emphysematous changes at the apices. Calcified granulomas. Mediastinal and hilar lymph nodes are mildly enlarged. No evidence for PE. Small bilateral effusions. Angel Balderas MD Objective Remarks GENERAL: Alert, NAD. SKIN: Warm and dry. HEAD: Normocephalic. EYES: No scleral icterus. No injection or drainage. NECK: Supple, trachea midline. No JVD or lymphadenopathy. CARDIOVASCULAR: Regular rate and rhythm without murmurs, gallops, or rubs. RESPIRATORY: Poor air entry, Mild wheezes No accessory muscle use. GASTROINTESTINAL: Abdomen soft, non-tender, nondistended. MUSCULOSKELETAL: No cyanosis, or edema. BACK: Nontender without obvious deformity. No CVA tenderness. Procedures Intubation and extubation. Extubation on 05/17/2017. A/P Problem List: (1) Acute respiratory failure with hypoxia and hypercapnia ICD Code: J96.01 - Acute respiratory failure with hypoxia; J96.02 - Acute respiratory failure with hypercapnia (2) COPD with acute exacerbation ICD Code: J44.1 - Chronic obstructive pulmonary disease with (acute) exacerbation (3) Delirium ICD Code: R41.0 - Disorientation, unspecified Status: Acute (4) Thrombocytopenia ICD Code: D69.6 - Thrombocytopenia, unspecified Assessment and Plan Mr. Moore is a pleasant 57 year old male with a history of COPD who was admitted to the hospital due to acute change in mental status. He lives at an [facility]. He was found not wearing O2 at the time EVAC found him. He was discharged from the hospital recently with home O2. Due to patient's mental status, he was intubated in the ED and CCM was consulted. He was extubated on 05/17/2017. - Acute respiratory failure with hypoxia and hypercapnia - Acute COPD exacerbation -ABG on admission 7.36/70/146. -Patient is requiring 5-6L of O2 via NC. He is maintaining only 90-91% of O2 saturation. -We will use BiPAP at night if patient tolerates it. - Change DuoNeb to Scheduled and PRN - D/C all abx and start patient Levaquin 750mg PO Qday. - Change Solu-medrol to 40mg Q6hrs. - Acute delirium - possibly due to CO2 narcosis. Patient appears to be coherent today. - Thrombocytopenia - PLT count is 60-75. HIT abx was weakly positive. - Probably chronic. May benefit from an outpatient evaluation. Full code. Ambulation. SCDs. Margaret Esquivel DO May 18, 2017 15:19
[2017-05-18] MEDS ORDERED: RESP: ALBUTEROL 2.5 MG/IPRATROPIUM 0.5 MG NEB (SCH) NEB (16:00)
[2017-05-18] MEDS: LEVOFLOXACIN 750 MG TAB PO SCH (16:11)
--- NOTE | 2017-05-18 17:49 | HHI.HCPN ---
Reason for visit a. To assist with evaluation and management of symptoms including: b. To assist medical decision maker(s) with: better understanding of current medical conditions; weighing benefits/burdens of medical treatment options; making medical treatment decisions. Subjective/Interval History Palliative care follow-up for further clarification of goals of care. Patient with COPD and schizophrenia. Recurrent hospitalization secondary to COPD exacerbation, noncompliance with O2 and medications. Patient intubated on , medically extubated on 05/17/17. He was seen in his room, resting in bed in no acute distress. Patient will lift and oriented x self, place and situation. Reviewed events leading to this hospitalization, clinical course and current medical management. Patient was able to tell me why he was hospitalized. He appears to have a good understanding of his chronic medical issues. Reports that he has been residing at [facility] for the past 7 years. Receiving psychiatric treatment as outpatient for schizophrenia, support group provided by [facility] and his long term care social worker Tariq Sommers. Patient confirmed that both of his parents are , brother Bill's , brother Daryl has mental disability and is homeless. Patient reports that no advanced directives have been previously completed. Assisted patient with completion of designation of healthcare surrogate, patient electing Alexander Tootie as his designated healthcare surrogate. They have known each other for over 15 years and patient verbalized that he is the only person who he trusts with medical decision making. Reviewed risks, benefits and limitations of CPR, intubation and mechanical ventilation. Patient electing to remain full code at this time. Verbalized feeling comfortable with Mr. Sommers making decisions on his behalf if he is unable to medically extubate. Patient's goal is to return to [facility] for independent living. Telephone conversation with long term care social worker Mr. Sommers. He reports that they are following patient only for outpatient mental health support, they have no advance directives for POA on record. Patient making his own medical decisions. Mr. Sommers reports that both of patient's parents are , brother Ankur 2 years ago. Only one brother Daryl who is mentally disabled and homeless. Patient is single, no children. . Family/friend interactions See interval note. . Advance Directives Living Will: Never completed Health Care Surrogate: Copy in medical record Durable Power of Ear Flap Binder: Never completed Advance Directive Specifics Date completed: 05/18/2017. . Health Care Surrogate(s): Patient electing Alexander JimenezCody Sommers as healthcare surrogate decision maker. No alternate surrogate. . Significant change in goals: Goal of therapy remain unchanged. . Objective Vital Signs Date Time Temp Pulse Resp B/P (MAP) Pulse Ox O2 Delivery O2 Flow Rate FiO2 05/18/17 16:00 98.8 59 21 135/80 (98) 90 05/18/17 16:00 59 05/18/17 14:00 76 05/18/17 12:05 93 Nasal Cannula 6.00 05/18/17 12:00 63 05/18/17 12:00 98.5 63 16 132/64 (86) 05/18/17 10:00 62 05/18/17 08:25 97 Nasal Cannula 3.00 05/18/17 08:00 98.5 67 12 131/74 (93) 95 05/18/17 08:00 67 05/18/17 07:00 95 Nasal Cannula 4.00 05/18/17 06:00 62 05/18/17 04:00 63 05/18/17 04:00 98.0 63 12 121/64 (83) 93 05/18/17 02:00 72 05/18/17 00:22 99 Nasal Cannula 4.00 05/18/17 00:00 98.7 64 13 115/56 (75) 92 05/18/17 00:00 64 05/17/17 22:00 73 05/17/17 20:00 82 05/17/17 20:00 97.4 82 19 125/67 (86) 93 05/17/17 19:53 94 Nasal Cannula 4.00 05/17/17 19:00 92 Nasal Cannula 4.00 05/17/17 18:00 109 Intake & Output 05/18/17 05/18/17 06:59 18:59 Intake Total 1580 ml Output Total 1775 ml Balance -195 ml Intake Oral 480 ml IV Total 1100 ml Output Urine Total 1775 ml # Bowel Movements 2 Physical Exam CONSTITUTIONAL/GENERAL: This is an adequately nourished patient, in no apparent distress. TUBES/LINES/DRAINS: Peripheral IV bilateral upper extremity. Menendez catheter, nasal cannula. SKIN: No jaundice, rashes, or lesions. Ecchymosis on upper extremities. No wounds seen anteriorly. Skin warm/dry. HEAD: Atraumatic. Normocephalic. EYES: Pupils round and reactive. No scleral icterus. No injection or drainage. ENT: Nose without bleeding or purulent drainage. Moist oral mucosa. NECK: Trachea midline. Supple, nontender. CARDIOVASCULAR: Regular rate and rhythm without murmur. Peripheral pulses symmetric. RESPIRATORY/CHEST: Symmetric, unlabored respirations. Clear, diminished to auscultation. GASTROINTESTINAL: Abdomen large, obese, nontender. No guarding. Bowel sounds present. GENITOURINARY: Without palpable bladder distension. Menendez catheter in place clear yellow urine. MUSCULOSKELETAL: Extremities without clubbing, cyanosis, or edema. NEUROLOGICAL: Alert and oriented x self, place and situation. Following commands. Moving all extremities. PSYCHIATRIC: Calm. No anxiety. , Diagnostic Tests Laboratory Laboratory Tests Test 05/15/17 19:47 05/16/17 05:26 05/16/17 07:01 05/17/17 10:20 Total Creatine Kinase 26 U/L (39-308) Troponin I LESS THAN 0.02 NG/ML Blood Gas Puncture Site RT RADIAL Blood Gas Patient Temperature 98.6 Blood Gas HCO3 34 mmol/L (22-26) Blood Gas Base Excess 8.1 mmol/L (-2-2) Blood Gas Oxygen Saturation 92 % (90-100) Arterial Blood pH 7.36 (7.380-7.420) Arterial Blood Partial Pressure CO2 61 mmHg (38-42) Arterial Blood Partial Pressure O2 79 mmHg (61-120) Arterial Blood Oxygen Content 20.1 Vol % (12.0-20.0) Arterial Blood Carboxyhemoglobin 1.5 % (0-4) Arterial Blood Methemoglobin 1.5 % (0-2) Blood Gas Hemoglobin 15.6 G/DL (12.0-16.0) Oxygen Delivery Device VENTILATOR Blood Gas Ventilator Setting SEE COMMENT Blood Gas Inspired Oxygen 45 % White Blood Count 5.2 TH/MM3 (4.0-11.0) 11.9 TH/MM3 (4.0-11.0) Red Blood Count 5.47 MIL/MM3 (4.50-5.90) 5.48 MIL/MM3 (4.50-5.90) Hemoglobin 15.6 GM/DL (13.0-17.0) 15.5 GM/DL (13.0-17.0) Hematocrit 47.8 % (39.0-51.0) 47.9 % (39.0-51.0) Mean Corpuscular Volume 87.4 FL (80.0-100.0) 87.3 FL (80.0-100.0) Mean Corpuscular Hemoglobin 28.5 PG (27.0-34.0) 28.2 PG (27.0-34.0) Mean Corpuscular Hemoglobin Concent 32.6 % (32.0-36.0) 32.3 % (32.0-36.0) Red Cell Distribution Width 15.3 % (11.6-17.2) 15.6 % (11.6-17.2) Platelet Count 67 TH/MM3 (150-450) 72 TH/MM3 (150-450) Mean Platelet Volume 9.3 FL (7.0-11.0) 9.4 FL (7.0-11.0) Neutrophils (%) (Auto) 95.7 % (16.0-70.0) 93.2 % (16.0-70.0) Lymphocytes (%) (Auto) 2.8 % (9.0-44.0) 2.1 % (9.0-44.0) Monocytes (%) (Auto) 1.4 % (0.0-8.0) 4.4 % (0.0-8.0) Eosinophils (%) (Auto) 0.0 % (0.0-4.0) 0.0 % (0.0-4.0) Basophils (%) (Auto) 0.1 % (0.0-2.0) 0.3 % (0.0-2.0) Neutrophils # (Auto) 5.0 TH/MM3 (1.8-7.7) 11.1 TH/MM3 (1.8-7.7) Lymphocytes # (Auto) 0.1 TH/MM3 (1.0-4.8) 0.3 TH/MM3 (1.0-4.8) Monocytes # (Auto) 0.1 TH/MM3 (0-0.9) 0.5 TH/MM3 (0-0.9) Eosinophils # (Auto) 0.0 TH/MM3 (0-0.4) 0.0 TH/MM3 (0-0.4) Basophils # (Auto) 0.0 TH/MM3 (0-0.2) 0.0 TH/MM3 (0-0.2) CBC Comment AUTO DIFF AUTO DIFF Differential Comment AUTO DIFF CONFIRMED AUTO DIFF CONFIRMED Platelet Estimate LOW (NORMAL) LOW (NORMAL) Platelet Morphology Comment NORMAL (NORMAL) NORMAL (NORMAL) Blood Urea Nitrogen 20 MG/DL (7-18) 23 MG/DL (7-18) Creatinine 1.18 MG/DL (0.60-1.30) 0.94 MG/DL (0.60-1.30) Random Glucose 182 MG/DL (74-106) 112 MG/DL (74-106) Total Protein 5.4 GM/DL (6.4-8.2) 5.6 GM/DL (6.4-8.2) Albumin 2.9 GM/DL (3.4-5.0) 3.0 GM/DL (3.4-5.0) Calcium Level 8.6 MG/DL (8.5-10.1) 8.8 MG/DL (8.5-10.1) Alkaline Phosphatase 62 U/L (45-117) 56 U/L (45-117) Aspartate Amino Transf (AST/SGOT) 9 U/L (15-37) 13 U/L (15-37) Alanine Aminotransferase (ALT/SGPT) 15 U/L (12-78) 13 U/L (12-78) Total Bilirubin 0.7 MG/DL (0.2-1.0) 0.5 MG/DL (0.2-1.0) Sodium Level 142 MEQ/L (136-145) 145 MEQ/L (136-145) Potassium Level 3.4 MEQ/L (3.5-5.1) 4.2 MEQ/L (3.5-5.1) Chloride Level 98 MEQ/L (98-107) 106 MEQ/L (98-107) Carbon Dioxide Level 34.0 MEQ/L (21.0-32.0) 35.9 MEQ/L (21.0-32.0) Anion Gap 10 MEQ/L (5-15) 3 MEQ/L (5-15) Estimat Glomerular Filtration Rate 64 ML/MIN (>89) 83 ML/MIN (>89) Red Cell Morphology Comment NORMAL (NORMAL) Heparin-Induced Platelet Ab (Faiza) Weak Positive (NEGATIVE) HIPA Patient Optical Density 0.468 O.D. (0.000-0.300) Test 05/18/17 05:11 05/18/17 16:20 White Blood Count 9.5 TH/MM3 (4.0-11.0) Red Blood Count 5.50 MIL/MM3 (4.50-5.90) Hemoglobin 15.6 GM/DL (13.0-17.0) Hematocrit 47.8 % (39.0-51.0) Mean Corpuscular Volume 86.8 FL (80.0-100.0) Mean Corpuscular Hemoglobin 28.3 PG (27.0-34.0) Mean Corpuscular Hemoglobin Concent 32.6 % (32.0-36.0) Red Cell Distribution Width 15.6 % (11.6-17.2) Platelet Count 64 TH/MM3 (150-450) Mean Platelet Volume 9.4 FL (7.0-11.0) Neutrophils (%) (Auto) 88.8 % (16.0-70.0) Lymphocytes (%) (Auto) 4.6 % (9.0-44.0) Monocytes (%) (Auto) 6.5 % (0.0-8.0) Eosinophils (%) (Auto) 0.0 % (0.0-4.0) Basophils (%) (Auto) 0.1 % (0.0-2.0) Neutrophils # (Auto) 8.4 TH/MM3 (1.8-7.7) Lymphocytes # (Auto) 0.4 TH/MM3 (1.0-4.8) Monocytes # (Auto) 0.6 TH/MM3 (0-0.9) Eosinophils # (Auto) 0.0 TH/MM3 (0-0.4) Basophils # (Auto) 0.0 TH/MM3 (0-0.2) CBC Comment AUTO DIFF Differential Comment AUTO DIFF CONFIRMED Platelet Estimate LOW (NORMAL) Platelet Morphology Comment NORMAL (NORMAL) Blood Urea Nitrogen 24 MG/DL (7-18) Creatinine 0.99 MG/DL (0.60-1.30) Random Glucose 143 MG/DL (74-106) Total Protein 5.5 GM/DL (6.4-8.2) Albumin 2.8 GM/DL (3.4-5.0) Calcium Level 8.5 MG/DL (8.5-10.1) Magnesium Level 2.3 MG/DL (1.5-2.5) Alkaline Phosphatase 50 U/L (45-117) Aspartate Amino Transf (AST/SGOT) 13 U/L (15-37) Alanine Aminotransferase (ALT/SGPT) 16 U/L (12-78) Total Bilirubin 0.8 MG/DL (0.2-1.0) Sodium Level 146 MEQ/L (136-145) Potassium Level 3.7 MEQ/L (3.5-5.1) Chloride Level 105 MEQ/L (98-107) Carbon Dioxide Level 36.7 MEQ/L (21.0-32.0) Anion Gap 4 MEQ/L (5-15) Estimat Glomerular Filtration Rate 78 ML/MIN (>89) Result Diagram: 05/18/17 0505/18/17 05 Imaging Last 48 hours Impressions Chest X-Ray 05/18/17 0600 Signed Impressions: Service Date/Time: Thursday, May 18, 2017 04:23 - CONCLUSION: Mild atelectasis at the lung bases. Otherwise, no acute finding is identified. Ankur Nevarez MD Procedures * 05/15/17 -intubated * 05/17/17 -medically extubated . Assessment and Plan Disease Oriented Problem List: (1) Altered mental status, unspecified (2) Respiratory insufficiency (3) Hypoxia (4) Schizophrenia (5) Hypertension Symptom Scale: (1) Dyspnea 0-10 Scale: Unable to quantify (2) Anxiety 0-10 Scale: 0 Pertinent Non-Medical Issues Psychosocial:Lives in an [facility]/long-term, apparently has lived there for several years. Originally from [place]. Prior psychiatric records indicate first psychotic break in his late teens. 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 He is apparently the oldest of 3 children. He has a brother Ankur who had been in retirement, another brother Daryl who had at some point been living with the patient. It appears based on review of records she has been associated with the fact team for some time now. Has never been , no children. High school graduate. Limited work history secondary to the severity of his mental illness. Per previous records the fact team long term care social worker has indicated he believes the brother Daryl to have "borderline intelligence, and the brother Ankur was incarcerated ". Spiritual: No particular yazidi affiliation Legal:Patient currently not capacitated to pick participate in decision-making. In prior visits he is noted to be alert and oriented however he also has a long psychiatric history and has been a part of the [employer]. Not clear if he has an appointed guardian or in in the past he has been making his own decisions. He has a long term care social worker with the [employer] who has been following him for some time. Ethical issues impacting care: Important Contacts [facility] Tariq Sommers . Prognosis Mr. Moore is a 57-year-old male with significant history of COPD and schizophrenia. Patient with frequent COPD exacerbations requiring hospitalizations. History of medication noncompliance. Patient at high risk for further complications, continued decline and . . Code Status: Full Code Plan * CODE STATUS: FULL code. * * HEALTHCARE DECISION-MAKING: Patient participating in medical decision-making. History of schizophrenia, however, psychiatric symptoms appear controlled. He appears to have a good understanding of his medical condition and recurrent hospitalizations. He was able to verbalized his medical issues and high risk for further decompensation. Patient has designated his longtime friend and outpatient long term care social worker Alexander Sommers as healthcare surrogate decision maker. No alternate surrogate. Patient verbalized that Mr. Sommers is the only person whom he trust for medical decisions. * GOALS OF CARE: Patient wishing for aggressive management to include reintubation if medically needed. His ultimate goal is to return to [facility] for independent living. * SYMPTOMS: --Dyspnea - several recent admission for COPD exacerbation. Patient O2 dependent at home, however, history of noncompliance. Patient extubated . Currently tolerating O2 via nasal cannula 6 L. Remains in medical ICU. --Agitation/anxiety- long psychiatric/its schizophrenia. Under psych outpatient management. Symptoms appear controlled with current regimen. --Debility -secondary to acute illness, prolonged hospitalization. Palliative care recommends PT eval for management. * Case discussed with bedside RN. * Palliative care will continue to follow during hospital course as condition evolves, to assist patient/decision-maker with understanding of medical conditions, weighing benefits/burdens of treatment options, for clarification of goals of treatment. Additionally will assist with any symptoms of palliative concern . Time Spent Total Floor Time (mins): 41 (Total time to include review of medical records, physical exam, goals of care conversation with patient, assistance with completion of designation of healthcare surrogate, case discussion with bedside RN.) >50% Counseling/Coord of Care: Yes Attestation To help prompt me to consider important information that might be impacting today's encounter and assessment, information from prior notes written by myself or my colleagues may have been "brought forward" into today's note. My signature on this note, however, is an attestation that I personally performed the exam, history, and/or decision-making noted today, and, unless otherwise indicated, the interactions with patient, family, and staff as well as the review of records all occurred today. I also attest that the listed assessment and stated plan reflect my best clinical judgment today based on the combination of historical information, prior notes, and today's exam/ interactions. When time spent is documented, it refers only to time spent today by the signer, or if indicated, combined time spent today by collaborating physician/nurse practitioner. Mary Rushing May 18, 2017 17:49
[2017-05-18] MEDS: methylPREDNISolone SOD SUCC 40 MG/1 ML VIAL IV PUSH SCH (17:57)
[2017-05-18] MEDS: GABAPENTIN 300 MG CAP PO SCH (21:17)
[2017-05-18] MEDS: cloZAPine 100 MG TAB PO SCH (21:17)
[2017-05-18] MEDS: MONTELUKAST SODIUM 10 MG TAB PO SCH (21:19)
[2017-05-19] VITALS (13 sets, daily range): BP systolic 108–160; BP diastolic 67–81; PULSE 54–75; RESP 16–24; TEMP 98.2–98.7; O2SAT 93–96
[2017-05-19] MEDS: methylPREDNISolone SOD SUCC 40 MG/1 ML VIAL IV PUSH SCH ×4 (00:03→19:15)
[2017-05-19] MEDS: CHLORHEXIDINE GLUCONATE 2 % 1 PACK (2 CLOTHS) TOP SCH (04:00)
[2017-05-19 06:32] LABS: AUTOMATED NEUTROPHIL # 7.8 TH/MM3 (1.8-7.7); BASOPHIL % 0.1 % (0.0-2.0); HEMATOCRIT 50.1 % (39.0-51.0); HEMOGLOBIN 16.1 GM/DL (13.0-17.0); LYMPH % 5.6 % (9.0-44.0); LYMPHOCYTE # 0.5 TH/MM3 (1.0-4.8); MEAN CELL VOLUME 87.4 FL (80.0-100.0); MEAN CORPUSCULAR HEMOGLOBIN 28.1 PG (27.0-34.0); MEAN CORPUSCULAR HGB CONC 32.1 % (32.0-36.0); MEAN PLATELET VOLUME 9.6 FL (7.0-11.0); MONO % 5.1 % (0.0-8.0); MONOCYTE # 0.4 TH/MM3 (0-0.9); NEUT % 89.2 % (16.0-70.0); PLATELET COUNT 60 TH/MM3 (150-450); RED BLOOD COUNT 5.73 MIL/MM3 (4.50-5.90); WHITE BLOOD COUNT 8.8 TH/MM3 (4.0-11.0)
[2017-05-19 07:11] LABS: BICARBONATE 33.9 MEQ/L (21.0-32.0); CALCIUM 8.8 MG/DL (8.5-10.1)
[2017-05-19] MEDS: RESP: ALBUTEROL 2.5 MG/IPRATROPIUM 0.5 MG NEB (SCH) NEB ×3 (07:54→19:39)
[2017-05-19] MEDS: CHLORHEXIDINE 0.12% (ORAL KIT) 15 ML CUP MT SCH ×2 (08:00→20:00)
[2017-05-19] MEDS: LEVOFLOXACIN 750 MG TAB PO SCH (09:00)
[2017-05-19] MEDS: LORATADINE 10 MG TAB PO SCH (09:00)
[2017-05-19] MEDS: PARoxetine HCL 20 MG TAB PO SCH (09:00)
[2017-05-19] MEDS: TRIAMTERENE/HCTZ 37.5 MG/25 MG TAB PO SCH (09:00)
[2017-05-19] MEDS: FAMOTIDINE 20 MG TAB TUBE SCH ×2 (09:00→23:08)
[2017-05-19] MEDS: SODIUM CHLORIDE 0.9% FLUSH 10 ML FLUSH IV FLUSH SCH ×2 (09:00→23:08)
--- NOTE | 2017-05-19 11:37 | HHI.PR ---
Subjective Remarks Follow-up acute respiratory failure. The patient states that he feels much better today. Shortness of breath is improving. Denies chest pain, nausea, vomiting. Objective Vitals Vital Signs Date Time Temp Pulse Resp B/P (MAP) Pulse Ox O2 Delivery O2 Flow Rate FiO2 05/19/17 07:54 94 Nasal Cannula 4.00 05/19/17 06:00 54 05/19/17 04:00 58 05/19/17 04:00 98.5 58 16 160/81 (107) 94 05/19/17 03:53 96 40 05/19/17 02:00 59 05/19/17 00:34 93 40 05/19/17 00:00 62 05/19/17 00:00 98.2 62 24 112/67 (82) 94 05/18/17 22:03 94 40 05/18/17 22:00 56 05/18/17 20:00 66 05/18/17 20:00 99.9 66 16 145/74 (97) 92 05/18/17 19:38 93 Nasal Cannula 6.00 05/18/17 19:28 93 Nasal Cannula 6.00 05/18/17 19:00 92 Nasal Cannula 4.00 05/18/17 18:00 56 05/18/17 16:00 98.8 59 21 135/80 (98) 90 05/18/17 16:00 59 05/18/17 14:00 76 05/18/17 12:05 93 Nasal Cannula 6.00 05/18/17 12:00 63 05/18/17 12:00 98.5 63 16 132/64 (86) I/O 05/18/17 05/18/17 05/18/17 05/19/17 05/19/17 05/19/17 07:00 15:00 23:00 07:00 15:00 23:00 Intake Total 480 ml 350 ml 750 ml 480 ml Output Total 1775 ml 1925 ml 1800 ml Balance -1295 ml 350 ml -1175 ml -1320 ml Intake Oral 480 ml 750 ml 480 ml IV Total 350 ml Output Urine Total 1775 ml 1925 ml 1800 ml # Bowel Movements 2 3 1 Result Diagram: 05/19/17 0555 05/19/17 0555 Imaging Last Impressions Chest X-Ray 05/18/17 06 Signed Impressions: Service Date/Time: Thursday, May 18, 2017 04:23 - CONCLUSION: Mild atelectasis at the lung bases. Otherwise, no acute finding is identified. Ankur Nevarez MD Head CT 05/15/17 0727 Signed Impressions: Service Date/Time: Monday, May 15, 2017 08:04 - CONCLUSION: No evidence of acute infarct, hemorrhage, mass or edema. Unremarkable exam. Yoshi Bautista MD CT Angiography 05/15/17 0000 Signed Impressions: Service Date/Time: Monday, May 15, 2017 11:30 - CONCLUSION: Mild emphysematous changes at the apices. Calcified granulomas. Mediastinal and hilar lymph nodes are mildly enlarged. No evidence for PE. Small bilateral effusions. Angel Balderas MD Objective Remarks General: No acute distress. Sitting up in a chair. Heart: Regular rate and rhythm. No murmur. Lungs: Poor air entry. Mild scattered wheeze. Breathing is nonlabored. Abdomen: Soft, nontender, nondistended. Extremities: No lower extremity edema. Psych: Alert and oriented. Answers questions appropriately. Speech is somewhat slow. Procedures Intubation and extubation. Extubation on 05/17/2017. Urinary Catheter: Yes Assessment to: Remove Vascular Central Line Catheter: No A/P Problem List: (1) Acute respiratory failure with hypoxia and hypercapnia ICD Code: J96.01 - Acute respiratory failure with hypoxia; J96.02 - Acute respiratory failure with hypercapnia (2) COPD with acute exacerbation ICD Code: J44.1 - Chronic obstructive pulmonary disease with (acute) exacerbation (3) Delirium ICD Code: R41.0 - Disorientation, unspecified Status: Acute (4) Thrombocytopenia ICD Code: D69.6 - Thrombocytopenia, unspecified Assessment and Plan 1. Acute respiratory failure with hypoxia, hypercapnia: Improved. Continue to wean oxygen. BiPAP at night as needed. 2. COPD exacerbation: Continue DuoNeb, Levaquin, Solu-Medrol, supplemental oxygen. 3. Acute delirium: Possibly secondary to CO2 narcosis. Mental status has improved. 4. Thrombocytopenia: HIT antibody weakly positive. Monitor labs. 5. DVT prophylaxis: SCDs. Discharge Planning Transfer to med/surg when bed is available. Ke Zamora MD May 19, 2017 11:37
[2017-05-19] MEDS: GABAPENTIN 300 MG CAP PO SCH (23:08)
[2017-05-19] MEDS: cloZAPine 100 MG TAB PO SCH (23:08)
[2017-05-19] MEDS: MONTELUKAST SODIUM 10 MG TAB PO SCH (23:08)
[2017-05-20] VITALS (14 sets, daily range): BP systolic 104–128; BP diastolic 64–75; PULSE 54–110; RESP 15–22; TEMP 97.9–98.5; O2SAT 88–96
[2017-05-20] MEDS: methylPREDNISolone SOD SUCC 40 MG/1 ML VIAL IV PUSH SCH ×4 (02:01→17:48)
[2017-05-20] MEDS: CHLORHEXIDINE GLUCONATE 2 % 1 PACK (2 CLOTHS) TOP SCH (04:00)
[2017-05-20] MEDS: CHLORHEXIDINE 0.12% (ORAL KIT) 15 ML CUP MT SCH ×2 (08:00→20:00)
[2017-05-20] MEDS: RESP: ALBUTEROL 2.5 MG/IPRATROPIUM 0.5 MG NEB (SCH) NEB ×3 (08:51→19:14)
--- NOTE | 2017-05-20 08:59 | HHI.PR ---
Subjective Remarks Follow-up acute respiratory failure. The patient is lethargic today. He does awaken briefly, but does not answer questions. No events reported by nursing. Objective Vitals Vital Signs Date Time Temp Pulse Resp B/P (MAP) Pulse Ox O2 Delivery O2 Flow Rate FiO2 05/20/17 08:52 96 Nasal Cannula 4.00 05/20/17 07:00 95 Nasal Cannula 4.00 05/20/17 06:00 106 05/20/17 06:00 97.9 106 16 104/64 (77) 93 05/20/17 04:00 98 05/20/17 02:00 75 05/20/17 00:00 54 05/20/17 00:00 98.5 54 22 107/67 (80) 93 05/19/17 22:00 67 05/19/17 20:00 98.7 65 18 108/70 (83) 93 05/19/17 20:00 65 05/19/17 19:41 Nasal Cannula 4.00 05/19/17 19:00 93 Nasal Cannula 4.00 I/O 05/19/17 05/19/17 05/19/17 05/20/17 05/20/17 05/20/17 07:00 15:00 23:00 07:00 15:00 23:00 Intake Total 480 ml Output Total 1800 ml 2600 ml Balance -1320 ml -2600 ml Intake Oral 480 ml Output Urine Total 1800 ml 2600 ml # Bowel Movements 1 0 Result Diagram: 05/19/17 0555 05/19/17 0555 Imaging Last Impressions Chest X-Ray 05/18/17 0600 Signed Impressions: Service Date/Time: Thursday, May 18, 2017 04:23 - CONCLUSION: Mild atelectasis at the lung bases. Otherwise, no acute finding is identified. Ankur Nevarez MD Head CT 05/15/17 0727 Signed Impressions: Service Date/Time: Monday, May 15, 2017 08:04 - CONCLUSION: No evidence of acute infarct, hemorrhage, mass or edema. Unremarkable exam. Yoshi Bautista MD CT Angiography 05/15/17 0000 Signed Impressions: Service Date/Time: Monday, May 15, 2017 11:30 - CONCLUSION: Mild emphysematous changes at the apices. Calcified granulomas. Mediastinal and hilar lymph nodes are mildly enlarged. No evidence for PE. Small bilateral effusions. Angel Balderas MD Objective Remarks General: No acute distress. Heart: Regular rate and rhythm. No murmur. Lungs: Upper airway noise. Breathing is nonlabored. Abdomen: Soft, nontender, nondistended. Extremities: No lower extremity edema. Psych: Sleeping, difficult to awaken. Procedures Intubation and extubation. Extubation on 05/17/2017. Urinary Catheter: No Vascular Central Line Catheter: No A/P Problem List: (1) Acute respiratory failure with hypoxia and hypercapnia ICD Code: J96.01 - Acute respiratory failure with hypoxia; J96.02 - Acute respiratory failure with hypercapnia (2) COPD with acute exacerbation ICD Code: J44.1 - Chronic obstructive pulmonary disease with (acute) exacerbation (3) Delirium ICD Code: R41.0 - Disorientation, unspecified Status: Acute (4) Thrombocytopenia ICD Code: D69.6 - Thrombocytopenia, unspecified Assessment and Plan 1. Acute respiratory failure with hypoxia, hypercapnia: Still requiring 4 L oxygen per nasal cannula. Continue to wean oxygen. BiPAP at night as needed. 2. COPD exacerbation: Continue DuoNeb, Levaquin, Solu-Medrol, supplemental oxygen. 3. Acute delirium: Resolved. 4. Thrombocytopenia: HIT antibody weakly positive. Monitor labs. 5. DVT prophylaxis: SCDs. Discharge Planning Transfer to med/surg when bed is available. Ke Zamora MD May 20, 2017 08:59
[2017-05-20] MEDS: SODIUM CHLORIDE 0.9% FLUSH 10 ML FLUSH IV FLUSH SCH ×2 (09:00→21:51)
[2017-05-20] MEDS: PARoxetine HCL 20 MG TAB PO SCH (09:01)
[2017-05-20] MEDS: LEVOFLOXACIN 750 MG TAB PO SCH (09:01)
[2017-05-20] MEDS: LORATADINE 10 MG TAB PO SCH (09:01)
[2017-05-20] MEDS: FAMOTIDINE 20 MG TAB TUBE SCH ×2 (09:02→21:52)
[2017-05-20] MEDS: TRIAMTERENE/HCTZ 37.5 MG/25 MG TAB PO SCH (09:02)
[2017-05-20] MEDS: cloZAPine 100 MG TAB PO SCH (21:51)
[2017-05-20] MEDS: MONTELUKAST SODIUM 10 MG TAB PO SCH (21:52)
[2017-05-20] MEDS: GABAPENTIN 300 MG CAP PO SCH (21:52)
[2017-05-21] VITALS (14 sets, daily range): BP systolic 111–142; BP diastolic 55–84; PULSE 61–110; RESP 17–22; TEMP 97.7–98.3; O2SAT 88–95
[2017-05-21] MEDS: methylPREDNISolone SOD SUCC 40 MG/1 ML VIAL IV PUSH SCH ×2 (00:29→04:35)
[2017-05-21] MEDS: CHLORHEXIDINE GLUCONATE 2 % 1 PACK (2 CLOTHS) TOP SCH (03:31)
[2017-05-21] MEDS: RESP: ALBUTEROL 2.5 MG/IPRATROPIUM 0.5 MG NEB (SCH) NEB ×3 (07:32→19:14)
[2017-05-21] MEDS: CHLORHEXIDINE 0.12% (ORAL KIT) 15 ML CUP MT SCH ×2 (08:00→20:00)
--- NOTE | 2017-05-21 08:48 | HHI.PR ---
Subjective Remarks Follow-up respiratory failure. The patient is much more alert today. States that he is feeling better. No events reported by nursing. Patient states that he uses 4 L of oxygen continuously at home. Objective Vitals Vital Signs Date Time Temp Pulse Resp B/P (MAP) Pulse Ox O2 Delivery O2 Flow Rate FiO2 05/21/17 07:32 92 Nasal Cannula 4.00 05/21/17 07:00 92 Nasal Cannula 6.00 05/21/17 06:00 85 05/21/17 04:00 98.3 99 17 134/76 (95) 89 05/21/17 04:00 99 05/21/17 02:00 61 05/21/17 00:00 67 05/21/17 00:00 98.3 67 17 111/55 (73) 95 05/20/17 22:00 55 05/20/17 20:00 60 05/20/17 20:00 98.3 60 15 119/66 (83) 88 05/20/17 19:18 92 Nasal Cannula 4.00 05/20/17 19:00 92 Nasal Cannula 4.00 05/20/17 18:00 106 05/20/17 16:00 106 05/20/17 16:00 98.4 70 16 128/75 (92) 93 05/20/17 14:00 106 05/20/17 12:00 106 05/20/17 12:00 98.4 97 16 108/68 (81) 93 05/20/17 10:00 106 05/20/17 08:52 96 Nasal Cannula 4.00 I/O 05/20/17 05/20/17 05/20/17 05/21/17 05/21/17 05/21/17 07:00 15:00 23:00 07:00 15:00 23:00 Intake Total 700 ml 720 ml Output Total 2600 ml 1800 ml 2750 ml 240 ml Balance -2600 ml -1100 ml -2030 ml -240 ml Intake Oral 700 ml 720 ml Output Urine Total 2600 ml 1800 ml 2750 ml 240 ml # Voids 1 # Bowel Movements 0 0 Result Diagram: 05/19/17 0555 05/19/17 0555 Imaging Last Impressions Chest X-Ray 05/18/17 0600 Signed Impressions: Service Date/Time: Thursday, May 18, 2017 04:23 - CONCLUSION: Mild atelectasis at the lung bases. Otherwise, no acute finding is identified. Ankur Nevarez MD Head CT 05/15/17 0727 Signed Impressions: Service Date/Time: Monday, May 15, 2017 08:04 - CONCLUSION: No evidence of acute infarct, hemorrhage, mass or edema. Unremarkable exam. Yoshi Bautista MD CT Angiography 05/15/17 0000 Signed Impressions: Service Date/Time: Monday, May 15, 2017 11:30 - CONCLUSION: Mild emphysematous changes at the apices. Calcified granulomas. Mediastinal and hilar lymph nodes are mildly enlarged. No evidence for PE. Small bilateral effusions. Angel Balderas MD Objective Remarks General: No acute distress. Heart: Regular rate and rhythm. No murmur. Lungs: Clear to auscultation bilaterally. Breathing is nonlabored. Abdomen: Soft, nontender, nondistended. Extremities: No lower extremity edema. Psych: Alert, oriented 3. Procedures Intubation and extubation. Extubation on 05/17/2017. Urinary Catheter: No Vascular Central Line Catheter: No A/P Problem List: (1) Acute respiratory failure with hypoxia and hypercapnia ICD Code: J96.01 - Acute respiratory failure with hypoxia; J96.02 - Acute respiratory failure with hypercapnia (2) COPD with acute exacerbation ICD Code: J44.1 - Chronic obstructive pulmonary disease with (acute) exacerbation (3) Delirium ICD Code: R41.0 - Disorientation, unspecified Status: Acute (4) Thrombocytopenia ICD Code: D69.6 - Thrombocytopenia, unspecified Assessment and Plan 1. Acute respiratory failure with hypoxia, hypercapnia: Oxygen requirements have fluctuated between 4 and 6 L. The patient is on 4 L of oxygen at home continuously. BiPAP at night as needed. 2. COPD exacerbation: Continue DuoNeb, Levaquin, supplemental oxygen. Taper steroids. 3. Acute delirium: Resolved. 4. Thrombocytopenia: HIT antibody weakly positive. Monitor labs. 5. DVT prophylaxis: SCDs. Discharge Planning Transfer to med/surg when bed is available. Possible discharge home with home health care next 1-2 days. Ke Zamora MD May 21, 2017 08:48
[2017-05-21] MEDS: SODIUM CHLORIDE 0.9% FLUSH 10 ML FLUSH IV FLUSH SCH ×2 (09:00→23:04)
[2017-05-21] MEDS: LEVOFLOXACIN 750 MG TAB PO SCH (09:14)
[2017-05-21] MEDS: TRIAMTERENE/HCTZ 37.5 MG/25 MG TAB PO SCH (09:14)
[2017-05-21] MEDS: LORATADINE 10 MG TAB PO SCH (09:14)
[2017-05-21] MEDS: predniSONE 20 MG TAB PO SCH ×2 (09:14→23:03)
[2017-05-21] MEDS: FAMOTIDINE 20 MG TAB PO SCH ×2 (09:14→23:03)
[2017-05-21] MEDS: PARoxetine HCL 20 MG TAB PO SCH (09:15)
[2017-05-21] MEDS: cloZAPine 100 MG TAB PO SCH (23:01)
[2017-05-21] MEDS: GABAPENTIN 300 MG CAP PO SCH (23:03)
[2017-05-21] MEDS: MONTELUKAST SODIUM 10 MG TAB PO SCH (23:03)
[2017-05-22] MEDS: CHLORHEXIDINE GLUCONATE 2 % 1 PACK (2 CLOTHS) TOP SCH (04:00)
[2017-05-22 04:32] VITALS: BP 156/79; PULSE 93; RESP 18; TEMP 97.8; O2SAT 96
[2017-05-22 04:45] VITALS: BP 129/63; PULSE 76; RESP 18; TEMP 98.4; O2SAT 95
[2017-05-22] MEDS: RESP: ALBUTEROL 2.5 MG/IPRATROPIUM 0.5 MG NEB (SCH) NEB (07:17)
[2017-05-22 08:00] VITALS: BP 105/76; PULSE 84; RESP 18; TEMP 98; O2SAT 97
[2017-05-22] MEDS: CHLORHEXIDINE 0.12% (ORAL KIT) 15 ML CUP MT SCH (08:00)
[2017-05-22] MEDS ORDERED: LEVA750T9 PO (09:02)
--- NOTE | 2017-05-22 09:02 | HHI.DCPOC ---
Discharge Care Plan Diagnosis: (1) Hypoxia (2) Acute respiratory failure with hypoxia and hypercapnia (3) COPD with acute exacerbation (4) Acute encephalopathy Goals to Promote Your Health * To prevent worsening of your condition and complications * To maintain your health at the optimal level Directions to Meet Your Goals Take your medications as prescribed Follow your dietary instruction Follow activity as directed Keep your appointments as scheduled Take your immunizations and boosters as scheduled If your symptoms worsen call your PCP, if no PCP go to Urgent Care Center or Emergency Room Smoking is Dangerous to Your Health. Avoid second hand smoke Call the 24-hour hour crisis hotline for domestic abuse at Ke Zamora MD May 22, 2017 09:02
--- NOTE | 2017-05-22 09:07 | HHI.DS ---
Discharge Summary Admission Date May 15, 2017 at 10:29 Discharge Date: May 22, 2017 Admitting Diagnosis respiratory failure (1) Acute respiratory failure with hypoxia and hypercapnia ICD Code: J96.01 - Acute respiratory failure with hypoxia; J96.02 - Acute respiratory failure with hypercapnia (2) COPD with acute exacerbation ICD Code: J44.1 - Chronic obstructive pulmonary disease with (acute) exacerbation (3) Delirium ICD Code: R41.0 - Disorientation, unspecified Status: Acute (4) Thrombocytopenia ICD Code: D69.6 - Thrombocytopenia, unspecified Procedures Intubation and extubation. Extubation on 05/17/2017. Brief History - From Admission This patient presented to [facility] ER by [facility] with a chief complaint of acute altered mental status. He was last seen normal at 4 AM when he got up to use the restroom. He lives in an assisted living facility. This morning, he was noted to be altered. [facility] was called and he was brought to the hospital. The patient is unable to offer any history. The patient was just discharged from the hospital one day prior to current arrival. He was admitted for altered mental status secondary to hypoxia. He was discharged on home oxygen. [facility] reports that he was not wearing his oxygen on their arrival. His oxygen saturation was in the 70s on their arrival. They called a stroke alert and brought him to the hospital. Head CT negative for bleed. Patient was hypoxic in the ER with altered mental status and was intubated by ER physician and placed on mechanical ventilation. Patient was accepted for admission by critical care medicine service. When I evaluated the patient he was sedated with propofol, orally intubated on mechanical ventilation. History was obtained by reviewing records and discussion with ER physician CBC/BMP: 05/19/17 0555 05/19/17 05 Imaging Last Impressions Chest X-Ray 05/18/17 0600 Signed Impressions: Service Date/Time: Thursday, May 18, 2017 04:23 - CONCLUSION: Mild atelectasis at the lung bases. Otherwise, no acute finding is identified. Ankur Nevarez MD Head CT 05/15/17 2016 Signed Impressions: Service Date/Time: Monday, May 15, 2017 08:04 - CONCLUSION: No evidence of acute infarct, hemorrhage, mass or edema. Unremarkable exam. Yoshi Bautista MD CT Angiography 05/15/17 0000 Signed Impressions: Service Date/Time: Monday, May 15, 2017 11:30 - CONCLUSION: Mild emphysematous changes at the apices. Calcified granulomas. Mediastinal and hilar lymph nodes are mildly enlarged. No evidence for PE. Small bilateral effusions. Angel Balderas MD PE at Discharge General: No acute distress. Heart: Regular rate and rhythm. No murmur. Lungs: Clear to auscultation bilaterally. Breathing is nonlabored. Abdomen: Soft, nontender, nondistended. Extremities: No lower extremity edema. Psych: Alert, answers questions appropriately. Pt update on day of discharge The patient has no complaints at this time. He states that his breathing is back to normal. Denies chest pain, nausea, vomiting. Hospital Course The patient was intubated and sedated for management of acute respiratory failure. He was admitted to the critical care service. He was weaned off the ventilator. He was continued on steroids, bronchodilators, antibiotics. He was transferred to the medical service. He continued to improve throughout the hospitalization and his oxygen was weaned to his baseline 4 L per nasal cannula. His mental status improved throughout the hospitalization as well. As he continued to improve clinically, he was felt to be stable for discharge to intermediate facility for short-term rehab. Pt Condition on Discharge: Stable Discharge Disposition: Discharge to SNF Discharge Time: > 30 minutes Discharge Instructions DIET: Follow Instructions for: As Tolerated, No Restrictions Activities you can perform: Regular-No Restrictions Other Activity Instructions: With assistance Follow up Referrals: PCP Follow-up - 2 Weeks New Medications: Levofloxacin (Levaquin) 750 Mg Tablet 750 MG PO DAILY for Infection, #2 TAB 0 Refills Continued Medications: Albuterol 8.5 GM Inh (Proair Hfa 8.5 GM Inh) 90 Mcg/Act Aer 2 PUFF INH Q6H PRN for SHORTNESS OF BREATH, #1 INHALER 0 Refills 108 mcg/actuation Calcium Polycarbophil (Fiber Laxative) 625 Mg Tab 625 MG PO DAILY, TAB 0 Refills Clozapine (Clozaril) 100 Mg Tab 100 MG PO HS for Psychosis for 30 Days, #30 TAB Fexofenadine (Fexofenadine) 180 Mg Tab 180 MG PO DAILY for Allergy Management, #30 TAB 0 Refills Gabapentin (Gabapentin) 600 Mg Tab 600 MG PO HS for Pain Management, #30 TAB 0 Refills Montelukast (Singulair) 10 Mg Tab 10 MG PO HS for Allergies, #30 TAB 0 Refills Omeprazole (Omeprazole) 20 Mg Cap 20 MG PO DAILY for Manage Heartburn, #30 CAP Oxygen (O2) (Oxygen (O2)) Device LITER CRESCENCIO.CANULA CONTINUOUS for Prevent Hypoxemia, #4 1 Refill Oxygen Concentrator Portable Gaseous 4 L/min via Nasal Canula Continuous For 99 months Paliperidone Palmitate Inj (Invega Sustenna Inj) 39 Mg/0.25 Ml Inj 39 MG IM Q28D for Schizophrenia, #1 VIAL 0 Refills Paroxetine (Paxil) 30 Mg Tab 30 MG PO DAILY for Anxiety, #30 TAB 0 Refills Prednisone (Prednisone) 20 Mg Tab 20 MG PO BID for Inflammation, #20 TAB Ropinirole (Ropinirole) 3 Mg Tab 3 MG PO HS for RLS, #30 TAB 0 Refills Triamterene-Hydrochlorothiazide (Triamterene-Hydrochlorothiazide) 37.5-25 Mg Tab 1 TAB PO DAILY for Blood Pressure Management, #30 TAB 0 Refills [Albuterol-Ipratropium Neb] () 1 AMPULE NEBU 1 AMPULE NEB Q6HR WHILE AWAKE NEB for Shortness of Breath, #180 AMPULE Discontinued Medications: Cetirizine (Cetirizine) 10 Mg Tab 10 MG PO DAILY for Allergies, TAB 0 Refills Levofloxacin (Levaquin) 500 Mg Tablet 500 MG PO DAILY for Infection, #7 TAB Naproxen (Naproxen) 500 Mg Tab 500 MG PO BID, #60 TAB 0 Refills Ke Zamora MD May 22, 2017 09:07
[2017-05-22] MEDS: SODIUM CHLORIDE 0.9% FLUSH 10 ML FLUSH IV FLUSH SCH (09:42)
[2017-05-22] MEDS: FAMOTIDINE 20 MG TAB PO SCH (09:42)
[2017-05-22] MEDS: LEVOFLOXACIN 750 MG TAB PO SCH (09:42)
[2017-05-22] MEDS: PARoxetine HCL 20 MG TAB PO SCH (09:42)
[2017-05-22] MEDS: LORATADINE 10 MG TAB PO SCH (09:42)
[2017-05-22] MEDS: TRIAMTERENE/HCTZ 37.5 MG/25 MG TAB PO SCH (09:42)
[2017-05-22] MEDS: predniSONE 20 MG TAB PO SCH (09:42)
[2017-05-22 12:00] VITALS: BP 116/70; PULSE 94; RESP 18; TEMP 98.2; O2SAT 97
[2017-05-22 16:00] VITALS: BP 128/77; PULSE 83; RESP 18; TEMP 98; O2SAT 92
== END 2017-05-22 17:47 | DRG 208 ==
LOC: NEPE 07:20 → NEDA 10:29 → HIMN 16:30 → N04A 05-21 10:19
PROVIDERS: ADMIT Family Medicine; ATTEND Family Medicine
PROC: 5A1945Z Respiratory Ventilation, 24-96 Consecutive Hours (ICD-10-PCS; principal; 2017-05-15)
PROC: 0BH17EZ Insertion of Endotracheal Airway into Trachea, Via Natural or Artificial Opening (ICD-10-PCS; 2017-05-15)
DX: J96.21 Acute and chronic respiratory failure with hypoxia (principal); G93.40 Encephalopathy, unspecified; J44.1 Chronic obstructive pulmonary disease with (acute) exacerbation; D69.6 Thrombocytopenia, unspecified; Z99.81 Dependence on supplemental oxygen; F20.9 Schizophrenia, unspecified; J96.22 Acute and chronic respiratory failure with hypercapnia; K21.9 Gastro-esophageal reflux disease without esophagitis; I10 Essential (primary) hypertension; G25.81 Restless legs syndrome; E78.00 Pure hypercholesterolemia, unspecified; R40.2432 Glasgow coma scale score 3-8, at arrival to emergency department; F17.210 Nicotine dependence, cigarettes, uncomplicated; F41.9 Anxiety disorder, unspecified; Z91.19 Patient's noncompliance with other medical treatment and regimen
CPT/HCPCS: 31500; 36600; 70450; 71045; 71046; 71275; 76937; 80048; 80053; 80307; 81001; 82140; 82550; 82805; 82948; 83605; 83735; 84443; 84484; 85007; 85025; 85027; 85610; 85730; 86022; 87040; 87070; 87205; 87493; 87641; 87804; 93005; 94002; 94003; 94640; 94664; 96365; 96366; 96372; G0378; G8987-GP; G8988-GP; J0330; J0456; J1650; J2020; J2310; J2543; J2920; J2930; J3010; J7030; J7050; J7512; J7613; Q9967

== ENCOUNTER 2017-10-19 16:07 | Inpatient (IN) ==
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
[2017-10-20 12:20] LABS: Baso % (Auto) 0.1 % (0.0-2.0); Eos # (Auto) 0.1 th/mm3 (0.0-0.4); Eos % (Auto) 0.6 % (0.0-4.0); Hematocrit 52.3 % (39.0-51.0); Hemoglobin 17.5 gm/dL (13.0-17.0); Lymph % (Auto) 10.8 % (9.0-44.0); Mean Corpuscular HGB Conc 33.5 % (32.0-36.0); Mean Corpuscular Volume 92.8 fL (80.0-100.0); Mean Platelet Volume 8.3 fL (7.0-11.0); Mono # (Auto) 0.4 th/mm3 (0.0-0.9); Mono % (Auto) 4.6 % (0.0-8.0); Neut # (Auto) 7.9 th/mm3 (1.8-7.7); Neut % (Auto) 83.9 % (16.0-70.0); Platelet Count 91 th/mm3 (150-450); Red Blood Count 5.64 mil/mm3 (4.50-5.90); Red Cell Distribution Width 14.8 % (11.6-17.2); White Blood Count 9.4 th/mm3 (4.0-11.0)
[2017-10-20 12:31] LABS: Albumin 3.1 g/dL (3.4-5.0); Anion Gap 3 meq/L (5-15); Aspartate Aminotransferase 18 U/L (15-37); Blood Urea Nitrogen 17 mg/dL (7-18); Calcium 8.6 mg/dL (8.5-10.1); Carbon Dioxide 31.7 meq/L (21.0-32.0); Chloride 110 meq/L (98-107); Glomerular Filtration Rate 83 mL/min (>89); Glucose,Random 61 mg/dL (74-106); Potassium 3.8 meq/L (3.5-5.1); Sodium 145 meq/L (136-145)
[2017-10-20 12:36] LABS: Alanine Aminotransferase 38 U/L (12-78); Alkaline Phosphatase 67 U/L (45-117)
[2017-10-20 13:02] LABS: Platelet Morphology Normal (Normal)
[2017-10-20] MEDS ORDERED: Aluminum/Magnesium/Simethacone Susp 30 ML UDC PO PRN (13:02)
[2017-10-20] MEDS ORDERED: Dextrose 50% in Water 50 ML Vial IV.PUSH PRN (14:22)
--- NOTE | 2017-10-20 15:28 | XR ---
EXAM DATE: 10/20/2017 3:21 PM EDT AGE/SEX: 57 years / Male INDICATIONS: . Cough. CLINICAL DATA: This is the patient's initial encounter. Patient reports that signs and symptoms have been present for 3 days and indicates a pain score of Nonresponsive. MEDICAL/SURGICAL HISTORY: Non-responsive. Non-responsive. COMPARISON: [facility] [place]ST 2V PA&LAT, 10/17/2017. . FINDINGS: AP and lateral views of the chest demonstrate the lungs to be symmetrically aerated without evidence of mass, infiltrate or effusion. The cardiomediastinal contours are unremarkable. Osseous structure s are intact. CONCLUSION: Negative examination. Electronically signed by: Ildefonso Calderon MD 10/20/2017 3:27 PM EDT
[2017-10-20 16:05] LABS: Amorphous Sediment,Urine Rare /hpf; Bacteria,Urine Moderate /hpf; Bilirubin,Urine Negative (Negative); Clarity,Urine Turbid (Clear); Color,Urine Yellow (Yellw/Straw); Glucose,Urine (UA) Negative (Negative); Leukocyte Esterase,Urine Large (Negative); Nitrite,Urine Positive (Negative); Specific Gravity,Urine 1.013 (1.002-1.035)
[2017-10-20 16:21] LABS: Amphetamine Screen,Urine Neg (Neg); Barbiturate Screen,Urine Neg (Neg); Cannabinoid Screen,Urine Neg (Neg); Cocaine Screen,Urine Neg (Neg)
[2017-10-20 16:29] LABS: Opiate Screen,Urine Neg (Neg)
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
[2017-10-20 17:37] LABS: ABG Base Excess 6.5 mmol/L (-2-2); ABG PCO2 43 mmHg (38-42); ABG PO2 64 mmHG (61-120)
[2017-10-20] MEDS: Nitrofurantoin Monohydrate-Macrocrystal 100 MG Capsule PO SCH (18:29)
[2017-10-20] MEDS: Docusate Sodium 100 MG Capsule PO SCH (20:54)
[2017-10-20] MEDS: predniSONE 20 MG Tablet PO SCH (20:54)
[2017-10-20] MEDS: guaiFENesin 600 MG ER Tablet PO SCH (20:54)
[2017-10-21 07:51] LABS: Chol/HDL Ratio 3.16 Ratio
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
[2017-10-21] MEDS: Docusate Sodium 100 MG Capsule PO SCH ×2 (09:52→20:44)
[2017-10-21] MEDS: guaiFENesin 600 MG ER Tablet PO SCH ×2 (09:52→20:44)
[2017-10-21] MEDS: predniSONE 20 MG Tablet PO SCH ×2 (09:53→20:44)
[2017-10-21] MEDS: Nitrofurantoin Monohydrate-Macrocrystal 100 MG Capsule PO SCH ×2 (09:53→18:21)
[2017-10-21] MEDS: Amantadine 100 MG Capsule PO SCH (09:53)
[2017-10-21] MEDS: Pantoprazole Sodium 20 MG DR Tablet PO SCH (09:53)
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
[2017-10-21 16:47] LABS: Hemoglobin A1c 5.9 % (4.3-6.0)
--- NOTE | 2017-10-21 22:27 | ECG ---
Date Performed: 10/20/2017 Time Performed: 20:17:35 PTAGE: 57 years EKG: SINUS TACHYCARDIA ABNORMAL RHYTHM ECG PREVIOUS TRACING : 10/17/2017 16.45 Since the previous tracing, no significant change noted DOCTOR: Jameson Madrid Interpretating Date/Time 10/21/2017 22:25:41
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
[2017-10-22] MEDS: amLODIPine 5 MG Tablet PO SCH (10:00)
[2017-10-22] MEDS: Docusate Sodium 100 MG Capsule PO SCH ×2 (10:00→20:29)
[2017-10-22] MEDS: guaiFENesin 600 MG ER Tablet PO SCH ×2 (10:01→20:29)
[2017-10-22] MEDS: Pantoprazole Sodium 20 MG DR Tablet PO SCH (10:01)
[2017-10-22] MEDS: Amantadine 100 MG Capsule PO SCH (10:01)
[2017-10-22] MEDS: predniSONE 20 MG Tablet PO SCH ×2 (10:01→20:29)
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
--- NOTE | 2017-10-22 16:01 | P.PNPSY ---
Subjective Remarks: Patient seen for follow, chart reviewed. Discussion nursing staff reported the patient continues to be confused, fell last evening which was witnessed by staff which patient has slept off the side of the bed and no reported injuries. Patient was found lying hospital bed noted B, cooperative. Patient continues to have some disorganization during interview, reporting having difficulty with sleep last evening. Patient states that he has no family or friends that can assist with his admission stated that "still got ". Patient has some perseveration during interview concerning his wallet and continues to repeat certain statements throughout interview with continued disorganization. Patient continues to endorse auditory hallucinations which he last experienced yesterday. Patient does recall having slipped when getting up from the bed but denies any physical complaints. When asked about events prior to his admission , he states that he had "got a little angry but I didn't hurt anyone". Review of Systems All other systems reviewed negative except as stated in HPI Mental Status Examination Appearance: Dirty, Disheveled Consciousness: Alert Orientation: Person, Place Speech: Unremarkable Language: Adequate Fund of Knowledge: Poor Attention and Concentration: Other (fair) Memory: Impaired Affect: Blunt Thought Process & Associations: Disorganized Thought Content: Hallucinations, Thought blocking Hallucination Type: Auditory Delusion Type: Paranoid Suicidal Ideation: No Suicidal Plan: No Suicidal Intention: No Homicidal Ideation: No Homicidal Plan: No Homicidal Intention: No Insight: Poor Judgment: Poor Assessment and Plan - Assessment (1) Schizophrenia Code(s): F20.9 - Schizophrenia, unspecified Status: Acute - Plan Plan: Patient continues with disorganization, perceptional disturbances, along with disorganization with thought process. There are no contacts was consented as patient's healthcare surrogate and guardian advocate and will likely have to present to mental health court to have QUINN assigned to consent for treatment. We will continue to monitor mood and behavior. Discharge planning in progress. Justification for Continued Inpatient Stay: At risk of further decompensation a lower level of care.
--- NOTE | 2017-10-23 08:42 | P.PNPSY ---
Subjective Remarks: Patient seen for follow, chart reviewed. Discussion with nursing staff reported the patient continued to be disorganized, at times disrobing in the hallway, and consistent with maintaining O2 nasal cannula on, slept fairly. Patient was found ambulating on the unit noted to be disorganized, at times making nonsensical statements. Patient states "God brought me back", also stated that he wants to smoke tobacco but reminded that patient allowed to do so in the hospital which she acknowledged. Patient states he is feeling "okay" reported eating and drinking well, adequate bowel movement, states he showered yesterday. Patient continued to respond to internal stimuli. Review of Systems All other systems reviewed negative except as stated in HPI Mental Status Examination Appearance: Dirty, Disheveled Consciousness: Alert Orientation: Person, Place Speech: Unremarkable Language: Adequate Fund of Knowledge: Poor Attention and Concentration: Other (fair) Memory: Impaired Mood: Other ("Okay") Affect: Blunt Thought Process & Associations: Disorganized Thought Content: Hallucinations, Thought blocking Hallucination Type: Auditory Delusion Type: Paranoid Suicidal Ideation: No Suicidal Plan: No Suicidal Intention: No Homicidal Ideation: No Homicidal Plan: No Homicidal Intention: No Insight: Poor Judgment: Poor Assessment and Plan - Assessment (1) Schizophrenia Code(s): F20.9 - Schizophrenia, unspecified Status: Acute - Plan Plan: Patient continues with disorganization, internally preoccupied, require redirection. Patient will continue to be monitored of mood and behavior, there is no healthcare surrogate and guardian advocate taken consented medications at this time and may have to await a court appointed HCS and [place]. Falls precautions. Continue to encourage patient to maintain O2 nasal cannula on. Discharge planning a progress. Justification for Continued Inpatient Stay: At risk for further decompensation if at lower level of care
[2017-10-23] MEDS: amLODIPine 5 MG Tablet PO SCH (09:29)
[2017-10-23] MEDS: predniSONE 20 MG Tablet PO SCH (09:29)
[2017-10-23] MEDS: Amantadine 100 MG Capsule PO SCH (09:29)
[2017-10-23] MEDS: Pantoprazole Sodium 20 MG DR Tablet PO SCH (09:29)
[2017-10-23] MEDS: guaiFENesin 600 MG ER Tablet PO SCH ×2 (09:30→22:26)
[2017-10-23] MEDS: Docusate Sodium 100 MG Capsule PO SCH ×2 (09:30→22:26)
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
[2017-10-24] MEDS: guaiFENesin 600 MG ER Tablet PO SCH ×2 (08:24→21:30)
[2017-10-24] MEDS: Pantoprazole Sodium 20 MG DR Tablet PO SCH (08:25)
[2017-10-24] MEDS: Docusate Sodium 100 MG Capsule PO SCH ×2 (08:25→21:30)
[2017-10-24] MEDS: Amantadine 100 MG Capsule PO SCH (08:25)
[2017-10-24] MEDS: amLODIPine 5 MG Tablet PO SCH (08:25)
[2017-10-24] MEDS: predniSONE 20 MG Tablet PO SCH (08:25)
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
--- NOTE | 2017-10-24 16:53 | P.PNPSY ---
Subjective Remarks: Patient was seen and case discussed with nursing. Patient is disheveled and minimally interactive during the interview. He is disorganized and at times grandiose. He told nursing earlier that he was Boo. He is intrusive at times. Insight remains quite poor Mental Status Examination Appearance: Dirty, Disheveled Consciousness: Alert Orientation: Person, Place Speech: Unremarkable Language: Adequate Fund of Knowledge: Poor Attention and Concentration: Other (fair) Memory: Impaired Mood: Other ("Okay") Affect: Blunt Thought Process & Associations: Circumstantial, Disorganized Thought Content: Hallucinations, Thought blocking Hallucination Type: Auditory Delusion Type: Paranoid Suicidal Ideation: No Suicidal Plan: No Suicidal Intention: No Homicidal Ideation: No Homicidal Plan: No Homicidal Intention: No Insight: Poor Judgment: Poor Assessment and Plan - Assessment (1) Schizophrenia Code(s): F20.9 - Schizophrenia, unspecified Status: Acute - Plan Plan: Continue current treatment plan Justification for Continued Inpatient Stay: Patient would decompensate in a less restrictive setting
[2017-10-24] MEDS: Budesonide-Formoterol 160/4.5 MCG 6 GM Inhaler INH SCH (21:30)
[2017-10-25] MEDS: Amantadine 100 MG Capsule PO SCH (10:00)
[2017-10-25] MEDS: predniSONE 20 MG Tablet PO SCH (10:00)
[2017-10-25] MEDS: amLODIPine 5 MG Tablet PO SCH (10:00)
[2017-10-25] MEDS: guaiFENesin 600 MG ER Tablet PO SCH ×2 (10:00→20:38)
[2017-10-25] MEDS: Docusate Sodium 100 MG Capsule PO SCH ×2 (10:00→20:38)
[2017-10-25] MEDS: Pantoprazole Sodium 20 MG DR Tablet PO SCH (10:00)
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
[2017-10-25] MEDS: Budesonide-Formoterol 160/4.5 MCG 6 GM Inhaler INH SCH ×2 (12:02→20:40)
--- NOTE | 2017-10-25 16:17 | P.PNPSY ---
Subjective Remarks: Patient was seen and case discussed with nursing. Patient remains with minimal engagement in thought blocking during the interview. He is flat and likely responding to internal stimuli. Nursing notes preoccupations with episcopal and specifically the devil. Has not had any intrusive behavior today. He is very oppositional with medications but eventually took it. Nursing notes he laughs to himself Mental Status Examination Appearance: Dirty, Disheveled Consciousness: Alert Orientation: Person, Place Speech: Unremarkable Language: Adequate Fund of Knowledge: Poor Attention and Concentration: Other (fair) Memory: Impaired Mood: Other ("Okay") Affect: Blunt Thought Process & Associations: Circumstantial, Disorganized Thought Content: Hallucinations, Thought blocking Hallucination Type: Auditory Delusion Type: Paranoid Suicidal Ideation: No Suicidal Plan: No Suicidal Intention: No Homicidal Ideation: No Homicidal Plan: No Homicidal Intention: No Insight: Poor Judgment: Poor Assessment and Plan - Assessment (1) Schizophrenia Code(s): F20.9 - Schizophrenia, unspecified Status: Acute - Plan Plan: Continue current treatment plan Justification for Continued Inpatient Stay: Patient would decompensate in a less restrictive setting
[2017-10-25] MEDS: Montelukast 10 MG Tablet PO SCH (17:45)
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
[2017-10-26] MEDS ORDERED: FEXOFENADINE 180 MG PO SCH (09:00)
[2017-10-26] MEDS: Pantoprazole Sodium 20 MG DR Tablet PO SCH (10:54)
[2017-10-26] MEDS: Amantadine 100 MG Capsule PO SCH (10:54)
[2017-10-26] MEDS: Docusate Sodium 100 MG Capsule PO SCH ×2 (10:55→20:36)
[2017-10-26] MEDS: Loratadine 10 MG Tablet PO SCH (10:55)
[2017-10-26] MEDS: guaiFENesin 600 MG ER Tablet PO SCH ×2 (10:55→20:36)
[2017-10-26] MEDS: amLODIPine 5 MG Tablet PO SCH (10:55)
[2017-10-26] MEDS: Budesonide-Formoterol 160/4.5 MCG 6 GM Inhaler INH SCH ×2 (10:56→20:37)
[2017-10-26] MEDS: predniSONE 10 MG Tablet PO SCH (11:02)
[2017-10-26] MEDS: Montelukast 10 MG Tablet PO SCH (17:29)
--- NOTE | 2017-10-26 19:51 | P.PNPSY ---
Subjective Remarks: Patient seen for follow, chart reviewed. Discussion nursing staff reported the patient has not had any recent falls continue to be isolated disorganized as well as religiously preoccupied. Patient was found lying hospital bed, cooperative. Patient states that he slept with difficulty last evening and has been up since 2 AM. Patient reports his mood as being "okay" denying any perceptional services but continues to be noted to be internally preoccupied. Patient continues some disorganization making repetitive statements but denying any suicidal or homicidal ideations. Review of Systems All other systems reviewed negative except as stated in HPI Mental Status Examination Appearance: Dirty, Disheveled Consciousness: Alert Orientation: Person, Place Speech: Unremarkable Language: Adequate Fund of Knowledge: Poor Attention and Concentration: Other (fair) Memory: Impaired Mood: Other ("Okay") Affect: Blunt Thought Process & Associations: Circumstantial, Disorganized Thought Content: Hallucinations, Thought blocking Hallucination Type: Auditory Delusion Type: Paranoid Suicidal Ideation: No Suicidal Plan: No Suicidal Intention: No Homicidal Ideation: No Homicidal Plan: No Homicidal Intention: No Insight: Poor Judgment: Poor Assessment and Plan - Assessment (1) Schizophrenia Code(s): F20.9 - Schizophrenia, unspecified Status: Acute - Plan Plan: Patient continues with disorganization, continues to be religiously preoccupied internally preoccupied. Patient continues to await mental health court to have healthcare surrogate and guardian advocate assigned to consent for his treatment. We will continue to monitor mood and behavior. Discharge planning in progress. Justification for Continued Inpatient Stay: At risk for further decompensation if at lower level of care.
[2017-10-27 08:21] LABS: Hematocrit 53.1 % (39.0-51.0); Hemoglobin 17.6 gm/dL (13.0-17.0); Mean Corpuscular HGB Conc 33.2 % (32.0-36.0); Mean Corpuscular Hemoglobin 30.7 pg (27.0-34.0); Mean Corpuscular Volume 92.5 fL (80.0-100.0); Mean Platelet Volume 8.4 fL (7.0-11.0); Platelet Count 110 th/mm3 (150-450); Red Blood Count 5.74 mil/mm3 (4.50-5.90); Red Cell Distribution Width 14.6 % (11.6-17.2)
[2017-10-27 08:43] LABS: Anion Gap 5 meq/L (5-15); Blood Urea Nitrogen 15 mg/dL (7-18); Calcium 8.9 mg/dL (8.5-10.1); Carbon Dioxide 32.6 meq/L (21.0-32.0); Chloride 103 meq/L (98-107); Glomerular Filtration Rate Greater Than 89 mL/min (>89); Glucose,Random 85 mg/dL (74-106); Potassium 3.2 meq/L (3.5-5.1); Sodium 141 meq/L (136-145)
[2017-10-27] MEDS: Amantadine 100 MG Capsule PO SCH (09:55)
[2017-10-27] MEDS: Loratadine 10 MG Tablet PO SCH (09:55)
[2017-10-27] MEDS: amLODIPine 5 MG Tablet PO SCH (09:55)
[2017-10-27] MEDS: Docusate Sodium 100 MG Capsule PO SCH ×2 (09:55→20:48)
[2017-10-27] MEDS: predniSONE 10 MG Tablet PO SCH (09:55)
[2017-10-27] MEDS: guaiFENesin 600 MG ER Tablet PO SCH ×2 (09:55→20:47)
[2017-10-27] MEDS: Budesonide-Formoterol 160/4.5 MCG 6 GM Inhaler INH SCH ×2 (09:56→20:48)
[2017-10-27] MEDS: Pantoprazole Sodium 20 MG DR Tablet PO SCH (09:56)
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
[2017-10-27] MEDS: Tiotropium Bromide 18 MCG/ACT Inhaler INH SCH (17:23)
[2017-10-27] MEDS: Montelukast 10 MG Tablet PO SCH (17:55)
--- NOTE | 2017-10-27 18:46 | P.PNPSY ---
Subjective Remarks: Patient seen for follow, chart reviewed. Discussion nursing staff reported the patient continues with bizarre behavior, was noted to be lying flat on the toilet earlier in the day, disorganized. Patient was found lying hospital bed be slightly irritable. Patient states he had not slept at all less evening was trying to get some sleep today. Patient continues to be disorganized, making repetitive statements stating that he would like to know if his family is . Review of Systems All other systems reviewed negative except as stated in HPI Mental Status Examination Appearance: Dirty, Disheveled Consciousness: Alert Orientation: Person, Place Speech: Unremarkable Language: Adequate Fund of Knowledge: Poor Attention and Concentration: Other (fair) Memory: Impaired Mood: Other ("Okay") Affect: Blunt Thought Process & Associations: Circumstantial, Disorganized Thought Content: Hallucinations, Thought blocking Hallucination Type: Auditory Delusion Type: Paranoid Suicidal Ideation: No Suicidal Plan: No Suicidal Intention: No Homicidal Ideation: No Homicidal Plan: No Homicidal Intention: No Insight: Poor Judgment: Poor Assessment and Plan - Assessment (1) Schizophrenia Code(s): F20.9 - Schizophrenia, unspecified Status: Acute - Plan Plan: Patient this time continues with disorganization, responding to internal stimuli , continues with bizarre behavior. Patient at has not been able to start at this and chronic medications as patient does not have health care surrogate and guardian advocate to consent for his medications as he at this time does not have capacity to consent for his own treatment. Patient will likely have to wait mental health court hearing to have a court appointed healthcare surrogate and guardian advocate. Continue to monitor mood and behavior. Discharge planning a progress. Justification for Continued Inpatient Stay: At risk for further decompensation if at lower level of care.
--- NOTE | 2017-10-28 07:27 | P.PNPSY ---
Subjective Remarks: Patient seen for follow, chart reviewed. Discussion nursing staff reported the patient continued to be confused, but is able to communicate his needs. Patient was found lying hospital bed noted to be, cooperative. Patient states that he believes that his family has been , perseverative on this throughout interview, patient was advised that he will present to mental health court tomorrow which she was happy about as he expects to be restarted on his medications as it was explained to him. Patient continues to endorse auditory hallucinations but was unable to elaborate. Patient continues to be noted to be internally preoccupied during interview. Review of Systems All other systems reviewed negative except as stated in HPI Mental Status Examination Appearance: Dirty, Disheveled Consciousness: Alert Orientation: Person, Place Speech: Unremarkable Language: Adequate Fund of Knowledge: Poor Attention and Concentration: Other (fair) Memory: Impaired Mood: Other ("Okay") Affect: Blunt Thought Process & Associations: Circumstantial, Disorganized Thought Content: Hallucinations, Thought blocking Hallucination Type: Auditory Delusion Type: Paranoid Suicidal Ideation: No Suicidal Plan: No Suicidal Intention: No Homicidal Ideation: No Homicidal Plan: No Homicidal Intention: No Insight: Poor Judgment: Poor Assessment and Plan - Assessment (1) Schizophrenia Code(s): F20.9 - Schizophrenia, unspecified Status: Acute - Plan Plan: Patient continues with acute psychosis, auditory hallucinations, disorganized thought process. Patient will present to mental health court tomorrow to petition for involuntary hospitalization as well as to request court appointed healthcare surrogate and guardian advocate. Continue to monitor mood and behavior. Discharge planning in progress. Justification for Continued Inpatient Stay: At risk for further decompensation if at lower level of care
[2017-10-28] MEDS: predniSONE 10 MG Tablet PO SCH (09:04)
[2017-10-28] MEDS: guaiFENesin 600 MG ER Tablet PO SCH ×2 (09:04→20:35)
[2017-10-28] MEDS: Pantoprazole Sodium 20 MG DR Tablet PO SCH (09:04)
[2017-10-28] MEDS: Loratadine 10 MG Tablet PO SCH (09:04)
[2017-10-28] MEDS: Docusate Sodium 100 MG Capsule PO SCH ×2 (09:04→20:35)
[2017-10-28] MEDS: amLODIPine 5 MG Tablet PO SCH (09:04)
[2017-10-28] MEDS: Amantadine 100 MG Capsule PO SCH (09:04)
[2017-10-28] MEDS: Budesonide-Formoterol 160/4.5 MCG 6 GM Inhaler INH SCH ×2 (09:05→20:40)
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
[2017-10-28] MEDS: Enoxaparin Inj 40 MG/0.4 ML Syringe SQ SCH (17:59)
[2017-10-28] MEDS: Montelukast 10 MG Tablet PO SCH (18:02)
[2017-10-29] MEDS: Budesonide-Formoterol 160/4.5 MCG 6 GM Inhaler INH SCH ×2 (08:49→20:41)
[2017-10-29] MEDS: Pantoprazole Sodium 20 MG DR Tablet PO SCH (08:49)
[2017-10-29] MEDS: predniSONE 10 MG Tablet PO SCH (08:49)
[2017-10-29] MEDS: guaiFENesin 600 MG ER Tablet PO SCH ×2 (08:49→20:26)
[2017-10-29] MEDS: amLODIPine 5 MG Tablet PO SCH (08:49)
[2017-10-29] MEDS: Enoxaparin Inj 40 MG/0.4 ML Syringe SQ SCH (08:49)
[2017-10-29] MEDS: Amantadine 100 MG Capsule PO SCH (08:50)
[2017-10-29] MEDS: Docusate Sodium 100 MG Capsule PO SCH ×2 (08:50→20:26)
[2017-10-29] MEDS: Loratadine 10 MG Tablet PO SCH (08:50)
[2017-10-29 10:10] LABS: Baso % (Auto) 0.5 % (0.0-2.0); Eos # (Auto) 0.1 th/mm3 (0.0-0.4); Eos % (Auto) 0.7 % (0.0-4.0); Hematocrit 53.3 % (39.0-51.0); Hemoglobin 17.6 gm/dL (13.0-17.0); Lymph # (Auto) 1.3 th/mm3 (1.0-4.8); Mean Corpuscular Hemoglobin 30.2 pg (27.0-34.0); Mean Corpuscular Volume 91.7 fL (80.0-100.0); Mean Platelet Volume 8.5 fL (7.0-11.0); Mono # (Auto) 0.6 th/mm3 (0.0-0.9); Mono % (Auto) 5.9 % (0.0-8.0); Neut # (Auto) 7.6 th/mm3 (1.8-7.7); Neut % (Auto) 78.9 % (16.0-70.0); Platelet Count 116 th/mm3 (150-450); Red Blood Count 5.81 mil/mm3 (4.50-5.90); Red Cell Distribution Width 14.4 % (11.6-17.2); White Blood Count 9.6 th/mm3 (4.0-11.0)
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
--- NOTE | 2017-10-29 14:36 | P.PNPSY ---
Subjective Remarks: Patient seen for follow, chart reviewed. Discussion nursing staff reported the patient continues with disorganized behavior, paranoid. Patient was presented to mental health court today which patient was assigned [facility] business representative, Rosalind Martines, to consent for his treatment. Patient continues report for sleep , continues to wait to restart his psychotropic medications. Patient continues to be perseverative on his family being . Patient continues on constant O2 due to COPD. Attempt to contact patient's [facility] psychiatrist, Dr. Tadeo, was unsuccessful as there was no answer. Review of Systems All other systems reviewed negative except as stated in HPI Mental Status Examination Appearance: Dirty, Disheveled Consciousness: Alert Orientation: Person, Place Speech: Unremarkable Language: Adequate Fund of Knowledge: Poor Attention and Concentration: Other (fair) Memory: Impaired Mood: Other ("Okay") Affect: Blunt Thought Process & Associations: Circumstantial, Disorganized Thought Content: Hallucinations, Thought blocking Hallucination Type: Auditory Delusion Type: Paranoid Suicidal Ideation: No Suicidal Plan: No Suicidal Intention: No Homicidal Ideation: No Homicidal Plan: No Homicidal Intention: No Insight: Poor Judgment: Poor Assessment and Plan - Assessment (1) Schizophrenia Code(s): F20.9 - Schizophrenia, unspecified Status: Acute - Plan Plan: Patient this time continues with disorganized behavior, auditory hallucinations perseveration on police the family has been . Patient was presented to mental health court which patient was granted involuntary hospitalization and had a guardian advocate assigned through [facility] business representative. Consent for treatment was reviewed with Ms. Rosalind Wilson who is now court assigned [place] and [facility] and patient will resume clozapine at 50 mg p.o. at bedtime, Buproprion 150mg PO daily, Lorazepam 1 mg every 6 hours as needed anxiety, Benadryl 50 mg at bedtime as needed for insomnia. CBC shows absolute neutrophil count of 7.6. We will continue to monitor mood and behavior. Discharge planning in progress. Justification for Continued Inpatient Stay: At risk for further decompensation at lower level of care.
[2017-10-30] MEDS: LORazepam 1 MG Tablet PO PRN ×2 (04:49→20:48)
[2017-10-30] MEDS: Tiotropium Bromide 18 MCG/ACT Inhaler INH SCH ×2 (07:40→09:37)
[2017-10-30] MEDS: Montelukast 10 MG Tablet PO SCH ×2 (07:40→17:27)
[2017-10-30] MEDS: amLODIPine 5 MG Tablet PO SCH (09:36)
[2017-10-30] MEDS: Pantoprazole Sodium 20 MG DR Tablet PO SCH (09:36)
[2017-10-30] MEDS: buPROPion 150 MG 12 HR Tablet PO SCH (09:37)
[2017-10-30] MEDS: Loratadine 10 MG Tablet PO SCH (09:37)
[2017-10-30] MEDS: guaiFENesin 600 MG ER Tablet PO SCH ×2 (09:37→20:48)
[2017-10-30] MEDS: predniSONE 10 MG Tablet PO SCH (09:37)
[2017-10-30] MEDS: Amantadine 100 MG Capsule PO SCH (09:37)
[2017-10-30] MEDS: Docusate Sodium 100 MG Capsule PO SCH ×2 (09:37→20:48)
[2017-10-30] MEDS: Enoxaparin Inj 40 MG/0.4 ML Syringe SQ SCH (09:37)
[2017-10-30] MEDS: Budesonide-Formoterol 160/4.5 MCG 6 GM Inhaler INH SCH ×2 (09:38→20:49)
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
--- NOTE | 2017-10-30 14:19 | P.PNPSY ---
Subjective Remarks: Patient seen for follow, chart reviewed. Discussion nursing staff reported to have been no cheeses, started medication last night and had difficulty with sleeping less evening. Patient was found sitting in hospital eating breakfast noted B, cooperative. Patient states that he slept poorly last evening but slightly better with the start of his medications. Patient reportedly has been "good" continue to be noted to be disorganized internally preoccupied during interview but denying any perceptual disturbances. Patient then was found ambulating on unit. Review of Systems All other systems reviewed negative except as stated in HPI Mental Status Examination Appearance: Dirty, Disheveled Consciousness: Alert Orientation: Person, Place Speech: Unremarkable Language: Adequate Fund of Knowledge: Poor Attention and Concentration: Other (fair) Memory: Impaired Mood: Other ("Okay") Affect: Blunt Thought Process & Associations: Circumstantial, Disorganized Thought Content: Hallucinations, Thought blocking Hallucination Type: Auditory Delusion Type: Paranoid Suicidal Ideation: No Suicidal Plan: No Suicidal Intention: No Homicidal Ideation: No Homicidal Plan: No Homicidal Intention: No Insight: Poor Judgment: Poor Assessment and Plan - Assessment (1) Schizophrenia Code(s): F20.9 - Schizophrenia, unspecified Status: Acute - Plan Plan: Patient this time continues with some disorganization, continue internal preoccupation. We will continue to titrate clozapine to 100 mg p.o. at bedtime with upper titration for psychosis. Continue to titrate over the weekend. Continue rest of medications. Continue to monitor mood and behavior. Discharge planning in progress. Justification for Continued Inpatient Stay: At risk for further decompensation a lower level of care.
[2017-10-31] MEDS: Loratadine 10 MG Tablet PO SCH (09:48)
[2017-10-31] MEDS: buPROPion 150 MG 12 HR Tablet PO SCH (09:48)
[2017-10-31] MEDS: amLODIPine 5 MG Tablet PO SCH (09:48)
[2017-10-31] MEDS: Budesonide-Formoterol 160/4.5 MCG 6 GM Inhaler INH SCH ×2 (09:49→20:48)
[2017-10-31] MEDS: Amantadine 100 MG Capsule PO SCH (09:49)
[2017-10-31] MEDS: Docusate Sodium 100 MG Capsule PO SCH ×2 (09:49→20:47)
[2017-10-31] MEDS: guaiFENesin 600 MG ER Tablet PO SCH ×2 (09:49→20:47)
[2017-10-31] MEDS: Pantoprazole Sodium 20 MG DR Tablet PO SCH (09:49)
[2017-10-31] MEDS: Enoxaparin Inj 40 MG/0.4 ML Syringe SQ SCH (09:49)
[2017-10-31] MEDS: predniSONE 10 MG Tablet PO SCH (09:49)
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
--- NOTE | 2017-10-31 14:10 | P.PNPSY ---
Subjective Remarks: Pt seen and discussed with staff. Chart reviewed. He has been cooperative with medications and care. Thought blocking is lessening and he is less disorganized in thought process. He is more redirectable by staff but requires close supervision due to confusion. No aggression. Mental Status Examination Appearance: Disheveled, Other (hospital clothes) Consciousness: Alert Orientation: Person, Place Speech: Slow Language: Adequate Fund of Knowledge: Poor Attention and Concentration: Easily distracted, Other Memory: Impaired Mood: Other (calm) Affect: Flat Thought Process & Associations: Disorganized Thought Content: Thought blocking Hallucination Type: Auditory Delusion Type: Paranoid Suicidal Ideation: No Suicidal Plan: No Suicidal Intention: No Homicidal Ideation: No Homicidal Plan: No Homicidal Intention: No Insight: Poor Judgment: Poor Assessment and Plan - Assessment (1) Schizophrenia Code(s): F20.9 - Schizophrenia, unspecified Status: Acute - Plan Plan: Continue current tx plan Justification for Continued Inpatient Stay: impairments in reality testing and self care
[2017-10-31] MEDS: Tiotropium Bromide 18 MCG/ACT Inhaler INH SCH (16:16)
[2017-10-31] MEDS: Montelukast 10 MG Tablet PO SCH (18:22)
[2017-11-01] MEDS: Amantadine 100 MG Capsule PO SCH (08:26)
[2017-11-01] MEDS: Tiotropium Bromide 18 MCG/ACT Inhaler INH SCH (08:26)
[2017-11-01] MEDS: Pantoprazole Sodium 20 MG DR Tablet PO SCH (08:26)
[2017-11-01] MEDS: Docusate Sodium 100 MG Capsule PO SCH ×2 (08:26→21:28)
[2017-11-01] MEDS: buPROPion 150 MG 12 HR Tablet PO SCH (08:26)
[2017-11-01] MEDS: guaiFENesin 600 MG ER Tablet PO SCH ×2 (08:26→21:28)
[2017-11-01] MEDS: predniSONE 10 MG Tablet PO SCH (08:27)
[2017-11-01] MEDS: Budesonide-Formoterol 160/4.5 MCG 6 GM Inhaler INH SCH ×2 (08:27→21:29)
[2017-11-01] MEDS: Enoxaparin Inj 40 MG/0.4 ML Syringe SQ SCH (08:27)
[2017-11-01] MEDS: Loratadine 10 MG Tablet PO SCH (08:27)
[2017-11-01] MEDS: amLODIPine 5 MG Tablet PO SCH (08:27)
--- NOTE | 2017-11-01 15:04 | P.PNPSY ---
Subjective Remarks: Pt seen and discussed with staff. He has been cooperative and compliant with medications and care. He is confused with thought blocking but is slowly improving. No aggression or agitation today. Appetite is improved. Mental Status Examination Appearance: Disheveled, Other (hospital clothes) Consciousness: Alert Orientation: Person, Place Speech: Slow Language: Adequate Fund of Knowledge: Poor Attention and Concentration: Easily distracted, Other Memory: Impaired Mood: Other ("better, ok", calm) Affect: Flat Thought Process & Associations: Disorganized Thought Content: Thought blocking Hallucination Type: Auditory Delusion Type: Paranoid Suicidal Ideation: No Suicidal Plan: No Suicidal Intention: No Homicidal Ideation: No Homicidal Plan: No Homicidal Intention: No Insight: Poor Judgment: Poor Assessment and Plan - Assessment (1) Schizophrenia Code(s): F20.9 - Schizophrenia, unspecified Status: Acute - Plan Plan: Continue current tx plan Justification for Continued Inpatient Stay: impairments in reality testing and self care
[2017-11-01] MEDS: Montelukast 10 MG Tablet PO SCH (18:42)
[2017-11-02] MEDS: Acetaminophen 325 MG Tablet PO PRN (09:16)
[2017-11-02] MEDS: Budesonide-Formoterol 160/4.5 MCG 6 GM Inhaler INH SCH ×2 (09:17→20:29)
[2017-11-02] MEDS: Tiotropium Bromide 18 MCG/ACT Inhaler INH SCH (09:17)
[2017-11-02] MEDS: guaiFENesin 600 MG ER Tablet PO SCH ×2 (09:18→20:24)
[2017-11-02] MEDS: buPROPion 150 MG 12 HR Tablet PO SCH (09:18)
[2017-11-02] MEDS: Loratadine 10 MG Tablet PO SCH (09:18)
[2017-11-02] MEDS: Amantadine 100 MG Capsule PO SCH (09:18)
[2017-11-02] MEDS: amLODIPine 5 MG Tablet PO SCH (09:19)
[2017-11-02] MEDS: Docusate Sodium 100 MG Capsule PO SCH ×2 (09:19→20:25)
[2017-11-02] MEDS: predniSONE 10 MG Tablet PO SCH (09:19)
[2017-11-02] MEDS: Pantoprazole Sodium 20 MG DR Tablet PO SCH (09:19)
[2017-11-02] MEDS: Enoxaparin Inj 40 MG/0.4 ML Syringe SQ SCH (09:19)
[2017-11-02] MEDS: LORazepam 1 MG Tablet PO PRN ×2 (14:34→20:24)
--- NOTE | 2017-11-02 16:06 | P.PNPSY ---
Subjective Remarks: Patient seen for follow up; chart reviewed. Discussion with nursing staff reported that the patient slept and cooperative. Patient found lying on hospital bed, calm and cooperative. He states feeling better, continues with some confusion, not being able to recall of this past weekend stating "don't know". He reports tolerating medications well, has some disorganized behavior, noted to be up and walking around the unit and directed back to his room and remain on O2 supplementation. He denies any AH but noted to be with internal preoccupation still. Denies any SI or HI. Review of Systems All other systems reviewed negative except as stated in HPI Mental Status Examination Appearance: Disheveled, Other (hospital clothes) Consciousness: Alert Orientation: Person, Place Speech: Slow Language: Adequate Fund of Knowledge: Poor Attention and Concentration: Easily distracted, Other Memory: Impaired Mood: Other ("fine") Affect: Flat Thought Process & Associations: Disorganized Thought Content: Thought blocking (lessening) Hallucination Type: Auditory (denies) Delusion Type: Paranoid Suicidal Ideation: No Suicidal Plan: No Suicidal Intention: No Homicidal Ideation: No Homicidal Plan: No Homicidal Intention: No Insight: Poor Judgment: Poor Assessment and Plan - Assessment (1) Schizophrenia Code(s): F20.9 - Schizophrenia, unspecified Status: Acute - Plan Plan: Patient continues with disorganized behavior but redirectible, denies AH but noted with thought blocking and internal preoccupation but lessening. Continue to titrate clozapine to 150mg PO HS for psychosis. Continue to monitor mood and behavior. Discharge planning in progress. Patient likely to require short term rehab as per physical therapy assessment. Justification for Continued Inpatient Stay: At risk for further decompensation at lower level of care.
[2017-11-02] MEDS: Montelukast 10 MG Tablet PO SCH (18:33)
[2017-11-03] MEDS: Acetaminophen 325 MG Tablet PO PRN (04:51)
[2017-11-03] MEDS: Budesonide-Formoterol 160/4.5 MCG 6 GM Inhaler INH SCH ×2 (08:12→21:16)
[2017-11-03] MEDS: predniSONE 10 MG Tablet PO SCH (08:13)
[2017-11-03] MEDS: guaiFENesin 600 MG ER Tablet PO SCH ×2 (08:13→20:12)
[2017-11-03] MEDS: Loratadine 10 MG Tablet PO SCH (08:13)
[2017-11-03] MEDS: amLODIPine 5 MG Tablet PO SCH (08:13)
[2017-11-03] MEDS: Docusate Sodium 100 MG Capsule PO SCH ×2 (08:13→20:12)
[2017-11-03] MEDS: Amantadine 100 MG Capsule PO SCH (08:13)
[2017-11-03] MEDS: Pantoprazole Sodium 20 MG DR Tablet PO SCH (08:13)
[2017-11-03] MEDS: buPROPion 150 MG 12 HR Tablet PO SCH (08:14)
[2017-11-03] MEDS: Tiotropium Bromide 18 MCG/ACT Inhaler INH SCH (08:14)
[2017-11-03] MEDS: Enoxaparin Inj 40 MG/0.4 ML Syringe SQ SCH (08:14)
[2017-11-03] MEDS: LORazepam 1 MG Tablet PO PRN ×2 (11:56→20:13)
--- NOTE | 2017-11-03 14:12 | P.PNPSY ---
Subjective Remarks: Patient seen for follow up, chart reviewed. Discussion with nursing staff reported the patient has a cooperative noted be more organized. Patient was found lying hospital bed asleep was able to wake up to interact with interview today. Patient states his mood has been "good" reported eating and drinking well denies any physical complaints at this time, with adequate bowel movement. Patient continues to noted be somewhat disorganized, with very concrete answers and at times repeating his statements. Patient reports having slept poorly less evening, denying any perceptional services continue to be noted to be internally preoccupied. Patient later after interview and become upset and threw his tray, stated he was upset thinking about of the possibility of him going to a different facility which was mentioned during interview of looking into facility where he would require more assistance due to his chronic medical illnesses. Review of Systems All other systems reviewed negative except as stated in HPI Mental Status Examination Appearance: Disheveled, Other (hospital clothes) Consciousness: Alert Orientation: Person, Place Speech: Slow Language: Adequate Fund of Knowledge: Poor Attention and Concentration: Easily distracted, Other Memory: Impaired Mood: Other ("fine") Affect: Flat Thought Process & Associations: Disorganized Thought Content: Thought blocking (lessening) Hallucination Type: Auditory (denies) Delusion Type: Paranoid Suicidal Ideation: No Suicidal Plan: No Suicidal Intention: No Homicidal Ideation: No Homicidal Plan: No Homicidal Intention: No Insight: Poor Judgment: Poor Assessment and Plan - Assessment (1) Schizophrenia Code(s): F20.9 - Schizophrenia, unspecified Status: Acute - Plan Plan: Patient continues to have some disorganization, some perseveration on place to be discharged to. Patient continues to appear to be internally preoccupied with less thought blocking. We will continue to titrate clozapine to 200 mg p.o. daily at bedtime for psychosis. We will continue to monitor mood and behavior. Patient received Ativan 1 mg 10 for agitation. Continue rest of medications. We will continue to monitor mood and behavior. Discharge planning in progress. Justification for Continued Inpatient Stay: At risk of further decompensation a lower level care.
[2017-11-03] MEDS: Montelukast 10 MG Tablet PO SCH (18:00)
[2017-11-04] MEDS: buPROPion 150 MG 12 HR Tablet PO SCH (08:01)
[2017-11-04] MEDS: guaiFENesin 600 MG ER Tablet PO SCH ×2 (08:02→20:40)
[2017-11-04] MEDS: Budesonide-Formoterol 160/4.5 MCG 6 GM Inhaler INH SCH ×2 (08:02→20:40)
[2017-11-04] MEDS: Amantadine 100 MG Capsule PO SCH (08:02)
[2017-11-04] MEDS: Enoxaparin Inj 40 MG/0.4 ML Syringe SQ SCH (08:02)
[2017-11-04] MEDS: Loratadine 10 MG Tablet PO SCH (08:02)
[2017-11-04] MEDS: predniSONE 10 MG Tablet PO SCH (08:02)
[2017-11-04] MEDS: Pantoprazole Sodium 20 MG DR Tablet PO SCH (08:02)
[2017-11-04] MEDS: amLODIPine 5 MG Tablet PO SCH (08:02)
[2017-11-04] MEDS: Docusate Sodium 100 MG Capsule PO SCH ×2 (08:02→20:38)
[2017-11-04] MEDS: Tiotropium Bromide 18 MCG/ACT Inhaler INH SCH (08:02)
[2017-11-04] MEDS: Acetaminophen 325 MG Tablet PO PRN (13:32)
--- NOTE | 2017-11-04 14:40 | P.PNPSY ---
Subjective Remarks: Patient seen for follow, chart reviewed. Discussion reported the patient slept well no aggressive behavior. Patient was found sitting hospital chair with respiratory therapist noted to be calm, cooperative. Patient states sleeping well, eating and drinking well, mood being "been ok...not as bad", denies auditory or visual hallucinations, denies any SI or HI. Patient noted to have less disorganized thought process, at times repeating himself but able to answer appropriately. Review of Systems All other systems reviewed negative except as stated in HPI Mental Status Examination Appearance: Appropriate Consciousness: Alert Orientation: Person, Place Speech: Slow Language: Adequate Fund of Knowledge: Poor Attention and Concentration: Easily distracted, Other Memory: Impaired Mood: Other ("ok") Affect: Flat Thought Process & Associations: Disorganized (at times but lessening) Thought Content: Thought blocking (lessening) Hallucination Type: Auditory (denies) Delusion Type: Paranoid (lessening) Suicidal Ideation: No Suicidal Plan: No Suicidal Intention: No Homicidal Ideation: No Homicidal Plan: No Homicidal Intention: No Insight: Poor Judgment: Poor Assessment and Plan - Assessment (1) Schizophrenia Code(s): F20.9 - Schizophrenia, unspecified Status: Acute - Plan Plan: Patient this time continues to be noted with improvement in mood, although patient had minor episode of agitation was redirectable continues to have occasional disorganization at times but mostly coherent and answering appropriately to interview. We will continue to titrate clozapine to 250 mg p.o. at bedtime for psychosis. Continue rest of medications. We will continue to monitor with behavior. Discharge planning a progress. Justification for Continued Inpatient Stay: At risk of further decompensation a lower level of care.
[2017-11-04] MEDS: Montelukast 10 MG Tablet PO SCH (17:43)
[2017-11-04] MEDS: LORazepam 1 MG Tablet PO PRN (20:39)
[2017-11-05 09:44] LABS: Baso # (Auto) 0.1 th/mm3 (0.0-0.2); Baso % (Auto) 0.7 % (0.0-2.0); Eos # (Auto) 0.1 th/mm3 (0.0-0.4); Eos % (Auto) 1.1 % (0.0-4.0); Hematocrit 46.9 % (39.0-51.0); Hemoglobin 15.6 gm/dL (13.0-17.0); Lymph # (Auto) 1.7 th/mm3 (1.0-4.8); Lymph % (Auto) 17.6 % (9.0-44.0); Mean Corpuscular HGB Conc 33.2 % (32.0-36.0); Mean Corpuscular Hemoglobin 30.5 pg (27.0-34.0); Mean Corpuscular Volume 91.9 fL (80.0-100.0); Mean Platelet Volume 8.2 fL (7.0-11.0); Mono # (Auto) 0.8 th/mm3 (0.0-0.9); Mono % (Auto) 8.6 % (0.0-8.0); Neut # (Auto) 6.9 th/mm3 (1.8-7.7); Platelet Count 107 th/mm3 (150-450); Red Blood Count 5.11 mil/mm3 (4.50-5.90); Red Cell Distribution Width 14.3 % (11.6-17.2); White Blood Count 9.6 th/mm3 (4.0-11.0)
[2017-11-05] MEDS: guaiFENesin 600 MG ER Tablet PO SCH (09:44)
[2017-11-05] MEDS: Pantoprazole Sodium 20 MG DR Tablet PO SCH (09:44)
[2017-11-05] MEDS: Tiotropium Bromide 18 MCG/ACT Inhaler INH SCH (09:44)
[2017-11-05] MEDS: Docusate Sodium 100 MG Capsule PO SCH (09:44)
[2017-11-05] MEDS: predniSONE 10 MG Tablet PO SCH (09:44)
[2017-11-05] MEDS: amLODIPine 5 MG Tablet PO SCH (09:44)
[2017-11-05] MEDS: Loratadine 10 MG Tablet PO SCH (09:44)
[2017-11-05] MEDS: buPROPion 150 MG 12 HR Tablet PO SCH (09:44)
[2017-11-05] MEDS: Amantadine 100 MG Capsule PO SCH (09:44)
[2017-11-05] MEDS: Budesonide-Formoterol 160/4.5 MCG 6 GM Inhaler INH SCH (09:45)
[2017-11-05] MEDS: Enoxaparin Inj 40 MG/0.4 ML Syringe SQ SCH (09:45)
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
== END 2017-11-05 16:10 ==
LOC: NEDAMB 16:07 → NEDA 10-20 13:06 → H4EA 10-20 13:46
PROVIDERS: ADMIT Student in an Organized Health Care Education/Training Program; ATTEND Student in an Organized Health Care Education/Training Program